=== PATIENT | female | born 1945 | race Caucasian/White ===

== ENCOUNTER 2019-03-15 10:06 | Outpatient (RCR) | payer MEDICARE, OTHER, SELFPAY | END 2019-04-10 00:01 | LOC: ONCMED 10:06 | PROVIDERS: Family Provider Nurse Practitioner Family; Visit Provider Internal Medicine Medical Oncology | DX: Z51.12 Encounter for antineoplastic immunotherapy (principal); C43.62 Malignant melanoma of left upper limb, including shoulder; C77.8 Secondary and unspecified malignant neoplasm of lymph nodes of multiple regions; M16.12 Unilateral primary osteoarthritis, left hip; I10 Essential (primary) hypertension; E03.9 Hypothyroidism, unspecified; E66.9 Obesity, unspecified; K21.9 Gastro-esophageal reflux disease without esophagitis; G47.33 Obstructive sleep apnea (adult) (pediatric); F41.8 Other specified anxiety disorders; D50.9 Iron deficiency anemia, unspecified; Z90.49 Acquired absence of other specified parts of digestive tract; Z87.01 Personal history of pneumonia (recurrent); Z85.038 Personal history of other malignant neoplasm of large intestine; Z87.442 Personal history of urinary calculi | CPT/HCPCS: 36415; 80053; 82274; 84439; 84443; 85025; 96413; 99214; J7050; J9299 ×2 ==

== ENCOUNTER 2019-04-16 07:20 | Outpatient (RCR) | payer MEDICARE, OTHER, SELFPAY ==
[2019-04-16 17:34] LABS: Basophils % 0.6 %; Eosinophils # 0.1 10^3/uL (0.0-0.8); Eosinophils % 2.3 %; Hemoglobin 10.2 g/dL (11.5-15.3); Lymphocytes # 1.6 10^3/uL (0.8-4.8); Lymphocytes % 34.9 %; Mean Corpuscular HGB Conc 29.1 g/dL (30.0-36.0); Mean Corpuscular Hemoglobin 29.1 pg (28.0-34.0); Mean Corpuscular Volume 99.7 fL (81-99); Mean Platelet Volume 9.9 fL (7.4-10.4); Monocytes # 0.5 10^3/uL (0.2-0.9); Monocytes % 10.4 %; Neutrophils # 2.4 10^3/uL (1.8-7.7); Neutrophils % 51.6 %; Nucleated Red Blood Cells % 0 %; Platelet Count 189 10^3/cmm (130-400); Red Blood Count 3.51 10^6/uL (4.1-5.3); White Blood Count 4.7 10^3/uL (4.0-10.0)
[2019-04-16 23:26] LABS: Alanine Aminotransferase 15 U/L (0-33); Albumin Level 4.3 g/dL (3.5-5.2); Alkaline Phosphatase 137 IU/L (35-105); Anion Gap 16.1 (5-19); Aspartate Amino Transferase 30 U/L (0-32); Blood Urea Nitrogen 12 mg/dL (8-23); Calcium 9.9 mg/Dl (8.8-10.2); Carbon Dioxide 29 mmol/L (22-29); Chloride 101 mmol/L (98-107); Globulin 3.3 g/dL (1.3-4.6); Glucose 154 mg/dL (74-106); Lactate Dehydrogenase 246 U/L (135-214); Potassium 4.1 mmol/L (3.5-5.1); Sodium 142 mmol/L (136-145); Thyroid Stimulating Hormone 4.37 uIU/mL (0.27-4.20); Total Bilirubin 0.7 mg/dL (0.15-1.2); Total Protein 7.6 g/dL (6.6-8.7)
== END 2019-04-16 23:59 | disposition home or self-care (01) ==
LOC: ONCMED 07:20
PROVIDERS: Family Provider Nurse Practitioner Family; Visit Provider Internal Medicine Medical Oncology
DX: C43.62 Malignant melanoma of left upper limb, including shoulder (principal); E03.9 Hypothyroidism, unspecified; Z79.899 Other long term (current) drug therapy
CPT/HCPCS: 80053; 83615; 84443; 85025

== ENCOUNTER 2019-05-10 13:50 | Outpatient (RCR) | payer MEDICARE, OTHER, SELFPAY ==
[2019-04-17] MEDS: sodium chloride 0.9% 250 ML 50 ML IV (13:57)
[2019-04-19] MEDS: sodium chloride 0.9% 250 ML 50 ML IV (15:00)
[2019-05-01] MEDS: sodium chloride 0.9% 250 ML 50 ML IV (13:45)
--- NOTE | 2019-05-10 13:58 | CT_ITS ---
WS: [id number] CT CHEST TECHNIQUE: Contrast enhanced CT of the chest with coronal and sagittal reformatted images. CLINICAL INFORMATION: RESTAGING METASTATIC MELANOMA COMPARISON: CTA chest 8 19,019 DLP: 993.[address] scans at [facility] use at least one of these dose optimization techniques: automat ed exposure control; mA and/or kV adjustment per patient size (includes targeted exams where dose is matched to clinical indication); or iterative reconstruction. FINDINGS:Prominent left axillary lymphadenopathy with large axillary mass/lymph node. This is increas ed in size since the prior examination today measuring 5.5 x 2.9 x 4.4 CM. Additional smaller enlarge d axillary lymph nodes the largest measuring 13 mm. Prominent left supraclavicular lymph node. Mild chronic emphysematous changes. No acute pulmonary infiltrates. No focal consolidation or pleural fluid. Bibasilar atelectasis. A few calcified granulomas. Calcified right hilar and subcarinal lymph nodes. Stable 4 mm noncalcified pulmonary nodule in the right upper lobe. Proximal main pulmonary arteries are normal. Normal caliber thoracic aorta. Adrenal glands are normal . Fatty atrophy of the pancreas. Low-attenuation lesion in the dome of the liver likely small hepatic cyst or hemangioma is unchanged measuring 12 mm. Normal caliber upper abdominal aorta. CT/CT chest w con* [id number] IMPRESSION: 1. Interval increase in size of the left axillary mass/lymph node today measur ing 5.5 x 2.9 x 4.4 cm suspicious for disease progression. Additional surroundi ng enlarged left axillary lymph nodes are similar in appearance. Additional pro minent left supraclavicular lymph node is stable. 2. No right axillary lymphadenopathy. 3. Stable 4 mm noncalcified nodule in the right upper lobe. 4. Chronic emphysematous changes with a few calcified granulomas. Calcified hi lar and subcarinal lymph nodes. 5. No mediastinal or hilar lymphadenopathy.
[2019-05-10] MEDS: iohexol 300 mg/mL 100 mL Btl 95 ML IV (15:06)
== END 2019-05-11 23:59 | disposition home or self-care (01) ==
LOC: RAD 13:50
PROVIDERS: Family Provider Nurse Practitioner Family; Visit Provider Nurse Practitioner
DX: Z51.12 Encounter for antineoplastic immunotherapy (principal); C43.62 Malignant melanoma of left upper limb, including shoulder; C77.8 Secondary and unspecified malignant neoplasm of lymph nodes of multiple regions; D50.9 Iron deficiency anemia, unspecified; Z90.49 Acquired absence of other specified parts of digestive tract; M16.12 Unilateral primary osteoarthritis, left hip; I10 Essential (primary) hypertension; E03.9 Hypothyroidism, unspecified; E66.9 Obesity, unspecified; G47.33 Obstructive sleep apnea (adult) (pediatric); K21.9 Gastro-esophageal reflux disease without esophagitis; F41.8 Other specified anxiety disorders; R60.0 Localized edema; Z79.891 Long term (current) use of opiate analgesic; Z85.038 Personal history of other malignant neoplasm of large intestine; Z87.01 Personal history of pneumonia (recurrent); Z87.442 Personal history of urinary calculi; Z87.891 Personal history of nicotine dependence; Z92.21 Personal history of antineoplastic chemotherapy
CPT/HCPCS: 71260; 96365; 96367; 96413; 99214; A4222; J1439; J7050; J9299

== ENCOUNTER 2019-06-01 05:41 | Outpatient (RCR) | payer MEDICARE, OTHER, SELFPAY ==
[2019-05-14 14:54] LABS: Basophils % 0.3 %; Eosinophils # 0.1 10^3/uL (0.0-0.8); Eosinophils % 2.6 %; Lymphocytes # 1.1 10^3/uL (0.8-4.8); Lymphocytes % 30.7 %; Mean Corpuscular HGB Conc 30.6 g/dL (30.0-36.0); Mean Corpuscular Hemoglobin 29.6 pg (28.0-34.0); Mean Platelet Volume 9.5 fL (7.4-10.4); Monocytes # 0.3 10^3/uL (0.2-0.9); Monocytes % 8.7 %; Neutrophils % 57.4 %; Nucleated Red Blood Cells % 0 %; Platelet Count 147 10^3/cmm (130-400); Red Blood Count 3.71 10^6/uL (4.1-5.3); Red Cell Distribution Width 16.8 % (12.1-15.1); White Blood Count 3.5 10^3/uL (4.0-10.0)
[2019-05-14 15:25] LABS: Alanine Aminotransferase 23 U/L (0-33); Albumin Level 3.6 g/dL (3.5-5.2); Alkaline Phosphatase 131 IU/L (35-105); Anion Gap 14.8 (5-19); Aspartate Amino Transferase 39 U/L (0-32); Blood Urea Nitrogen 10 mg/dL (8-23); Calcium 9.6 mg/dL (8.5-10.5); Carbon Dioxide 26 mmol/L (22-29); Chloride 103 mmol/L (98-107); Globulin 3.9 g/dL (1.3-4.6); Glucose 148 mg/dL (74-106); Potassium 3.8 mmol/L (3.5-5.1); Sodium 140 mmol/L (136-145); Thyroid Stimulating Hormone 1.07 uIU/mL (0.27-4.20); Total Bilirubin 1.1 mg/dL (0.15-1.2); Total Protein 7.5 g/dL (6.6-8.7)
[2019-05-24 21:19] LABS: Glucose Urine UA Norm (Normal); Ketones Urine Negative (Negative); Protein Urine Neg (Negative); Urine Appearance Cloudy (CLEAR); Urine Color Dark Yellow (Yellow); pH Urine 6 (5-7)
[2019-05-24 21:20] LABS: Add Urine Microscopic? YES; Bilirubin Urine Neg (NEGATIVE); Blood Urine 3+ (Negative); Leukocyte Esterase Urine Negative (Negative); Nitrate Urine Negative (Negative); Urobilinogen Urine 1 mg/dL (Negative)
[2019-05-24 21:22] LABS: RBC Urine 40-50 /hpf (0-2); WBC Urine 0-4 /hpf (0-5)
[2019-05-24 21:23] LABS: Add Urine Culture? No; Bacteria Urine TRACE; Calcium Oxalate Crystals Urine 40-55 /hpf; Squamous Epithelial Cell Urine 25-40 (0-5); Transitional Epi Cells Urine 0-4 /hpf
[2019-05-31 10:25] LABS: Basophils % 0.8 %; Eosinophils # 0.1 10^3/uL (0.0-0.8); Eosinophils % 3.5 %; Hematocrit 36.3 % (37.0-47.0); Hemoglobin 11.5 g/dL (11.5-15.3); Lymphocytes # 1.2 10^3/uL (0.8-4.8); Lymphocytes % 32.1 %; Mean Corpuscular HGB Conc 31.7 g/dL (30.0-36.0); Mean Corpuscular Hemoglobin 31.5 pg (28.0-34.0); Mean Corpuscular Volume 99.5 fL (81-99); Mean Platelet Volume 9.3 fL (7.4-10.4); Monocytes # 0.4 10^3/uL (0.2-0.9); Monocytes % 9.8 %; Neutrophils % 53.5 %; Nucleated Red Blood Cells % 0 %; Platelet Count 154 10^3/cmm (130-400); Red Blood Count 3.65 10^6/uL (4.1-5.3); Red Cell Distribution Width 15.9 % (12.1-15.1); White Blood Count 3.7 10^3/uL (4.0-10.0)
[2019-05-31 10:52] LABS: Alanine Aminotransferase 23 U/L (0-33); Albumin Level 3.5 g/dL (3.5-5.2); Alkaline Phosphatase 131 IU/L (35-105); Anion Gap 12.3 (5-19); Aspartate Amino Transferase 41 U/L (0-32); Blood Urea Nitrogen 8 mg/dL (8-23); Calcium 9.7 mg/dL (8.5-10.5); Carbon Dioxide 29 mmol/L (22-29); Chloride 102 mmol/L (98-107); Globulin 3.8 g/dL (1.3-4.6); Glucose 101 mg/dL (65-115); Potassium 4.3 mmol/L (3.5-5.1); Sodium 139 mmol/L (136-145); Thyroid Stimulating Hormone 3.66 uIU/mL (0.27-4.20); Total Bilirubin 0.9 mg/dL (0.15-1.2); Total Protein 7.3 g/dL (6.6-8.7)
--- NOTE | 2019-06-03 10:02 | ONC FU_ITS ---
Dr. Kyle Patient Follow-Up Note Patient: Laurence Malave Unit #: [id number]: 1945 Dicatated By: Benjamín Kyle M.D.Date of Visit:Jun 01, 2019 Onc Med Follow-up/Prog Note Chief Complaint: Melanoma. History of Present Illness: This is a 73 year-old woman with malignant melanoma involving the left upper back/left shoulder. By clinical evaluation her disease appeared to be stage IV (pT4b, cN3, cM1a) at initial diagnosis in June 2018. She has a prior history of stage III colon cancer, having undergone right hemicolectomy and adjuvant chemotherapy approximately 1994. There has been no evidence of recurrence. She had been seen by Dr. Rubi in June for a skin lesion in the left upper back/left shoulder area. It had been enlarging over a period of about a year. Exam at that time noted a pedunculated, flesh-colored, lobulated lesion with some necrosis measuring 6 to 7 cm in greatest diameter. She underwent excisional biopsy on 06/15/2018. Pathology showed infiltrating malignant melanoma measuring 6.5 x 6.0 x 4.0 cm. Tumor was noted to penetrate the dermal connective tissue into underlying subcutaneous adipose tissue. The Breslow depth was greater than 4.00 mm. The tumor was noted to have surface ulceration. An incidental subcutaneous lymph node in the specimen was free of metastatic tumor. Grossly the tumor appeared to be completely excised with the distance from the tumor to lateral and deep margins noted to be greater than 1 cm. I had seen her on 07/26/2018 regard to further management of the melanoma. At that time she was noted on exam to have a palpable left supraclavicular lymph node. Her staging PET/CT on 07/29/2018 showed an FDG positive left supraclavicular lymph node measuring 2.0 cm, SUV 14.5. Also noted was an FDG avid left axillary lymph node measuring 5.5 x 3.6 cm, SUV 26.6. Other scattered axillary lymph nodes measuring up to 1.6 cm were mildly FDG positive. There were additional suspicious mediastinal lymph nodes in the AP window and prevascular regions. There were no other areas of metastatic involvement noted. In the meantime, her tumor was sent for BRAF mutation analysis, and a BRAF 600 mutation was not detected. I had conferred with one of the melanoma specialists at [facility], and she was given the option to be seen there for second opinion evaluation. As an alternative, it was recommended that she proceed with a trial of immunotherapy as opposed to attempting further surgical resection with axillary/supraclavicular lymph node dissections. She opted to proceed with medical therapy, and arrangements were made with Dr. Rubi for placement of Port-A-Cath venous access device. In the meantime, on 08/07/2018 she was admitted to the hospital with strep pneumoniae sepsis and pneumonia. She had an uneventful recovery with antibiotic therapy. Her medical history is otherwise significant for severe degenerative arthritis of the left hip, which severely restricts her activity. Her other medical illnesses include hypertension, hypothyroidism, obesity, obstructive sleep apnea, and GERD. She has a history of nephrolithiasis, and she has anxiety/depression. She has a history of smoking for 30 years, up to 1 pack of cigarettes daily. She quit smoking in 2018. INTERIM HISTORY: On 09/12/2018 she began treatment with nivolumab 240 mg by IV infusion every 2 weeks. She tolerated the initial infusion well, and she was unable to continue treatment at 2-week intervals. During that time she remained mildly anemic with hemoglobin in the range of 10 g. Her serum studies and November showed low transferrin saturation at 10.4% with ferritin low at 15.0 ng/mL, consistent with iron deficiency. She began oral iron supplementation. As of March 2019 her hemoglobin had decreased to 8.1 g. She began oral iron supplementation and she began on treatment with Protonix. Her stool FIT was positive. As of 04/17/2019 she completed cycle 15 of nivolumab. At that point her hemoglobin was still low at 10.2 g. She was not tolerating the oral iron. As such, she was given parenteral iron replacement with 2 infusions of Injectafer. She continued with cycle 16 of nivolumab on 05/01/2019. A restaging chest CT on 05/10/2019 showed interval increase in the size of a left axillary mass, measuring 5.5 x 2.9 x 4.4 cm, suspicious for disease progression. There were additional smaller axillary lymph nodes measuring up to 13 mm and there is a prominent left supraclavicular lymph node. Calcified right hilar and subcarinal lymph nodes appeared stable and a 4 mm noncalcified pulmonary nodule in the right upper lobe appeared stable. There was no change in a 12 mm low-attenuation lesion in the dome of the liver, felt to be most likely a small hepatic cyst or hemangioma. Her further treatment was put on hold, initially because of hematuria and subsequently because of a viral gastroenteritis syndrome. She is seen now for a follow-up visit. She continues have very limited activity, mainly due to her left hip pain. She does not get up and around very much. Her ECOG score is 3. She has good appetite. She has no fever or night sweats. She has been having hematuria intermittently for several months, and she is now on empiric antibiotic therapy. She had recently had vomiting and diarrhea, presumably due to viral gastroenteritis, and those symptoms have completely resolved. She has shortness of breath quite a bit, and she sometimes wakes up at night short of breath. She says she had a pretty bad coughing spell yesterday. She has not been having chest pain. She has no other joint or bone pain. She has numbness/tingling in her hands and feet. Medications: amLODIPine Besylate 1 Tablet (of 5 mg) Oral daily, Bactrim DS 1 Tablet (of 800-160 mg) Oral b.i.d., Cholestyramine Light Pack Oral daily PRN, Furosemide 1 - 2 Tablet (of 20 mg) Oral daily PRN, HYDROcodone-Acetaminophen 1 - 2 Tablet (of 5-325 mg) Oral q 4 hours PRN, Levothyroxine Sodium 1 Tablet (of 125 mcg) Oral daily, Losartan Potassium 1 Tablet (of 50 mg) Oral daily, Metoprolol Tartrate 1 Tablet (of 50 mg) Oral b.i.d., Potassium Chloride ER 2 Tablet (of 20 meq) Tablet, controlled release Oral daily PRN, traMADol HCl 1 - 2 Tablet (of 50 mg) Oral four times a day PRN Allergies: No Known Allergies. Review of Systems: Constitutional - Her energy is fair. She is not able to get up and around much at home. Her appetite is good and her weight is stable. No fever, chills, hot flashes, or night sweats. ECOG score is 3, ENMT - She has sinus congestion/drainage. No mouth sores. No sore throat or difficulty swallowing, Hematologic/Lymphatic - No abnormal bruising or bleeding, Respiratory - She has shortness of breath. She is supposed to wear oxygen at night, but she sometimes forgets. She has occasional coughing spells. No pleuritic pain or hemoptysis, Cardiovascular - No angina pain. No palpitations, Gastrointestinal - No nausea or vomiting. No heartburn or acid reflux. She had diarrhea with a stomach bug a few weeks ago. Her bowels are better now. No blood in the stool or black stools, Genitourinary (F) - No dysuria. She has had blood in her urine for the last few months. No urinary frequency. No urgency or incontinence, Musculoskeletal - She has pain in her hips, Integumentary - No skin complications, Neurologic - No headache. She has occasional dizzy spells. She has numbness and tingling in her fingers, Psychiatric - She has anxiety and depression. No insomnia. Vital Signs: Performed on Jun 01, 2019 09:33 Height - 64.00 in Weight - lbs Temperature - 98.6 F Pulse - 55 /min (LOW) Respiration - 24 /min BP - 136/63 mm(hg) O2 Sat - 96 % Pain - 8 Physical Examination: Constitutional - She appears somewhat weak generally. Her mobility is very limited, Eyes - Sclerae nonicteric. Conjunctivae clear, ENMT - No lesions noted in the oral cavity, Hematologic/Lymphatic - There is no cervical, clavicular, or axillary lymphadenopathy noted, Respiratory - Lungs sound clear with diminished air movement bilaterally, Cardiovascular - Heart rhythm is regular with bradycardia. There is a II/ systolic murmur. There is no gallop or rub noted, Abdomen - Distended but soft. Liver and spleen are not enlarged. There is no abdominal mass or ascites noted and there is no inguinal adenopathy, Extremities - Mild lower extremity edema with induration, Integumentary - Her skin is generally dry and flaky. There is an area of skin irriatation on the posterior right calf. There is no open ulceration, Neurologic - She has a mild tremor. There are no focal neurologic deficits noted. Lab/Imaging: Her CBC shows hemoglobin 11.5 g, white blood cell count 3700, and platelet count 154,000. Her comprehensive metabolic profile is unremarkable except for slightly elevated alkaline phosphatase of 131/105 IU/L. TSH is normal at 3.66 ???IU/mL. Impression: 1. Patient with malignant melanoma involving the left upper back/posterior left shoulder. By clinical evaluation her disease appears to be at least stage III (pT4b, N1, M0) with a palpable left supraclavicular lymph node. 2. She underwent excisional biopsy on 06/15/2018 with lateral and deep surgical margins reported at greater than 1 cm. 3. She has limited mobility due to severe degenerative arthritis of the left hip. Her other medical illnesses include: 4. Hypertension. 5. Hypothyroidism. 6. Obesity. 7. GERD. 8. Obstructive sleep apnea. 9. Nephrolithiasis. 10. She underwent right hemicolectomy and adjuvant chemotherapy for colon cancer in 1994. 11. Anxiety/depression. On 09/12/2018 she began treatment with nivolumab 240 mg by IV infusion every 2 weeks. She tolerated the initial infusion well, and she then continued treatment at 2-week intervals. As of March 2019 she had become more significantly anemic. Her serum iron studies and ferritin were consistent with iron deficiency, and she began on oral iron supplementation. She also started treatment with Protonix empirically. Her stool FIT was positive. As of 04/17/2019 she continued with cycle 15 of nivolumab. At that point she was still mildly anemic. As she was not tolerating the oral iron, she was given parenteral iron replacement with Injectafer. She had continued with cycle 16 of nivolumab on 05/01/2019. Her further treatment has been on hold due to hematuria and to a viral gastroenteritis syndrome. In the meantime, her restaging chest CT on 05/10/2019 showed apparent increased left axillary lymphadenopathy, consistent with disease progression. There was apparent residual left supraclavicular adenopathy. There was no other evidence of disease progression. Plan: As she has not had other areas of disease progression, she will continue with cycle 17 of nivolumab. She will complete her antibiotic therapy, and she will have repeat urinalysis and culture when she returns in 2 weeks. In the meantime, I will talk to Dr. Rubi about the possibility of going ahead with left axillary and supraclavicular lymph node dissection. Signed By: Benjamín Kyle M.D. <<Signature on File>>
== END 2019-06-09 23:59 | disposition home or self-care (01) ==
LOC: ONCMED 05:41
PROVIDERS: Nurse Practitioner; Family Provider Nurse Practitioner Family; Visit Provider Internal Medicine Medical Oncology
DX: Z51.12 Encounter for antineoplastic immunotherapy (principal); C43.62 Malignant melanoma of left upper limb, including shoulder; C77.8 Secondary and unspecified malignant neoplasm of lymph nodes of multiple regions; R31.9 Hematuria, unspecified; M16.12 Unilateral primary osteoarthritis, left hip; I10 Essential (primary) hypertension; E03.9 Hypothyroidism, unspecified; E66.9 Obesity, unspecified; G47.33 Obstructive sleep apnea (adult) (pediatric); K21.9 Gastro-esophageal reflux disease without esophagitis; F41.8 Other specified anxiety disorders; Z79.891 Long term (current) use of opiate analgesic; Z87.442 Personal history of urinary calculi; Z85.038 Personal history of other malignant neoplasm of large intestine; Z90.49 Acquired absence of other specified parts of digestive tract; Z87.891 Personal history of nicotine dependence
CPT/HCPCS: 80053; 81001; 84443; 85025; 96413; 99214; J7050; J9299

== ENCOUNTER 2019-07-10 06:43 | Outpatient (RCR) | payer MEDICARE, OTHER, SELFPAY ==
[2019-06-13 14:48] LABS: Basophils % 0.7 %; Eosinophils # 0.1 10^3/uL (0.0-0.8); Eosinophils % 2.3 %; Hematocrit 36.9 % (37.0-47.0); Hemoglobin 11.6 g/dL (11.5-15.3); Lymphocytes # 1.3 10^3/uL (0.8-4.8); Mean Corpuscular HGB Conc 31.4 g/dL (30.0-36.0); Mean Corpuscular Hemoglobin 31.4 pg (28.0-34.0); Mean Platelet Volume 9.4 fL (7.4-10.4); Monocytes # 0.4 10^3/uL (0.2-0.9); Monocytes % 8.8 %; Neutrophils # 2.6 10^3/uL (1.8-7.7); Nucleated Red Blood Cells % 0 %; Platelet Count 165 10^3/cmm (130-400); Red Blood Count 3.69 10^6/uL (4.1-5.3); Red Cell Distribution Width 14.2 % (12.1-15.1); White Blood Count 4.4 10^3/uL (4.0-10.0)
[2019-06-13 15:03] LABS: Alanine Aminotransferase 17 U/L (0-33); Albumin Level 3.9 g/dL (3.5-5.2); Alkaline Phosphatase 146 IU/L (35-105); Anion Gap 13.8 (5-19); Aspartate Amino Transferase 26 U/L (0-32); Blood Urea Nitrogen 8 mg/dL (8-23); Calcium 9.6 mg/dL (8.5-10.5); Carbon Dioxide 27 mmol/L (22-29); Chloride 105 mmol/L (98-107); Globulin 3.8 g/dL (1.3-4.6); Glucose 260 mg/dL (65-115); Potassium 3.8 mmol/L (3.5-5.1); Sodium 142 mmol/L (136-145); Total Bilirubin 1.1 mg/dL (0.15-1.2); Total Protein 7.7 g/dL (6.6-8.7)
[2019-06-13 15:26] LABS: Glucose Urine UA 4+ (Normal); Protein Urine Trace (Negative); Specific Gravity, Urine 1.025 (1.005-1.030); Urine Appearance Cloudy (CLEAR); Urine Color Brown (Yellow); pH Urine 5 (5-7)
[2019-06-13 15:27] LABS: Add Urine Microscopic? YES; Bilirubin Urine 1+ (NEGATIVE); Blood Urine 3+ (Negative); Ketones Urine Negative (Negative); Leukocyte Esterase Urine Negative (Negative); Nitrate Urine Negative (Negative); Urobilinogen Urine Norm (Negative)
[2019-06-13 15:28] LABS: Add Urine Culture? Yes; Bacteria Urine 2+; Mucus Urine 1+; RBC Urine TOO NUMEROUS TO CNT /hpf (0-2); Squamous Epithelial Cell Urine 0-4 (0-5)
--- NOTE | 2019-06-18 18:49 | ONC FU_ITS ---
[facility] Patient Note Patient: Laurence Malave Unit #: [id number]: 1945 Dictated By: Martha AraujoDate of Visit: Jun 14, 2019 Onc MED Follow-Up/Prog Note Chief Complaint: Melanoma. History of Present Illness: Ms Malave is a 73 year-old woman with malignant melanoma involving the left upper back/left shoulder. By clinical evaluation her disease appeared to be stage IV (pT4b, cN3, cM1a) at initial diagnosis in June 2018. She has a prior history of stage III colon cancer, having undergone right hemicolectomy and adjuvant chemotherapy approximately 1994. There has been no evidence of recurrence. She had been seen by Dr. Rubi in June for a skin lesion in the left upper back/left shoulder area. It had been enlarging over a period of about a year. Exam at that time noted a pedunculated, flesh-colored, lobulated lesion with some necrosis measuring 6 to 7 cm in greatest diameter. She underwent excisional biopsy on 06/15/2018. Pathology showed infiltrating malignant melanoma measuring 6.5 x 6.0 x 4.0 cm. Tumor was noted to penetrate the dermal connective tissue into underlying subcutaneous adipose tissue. The Breslow depth was greater than 4.00 mm. The tumor was noted to have surface ulceration. An incidental subcutaneous lymph node in the specimen was free of metastatic tumor. Grossly the tumor appeared to be completely excised with the distance from the tumor to lateral and deep margins noted to be greater than [address] Kyle had seen her on 07/26/2018 regard to further management of the melanoma. At that time she was noted on exam to have a palpable left supraclavicular lymph node. Her staging PET/CT on 07/29/2018 showed an FDG positive left supraclavicular lymph node measuring 2.0 cm, SUV 14.5. Also noted was an FDG avid left axillary lymph node measuring 5.5 x 3.6 cm, SUV 26.6. Other scattered axillary lymph nodes measuring up to 1.6 cm were mildly FDG positive. There were additional suspicious mediastinal lymph nodes in the AP window and prevascular regions. There were no other areas of metastatic involvement noted. In the meantime, her tumor was sent for BRAF mutation analysis, and a BRAF [address] Kyle had conferred with one of the melanoma specialists at [facility], and she was given the option to be seen there for second opinion evaluation. As an alternative, it was recommended that she proceed with a trial of immunotherapy as opposed to attempting further surgical resection with axillary/supraclavicular lymph node dissections. She opted to proceed with medical therapy, and arrangements were made with Dr. Rubi for placement of Port-A-Cath venous access device. In the meantime, on 08/07/2018 she was admitted to the hospital with strep pneumoniae sepsis and pneumonia. She had an uneventful recovery with antibiotic therapy. Her medical history is otherwise significant for severe degenerative arthritis of the left hip, which severely restricts her activity. Her other medical illnesses include hypertension, hypothyroidism, obesity, obstructive sleep apnea, and GERD. She has a history of nephrolithiasis, and she has anxiety/depression. She has a history of smoking for 30 years, up to 1 pack of cigarettes daily. She quit smoking in 2018. INTERIM HISTORY: On 09/12/2018 she began treatment with nivolumab 240 mg by IV infusion every 2 weeks. She tolerated the initial infusion well, and she was unable to continue treatment at 2-week intervals. During that time she remained mildly anemic with hemoglobin in the range of 10 g. Her serum studies and November showed low transferrin saturation at 10.4% with ferritin low at 15.0 ng/mL, consistent with iron deficiency. She began oral iron supplementation. As of March 2019 her hemoglobin had decreased to 8.1 g. She began oral iron supplementation and she began on treatment with Protonix. Her stool FIT was positive. As of 04/17/2019 she completed cycle 15 of nivolumab. At that point her hemoglobin was still low at 10.2 g. She was not tolerating the oral iron. As such, she was given parenteral iron replacement with 2 infusions of Injectafer. She continued with cycle 16 of nivolumab on 05/01/2019. A restaging chest CT on 05/10/2019 showed interval increase in the size of a left axillary mass, measuring 5.5 x 2.9 x 4.4 cm, suspicious for disease progression. There were additional smaller axillary lymph nodes measuring up to 13 mm and there is a prominent left supraclavicular lymph node. Calcified right hilar and subcarinal lymph nodes appeared stable and a 4 mm noncalcified pulmonary nodule in the right upper lobe appeared stable. There was no change in a 12 mm low-attenuation lesion in the dome of the liver, felt to be most likely a small hepatic cyst or hemangioma. Her further treatment was put on hold, initially because of hematuria and subsequently because of a viral gastroenteritis syndrome. Ms. Malave is here today for follow-up. She had a 2-week delay in her nivolumab treatment from May 01 to June 01. She had had upper respiratory and bladder infections. She did resume her nivolumab on June 01, 2019. She is here today for her 2-week treatment and follow-up. She states overall she is feeling better as far as the bronchitis/upper respiratory symptoms are concerned. She states that she is still having some bladder irritation frequency and burning. She did have an UA obtained yesterday which did show 2+ bacteria. She denies any pain. She continues to have the hip pain. She continues to be limited in mobility to her chair or bed. She denies any new shortness of breath or orthopnea, but continues to have her ususal shortness of breath/orthopnea. She denies any chest pain or palpitations. She has continued lower extremity edema. This does seem to be improved with help from elevating her legs and intermittent use of diuretics. The elevation does help some but she cannot elevate them very well she does not have the proper equipment at home. She denies any diarrhea or constipation, nausea, or vomiting. Her appetite is normal for her. Her ECOG is 3 due to the degenerative arthritis in her hips. Ms Malave could certainly benefit from a semi-electrical hospital bed. Mrs. Uriarte has severe degenerative arthritis of the left hip which severely restricts her activity. She also has obesity and obstructive sleep apnea and GERD. She also has a history of nephrolithiasis. She does require frequent position changes and has displayed symptoms of congestive heart failure and that she has had increased shortness of breath and orthopnea and lower extremity edema. She needs a hospital bed and that she requires positioning of the body that cannot be achieved in a normal bed. She requires elevation of the feet to a least a 30 to 45 degree angle and head of the bed at 45 to 90 degree angle at times. She also needs to have a semi-electric because she will not be able to manually manipulate height, head and foot of bed changes. The repositioning cannot be obtained and a normal bed and as she requires for alleviation of her pain. She requires traction equipment as she does have the need for frequent position changes and she would need to set up relatively fast due to her shortness of breath and pain. She does appear that she could manipulate a trapeze bar. Her family is not always available with her when she needs repositioning or to set up. I feel that she could utilize a trapeze successfully. Past Medical History: Anxiety Degenerative arthritis Depression Gastroesophageal reflux disease Heart disease History of colon cancer History of pancreatitis Hypothyroidism Nephrolithiasis Obesity Obstructive sleep apnea Psoriasis Past Surgical History: Anal fissure repair Portacath placement and removal Tonsillectomy Flu vaccine in 2019 Colonoscopy in 2012 Right hemicolectomy and appendectomy in 1994 Allergies: No Known Allergies. Medications: amLODIPine Besylate 1 Tablet (of 5 mg) Oral daily Cholestyramine Light Pack Oral daily PRN Furosemide 1 - 2 Tablet (of 20 mg) Oral daily PRN HYDROcodone-Acetaminophen 1 - 2 Tablet (of 5-325 mg) Oral q 4 hours PRN Levothyroxine Sodium 1 Tablet (of 125 mcg) Oral daily Losartan Potassium 1 Tablet (of 50 mg) Oral daily Metoprolol Tartrate 1 Tablet (of 50 mg) Oral b.i.d. Potassium Chloride ER 2 Tablet (of 20 meq) Tablet, controlled release Oral daily PRN traMADol HCl 1 - 2 Tablet (of 50 mg) Oral four times a day PRN Family History: Ms. Malave's mother is : renal cancer. Father apparently is still living, but she has no knowledge about his health. Mother with renal cancer at age 84. One brother has been treated for Hodgkin's lymphoma and another brother has been treated for prostate cancer. Social History: Ms. Malave is and she is retired. She quit smoking 1 year ago but had smoked 0.5 packs/day for 30 years. She has no history of drinking. Ms. Malave reports the following support systems: lives alone. Her diet consists of regular meals. She indicates her activity level as: sedentary and daily activities. She has a history of smoking for 30 years, up to 1 pack of cigarettes daily. She quit smoking about a month ago. She had some alcohol use when she was young, but none since then. Review Of Symptoms: Constitutional Denies fevers, chills, night sweats, excessive fatigue or weight loss. Limited activity at home but moreso due to hip pain than anything else. Allergic/Immunologic No reactions. Eyes Denies significant visual changes. No diplopia. No amaurosis. ENMT Denies changes in hearing, sore throat, mouth sores, difficulty or changes in swallowing ability, and/or sinus drainage. Has had some minor taste changes. Endocrine Denies hot flashes or night sweats. Hematologic/Lymphatic Denies easy bruising or bleeding. Left cervical lymph node is smaller. Breasts Respiratory Denies dyspnea on exertion, chest pain, cough or hemoptysis. Denies orthopnea. Breathing is a little more short off and on but has been fine for the most part . Denies pneumonitis symptoms. Cardiovascular Denies anginal chest pain, palpitations or orthopnea. Gastrointestinal Denies nausea, vomiting, diarrhea, GI bleeding, or constipation. Denies change in bowel habits and/or stool color, no heartburn or early satiety. Chronic intermittent diarrhea but no change in her normal patterns. Genitourinary (F) No hematuria, hesitancy, incontinence, vaginal bleeding, discharge or other problems with urination. Musculoskeletal Denies joint pain, swelling or redness. No decreased range of motion. Chronic left hip pain and limited mobility. Integumentary Denies chronic rashes, inflammation, ulcerations or skin changes. Neurologic Denies headache, blurred vision, and no areas of focal weakness or numbness. She utilizes a wheelchair for mobility. Psychiatric Denies insomnia, depression, victorina or mood swings. Has trouble sleeping all night because I doze off through the day alot . Vital Signs: Performed on Jun 14, 2019 12:40 Height - 64.00 in Weight - lbs Temperature - 98.6 F Pulse - 63 /min Respiration - 16 /min BP - 122/63 mm(hg) O2 Sat - 96 % Pain - 0 Fatigue - 3,3 - Capable of only limited self-care, confined to bed or chair more than 50% of waking hours. (ECOG) Physical Examination: Constitutional Alert, oriented, no acute distress. Skin pink, warm and dry. Head Normocephalic; atraumatic. Eyes Conjunctivae and sclerae are clear and without icterus. Pupils are reactive and equal. Neck Supple without masses or thyromegaly. No jugular venous distension. Hematologic/Lymphatic No petechiae or purpura. No tender or palpable lymph nodes in the right cervical or supraclavicular areas. Respiratory Lungs are clear to auscultation without rhonchi or wheezing. Cardiovascular Regular rate and rhythm of heart without murmurs,clicks, gallops or rubs. Abdomen Non-tender, non-distended, no masses, ascites. Back/Spine Non-tender to palpation. Extremities No visible deformities, no cyanosis, clubbing. +2 bilateral lower extremity edema. Musculoskeletal No tenderness or swelling. Presents in a wheelchair today. Integumentary No rashes or lesions. Neurologic No sensory or motor deficits, normal cerebellar function. Gait not assessed-patient in wheelchair. Psychiatric Alert and oriented times three. Coherent speech. Verbalizes understanding of our discussions today. Laboratory:Test performed on Jun 13, 2019 13:00 Sodium 142 mmol/L Potassium 3.8 mmol/L Chloride 105 mmol/L CO2 27 mmol/L Anion Gap 13.8 BUN 8 mg/dL Creatinine 0.5 mg/dL Cr Clearance (Est) 203.9200 mL/min Glucose 260 mg/dL Calcium 9.6 mg/dL Protein, Total 7.7 g/dL Albumin 3.9 g/dL Globulin 3.8 g/dL Bilirubin, Total 1.1 mg/dL ALT (SGPT) 17 U/L AST (SGOT) 26 U/L Alkaline Phosphatase 146 IU/L WBC 4.4 10 3/uL RBC 3.69 10 6/uL HGB 11.6 g/dL HCT 36.9 % MCV 100.0 fL MCH 31.4 pg MCHC 31.4 g/dL RDW 14.2 % Platelet Count 165 10 3/cmm MPV 9.4 fL Neutrophils 2.6 10 3/uL Lymphocytes 1.3 10 3/uL Monocytes 0.4 10 3/uL Eosinophils 0.1 10 3/uL Basophils 0.0 10 3/uL Neutrophil % 59.0 % Lymphocyte % 29.0 % Monocyte % 8.8 % Eosinophil % 2.3 % Basophils % 0.7 % Ua Micro: WBC 5-10 /hpf Ua Micro: RBC TOO NUMEROUS TO CNT /hpf Ua Micro: Squam Epith Cells 0-4 Ua Micro: Bacteria 2+ Ua Micro: Mucous 1+ Impression: 1. Patient with malignant melanoma involving the left upper back/posterior left shoulder. By clinical evaluation her disease appears to be at least stage III (pT4b, N1, M0) with a palpable left supraclavicular lymph node. 2. She underwent excisional biopsy on 06/15/2018 with lateral and deep surgical margins reported at greater than 1 cm. 3. She has limited mobility due to severe degenerative arthritis of the left hip. Her other medical illnesses include: 4. Hypertension. 5. Hypothyroidism. 6. Obesity. 7. GERD. 8. Obstructive sleep apnea. 9. Nephrolithiasis. 10. She underwent right hemicolectomy and adjuvant chemotherapy for colon cancer in 1994. 11. Anxiety/depression. On 09/12/2018 she began treatment with nivolumab 240 mg by IV infusion every 2 weeks. She tolerated the initial infusion well, and she then continued treatment at 2-week intervals. She has now completed 14 cycles of treatmenbut it has now been 4 weeks between treatments. At her followup in March 2019, she was having more joint and muscle pain, and she also had been getting more fatigued. She had become significantly anemic and was found to be iron deficient. She did start Geritol and her HGB is improved at 10.2 from 04/16/2019-it was 8.1 on 03/12/2019. Unfortunately the Geritol caused GI distress. She was given IV iron replacement with Injectafer on 04/19/2019 &05/01/2019. Her Hemoglobin is slowly improving. She did have restaging CT of the chest on May 10, 2019 which showed apparent increased left axillary node consistent with disease progression. There is apparent residual left supraclavicular adenopathy but there was no evidence of other disease progression. She continues with immunotherapy. Her case has been discussed with Dr. Rubi to see if it is possible to proceed with left axillary and supraclavicular node dissection. Plan: 1. Proceed with cycle 18 nivolumab 240 mg every two weeks by IV infusion. 2. will treat abnormal UA with Bactrim DS twice daily x 10 days. 3. Labs from 06/13/2019 were reviewed in detail and discussed with Ms. Malave and her son. A copy of the labs was given to them. WBC 4.4, hemoglobin 11.6, platelets 165,000 ANC is 2600. Potassium 3.8 creatinine 0.5, Random glucose 260 (she states she has ate [employer] within an hour or so of her blood draw). LFTs are normal and TSH from 05/31/2019 wa 3.66. She was instructed to continue her current thyroid dose. 4. I have requested a [facility] bed-see above. 5. We will plan to see Ms. Malave back in 2 weeks with UA, CBC CMP, iron studies and TSH. 6. She instructed to call us in interim with questions or problems arise. Signed By: Martha Araujo-, AOCNP Benjamín Kyle MD <<Signature on File>>
== END 2019-07-10 23:59 | disposition home or self-care (01) ==
LOC: ONCMED 06:43
PROVIDERS: Internal Medicine Medical Oncology; Family Provider Nurse Practitioner Family; Visit Provider Nurse Practitioner
DX: Z51.12 Encounter for antineoplastic immunotherapy (principal); C43.62 Malignant melanoma of left upper limb, including shoulder; C77.8 Secondary and unspecified malignant neoplasm of lymph nodes of multiple regions; R53.83 Other fatigue; R31.9 Hematuria, unspecified; N39.0 Urinary tract infection, site not specified; I11.0 Hypertensive heart disease with heart failure; I50.9 Heart failure, unspecified; M16.12 Unilateral primary osteoarthritis, left hip; E03.9 Hypothyroidism, unspecified; E66.9 Obesity, unspecified; G47.33 Obstructive sleep apnea (adult) (pediatric); K21.9 Gastro-esophageal reflux disease without esophagitis; F41.8 Other specified anxiety disorders; Z79.899 Other long term (current) drug therapy; Z90.49 Acquired absence of other specified parts of digestive tract; Z85.038 Personal history of other malignant neoplasm of large intestine; Z87.891 Personal history of nicotine dependence
CPT/HCPCS: 80053; 81001; 85025; 87086; 96413; 99214; J7050; J9299

== ENCOUNTER 2019-08-07 06:46 | Outpatient (RCR) | payer MEDICARE, OTHER, SELFPAY ==
[2019-07-23 17:08] LABS: Basophils % 0.8 %; Eosinophils # 0.2 10^3/uL (0.0-0.8); Eosinophils % 3.1 %; Hematocrit 38.8 % (37.0-47.0); Lymphocytes # 1.8 10^3/uL (0.8-4.8); Lymphocytes % 35.1 %; Mean Corpuscular HGB Conc 30.9 g/dL (30.0-36.0); Mean Corpuscular Hemoglobin 32.1 pg (28.0-34.0); Mean Corpuscular Volume 103.7 fL (81-99); Mean Platelet Volume 9.6 fL (7.4-10.4); Monocytes # 0.4 10^3/uL (0.2-0.9); Monocytes % 8.1 %; Neutrophils # 2.7 10^3/uL (1.8-7.7); Neutrophils % 52.7 %; Nucleated Red Blood Cells % 0 %; Platelet Count 177 10^3/cmm (130-400); Red Blood Count 3.74 10^6/uL (4.1-5.3); Red Cell Distribution Width 12.5 % (12.1-15.1); White Blood Count 5.2 10^3/uL (4.0-10.0)
[2019-07-23 17:45] LABS: Alanine Aminotransferase 23 U/L (0-33); Alkaline Phosphatase 148 IU/L (35-105); Anion Gap 16.7 (5-19); Aspartate Amino Transferase 37 U/L (0-32); Blood Urea Nitrogen 12 mg/dL (8-23); Carbon Dioxide 27 mmol/L (22-29); Chloride 102 mmol/L (98-107); Ferritin 136 ng/mL (15-150); Globulin 3.7 g/dL (1.3-4.6); Glucose 238 mg/dL (65-115); Iron 117 ug/dL (37-145); Osmolality Calculated 298 mOsm/kg (285-295); Percent Saturation 35.4 % (20-50); Potassium 3.7 mmol/L (3.5-5.1); Sodium 142 mmol/L (136-145); Thyroid Stimulating Hormone 1.17 uIU/mL (0.27-4.20); Total Bilirubin 0.8 mg/dL (0.15-1.2); Total Iron Binding Capacity 330 mcg/dl; Total Protein 7.7 g/dL (6.6-8.7); Unsaturated Iron Binding 213 ug/dL (112-347)
[2019-07-24 15:29] LABS: Blood Urine 3+ (Negative); Glucose Urine UA Norm (Normal); Ketones Urine Negative (Negative); Protein Urine Trace (Negative); Urine Appearance Hazy (CLEAR); Urine Color Yellow (Yellow); pH Urine 5 (5-7)
[2019-07-24 15:30] LABS: Add Urine Microscopic? YES; Bilirubin Urine Neg (NEGATIVE); Leukocyte Esterase Urine Trace (Negative); Nitrate Urine Negative (Negative); Urobilinogen Urine Norm (Negative)
[2019-07-24 15:33] LABS: Add Urine Culture? No; Bacteria Urine 2+; RBC Urine 40-50 /hpf (0-2); WBC Urine 25-40 /hpf (0-5)
[2019-07-24 15:55] LABS: Lactate Dehydrogenase 280 U/L (135-214)
--- NOTE | 2019-07-25 12:36 | ONC FU_ITS ---
Dr. Kyle Patient Follow-Up Note Patient: Laurence Malave Unit #: [id number]: 1945 Dicatated By: Benjamín Kyle M.D.Date of Visit:Jul 24, 2019 Onc Med Follow-up/Prog Note Chief Complaint: Melanoma. History of Present Illness: This is a 73 year-old woman with malignant melanoma involving the left upper back/left shoulder. By clinical evaluation her disease appeared to be stage IV (pT4b, cN3, cM1a) at initial diagnosis in June 2018. She has a prior history of stage III colon cancer, having undergone right hemicolectomy and adjuvant chemotherapy approximately 1994. There has been no evidence of recurrence. She had been seen by Dr. Rubi in June for a skin lesion in the left upper back/left shoulder area. It had been enlarging over a period of about a year. Exam at that time noted a pedunculated, flesh-colored, lobulated lesion with some necrosis measuring 6 to 7 cm in greatest diameter. She underwent excisional biopsy on 06/15/2018. Pathology showed infiltrating malignant melanoma measuring 6.5 x 6.0 x 4.0 cm. Tumor was noted to penetrate the dermal connective tissue into underlying subcutaneous adipose tissue. The Breslow depth was greater than 4.00 mm. The tumor was noted to have surface ulceration. An incidental subcutaneous lymph node in the specimen was free of metastatic tumor. Grossly the tumor appeared to be completely excised with the distance from the tumor to lateral and deep margins noted to be greater than 1 cm. I had seen her on 07/26/2018 regard to further management of the melanoma. At that time she was noted on exam to have a palpable left supraclavicular lymph node. Her staging PET/CT on 07/29/2018 showed an FDG positive left supraclavicular lymph node measuring 2.0 cm, SUV 14.5. Also noted was an FDG avid left axillary lymph node measuring 5.5 x 3.6 cm, SUV 26.6. Other scattered axillary lymph nodes measuring up to 1.6 cm were mildly FDG positive. There were additional suspicious mediastinal lymph nodes in the AP window and prevascular regions. There were no other areas of metastatic involvement noted. In the meantime, her tumor was sent for BRAF mutation analysis, and a BRAF 600 mutation was not detected. I had conferred with one of the melanoma specialists at [facility], and she was given the option to be seen there for second opinion evaluation. As an alternative, it was recommended that she proceed with a trial of immunotherapy as opposed to attempting further surgical resection with axillary/supraclavicular lymph node dissections. She opted to proceed with medical therapy, and arrangements were made with Dr. Rubi for placement of Port-A-Cath venous access device. In the meantime, on 08/07/2018 she was admitted to the hospital with strep pneumoniae sepsis and pneumonia. She had an uneventful recovery with antibiotic therapy. Her medical history is otherwise significant for severe degenerative arthritis of the left hip, which severely restricts her activity. Her other medical illnesses include hypertension, hypothyroidism, obesity, obstructive sleep apnea, and GERD. She has a history of nephrolithiasis, and she has anxiety/depression. She has a history of smoking for 30 years, up to 1 pack of cigarettes daily. She quit smoking in 2018. INTERIM HISTORY: On 09/12/2018 she began treatment with nivolumab 240 mg by IV infusion every 2 weeks. She tolerated the initial infusion well, and she was unable to continue treatment at 2-week intervals. During that time she remained mildly anemic with hemoglobin in the range of 10 g. Her serum studies and November showed low transferrin saturation at 10.4% with ferritin low at 15.0 ng/mL, consistent with iron deficiency. She began oral iron supplementation. As of March 2019 her hemoglobin had decreased to 8.1 g. She began oral iron supplementation and she began on treatment with Protonix. Her stool FIT was positive. As of 04/17/2019 she completed cycle 15 of nivolumab. At that point her hemoglobin was still low at 10.2 g. She was not tolerating the oral iron. As such, she was given parenteral iron replacement with 2 infusions of Injectafer. She continued with cycle 16 of nivolumab on 05/01/2019. A restaging chest CT on 05/10/2019 showed interval increase in the size of a left axillary mass, measuring 5.5 x 2.9 x 4.4 cm, suspicious for disease progression. There were additional smaller axillary lymph nodes measuring up to 13 mm and there is a prominent left supraclavicular lymph node. Calcified right hilar and subcarinal lymph nodes appeared stable and a 4 mm noncalcified pulmonary nodule in the right upper lobe appeared stable. There was no change in a 12 mm low-attenuation lesion in the dome of the liver, felt to be most likely a small hepatic cyst or hemangioma. Her further treatment was put on hold, initially because of hematuria and subsequently because of a viral gastroenteritis syndrome. She was then able to restart treatment with cycle 17 of nivolumab on 06/01/2019. She tolerated it well and she continue with cycle 18 on 06/14/2019 and with cycle 19 on 07/10/2019. She is seen for a scheduled visit. She has been feeling okay. She says her energy is pretty good. She has difficulty getting around due to her hip pain. She is able to walk to the bathroom, but not much more than that. Her ECOG score is 3. She has good appetite. She has no fever or night sweats. She says her breathing is okay. She is on oxygen at night. She has cough just once in a while. She does not complain of chest pain. She has occasional heartburn. She has occasional episodes of diarrhea, which she says is normal for her. She currently has no complaints. She also reports having pain in her knees. She has numbness/tingling in her fingertips. Medications: amLODIPine Besylate 1 Tablet (of 5 mg) Oral daily, Cholestyramine Light Pack Oral daily PRN, Furosemide 1 - 2 Tablet (of 20 mg) Oral daily PRN, HYDROcodone-Acetaminophen 1 - 2 Tablet (of 5-325 mg) Oral q 4 hours PRN, Levothyroxine Sodium 1 Tablet (of 125 mcg) Oral daily, Losartan Potassium 1 Tablet (of 50 mg) Oral daily, Metoprolol Tartrate 1 Tablet (of 50 mg) Oral b.i.d., Potassium Chloride ER 2 Tablet (of 20 meq) Tablet, controlled release Oral daily PRN, traMADol HCl 1 - 2 Tablet (of 50 mg) Oral four times a day PRN Allergies: No Known Allergies. Review of Systems: Constitutional - Her energy level is pretty good, but she has very limited activity and she is mainly sedentary. She is able to walk to the bathroom. Her appetite is good and weight is stable. No fever, chills, hot flashes, or night sweats. ECOG score is 3, ENMT - No sinus congestion/drainage. No mouth sores. No sore throat or difficulty swallowing, Hematologic/Lymphatic - No abnormal bruising or bleeding, Respiratory - She has shortness of breath with exertion. No cough. No pleuritic pain or hemoptysis. She wears oxygen at night, Cardiovascular - No angina pain. No palpitations, Gastrointestinal - No nausea or vomiting. She has occasional heartburn depending on what she eats. No diarrhea or constipation. No blood in the stool or black stools, Genitourinary (F) - No dysuria or hematuria. No urinary frequency. No urgency or incontinence, Musculoskeletal - She has pain in her left hip and in her knees, Integumentary - No skin complications, Neurologic - No headache or dizziness. She has some numbness and tingling in her fingertips, Psychiatric - No anxiety or depression. No insomnia. Vital Signs: Performed on Jul 24, 2019 14:04 Height - 64.00 in Weight - 292.4 lbs (HIGH) BSA - 2.30 sq.m BMI - 50.19 (HIGH) Temperature - 98.8 F Pulse - 58 /min (LOW) Respiration - 26 /min BP - 134/58 mm(hg) O2 Sat - 94 % (LOW) Pain - 10 Physical Examination: Constitutional - She does not appear acutely ill. She has limited mobility, Eyes - Sclerae nonicteric. Conjunctivae clear, ENMT - No lesions noted in the oral cavity, Hematologic/Lymphatic - There is no cervical or clavicular lymphadenopathy noted. She does appear to have a palpable node in the left axilla measuring 1 to 2 cm, Respiratory - Lungs sound clear with diminished air movement bilaterally, Cardiovascular - Heart rhythm is regular. There is a II/ systolic murmur. There is no gallop or rub noted, Abdomen - Distended but soft. Liver and spleen are not enlarged. There is no abdominal mass or ascites noted and there is no inguinal adenopathy, Extremities - Mild lower extremity edema, which appears chronic, Neurologic - There are no focal neurologic deficits noted. Lab/Imaging: CBC shows hemoglobin 12.0 g, white blood cell count 5200, and platelet count 177,000. Comprehensive metabolic profile is unremarkable. LDH is mildly elevated at 280/214 U/L. Impression: 1. Patient with malignant melanoma involving the left upper back/posterior left shoulder. By clinical evaluation her disease appears to be at least stage III (pT4b, N1, M0) with a palpable left supraclavicular lymph node. 2. She underwent excisional biopsy on 06/15/2018 with lateral and deep surgical margins reported at greater than 1 cm. 3. She has limited mobility due to severe degenerative arthritis of the left hip. Her other medical illnesses include: 4. Hypertension. 5. Hypothyroidism. 6. Obesity. 7. GERD. 8. Obstructive sleep apnea. 9. Nephrolithiasis. 10. She underwent right hemicolectomy and adjuvant chemotherapy for colon cancer in 1994. 11. Anxiety/depression. On 09/12/2018 she began treatment with nivolumab 240 mg by IV infusion every 2 weeks. She tolerated the initial infusion well, and she then continued treatment at 2-week intervals. As of March 2019 she had become more significantly anemic. Her serum iron studies and ferritin were consistent with iron deficiency, and she began on oral iron supplementation. She also started treatment with Protonix empirically. Her stool FIT was positive. As of 04/17/2019 she continued with cycle 15 of nivolumab. At that point she was still mildly anemic. As she was not tolerating the oral iron, she was given parenteral iron replacement with Injectafer. She had continued with cycle 16 of nivolumab on 05/01/2019. Her further treatment has been on hold due to hematuria and to a viral gastroenteritis syndrome. In the meantime, her restaging chest CT on 05/10/2019 showed apparent increased left axillary lymphadenopathy, consistent with disease progression. There was apparent residual left supraclavicular adenopathy. There was no other evidence of disease progression. She restarted treatment with cycle 17 of nivolumab on 06/01/2019. She correlated it well and continued treatment at 2-week intervals. She received cycle 19 on 07/10/2019. Her overall clinical status appears stable. Plan: She will proceed with cycle 20 of nivolumab at 240 mg by IV infusion. She will be scheduled for restaging PET/CT prior to her next visit. Signed By: Benjamín Kyle M.D. <<Signature on File>>
== END 2019-08-09 23:59 | disposition home or self-care (01) ==
LOC: ONCMED 06:46
PROVIDERS: Nurse Practitioner; Family Provider Nurse Practitioner Family; Visit Provider Internal Medicine Medical Oncology
DX: Z51.12 Encounter for antineoplastic immunotherapy (principal); C43.62 Malignant melanoma of left upper limb, including shoulder; C77.8 Secondary and unspecified malignant neoplasm of lymph nodes of multiple regions; N39.0 Urinary tract infection, site not specified; R31.9 Hematuria, unspecified; M16.12 Unilateral primary osteoarthritis, left hip; I10 Essential (primary) hypertension; E03.9 Hypothyroidism, unspecified; E66.9 Obesity, unspecified; Z68.43 Body mass index [BMI] 50.0-59.9, adult; K21.9 Gastro-esophageal reflux disease without esophagitis; G47.33 Obstructive sleep apnea (adult) (pediatric); N20.0 Calculus of kidney; F41.8 Other specified anxiety disorders; Z85.038 Personal history of other malignant neoplasm of large intestine; Z90.49 Acquired absence of other specified parts of digestive tract; Z92.21 Personal history of antineoplastic chemotherapy; Z79.899 Other long term (current) drug therapy
CPT/HCPCS: 36415; 80053; 81001; 82728; 83540; 83550; 83615; 84443; 85025; 87086; 96413; 99214; J7050; J9299

== ENCOUNTER 2019-09-04 06:50 | Outpatient (RCR) | payer MEDICARE, OTHER, SELFPAY ==
[2019-08-20 16:22] LABS: Basophils % 0.8 %; Eosinophils # 0.1 10^3/uL (0.0-0.8); Eosinophils % 2.5 %; Lymphocytes # 1.4 10^3/uL (0.8-4.8); Lymphocytes % 28.2 %; Mean Corpuscular HGB Conc 31.6 g/dL (30.0-36.0); Mean Corpuscular Hemoglobin 33.4 pg (28.0-34.0); Mean Corpuscular Volume 105.8 fL (81-99); Mean Platelet Volume 9.5 fL (7.4-10.4); Monocytes # 0.4 10^3/uL (0.2-0.9); Monocytes % 7.7 %; Neutrophils # 2.9 10^3/uL (1.8-7.7); Neutrophils % 60.2 %; Nucleated Red Blood Cells % 0 %; Platelet Count 156 10^3/cmm (130-400); Red Blood Count 3.59 10^6/uL (4.1-5.3); Red Cell Distribution Width 12.2 % (12.1-15.1); White Blood Count 4.8 10^3/uL (4.0-10.0)
[2019-08-21 01:53] LABS: Alanine Aminotransferase 21 U/L (0-33); Alkaline Phosphatase 116 IU/L (35-105); Anion Gap 17.8 (5-19); Aspartate Amino Transferase 33 U/L (0-32); Blood Urea Nitrogen 16 mg/dL (8-23); Calcium 9.5 mg/dL (8.5-10.5); Carbon Dioxide 27 mmol/L (22-29); Chloride 102 mmol/L (98-107); Glucose 186 mg/dL (65-115); Lactate Dehydrogenase 310 U/L (135-214); Osmolality Calculated 297 mOsm/kg (285-295); Potassium 3.8 mmol/L (3.5-5.1); Sodium 143 mmol/L (136-145); Total Bilirubin 0.7 mg/dL (0.15-1.2)
--- NOTE | 2019-08-24 10:54 | ONC FU_ITS ---
Dr. Kyle Patient Follow-Up Note Patient: Laurence Maalve Unit #: [id number]: 1945 Dicatated By: Benjamín Kyle M.D.Date of Visit:August 21, 2019 Onc Med Follow-up/Prog Note Chief Complaint: Melanoma. History of Present Illness: This is a 73 year-old woman with malignant melanoma involving the left upper back/left shoulder. By clinical evaluation her disease appeared to be stage IV (pT4b, cN3, cM1a) at initial diagnosis in June 2018. She has a prior history of stage III colon cancer, having undergone right hemicolectomy and adjuvant chemotherapy approximately 1994. There has been no evidence of recurrence. She had been seen by Dr. Rubi in June for a skin lesion in the left upper back/left shoulder area. It had been enlarging over a period of about a year. Exam at that time noted a pedunculated, flesh-colored, lobulated lesion with some necrosis measuring 6 to 7 cm in greatest diameter. She underwent excisional biopsy on 06/15/2018. Pathology showed infiltrating malignant melanoma measuring 6.5 x 6.0 x 4.0 cm. Tumor was noted to penetrate the dermal connective tissue into underlying subcutaneous adipose tissue. The Breslow depth was greater than 4.00 mm. The tumor was noted to have surface ulceration. An incidental subcutaneous lymph node in the specimen was free of metastatic tumor. Grossly the tumor appeared to be completely excised with the distance from the tumor to lateral and deep margins noted to be greater than 1 cm. I had seen her on 07/26/2018 regard to further management of the melanoma. At that time she was noted on exam to have a palpable left supraclavicular lymph node. Her staging PET/CT on 07/29/2018 showed an FDG positive left supraclavicular lymph node measuring 2.0 cm, SUV 14.5. Also noted was an FDG avid left axillary lymph node measuring 5.5 x 3.6 cm, SUV 26.6. Other scattered axillary lymph nodes measuring up to 1.6 cm were mildly FDG positive. There were additional suspicious mediastinal lymph nodes in the AP window and prevascular regions. There were no other areas of metastatic involvement noted. In the meantime, her tumor was sent for BRAF mutation analysis, and a BRAF 600 mutation was not detected. I had conferred with one of the melanoma specialists at [facility], and she was given the option to be seen there for second opinion evaluation. As an alternative, it was recommended that she proceed with a trial of immunotherapy as opposed to attempting further surgical resection with axillary/supraclavicular lymph node dissections. She opted to proceed with medical therapy, and arrangements were made with Dr. Rubi for placement of Port-A-Cath venous access device. In the meantime, on 08/07/2018 she was admitted to the hospital with strep pneumoniae sepsis and pneumonia. She had an uneventful recovery with antibiotic therapy. Her medical history is otherwise significant for severe degenerative arthritis of the left hip, which severely restricts her activity. Her other medical illnesses include hypertension, hypothyroidism, obesity, obstructive sleep apnea, and GERD. She has a history of nephrolithiasis, and she has anxiety/depression. She has a history of smoking for 30 years, up to 1 pack of cigarettes daily. She quit smoking in 2018. INTERIM HISTORY: On 09/12/2018 she began treatment with nivolumab 240 mg by IV infusion every 2 weeks. She tolerated the initial infusion well, and she was unable to continue treatment at 2-week intervals. During that time she remained mildly anemic with hemoglobin in the range of 10 g. Her serum studies and November showed low transferrin saturation at 10.4% with ferritin low at 15.0 ng/mL, consistent with iron deficiency. She began oral iron supplementation. As of March 2019 her hemoglobin had decreased to 8.1 g. She began oral iron supplementation and she began on treatment with Protonix. Her stool FIT was positive. As of 04/17/2019 she completed cycle 15 of nivolumab. At that point her hemoglobin was still low at 10.2 g. She was not tolerating the oral iron. As such, she was given parenteral iron replacement with 2 infusions of Injectafer. She continued with cycle 16 of nivolumab on 05/01/2019. A restaging chest CT on 05/10/2019 showed interval increase in the size of a left axillary mass, measuring 5.5 x 2.9 x 4.4 cm, suspicious for disease progression. There were additional smaller axillary lymph nodes measuring up to 13 mm and there is a prominent left supraclavicular lymph node. Calcified right hilar and subcarinal lymph nodes appeared stable and a 4 mm noncalcified pulmonary nodule in the right upper lobe appeared stable. There was no change in a 12 mm low-attenuation lesion in the dome of the liver, felt to be most likely a small hepatic cyst or hemangioma. Her further treatment was put on hold, initially because of hematuria and subsequently because of a viral gastroenteritis syndrome. She was then able to restart treatment with cycle 17 of nivolumab on 06/01/2019. She tolerated it well and she then continued treatment at 2-week intervals. She is seen for a scheduled visit. She has been feeling pretty good generally. Her energy has been okay. She continues to have very limited activity due to her hip pain. Her ECOG score is 3. She has good appetite. She has no fever or night sweats. She does not complain of shortness of breath. She says she has had a bit of a cough this past week. It is nonproductive. She does not complain of chest pain. She currently has no GI or complaints. She has pain in her left hip and in both knees. She does not complain of headache or dizziness. She has some numbness/tingling in her hands. Medications: amLODIPine Besylate 1 Tablet (of 5 mg) Oral daily, Cholestyramine Light Pack Oral daily PRN, Furosemide 1 - 2 Tablet (of 20 mg) Oral daily PRN, HYDROcodone-Acetaminophen 1 - 2 Tablet (of 5-325 mg) Oral q 4 hours PRN, Levothyroxine Sodium 1 Tablet (of 125 mcg) Oral daily, Losartan Potassium 1 Tablet (of 50 mg) Oral daily, Metoprolol Tartrate 1 Tablet (of 50 mg) Oral b.i.d., Potassium Chloride ER 2 Tablet (of 20 meq) Tablet, controlled release Oral daily PRN, traMADol HCl 1 - 2 Tablet (of 50 mg) Oral four times a day PRN Allergies: No Known Allergies. Review of Systems: Constitutional - Her energy level is OK, but she has very limited activity due to her hip pain, and she is mainly sedentary. Her appetite is good and weight is stable. No fever, chills, hot flashes, or night sweats. ECOG score is 3, ENMT - No sinus congestion/drainage. No mouth sores. No sore throat or difficulty swallowing, Hematologic/Lymphatic - No abnormal bruising or bleeding, Respiratory - She does not complain of shortness of breath. She has had a bit of a cough this past week. It is nonproductive. No pleuritic pain or hemoptysis. She wears oxygen at night, Cardiovascular - No angina pain. No palpitations, Gastrointestinal - No nausea or vomiting. No heartburn or acid reflux. No diarrhea or constipation. No blood in the stool or black stools, Genitourinary (F) - No dysuria or hematuria. No urinary frequency. No urgency or incontinence, Musculoskeletal - She has pain in her left hip and in her knees, Integumentary - No skin complications, Neurologic - No headache or dizziness. She has some numbness and tingling in her hands, Psychiatric - No anxiety or depression. No insomnia. Vital Signs: Performed on August 21, 2019 13:11 Height - 64.00 in Weight - lbs Temperature - 97.7 F (LOW) Pulse - 55 /min (LOW) Respiration - 24 /min BP - 136/57 mm(hg) O2 Sat - 96 % Pain - 10 Physical Examination: Constitutional - She looks pretty good generally, but she has limited mobility, Eyes - Sclerae nonicteric. Conjunctivae clear, ENMT - No lesions noted in the oral cavity, Hematologic/Lymphatic - There is no cervical or clavicular lymphadenopathy noted. She does appear to have a palpable node in the left axilla. Exam is difficult, though, due to her body habitus, Respiratory - Lungs sound clear, Cardiovascular - Heart rhythm is regular. There is a II/ systolic murmur. There is no gallop or rub noted, Abdomen - Distended but soft. Liver and spleen are not enlarged. There is no abdominal mass or ascites noted and there is no inguinal adenopathy, Extremities - Mild lower extremity edema, Neurologic - There are no focal neurologic deficits noted. Lab/Imaging: Test performed on August 20, 2019 11:25 LDH (Total) 310 U/L Sodium 143 mmol/L Potassium 3.8 mmol/L Chloride 102 mmol/L CO2 27 mmol/L Anion Gap 17.8 BUN 16 mg/dL Creatinine 0.6 mg/dL Cr Clearance (Est) 177.4600 mL/min Glucose 186 mg/dL Calcium 9.5 mg/dL Protein, Total 7.0 g/dL Albumin 4.0 g/dL Globulin 3.0 g/dL Bilirubin, Total 0.7 mg/dL ALT (SGPT) 21 U/L AST (SGOT) 33 U/L Alkaline Phosphatase 116 IU/L WBC 4.8 10 3/uL RBC 3.59 10 6/uL HGB 12.0 g/dL HCT 38.0 % MCV 105.8 fL MCH 33.4 pg MCHC 31.6 g/dL RDW 12.2 % Platelet Count 156 10 3/cmm MPV 9.5 fL Neutrophils 2.9 10 3/uL Lymphocytes 1.4 10 3/uL Monocytes 0.4 10 3/uL Eosinophils 0.1 10 3/uL Basophils 0.0 10 3/uL Neutrophil % 60.2 % Lymphocyte % 28.2 % Monocyte % 7.7 % Eosinophil % 2.5 % Basophils % 0.8 % Impression: 1. Patient with malignant melanoma involving the left upper back/posterior left shoulder. By clinical evaluation her disease appears to be at least stage III (pT4b, N1, M0) with a palpable left supraclavicular lymph node. 2. She underwent excisional biopsy on 06/15/2018 with lateral and deep surgical margins reported at greater than 1 cm. 3. She has limited mobility due to severe degenerative arthritis of the left hip. Her other medical illnesses include: 4. Hypertension. 5. Hypothyroidism. 6. Obesity. 7. GERD. 8. Obstructive sleep apnea. 9. Nephrolithiasis. 10. She underwent right hemicolectomy and adjuvant chemotherapy for colon cancer in 1994. 11. Anxiety/depression. On 09/12/2018 she began treatment with nivolumab 240 mg by IV infusion every 2 weeks. She tolerated the initial infusion well, and she then continued treatment at 2-week intervals. As of March 2019 she had become more significantly anemic. Her serum iron studies and ferritin were consistent with iron deficiency, and she began on oral iron supplementation. She also started treatment with Protonix empirically. Her stool FIT was positive. As of 04/17/2019 she continued with cycle 15 of nivolumab. At that point she was still mildly anemic. As she was not tolerating the oral iron, she was given parenteral iron replacement with Injectafer. She had continued with cycle 16 of nivolumab on 05/01/2019. Her further treatment has been on hold due to hematuria and to a viral gastroenteritis syndrome. In the meantime, her restaging chest CT on 05/10/2019 showed apparent increased left axillary lymphadenopathy, consistent with disease progression. There was apparent residual left supraclavicular adenopathy. There was no other evidence of disease progression. She restarted treatment with cycle 17 of nivolumab on 06/01/2019. She tolerated it well and she then continued treatment at 2-week intervals. During this time her clinical status has remained stable. Plan: She will proceed with cycle 22 of nivolumab at 240 mg by IV infusion. She returns for treatment in 2 weeks and for a follow-up visit in 4 weeks. She will be scheduled for restaging PET/CT prior to that visit. Signed By: Benjamín Kyle M.D. <<Signature on File>>
== END 2019-09-09 23:59 | disposition home or self-care (01) ==
LOC: ONCMED 06:50
PROVIDERS: PCP Nurse Practitioner Family; Visit Provider Internal Medicine Medical Oncology
DX: Z51.12 Encounter for antineoplastic immunotherapy (principal); C43.62 Malignant melanoma of left upper limb, including shoulder; C77.8 Secondary and unspecified malignant neoplasm of lymph nodes of multiple regions; D50.9 Iron deficiency anemia, unspecified; F41.9 Anxiety disorder, unspecified; M19.90 Unspecified osteoarthritis, unspecified site; F32.9 Major depressive disorder, single episode, unspecified; K21.9 Gastro-esophageal reflux disease without esophagitis; I50.9 Heart failure, unspecified; E03.9 Hypothyroidism, unspecified; E66.01 Morbid (severe) obesity due to excess calories; G47.33 Obstructive sleep apnea (adult) (pediatric); Z79.899 Other long term (current) drug therapy
CPT/HCPCS: 80053; 83615; 85025; 96413; 99214; J7050; J9299

== ENCOUNTER 2019-09-19 06:49 | Outpatient (RCR) | payer MEDICARE, OTHER, SELFPAY ==
[2019-09-18 14:01] LABS: Basophils % 0.6 %; Eosinophils # 0.2 10^3/uL (0.0-0.8); Lymphocytes # 1.2 10^3/uL (0.8-4.8); Lymphocytes % 18.5 %; Mean Corpuscular HGB Conc 31.6 g/dL (30.0-36.0); Mean Corpuscular Hemoglobin 32.3 pg (28.0-34.0); Mean Corpuscular Volume 102.2 fL (81-99); Mean Platelet Volume 9.4 fL (7.4-10.4); Monocytes # 0.5 10^3/uL (0.2-0.9); Monocytes % 7.9 %; Neutrophils # 4.6 10^3/uL (1.8-7.7); Neutrophils % 69.5 %; Nucleated Red Blood Cells % 0 %; Platelet Count 150 10^3/cmm (130-400); Red Blood Count 3.72 10^6/uL (4.1-5.3); White Blood Count 6.6 10^3/uL (4.0-10.0)
[2019-09-18 14:49] LABS: Alanine Aminotransferase 16 U/L (0-33); Albumin Level 3.9 g/dL (3.5-5.2); Alkaline Phosphatase 116 IU/L (35-105); Anion Gap 12.7 (5-19); Aspartate Amino Transferase 28 U/L (0-32); Blood Urea Nitrogen 11 mg/dL (8-23); Calcium 9.1 mg/dL (8.5-10.5); Carbon Dioxide 28 mmol/L (22-29); Chloride 106 mmol/L (98-107); Globulin 2.9 g/dL (1.3-4.6); Glucose 192 mg/dL (65-115); Lactate Dehydrogenase 279 U/L (135-214); Osmolality Calculated 297 mOsm/kg (285-295); Potassium 3.7 mmol/L (3.5-5.1); Sodium 143 mmol/L (136-145); Thyroid Stimulating Hormone 0.75 uIU/mL (0.27-4.20); Total Bilirubin 1.2 mg/dL (0.15-1.2); Total Protein 6.8 g/dL (6.6-8.7)
== END 2019-10-09 23:59 | disposition home or self-care (01) ==
LOC: ONCMED 06:49
PROVIDERS: PCP Nurse Practitioner Family; Visit Provider Internal Medicine Medical Oncology
DX: C43.62 Malignant melanoma of left upper limb, including shoulder (principal); C77.8 Secondary and unspecified malignant neoplasm of lymph nodes of multiple regions; D50.9 Iron deficiency anemia, unspecified; E03.9 Hypothyroidism, unspecified
CPT/HCPCS: 80053; 83615; 84443; 85025

== ENCOUNTER 2019-09-19 14:13 | Emergency (ER) | payer MEDICARE, OTHER, SELFPAY ==
[2019-09-19 14:24] VITALS: BP 156/76; PULSE 67; RESP 20; TEMP 36.5; O2SAT 89; BMI 49.8
--- NOTE | 2019-09-19 16:00 | XR_ITS ---
WS: [id number] Portable AP upright chest, 09/19/2019 Clinical Data: SOB Comparison: AP and lateral chest, 10/24/2018. Findings: No nodules, masses or effusions are seen. The heart is slightly enlarged. The pulmonary vas cularity is not increased. No pneumonia or pneumothorax is seen. The aortic arch and descending aorta are tortuous. The left Port-A-Cath remains in good position. XR/XR chest 1V portable [id number] Impression: Atherosclerosis
--- NOTE | 2019-09-19 16:43 | PC.NURSE ---
COVID swab sent over at this time.
[2019-09-19 17:04] LABS: Basophils % 0.3 %; Eosinophils % 0.5 %; Hematocrit 38.5 % (37.0-47.0); Hemoglobin 12.3 g/dL (11.5-15.3); Lymphocytes # 1.2 10^3/uL (0.8-4.8); Lymphocytes % 17.8 %; Mean Corpuscular HGB Conc 31.9 g/dL (30.0-36.0); Mean Corpuscular Hemoglobin 32.2 pg (28.0-34.0); Mean Corpuscular Volume 100.8 fL (81-99); Mean Platelet Volume 9.2 fL (7.4-10.4); Monocytes # 0.5 10^3/uL (0.2-0.9); Monocytes % 7.7 %; Neutrophils # 4.7 10^3/uL (1.8-7.7); Neutrophils % 72.8 %; Nucleated Red Blood Cells % 0 %; Platelet Count 167 10^3/cmm (130-400); Red Blood Count 3.82 10^6/uL (4.1-5.3); Red Cell Distribution Width 11.9 % (12.1-15.1); White Blood Count 6.5 10^3/uL (4.0-10.0)
[2019-09-19] MEDS: albuterol 8 gm MDI 2 PUFF INHALATION (17:07)
[2019-09-19 17:15] VITALS: PULSE 68; RESP 18; O2SAT 91
[2019-09-19 17:19] LABS: Troponin(5th) Baseline 8 ng/L (0-10)
[2019-09-19 17:26] LABS: Influenza A by IFA Negative (Negative); Influenza B by IFA Negative (Negative)
[2019-09-19 17:28] LABS: Alanine Aminotransferase 17 U/L (0-33); Alkaline Phosphatase 117 IU/L (35-105); Anion Gap 14.1 (5-19); Aspartate Amino Transferase 28 U/L (0-32); Blood Urea Nitrogen 8 mg/dL (8-23); Calcium 9.8 mg/dL (8.5-10.5); Carbon Dioxide 28 mmol/L (22-29); Chloride 102 mmol/L (98-107); Globulin 3.7 g/dL (1.3-4.6); Glucose 129 mg/dL (65-115); NT Pro B Type Natriuretic Pept 278 pg/mL (0-125); Osmolality Calculated 288 mOsm/kg (285-295); Potassium 4.1 mmol/L (3.5-5.1); Sodium 140 mmol/L (136-145); Total Bilirubin 1.2 mg/dL (0.15-1.2); Total Protein 7.7 g/dL (6.6-8.7)
--- NOTE | 2019-09-19 17:45 | ED_ITS ---
HPI - SOB/Dyspnea General: Chief Complaint: Shortness of Breath/Dyspnea Stated Complaint: possible covid Time Seen by Provider: 09/19/19 15:35 History of Present Illness: HPI Narrative: 73-year-old female patient with a past medical history of congestive heart failure, hypertension presents to the emergency department with concerns of a COVID-19 infection. She states that her symptoms started about 2 days ago with cough, shortness of breath and a low-grade temperature of about 99 ?F. She has also been wheezing. Does not have a history of COPD. She wears home oxygen only as needed, but is needing it constantly now. Her granddaughter was recently tested for COVID-19 yesterday. MD elicited complaint: shortness of breath and cough Pertinent past history: congestive heart failure Onset (ago): day(s) (2) Timing: constant and progressively worsening Severity: moderate Exacerbating factors: nothing Relieving factors: nothing Associated symptoms: Reports cough; Deny chest pain, dizziness, fever(s), lightheadedness, nausea, polydipsia or polyuria Review of Systems General: Reports: 10 or more systems reviewed and unremarkable except in HPI and below Const: Denies: fever(s) Eyes: Denies: change in vision or blurry vision ENMT: Denies: throat pain, enlarged tonsils, odynophagia, hoarseness, mouth pain or swelling of lips/tongue Card: Denies: chest pain or lightheadedness Resp: Denies: dyspnea, productive cough or non-productive cough GI: Denies: nausea : Denies: flank pain, difficulty voiding, dysuria, urinary frequency, urinary urgency or urinary hesitancy Musc: Denies: neck pain, back pain or extremity swelling Skin/Breast: Denies: rash, pruritus or erythema Neuro: Denies: dizziness Endo: Denies: polyuria, polydipsia or tired all the time PFSH ED PFSH: Social History Smoking and tobacco status: former smoker Physical Exam Const: COMMON NORMALS: no acute distress, average body habitus, patient oriented x3, no limitations, healthy appearing, alert and well nourished HENMT: COMMON NORMALS: normocephalic, atraumatic and moist oral mucous membranes HEAD & SCALP: normocephalic and atraumatic Eye: COMMON NORMALS: Equal, round and reactive pupils present, EOMs intact bilaterally, conjunctivae normal and no scleral icterus CONJUNCTIVA: Yes conjunctivae normal PUPIL: Yes Equal, round and reactive pupils present Neck/C-Spine: COMMON NORMALS: full ROM, supple, no meningeal signs, no JVD and No carotid bruits Chest: COMMONS NORMALS: normal inspection of the chest and normal palpation of entire chest wall Resp: COMMON NORMALS: normal respiratory effort, No retractions, No use of accessory muscles and percussion normal AUSCULTATION: wheezes throughout PERCUSSION: percussion normal Cardio: COMMON NORMALS: no JVD, regular rate, regular rhythm, S1 normal heart sound present, S2 normal heart sound present, No gallops present (Cardio), No clicks present (Cardio), No murmurs present (Cardio), No rub (Cardio) and Perip heral pulses 2+ throughout RATE: regular rate RHYTHM: regular rhythm HEART SOUNDS: S1 normal heart sound present and S2 normal heart sound present PERIPHERAL PULSES: Peripheral pulses 2+ throughout GI: COMMON NORMALS: Normal to inspection, nondistended, normoactive bowel sounds present, Soft to palpation, non-tender, No hepatosplenomegaly present, no masses and no bruits PALPATION: Yes Soft to palpation and Yes No hepatosplenomegaly present : COMMON NORMALS: Yes no CVA tenderness BLADDER/KIDNEY EXAM: Yes no CVA tenderness Back/Pelvis: COMMON NORMALS: no CVA tenderness Extremity: COMMON NORMALS: normal to inspection, full ROM, capillary refill normal, no calf tenderness and no pedal edema Neuro: COMMON NORMALS: patient oriented x3 SENSORIUM/ORIENTATION: Yes alert MENINGEAL SIGNS: Yes no meningeal signs Skin: COMMON NORMALS: no rashes or lesions noted, no wounds, turgor normal, no jaundice, no petechiae and no mottling GENERAL SKIN EXAM: no rashes or lesions noted and turgor normal Course Reevaluation(s): Reevaluation #1: Discussed her lab and imaging findings with her. Negative for acute findings. She will be discharged home and be managed as a case of acute bronchitis. She is to use the albuterol inhaler every 4 hours for the next 2 days then as needed thereafter. She will be contacted with the results of her COVID-19 test when we get it Time: 17:45 Vital Signs: Vital signs: Vital Signs Temperature 97.7 F 09/19/19 14:24 Pulse Rate 68 09/19/19 18:04 Respiratory Rate 20 H 09/19/19 18:04 Blood Pressure 133/70 09/19/19 18:04 Pulse Oximetry 92 09/19/19 18:04 MDM - SOB/Dyspnea MDM Narrative: Medical decision making narrative: 73-year-old female patient who presents to the emergency department with symptoms of acute bronchitis. Since her granddaughter was tested for COVID-19 the patient was tested for COVID-19. She will be contacted with the results of her test. She is advised to self quarantine at home until her test results are available. Differential Diagnosis: Shortness of Breath Differential Diagnosis: Likely acute exacerbation of chronic obstructive airways disease, congestive heart failure, community acquired pneumonia and pulmonary embolism (Well's score 1) Medical Records: Attestation: I reviewed the patient's medical records. Lab Data: Attestation: I reviewed the patient's lab results. Labs: Lab Results 09/19/19 09/19/19 09/19/19 Range/Units 16:43 16:43 16:43 WBC 6.5 (4.0-10.0) 10^3/ uL RBC 3.82 L (4.1-5.3) 10^6/u L Hgb 12.3 (11.5-15.3) g/dL Hct 38.5 (37.0-47.0) % MCV 100.8 H (81-99) fL MCH 32.2 (28.0-34.0) pg MCHC 31.9 (30.0-36.0) g/dL RDW 11.9 L (12.1-15.1) % Plt Count 167 (130-400) 10^3/c mm MPV 9.2 (7.4-10.4) fL Neut % (Auto) 72.8 % Lymph % (Auto) 17.8 % [place] % (Auto) 7.7 % Eos % (Auto) 0.5 % Baso % (Auto) 0.3 % Neut # (Auto) 4.7 (1.8-7.7) 10^3/u L Lymph # (Auto) 1.2 (0.8-4.8) 10^3/u L [place] # (Auto) 0.5 (0.2-0.9) 10^3/u L Eos # (Auto) 0.0 (0.0-0.8) 10^3/u L Baso # (Auto) 0.0 (0.0-0.1) 10^3/u L Nucleated RBC % (a uto) 0 % Nucleated RBCs # 0.0 /100WBC Sodium 140 (136-145) mmol/L Potassium 4.1 (3.5-5.1) mmol/L Chloride 102 (98-107) mmol/L Carbon Dioxide 28 (22-29) mmol/L Anion Gap 14.1 (5-19) BUN 8 (8-23) mg/dL Creatinine 0.5 (0.5-0.9) mg/dL Glucose 129 H (65-115) mg/dL Calculated Osmolal ity 288 (285-295) mOsm/k g Calcium 9.8 (8.5-10.5) mg/dL Total Bilirubin 1.2 (0.15-1.2) mg/dL AST 28 (0-32) U/L ALT 17 (0-33) U/L Alkaline Phosphata se 117 H (35-105) IU/L Troponin T Baselin e 8 (0-10) ng/L NT-Pro-B Natriuret Pep 278 H (0-125) pg/mL Total Protein 7.7 (6.6-8.7) g/dL Albumin 4.0 (3.5-5.2) g/dL Globulin 3.7 (1.3-4.6) g/dL Influenza Type A A g (Negative) Influenza Type B A g (Negative) 09/19/19 Range/Units 16:43 WBC (4.0-10.0) 10^3/ uL RBC (4.1-5.3) 10^6/u L Hgb (11.5-15.3) g/dL Hct (37.0-47.0) % MCV (81-99) fL MCH (28.0-34.0) pg MCHC (30.0-36.0) g/dL RDW (12.1-15.1) % Plt Count (130-400) 10^3/c mm MPV (7.4-10.4) fL Neut % (Auto) % Lymph % (Auto) % [place] % (Auto) % Eos % (Auto) % Baso % (Auto) % Neut # (Auto) (1.8-7.7) 10^3/u L Lymph # (Auto) (0.8-4.8) 10^3/u L [place] # (Auto) (0.2-0.9) 10^3/u L Eos # (Auto) (0.0-0.8) 10^3/u L Baso # (Auto) (0.0-0.1) 10^3/u L Nucleated RBC % (a uto) % Nucleated RBCs # /100WBC Sodium (136-145) mmol/L Potassium (3.5-5.1) mmol/L Chloride (98-107) mmol/L Carbon Dioxide (22-29) mmol/L Anion Gap (5-19) BUN (8-23) mg/dL Creatinine (0.5-0.9) mg/dL Glucose (65-115) mg/dL Calculated Osmolal ity (285-295) mOsm/k g Calcium (8.5-10.5) mg/dL Total Bilirubin (0.15-1.2) mg/dL AST (0-32) U/L ALT (0-33) U/L Alkaline Phosphata se (35-105) IU/L Troponin T Baselin e (0-10) ng/L NT-Pro-B Natriuret Pep (0-125) pg/mL Total Protein (6.6-8.7) g/dL Albumin (3.5-5.2) g/dL Globulin (1.3-4.6) g/dL Influenza Type A A g Negative (Negative) Influenza Type B A g Negative (Negative) Imaging Data^: CXR: Radiologist's impression: [address] [address] XRay Report Signed Patient: Laurence Malave #: [id number] : 7Acct#:[id number] Age/Sex: 73 / FADM Date: 09/19/19 Loc: ERRoom/Bed: Attending Dr: Ordering Provider/Ordering MD: Ruperto Trejo [place] [facility] [place] of Service: 09/19/19 Procedure(s): XR chest 1V portable [id number] Accession Number(s): [id number] Report Number: [id number] WS: [id number] Portable AP upright chest, 09/19/2019 Clinical Data: SOB Comparison: AP and lateral chest, 10/24/2018. Findings: No nodules, masses or effusions are seen. The heart is slightly enlarged. The pulmonary vascularity is not increased. No pneumonia or pneumothorax is seen. The aortic arch and descending aorta are tortuous. The left Port-A-Cath remains in good position. XR/XR chest 1V portable [id number] Impression: Atherosclerosis Dictated By:Suzy Trujillo MD Signed By:Suzy Trujillo MDSigned Date/Time:09/19/191614 DD/ 13 Discharge Plan Discharge Patient Disposition: Home, Self-Care Clinical Impression: Acute bronchitis Qualifiers: Bronchitis organism: unspecified organism Qualified Code(s): J20.9 - Acute bronchitis, unspecified Condition: Stable Discharge Orders: Discharge Order (Routine); Ordered 09/19/19 Ordered By: Ruperto Trejo Referrals: Ambrose Gerardo, [facility] [Primary Care Provider] - 4-7 days Patient Instructions: Acute Bronchitis (ED) Activity Restrictions/Additional Instructions: Return for any new or worsening symptoms. Use the albuterol inhaler every 4 hours while awake for the next 2 days, then thereafter use it as needed. Continue your prednisone and levofloxacin as prescribed by Dr. Kyle. Discharge Date/Time: 09/19/19 18:04 Coding Level of Care Code ED Medical Sales for Janusz Rodriguez
--- NOTE | 2019-09-19 18:03 | ECG_ITS ---
Measurements Intervals [place] Rate: 66 P: -11 TX: 147 QRS: -11 QRSD: 89 T: 31 QT: 395 QTc: 414 SINUS RHYTHM LOW QRS VOLTAGE IN PRECORDIAL LEADS [QRS DEFLECTION < 1.0 mV IN CHEST LEADS] PATTERN CONSISTENT WITH PULMONARY DISEASE Compared to ECG 05/26/2017 23:02:54 Low QRS voltage now present Ventricular premature complex(es) no longer present Electronically Signed On 09-20-2019 20:58:39 CDT by Joanne Polk M.D. [id number]
[2019-09-19 18:04] VITALS: BP 133/70; PULSE 68; RESP 20; O2SAT 92
[2019-09-20 14:01] LABS: Quest SARS-CoV-2 RNA NOT DETECTED (NOT DETECTED)
--- NOTE | 2019-09-20 15:43 | PC.NURSE ---
Pt called and notified of negative COVID-19 results
== END 2019-09-19 18:04 | disposition home or self-care (01) ==
PROVIDERS: Emergency Provider Family Medicine; PCP Nurse Practitioner Family
DX: J20.9 Acute bronchitis, unspecified (principal); Z87.891 Personal history of nicotine dependence; I70.90 Unspecified atherosclerosis
CPT/HCPCS: 12345; 36415; 71045; 80053; 83880; 84484; 85025; 87635; 87804; 93005; 94640; 99283; 99284; J3535

== ENCOUNTER 2019-10-24 06:45 | Outpatient (RCR) | payer MEDICARE, OTHER, SELFPAY ==
[2019-10-23 14:32] LABS: Basophils % 0.5 %; Eosinophils # 0.1 10^3/uL (0.0-0.8); Eosinophils % 2.4 %; Hematocrit 39.1 % (37.0-47.0); Hemoglobin 12.5 g/dL (11.5-15.3); Lymphocytes # 1.6 10^3/uL (0.8-4.8); Lymphocytes % 37.3 %; Mean Corpuscular Hemoglobin 32.1 pg (28.0-34.0); Mean Corpuscular Volume 100.3 fL (81-99); Mean Platelet Volume 9.6 fL (7.4-10.4); Monocytes # 0.4 10^3/uL (0.2-0.9); Monocytes % 8.6 %; Neutrophils # 2.14 10^3/uL (1.8-7.7); Neutrophils % 50.7 %; Nucleated Red Blood Cells % 0 %; Platelet Count 194 10^3/cmm (130-400); Red Cell Distribution Width 12.2 % (12.1-15.1); White Blood Count 4.2 10^3/uL (4.0-10.0)
[2019-10-23 15:04] LABS: Alanine Aminotransferase 23 U/L (0-33); Albumin Level 3.6 g/dL (3.5-5.2); Alkaline Phosphatase 104 IU/L (35-105); Anion Gap 13.4 (5-19); Aspartate Amino Transferase 37 U/L (0-32); Blood Urea Nitrogen 8 mg/dL (8-23); Calcium 9.5 mg/dL (8.5-10.5); Carbon Dioxide 29 mmol/L (22-29); Chloride 100 mmol/L (98-107); Globulin 2.7 g/dL (1.3-4.6); Glucose 223 mg/dL (65-115); Lactate Dehydrogenase 261 U/L (135-214); Osmolality Calculated 291 mOsm/kg (285-295); Potassium 3.4 mmol/L (3.5-5.1); Sodium 139 mmol/L (136-145); Thyroid Stimulating Hormone 1.58 uIU/mL (0.27-4.20); Total Protein 6.3 g/dL (6.6-8.7)
--- NOTE | 2019-10-28 13:51 | ONC FU_ITS ---
Dr. Kyle Patient Follow-Up Note Patient: Laurence Malave Unit #: [id number]: 1945 Dicatated By: Benjamín Kyle M.D.Date of Visit:Oct 24, 2019 Onc Med Follow-up/Prog Note Chief Complaint: Melanoma. History of Present Illness: This is a 73 year-old woman with malignant melanoma involving the left upper back/left shoulder. By clinical evaluation her disease appeared to be stage IV (pT4b, cN3, cM1a) at initial diagnosis in June 2018. She has a prior history of stage III colon cancer, having undergone right hemicolectomy and adjuvant chemotherapy approximately 1994. There has been no evidence of recurrence. She had been seen by Dr. Rubi in June for a skin lesion in the left upper back/left shoulder area. It had been enlarging over a period of about a year. Exam at that time noted a pedunculated, flesh-colored, lobulated lesion with some necrosis measuring 6 to 7 cm in greatest diameter. She underwent excisional biopsy on 06/15/2018. Pathology showed infiltrating malignant melanoma measuring 6.5 x 6.0 x 4.0 cm. Tumor was noted to penetrate the dermal connective tissue into underlying subcutaneous adipose tissue. The Breslow depth was greater than 4.00 mm. The tumor was noted to have surface ulceration. An incidental subcutaneous lymph node in the specimen was free of metastatic tumor. Grossly the tumor appeared to be completely excised with the distance from the tumor to lateral and deep margins noted to be greater than 1 cm. I had seen her on 07/26/2018 regard to further management of the melanoma. At that time she was noted on exam to have a palpable left supraclavicular lymph node. Her staging PET/CT on 07/29/2018 showed an FDG positive left supraclavicular lymph node measuring 2.0 cm, SUV 14.5. Also noted was an FDG avid left axillary lymph node measuring 5.5 x 3.6 cm, SUV 26.6. Other scattered axillary lymph nodes measuring up to 1.6 cm were mildly FDG positive. There were additional suspicious mediastinal lymph nodes in the AP window and prevascular regions. There were no other areas of metastatic involvement noted. In the meantime, her tumor was sent for BRAF mutation analysis, and a BRAF 600 mutation was not detected. I had conferred with one of the melanoma specialists at [facility], and she was given the option to be seen there for second opinion evaluation. As an alternative, it was recommended that she proceed with a trial of immunotherapy as opposed to attempting further surgical resection with axillary/supraclavicular lymph node dissections. She opted to proceed with medical therapy, and arrangements were made with Dr. Rubi for placement of Port-A-Cath venous access device. In the meantime, on 08/07/2018 she was admitted to the hospital with strep pneumoniae sepsis and pneumonia. She had an uneventful recovery with antibiotic therapy. Her medical history is otherwise significant for severe degenerative arthritis of the left hip, which severely restricts her activity. Her other medical illnesses include hypertension, hypothyroidism, obesity, obstructive sleep apnea, and GERD. She has a history of nephrolithiasis, and she has anxiety/depression. She has a history of smoking for 30 years, up to 1 pack of cigarettes daily. She quit smoking in 2018. INTERIM HISTORY: On 09/12/2018 she began treatment with nivolumab 240 mg by IV infusion every 2 weeks. She tolerated the initial infusion well, and she was unable to continue treatment at 2-week intervals. During that time she remained mildly anemic with hemoglobin in the range of 10 g. Her serum studies and November showed low transferrin saturation at 10.4% with ferritin low at 15.0 ng/mL, consistent with iron deficiency. She began oral iron supplementation. As of March 2019 her hemoglobin had decreased to 8.1 g. She began oral iron supplementation and she began on treatment with Protonix. Her stool FIT was positive. As of 04/17/2019 she completed cycle 15 of nivolumab. At that point her hemoglobin was still low at 10.2 g. She was not tolerating the oral iron. As such, she was given parenteral iron replacement with 2 infusions of Injectafer. She continued with cycle 16 of nivolumab on 05/01/2019. A restaging chest CT on 05/10/2019 showed interval increase in the size of a left axillary mass, measuring 5.5 x 2.9 x 4.4 cm, suspicious for disease progression. There were additional smaller axillary lymph nodes measuring up to 13 mm and there is a prominent left supraclavicular lymph node. Calcified right hilar and subcarinal lymph nodes appeared stable and a 4 mm noncalcified pulmonary nodule in the right upper lobe appeared stable. There was no change in a 12 mm low-attenuation lesion in the dome of the liver, felt to be most likely a small hepatic cyst or hemangioma. Her further treatment was put on hold, initially because of hematuria and subsequently because of a viral gastroenteritis syndrome. She was then able to restart treatment with cycle 17 of nivolumab on 06/01/2019. She tolerated it well and she then continued treatment at 2-week intervals. As of 09/04/2019 she had completed cycle 23 of nivolumab. Her further treatment was put on hold following an ER visit on 09/19/2019. She was treated for acute bronchitis. She is seen for a followup visit. She has been feeling better following her illness last month. She continues, though, to have very little activity. ECOG score is 3. She says her appetite is back to normal. She does not have fever or night sweats. She was having a terrible cough, but that is better now. She does not complain of shortness of breath or chest pain. Some days she still has nausea. She also continues to have pain intermittently in her left lower quadrant area. Bowel and bladder function have been okay. She has ongoing problems with pain in her left hip. She also complains that her knees were hurting. She does not complain of headache or dizziness. She has some numbness/tingling in her hands. Medications: amLODIPine Besylate 1 Tablet (of 5 mg) Oral daily, Cholestyramine Light Pack Oral daily PRN, Furosemide 1 - 2 Tablet (of 20 mg) Oral daily PRN, HYDROcodone-Acetaminophen 1 - 2 Tablet (of 5-325 mg) Oral q 4 hours PRN, Levothyroxine Sodium 1 Tablet (of 125 mcg) Oral daily, Losartan Potassium 1 Tablet (of 50 mg) Oral daily, Metoprolol Tartrate 1 Tablet (of 50 mg) Oral b.i.d., Potassium Chloride ER 2 Tablet (of 20 meq) Tablet, controlled release Oral daily PRN, traMADol HCl 1 - 2 Tablet (of 50 mg) Oral four times a day PRN Allergies: No Known Allergies. Review of Systems: Constitutional - She was recently sick and treated for a bronchial infection. She is feeling better now. Her energy is low. She has lmited activity and she is mainly sedentary. Her appetite is good and weight is stable. No fever, night sweats, or hot flashes. ECOG score is 3, ENMT - No sinus congestion/drainage. No mouth sores. No sore throat or difficulty swallowing, Hematologic/Lymphatic - She bruises easily, Respiratory - No shortness of breath. She had a cough, but it has improved. No pleuritic pain or hemoptysis, Cardiovascular - No angina pain. No palpitations, Gastrointestinal - No nausea or vomiting. No heartburn or acid reflux. No diarrhea or constipation. No blood in the stool or black stools, Genitourinary (F) - No dysuria or hematuria. No urinary frequency. No urgency or incontinence, Musculoskeletal - She has pain in her left hip, Integumentary - No skin complications, Neurologic - No headache or dizziness. No numbness or tingling. No other focal neurologic symptoms, Psychiatric - She has some anxiety. No depression. No insomnia. Vital Signs: Performed on Oct 24, 2019 11:54 Height - 64.00 in Weight - 290.0 lbs (HIGH) BSA - 2.29 sq.m BMI - 49.78 (HIGH) Temperature - 98.0 F (LOW) Pulse - 85 /min Respiration - 24 /min BP - 120/62 mm(hg) O2 Sat - 92 % (LOW) Pain - 0 Physical Examination: Constitutional - She looks pretty good generally. She has limited mobility, Eyes - Sclerae nonicteric. Conjunctivae clear, ENMT - No lesions noted in the oral cavity, Hematologic/Lymphatic - I did not feel any cervical or clavicular adenopathy. There is a palpable nodule in the lower aspect of the left axilla measuring 3 to 4 cm. There is no adenopathy noted in the right axilla, Respiratory - Lungs show slightly coarse breath sounds bilaterally, Cardiovascular - Heart rhythm is regular. There is a II/ systolic murmur. There is no gallop or rub noted, Abdomen - Distended but soft. Liver and spleen are not enlarged. There is no abdominal mass or ascites noted and there is no inguinal adenopathy, Extremities - There is 2+ lower extremity edema, Neurologic - There are no focal neurologic deficits noted. Lab/Imaging: CBC shows hemoglobin 12.5 g, white blood cell count 4200, and platelet count 194,000. Comprehensive metabolic profile is unremarkable except for slightly low potassium at 3.4 mmol/L. LDH remains mildly elevated at 261/214 U/L. Impression: 1. Patient with malignant melanoma involving the left upper back/posterior left shoulder. By clinical evaluation her disease appears to be at least stage III (pT4b, N1, M0) with a palpable left supraclavicular lymph node. 2. She underwent excisional biopsy on 06/15/2018 with lateral and deep surgical margins reported at greater than 1 cm. 3. She has limited mobility due to severe degenerative arthritis of the left hip. Her other medical illnesses include: 4. Hypertension. 5. Hypothyroidism. 6. Obesity. 7. GERD. 8. Obstructive sleep apnea. 9. Nephrolithiasis. 10. She underwent right hemicolectomy and adjuvant chemotherapy for colon cancer in 1994. 11. Anxiety/depression. On 09/12/2018 she began treatment with nivolumab 240 mg by IV infusion every 2 weeks. She tolerated the initial infusion well, and she then continued treatment at 2-week intervals. As of March 2019 she had become more significantly anemic. Her serum iron studies and ferritin were consistent with iron deficiency, and she began on oral iron supplementation. She also started treatment with Protonix empirically. Her stool FIT was positive. As of 04/17/2019 she continued with cycle 15 of nivolumab. At that point she was still mildly anemic. As she was not tolerating the oral iron, she was given parenteral iron replacement with Injectafer. She had continued with cycle 16 of nivolumab on 05/01/2019. Her further treatment has been on hold due to hematuria and to a viral gastroenteritis syndrome. In the meantime, her restaging chest CT on 05/10/2019 showed apparent increased left axillary lymphadenopathy, consistent with disease progression. There was apparent residual left supraclavicular adenopathy. There was no other evidence of disease progression. She restarted treatment with cycle 17 of nivolumab on 06/01/2019. She tolerated it well and she then continued treatment at 2-week intervals. As of 09/04/2019 she had received her 23rd cycle of nivolumab. Her clinical status at that point appeared stable. Her further treatment was delayed due to an episode of acute bronchitis in September. As yet, she has not completed her restaging PET/CT. Plan: I will reschedule the staging PET/CT, and her treatment will remain on hold pending outcome of that study. Signed By: Benjamín Kyle M.D. <<Signature on File>>
== END 2019-11-09 23:59 | disposition home or self-care (01) ==
LOC: ONCMED 06:45
PROVIDERS: PCP Nurse Practitioner Family; Visit Provider Internal Medicine Medical Oncology
DX: C43.62 Malignant melanoma of left upper limb, including shoulder (principal); C77.8 Secondary and unspecified malignant neoplasm of lymph nodes of multiple regions; M16.12 Unilateral primary osteoarthritis, left hip; I10 Essential (primary) hypertension; E03.9 Hypothyroidism, unspecified; E66.9 Obesity, unspecified; G47.33 Obstructive sleep apnea (adult) (pediatric); K21.9 Gastro-esophageal reflux disease without esophagitis; F41.8 Other specified anxiety disorders; Z79.899 Other long term (current) drug therapy; Z79.891 Long term (current) use of opiate analgesic; Z87.891 Personal history of nicotine dependence; Z85.038 Personal history of other malignant neoplasm of large intestine; Z92.21 Personal history of antineoplastic chemotherapy; Z90.49 Acquired absence of other specified parts of digestive tract
CPT/HCPCS: 80053; 83615; 84443; 85025; 99214

== ENCOUNTER 2019-11-19 06:07 | Outpatient (RCR) | payer MEDICARE, OTHER, SELFPAY | END 2019-12-10 23:59 | disposition home or self-care (01) | LOC: ONCMED 06:07 | PROVIDERS: PCP Nurse Practitioner Family; Visit Provider Internal Medicine Medical Oncology | DX: Z45.2 Encounter for adjustment and management of vascular access device (principal) | CPT/HCPCS: 96523 ==

== ENCOUNTER 2019-12-31 05:23 | Observation (INO) | payer MEDICARE, OTHER, SELFPAY ==
[2019-12-31] VITALS (13 sets, daily range): BP systolic 126–150; BP diastolic 58–88; PULSE 53–74; RESP 13–24; TEMP 36.6–36.9; O2SAT 89–97; BMI 51.0
--- NOTE | 2019-12-31 05:24 | ECG_ITS ---
[facility] Test Date: 2019-12-31 Pat Name: Laurence Malave Department: Room: 254 Gender: Female Statistical Assistant: : 1945 Requested By: Arabella Ochoa Order Number: [id number] Reading MD: Kei Miranda M.D. Measurements Intervals [place] Rate: 62 P: -30 MS: 138 QRS: -21 QRSD: 86 T: 17 QT: 413 QTc: 419 Interpretive Statements SINUS RHYTHM BORDERLINE LEFT AXIS DEVIATION [QRS AXIS < -20] LOW QRS VOLTAGE IN PRECORDIAL LEADS [QRS DEFLECTION < 1.0 mV IN CHEST LEADS] Compared to ECG 09/19/2019 16:29:31 No significant changes Electronically Signed On 12-31-2019 19:08:04 CDT by Kei Miranda M.D. [id number]
--- NOTE | 2019-12-31 05:24 | XRR_ITS ---
PROCEDURE INFORMATION: Exam: XR Chest, 1 View Exam date and time: 12/31/2019 6:12 AM Age: 74 years old Clinical indication: Prior surgery; Surgery date: 6+ months; Surgery type: Port; Patient HX: C/O L arm weakness. Poss CVA. HX of melanoma; Colon CA TECHNIQUE: Imaging protocol: XR of the chest Views: 1 view. COMPARISON: CR XR chest 1V portable [id number] 09/19/2019 4:07 PM FINDINGS: Tubes, catheters and devices: There is a left subclavian port with the catheter tip in the superior vena cava. Lungs: No pneumonia or pulmonary edema. Pleural space: No pleural effusion or pneumothorax. Heart/Mediastinum: The cardiac silhouette is not enlarged when allowing for a portable exam and the presence of a left epicardial fat pad. The mediastinal contours are normal. Calcified right hilar and mediastinal lymph nodes from prior granulomatous disease. Bones/joints: There are multilevel bridging osteophytes in the spine. XR/XR chest 1V portable [id number] IMPRESSION: No acute abnormality.
--- NOTE | 2019-12-31 05:24 | CTR_ITS ---
PROCEDURE INFORMATION: Exam: CT Head Without Contrast Exam date and time: 12/31/2019 5:25 AM Age: 74 years old Clinical indication: Weakness, extremity; Left; Additional info: CVA TECHNIQUE: Imaging protocol: Computed tomography of the head without contrast. Radiation optimization: All CT scans at this facility use at least one of these dose optimization techniques: automated exposure control; mA and/or kV adjustment per patient size (includes targeted exams where dose is matched to clinical indication); or iterative reconstruction. Other technique: STROKE PROTOCOL was implemented. COMPARISON: No relevant prior studies available. RADIATION DOSE METRICS: Total DLP (mGy-cm): 914.02 FINDINGS: Brain: There is mild diffuse cerebral atrophy. Patchy areas of hypoattenuation are seen in the deep white matter of the cerebral hemispheres bilaterally compatible with deep white matter microvascular disease. There is hypoattenuation and encephalomalacia is seen within the right posterior parietal lobe medially compatible with a chronic infarction. Ventricles: No ventriculomegaly. Bones/joints: Unremarkable. No acute fracture. Paranasal sinuses: There is mild mucosal thickening seen within the ethmoidal sinuses. Mastoid air cells: Visualized mastoid air cells are well aerated. Soft tissues: Unremarkable. CT/CT head wo con* [id number] IMPRESSION: 1. There are no acute intracranial findings. 2. Focal area of the hypoattenuation and encephalomalacia within the right posteromedial parietal lobe compatible with a chronic infarction. ASSESSMENT: ASPECTS ([place] Stroke Program Early CT Score) is 10. Radiation Dose CTDIVOL = (mGy): DLP = 914.02 (mGy-cm)
--- NOTE | 2019-12-31 05:32 | ED_ITS ---
Documented by User: Arabella Ochoa MD 12/31/19 05:38 HPI - Neuro Symptoms/Deficit General: Chief Complaint: Neuro Symptoms/Deficit Stated Complaint: POSSIBLE CVA Time Seen by Provider: 12/31/19 05:23 Source: patient and EMS Mode of arrival: EMS Limitations: no limitations History of Present Illness: HPI Narrative: 74-year-old female states she woke up this morning at 430. She states she had a headache and went to the bathroom. States when going the bathroom she started having left arm numbness and weakness. She states this lasted for roughly 10 minutes and then resolved. EMS states she has had no weakness in route. Patient states she still is a mild headache she rates a 2 out of 10. She denies any fever or neck pain. She denies any extremity weakness but still states she has some slight numbness in her hand. Associated symptoms: Reports headache(s); Deny chest pain, nausea or vomiting Review of Systems Const: Denies: fever(s), chills, body aches or change in appetite Eyes: Denies: blurry vision or eye discomfort ENMT: Denies: throat pain or dental pain Card: Denies: chest pain Resp: Denies: dyspnea GI: Denies: abdominal pain, nausea, vomiting or diarrhea : Denies: dysuria Musc: Denies: neck pain or back pain Skin/Breast: Denies: rash Neuro: Reports: headache(s) and weakness in extremities Psych: Denies: depression Mack/Lymph: Denies: easy bruising All/Imm: Denies: urticaria PFSH ED PFSH: Medical History Anxiety and depression GERD (gastroesophageal reflux disease) History of colon cancer Hypertension Hypothyroidism Malignant melanoma Involving the left upper back/left shoulder, stage IV (pT4b, cN3, cM1a) at initial diagnosis in June 2018. Morbid obesity Obstructive sleep apnea On 2 L of oxygen by nasal cannula at night Surgical History History of appendectomy History of hemicolectomy 1994, colon cancer History of surgical removal of skin lesion History of tonsillectomy Family History (Updated 12/31/19 @ 10:56 by Lourdes Gongora DO) Mother Cancer Renal cancer, at the age of 84 Father No problems noted. Brother Cancer Brother with prostate cancer Hodgkins lymphoma Social History (Updated 12/31/19 @ 10:56 by Lourdes Gongora DO) Smoking and tobacco status: former smoker Alcohol intake: never Substance/Drug Use: never Household members: children NIH stroke score NIHSS: Level Of Consciousness - 1a: 0 Level Of Consciousness Questions - 1b: Both Correct Level Of Consciousness Commands - 1c: Both Correct Best Gaze - 2: Normal Visual [place] - 3: No Visual Loss Facial Palsy - 4: Normal Motor Arm Right - 5: No Drift Motor Arm Left - 5: No Drift Motor Leg Right - 6: No Drift Motor Leg Left - 6: No Drift Limb Ataxia - 7: Absent Sensory - 8: Normal Best Language - 9: No Aphasia Dysarthia - 10: Normal Extinction And Inattention - 11: 0 Score: Total Score: 0 Physical Exam Const: COMMON NORMALS: no acute distress, patient oriented x3 and healthy marv earing HENMT: COMMON NORMALS: normocephalic and atraumatic HEAD & SCALP: normocephalic and atraumatic Eye: COMMON NORMALS: Equal, round and reactive pupils present and EOMs intact bilaterally PUPIL: Yes Equal, round and reactive pupils present Neck/C-Spine: COMMON NORMALS: full ROM and supple Chest: COMMONS NORMALS: normal inspection of the chest and normal palpation of entire chest wall Resp: COMMON NORMALS: normal respiratory effort, No retractions, No use of accessory muscles and clear to auscultation bilaterally AUSCULTATION: clear to auscultation bilaterally Cardio: COMMON NORMALS: regular rate, regular rhythm and No murmurs present (Cardio) RATE: regular rate RHYTHM: regular rhythm GI: COMMON NORMALS: Normal to inspection, nondistended, normoactive bowel sounds present, Soft to palpation, non-tender and no masses PALPATION: Yes Soft to palpation Extremity: COMMON NORMALS: normal to inspection and full ROM Neuro: COMMON NORMALS: patient oriented x3, moves all extremities and no focal motor deficits Psych: COMMON NORMALS: mental status grossly normal, Normal thought process present and cooperative THOUGHT PROCESS: Normal thought process present Skin: COMMON NORMALS: no rashes or lesions noted and no wounds GENERAL SKIN EXAM: no rashes or lesions noted Course Vital Signs: Vital signs: Vital Signs Temperature 97.9 F 01/01/20 05:00 Pulse Rate 73 09/22/20 05:00 Respiratory Rate 18 01/01/20 05:00 Blood Pressure 150/79 01/01/20 05:00 Pulse Oximetry 91 01/01/20 04:00 MDM - Neuro Symptoms/Deficit Lab Data: Labs: Lab Results 12/31/19 12/31/19 12/31/19 Range/Units 05:38 05:38 05:38 WBC 5.4 (4.0-10.0) 10^3/ uL RBC 3.78 L (4.1-5.3) 10^6/u L Hgb 12.3 (11.5-15.3) g/dL Hct 38.6 (37.0-47.0) % MCV 102.1 H (81-99) fL MCH 32.5 (28.0-34.0) pg MCHC 31.9 (30.0-36.0) g/dL RDW 12.5 (12.1-15.1) % Plt Count 178 (130-400) 10^3/c mm MPV 9.3 (7.4-10.4) fL Neut % (Auto) 55.2 % Lymph % (Auto) 30.3 % [place] % (Auto) 9.7 % Eos % (Auto) 3.7 % Baso % (Auto) 0.7 % Neut # (Auto) 2.95 (1.8-7.7) 10^3/u L Lymph # (Auto) 1.6 (0.8-4.8) 10^3/u L [place] # (Auto) 0.5 (0.2-0.9) 10^3/u L Eos # (Auto) 0.2 (0.0-0.8) 10^3/u L Baso # (Auto) 0.0 (0.0-0.1) 10^3/u L Nucleated RBC % (a uto) 0 % Nucleated RBCs # 0.0 /100WBC PT 12.10 (12.1-14.9) SECO NDS INR 0.87 (0.8-1.2) Sodium 140 (136-145) mmol/L Potassium 4.1 (3.5-5.1) mmol/L Chloride 105 (98-107) mmol/L Carbon Dioxide 26 (22-29) mmol/L Anion Gap 13.1 (5-19) BUN 10 (8-23) mg/dL Creatinine 0.6 (0.5-0.9) mg/dL GFR Calculation Not Reportable Glucose 184 H (65-115) mg/dL Calculated Osmolal ity 294 (285-295) mOsm/k g Calcium 9.6 (8.5-10.5) mg/dL Total Bilirubin 0.7 (0.15-1.2) mg/dL AST 29 (0-32) U/L ALT 16 (0-33) U/L Alkaline Phosphata se 103 (35-105) IU/L Total Protein 7.0 (6.6-8.7) g/dL Albumin 3.8 (3.5-5.2) g/dL Globulin 3.2 (1.3-4.6) g/dL TSH (0.27-4.20) uIU/ mL 12/31/19 Range/Units 05:38 WBC (4.0-10.0) 10^3/ uL RBC (4.1-5.3) 10^6/u L Hgb (11.5-15.3) g/dL Hct (37.0-47.0) % MCV (81-99) fL MCH (28.0-34.0) pg MCHC (30.0-36.0) g/dL RDW (12.1-15.1) % Plt Count (130-400) 10^3/c mm MPV (7.4-10.4) fL Neut % (Auto) % Lymph % (Auto) % [place] % (Auto) % Eos % (Auto) % Baso % (Auto) % Neut # (Auto) (1.8-7.7) 10^3/u L Lymph # (Auto) (0.8-4.8) 10^3/u L [place] # (Auto) (0.2-0.9) 10^3/u L Eos # (Auto) (0.0-0.8) 10^3/u L Baso # (Auto) (0.0-0.1) 10^3/u L Nucleated RBC % (a uto) % Nucleated RBCs # /100WBC PT (12.1-14.9) SECO NDS INR (0.8-1.2) Sodium (136-145) mmol/L Potassium (3.5-5.1) mmol/L Chloride (98-107) mmol/L Carbon Dioxide (22-29) mmol/L Anion Gap (5-19) BUN (8-23) mg/dL Creatinine (0.5-0.9) mg/dL GFR Calculation Glucose (65-115) mg/dL Calculated Osmolal ity (285-295) mOsm/k g Calcium (8.5-10.5) mg/dL Total Bilirubin (0.15-1.2) mg/dL AST (0-32) U/L ALT (0-33) U/L Alkaline Phosphata se (35-105) IU/L Total Protein (6.6-8.7) g/dL Albumin (3.5-5.2) g/dL Globulin (1.3-4.6) g/dL TSH 1.19 (0.27-4.20) uIU/ mL Discharge Plan Discharge Patient Disposition: Admitted As Inpatient Admit Provider: Lourdes Gongora Patient Instructions: Self Care Measures After a Stroke (DC) Discharge Date/Time: 12/31/19 08:40 Sign Out Sign Out Data: Patient Sign Out occurred on 12/31/19 at 06:00. Patient's care was discussed, and care was transferred from to Torin Mchugh DO. Coding Level of Care Code ED Placement Interviewer for Chg Fwd Exam Comprehensive Documented by User: Torin Mchugh DO 01/01/20 06:17 HPI - Neuro Symptoms/Deficit General: Chief Complaint: Neuro Symptoms/Deficit Stated Complaint: POSSIBLE CVA Time Seen by Provider: 12/31/19 05:23 PFS ED PFSH: Medical History Anxiety and depression GERD (gastroesophageal reflux disease) History of colon cancer Hypertension Hypothyroidism Malignant melanoma Involving the left upper back/left shoulder, stage IV (pT4b, cN3, cM1a) at initial diagnosis in June 2018. Morbid obesity Obstructive sleep apnea On 2 L of oxygen by nasal cannula at night Surgical History History of appendectomy History of hemicolectomy 1994, colon cancer History of surgical removal of skin lesion History of tonsillectomy Family History (Updated 12/31/19 @ 10:56 by Lourdes Gongora DO) Mother Cancer Renal cancer, at the age of 84 Father No problems noted. Brother Cancer Brother with prostate cancer Hodgkins lymphoma Social History (Updated 12/31/19 @ 10:56 by Lourdes Gongora DO) Smoking and tobacco status: former smoker Alcohol intake: never Substance/Drug Use: never Household members: children Course Vital Signs: Vital signs: Vital Signs Temperature 97.9 F 01/01/20 05:00 Pulse Rate 73 01/01/20 05:00 Respiratory Rate 18 01/01/20 05:00 Blood Pressure 150/79 01/01/20 05:00 Pulse Oximetry 91 01/01/20 04:00 MDM - Neuro Symptoms/Deficit MDM Narrative: Medical decision making narrative: Care assumed a change of shift. Patient has a persistent ataxia of the left arm. This developed while asleep and is persisting. Dr. Ochoa describes in his note that when I picked up the patient's care at change of shift reexamined her she still has a persistent ataxia. Given his deficit we will go ahead and admit with Dr. Gongora discussed and orders have been written. Lab Data: Labs: Lab Results 12/31/19 12/31/19 12/31/19 Range/Units 05:38 05:38 05:38 WBC 5.4 (4.0-10.0) 10^3/ uL RBC 3.78 L (4.1-5.3) 10^6/u L Hgb 12.3 (11.5-15.3) g/dL Hct 38.6 (37.0-47.0) % MCV 102.1 H (81-99) fL MCH 32.5 (28.0-34.0) pg MCHC 31.9 (30.0-36.0) g/dL RDW 12.5 (12.1-15.1) % Plt Count 178 (130-400) 10^3/c mm MPV 9.3 (7.4-10.4) fL Neut % (Auto) 55.2 % Lymph % (Auto) 30.3 % [place] % (Auto) 9.7 % Eos % (Auto) 3.7 % Baso % (Auto) 0.7 % Neut # (Auto) 2.95 (1.8-7.7) 10^3/u L Lymph # (Auto) 1.6 (0.8-4.8) 10^3/u L [place] # (Auto) 0.5 (0.2-0.9) 10^3/u L Eos # (Auto) 0.2 (0.0-0.8) 10^3/u L Baso # (Auto) 0.0 (0.0-0.1) 10^3/u L Nucleated RBC % (a uto) 0 % Nucleated RBCs # 0.0 /100WBC PT 12.10 (12.1-14.9) SECO NDS INR 0.87 (0.8-1.2) Sodium 140 (136-145) mmol/L Potassium 4.1 (3.5-5.1) mmol/L Chloride 105 (98-107) mmol/L Carbon Dioxide 26 (22-29) mmol/L Anion Gap 13.1 (5-19) BUN 10 (8-23) mg/dL Creatinine 0.6 (0.5-0.9) mg/dL GFR Calculation Not Reportable Glucose 184 H (65-115) mg/dL Calculated Osmolal ity 294 (285-295) mOsm/k g Calcium 9.6 (8.5-10.5) mg/dL Total Bilirubin 0.7 (0.15-1.2) mg/dL AST 29 (0-32) U/L ALT 16 (0-33) U/L Alkaline Phosphata se 103 (35-105) IU/L Total Protein 7.0 (6.6-8.7) g/dL Albumin 3.8 (3.5-5.2) g/dL Globulin 3.2 (1.3-4.6) g/dL TSH (0.27-4.20) uIU/ mL 12/31/19 Range/Units 05:38 WBC (4.0-10.0) 10^3/ uL RBC (4.1-5.3) 10^6/u L Hgb (11.5-15.3) g/dL Hct (37.0-47.0) % MCV (81-99) fL MCH (28.0-34.0) pg MCHC (30.0-36.0) g/dL RDW (12.1-15.1) % Plt Count (130-400) 10^3/c mm MPV (7.4-10.4) fL Neut % (Auto) % Lymph % (Auto) % [place] % (Auto) % Eos % (Auto) % Baso % (Auto) % Neut # (Auto) (1.8-7.7) 10^3/u L Lymph # (Auto) (0.8-4.8) 10^3/u L [place] # (Auto) (0.2-0.9) 10^3/u L Eos # (Auto) (0.0-0.8) 10^3/u L Baso # (Auto) (0.0-0.1) 10^3/u L Nucleated RBC % (a uto) % Nucleated RBCs # /100WBC PT (12.1-14.9) SECO NDS INR (0.8-1.2) Sodium (136-145) mmol/L Potassium (3.5-5.1) mmol/L Chloride (98-107) mmol/L Carbon Dioxide (22-29) mmol/L Anion Gap (5-19) BUN (8-23) mg/dL Creatinine (0.5-0.9) mg/dL GFR Calculation Glucose (65-115) mg/dL Calculated Osmolal ity (285-295) mOsm/k g Calcium (8.5-10.5) mg/dL Total Bilirubin (0.15-1.2) mg/dL AST (0-32) U/L ALT (0-33) U/L Alkaline Phosphata se (35-105) IU/L Total Protein (6.6-8.7) g/dL Albumin (3.5-5.2) g/dL Globulin (1.3-4.6) g/dL TSH 1.19 (0.27-4.20) uIU/ mL Discharge Plan Discharge Patient Disposition: Admitted As Inpatient Admit Provider: Lourdes Gongora Patient Instructions: Self Care Measures After a Stroke (DC) Discharge Date/Time: 12/31/19 08:40 Sign Out Sign Out Data: Patient Sign Out occurred on 12/31/19 at 06:00. Patient's care was discussed, and care was transferred from to Torin Mchugh DO. Coding Level of Care Code ED Placement Interviewer for [place] Fwd Exam Comprehensive
[2019-12-31 06:06] LABS: Basophils % 0.7 %; Eosinophils # 0.2 10^3/uL (0.0-0.8); Eosinophils % 3.7 %; Hematocrit 38.6 % (37.0-47.0); Hemoglobin 12.3 g/dL (11.5-15.3); Lymphocytes # 1.6 10^3/uL (0.8-4.8); Lymphocytes % 30.3 %; Mean Corpuscular HGB Conc 31.9 g/dL (30.0-36.0); Mean Corpuscular Hemoglobin 32.5 pg (28.0-34.0); Mean Corpuscular Volume 102.1 fL (81-99); Mean Platelet Volume 9.3 fL (7.4-10.4); Monocytes # 0.5 10^3/uL (0.2-0.9); Monocytes % 9.7 %; Neutrophils # 2.95 10^3/uL (1.8-7.7); Neutrophils % 55.2 %; Nucleated Red Blood Cells % 0 %; Platelet Count 178 10^3/cmm (130-400); Red Blood Count 3.78 10^6/uL (4.1-5.3); Red Cell Distribution Width 12.5 % (12.1-15.1); White Blood Count 5.4 10^3/uL (4.0-10.0)
[2019-12-31 06:13] LABS: INR 0.87 (0.8-1.2)
[2019-12-31 06:24] LABS: Alanine Aminotransferase 16 U/L (0-33); Albumin Level 3.8 g/dL (3.5-5.2); Alkaline Phosphatase 103 IU/L (35-105); Anion Gap 13.1 (5-19); Aspartate Amino Transferase 29 U/L (0-32); Blood Urea Nitrogen 10 mg/dL (8-23); Calcium 9.6 mg/dL (8.5-10.5); Carbon Dioxide 26 mmol/L (22-29); Chloride 105 mmol/L (98-107); Globulin 3.2 g/dL (1.3-4.6); Glucose 184 mg/dL (65-115); Osmolality Calculated 294 mOsm/kg (285-295); Potassium 4.1 mmol/L (3.5-5.1); Sodium 140 mmol/L (136-145); Total Bilirubin 0.7 mg/dL (0.15-1.2)
[2019-12-31] MEDS: ibuprofen 600 mg Tablet PO (08:28)
--- NOTE | 2019-12-31 09:15 | ECG_ITS ---
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 Measurements Intervals [place] Rate: 64 P: 205 MI: 101 QRS: -17 QRSD: 87 T: 8 QT: 410 QTc: 425 Interpretive Statements SINUS RHYTHM LOW QRS VOLTAGE IN PRECORDIAL LEADS [QRS DEFLECTION < 1.0 mV IN CHEST LEADS] Compared to ECG 12/31/2019 05:58:03 NO SIGNIFICANT CHANGES Electronically Signed On 12-31-2019 19:07:00 CDT by Kei Miranda M.D. [email or web address]
[2019-12-31 09:46] LABS: Partial Thromboplastin Time 30.3 SECONDS (23.9-36.7)
[2019-12-31 10:04] LABS: Glucose Point of Care 133 mg/dL (70-110)
--- NOTE | 2019-12-31 10:45 | P.HP_ITS ---
Providers/Chief Complaint Admitting Physician: Lourdes Gongora DO Primary Care Provider: Humaira Boggs APN Chief Complaint: POSSIBLE CVA History of Present Illness Laurence Malave is a 74 year old female with a past medical history of malignant melanoma, hypertension, hypothyroidism and obstructive sleep apnea that presented to the emergency department today for left-sided weakness. She stated that she woke up this morning at 430 and had left-sided numbness and weakness in her upper extremity. She reported that she did not have any deficits last night when she went to bed but did have a slight headache. She denies any trouble with speech, denies any current headache or vision changes. Stated that she has not had any recent change in medications, no other concerns. Reported that she chronically has issues with her gait and gait instability and uses a walker, no acute changes with this. She stated that when she woke up this morning and had symptoms she woke up her daughter and came into the ER. She denies any recent illness, no fevers or chills, no exposure to anyone under investigation are positive for COVID-19. Patient was seen and evaluated in the emergency department noted to have some slight ataxia in the left upper extremity but her symptoms began to resolve, NIH stroke scale of 0 from ER physician. Review of Systems Const: Denies: fever(s) or chills Eyes: Denies: change in vision ENMT: Denies: nasal congestion Card: Denies: chest pain, palpitations or edema Resp: Denies: dyspnea, productive cough or hemoptysis GI: Denies: abdominal pain, nausea, vomiting, diarrhea, constipation, hematochezia or melena : Denies: dysuria or hematuria Musc: Denies: extremity pain or muscle cramps Skin/Breast: Denies: rash or new lesions Neuro: Reports: numbness in extremities (Now improved), weakness in extremities (Now improved) and lack of coordination (Now resolved); Denies: headache(s) or dizziness Psych: Denies: anxiety or depression Endo: Denies: polyuria or hot flashes Mack/Lymph: Denies: easy bruising or easy bleeding Medications/Allergies Home Medications Medication Instructions Recorded Confirmed Last Taken Type amlodipine 5 mg PO DAILY 12/31/19 12/31/19 12/30/19 History cholestyramine (with sugar) 4 g PO EVERY OTHER DAY 12/31/19 12/31/19 12/30/19 History furosemide 20 - 40 mg PO DAILY PRN 12/31/19 12/31/19 12/29/19 History 40 mg hydrocodone-acetaminophen 1 tab PO Q4H PRN 12/31/19 12/31/19 Unknown History ibuprofen 800 mg PO BID PRN 12/31/19 12/31/19 Unknown History levothyroxine [Euthyrox] 125 mcg PO DAILY 12/31/19 12/31/19 12/30/19 History losartan 50 mg PO DAILY 12/31/19 12/31/19 12/30/19 History metoprolol tartrate 50 mg PO BID 12/31/19 12/31/19 12/30/19 History pantoprazole 40 mg PO DAILY 12/31/19 12/31/19 12/30/19 History potassium chloride 10 - 20 meq PO DAILY PRN 12/31/19 12/31/19 12/29/19 History 20 meq tramadol 50 mg PO TID PRN 12/31/19 12/31/19 Unknown History Allergies Allergy/AdvReac Type Severity Reaction Status Date / Time No Known Allergies Allergy Verified 09/19/19 14:29 PFSH Acute PFSH: Medical History Anxiety and depression GERD (gastroesophageal reflux disease) History of colon cancer Hypertension Hypothyroidism Malignant melanoma Involving the left upper back/left shoulder, stage IV (pT4b, cN3, cM1a) at i nitial diagnosis in June 2018. Morbid obesity Obstructive sleep apnea On 2 L of oxygen by nasal cannula at night Surgical History History of appendectomy History of hemicolectomy 1994, colon cancer History of surgical removal of skin lesion History of tonsillectomy Family History (Updated 12/31/19 @ 10:56 by Lourdes Gongora DO) Mother Cancer Renal cancer, at the age of 84 Father No problems noted. Brother Cancer Brother with prostate cancer Hodgkins lymphoma Social History (Updated 12/31/19 @ 10:56 by Lourdes Gongora DO) Smoking and tobacco status: former smoker Alcohol intake: never Substance/Drug Use: never Household members: children Supplemental PFSH Information: Patient lives at home with her daughter, Aarti. She has a walker that she uses for gait stability Vitals/I&O/Wt Last Vital Signs Temp 98.3 F 12/31/19 09:22 Pulse 63 12/31/19 09:22 Resp 15 12/31/19 09:22 BP 131/71 12/31/19 09:22 Pulse Ox 91 12/31/19 09:22 Weight last 48 hrs Weight 134.717 kg Physical Exam Const: COMMON NORMALS: patient oriented x3 and alert GENERAL APPEARANCE: cooperative ORIENTATION/CONSCIOUSNESS: Yes awake, Yes oriented to person, Yes oriented to place and Yes oriented to time HENMT: COMMON NORMALS: normocephalic and atraumatic HEAD & SCALP: normocephalic and atraumatic Eye: COMMON NORMALS: Equal, round and reactive pupils present PUPIL: Yes Equal, round and reactive pupils present Neck/C-Spine: COMMON NORMALS: supple GENERAL: Yes normal visual inspection Resp: COMMON NORMALS: normal respiratory effort and clear to auscultation bilaterally EFFORT & INSPECTION: Yes able to speak in complete sentences AUSCULTATION: clear to auscultation bilaterally, no rhonchi and no wheezes Cardio: COMMON NORMALS: regular rate, regular rhythm and No murmurs present (Cardio) RATE: regular rate RHYTHM: regular rhythm GI: COMMON NORMALS: Soft to palpation and non-tender INSPECTION: No abdominal distension AUSCULTATION: Yes normoactive bowel sounds PALPATION: Yes Soft to palpation : COMMON NORMALS: Yes no CVA tenderness BLADDER/KIDNEY EXAM: Yes no CVA tenderness Back/Pelvis: COMMON NORMALS: no CVA tenderness Extremity: COMMON NORMALS: no calf tenderness NARRATIVE EXTREMITY EXAM: Nonpitting edema in the lower extremities bilaterally, dry skin over the lower extremities bilaterally Neuro: COMMON NORMALS: patient oriented x3, CN's II-XII intact bilaterally, moves all extremities, no focal motor deficits and no sensory deficits noted SENSORIUM/ORIENTATION: Yes alert, Yes oriented to person, Yes oriented to place and Yes oriented to time COORDINATION/BALANCE: [id number] test normal SPEECH: speech normal MOTOR EXAM: 5/5 motor strength present throughout COORDINATION: [id number]-[id number] test normal Psych: COMMON NORMALS: mental status grossly normal and cooperative Skin: COMMON NORMALS: no rashes or lesions noted GENERAL SKIN EXAM: no rashes or lesions noted Data : 12/31/19 05:38 12/31/19 05:38 CT Head: I personally reviewed and interpreted this imaging study as follows: Radiologist's impression: [address] [address] [address] Scan Report Signed Patient: Laurence Malave #: [id number] : 7Acct#:[id number] Age/Sex: 74 / FADM Date: 12/31/19 Loc: ERRoom/Bed: Attending Dr: Ordering Provider/Ordering MD: Arabella Ochoa MD Date of Service: 12/31/19 Procedure(s): CT head wo con* [id number] Accession Number(s): [id number] Report Number: [id number] PROCEDURE INFORMATION: Exam: CT Head Without Contrast Exam date and time: 12/31/2019 5:25 AM Age: 74 years old Clinical indication: Weakness, extremity; Left; Additional info: CVA TECHNIQUE: Imaging protocol: Computed tomography of the head without contrast. Radiation optimization: All CT scans at this facility use at least one of these dose optimization techniques: automated exposure control; mA and/or kV adjustment per patient size (includes targeted exams where dose is matched to clinical indication); or iterative reconstruction. Other technique: STROKE PROTOCOL was implemented. COMPARISON: No relevant prior studies available. RADIATION DOSE METRICS: Total DLP (mGy-cm): 914.02 FINDINGS: Brain: There is mild diffuse cerebral atrophy. Patchy areas of hypoattenuation are seen in the deep white matter of the cerebral hemispheres bilaterally compatible with deep white matter microvascular disease. There is hypoattenuation and encephalomalacia is seen within the right posterior parietal lobe medially compatible with a chronic infarction. Ventricles: No ventriculomegaly. Bones/joints: Unremarkable. No acute fracture. Paranasal sinuses: There is mild mucosal thickening seen within the ethmoidal sinuses. Mastoid air cells: Visualized mastoid air cells are well aerated. Soft tissues: Unremarkable. CT/CT head wo con* [id number] IMPRESSION: 1. There are no acute intracranial findings. 2. Focal area of the hypoattenuation and encephalomalacia within the right posteromedial parietal lobe compatible with a chronic infarction. CXR: I personally reviewed and interpreted this imaging study as follows: Radiologist's impression: FINDINGS: Tubes, catheters and devices: There is a left subclavian port with the catheter tip in the superior vena cava. Lungs: No pneumonia or pulmonary edema. Pleural space: No pleural effusion or pneumothorax. Heart/Mediastinum: The cardiac silhouette is not enlarged when allowing for a portable exam and the presence of a left epicardial fat pad. The mediastinal contours are normal. Calcified right hilar and mediastinal lymph nodes from prior granulomatous disease. Bones/joints: There are multilevel bridging osteophytes in the spine. XR/XR chest 1V portable [id number] IMPRESSION: No acute abnormality. A&P Assessment and plan (1) TIA (transient ischemic attack): Patient with left-sided weakness and ataxia that is now resolved Physical therapy, occupational therapy and speech therapy ordered Monitor in telemetry We will start on aspirin and atorvastatin We will check hemoglobin A1c along with lipid panel We will check echocardiogram and carotid ultrasound Serial neurologic checks NIH of 0 on arrival to the ED As noted above patient does have chronic CT findings of chronic infarction, no acute intracranial abnormalities Status: Acute (2) Hypertension: Patient is on losartan, metoprolol and amlodipine, will restart these medications Status: Acute (3) Hypothyroidism: Check TSH and restart home levothyroxine 125 mcg daily Status: Acute (4) Morbid obesity: Status: Acute (5) Malignant melanoma: Followed by Dr. Kyle, oncology. Continue with close outpatient follow-up, has been off of chemotherapy for 6 weeks Status: Acute (6) Obstructive sleep apnea: Patient is not on home CPAP but does have 2 L of oxygen by nasal cannula that she wears at night, will continue at this time Status: Acute (7) GERD (gastroesophageal reflux disease): Continue PPI Status: Acute Additional A&P Information Left arm paresthesias: This is now improved but will check serial EKG and troponin to rule out any type of atypical cardiac presentation. Hyperglycemia without prior history of diabetes: We will check hemoglobin A1c DVT prophylaxis: SCDs Diet: Cardiac diet CODE STATUS: DNR/DNI, this was discussed with patient on admission, she verbalized that she has told all of her family in the past that she would not want resuscitation if something were to happen. Questions were answered. Attestations Medical Necessity Statement*: Patient placed on observation due to transient i schemic attack, expected stay less than 2 midnights Coding Level of Care Code Acute Oxygen Equipment Technician for Chg Fwd Diagnoses TIA (transient ischemic attack) G45.9 Hypertension I10 Hypothyroidism E03.9 Morbid obesity E66.01 Malignant melanoma C43.9 Obstructive sleep apnea G47.33 GERD (gastroesophageal reflux disease) K21.9
--- NOTE | 2019-12-31 10:58 | ECG_ITS ---
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 Measurements Intervals [place] Rate: 65 P: [place]: -1 QRS: -28 QRSD: 90 T: 0 QT: 410 QTc: 428 Interpretive Statements SINUS RHYTHM LOW QRS VOLTAGE IN PRECORDIAL LEADS [QRS DEFLECTION < 1.0 mV IN CHEST LEADS] INFERIOR MYOCARDIAL INFARCTION [40+ ms Q WAVE AND/OR ST/T ABNORMALITY IN II/aVF], PROBABLY OLD Compared to ECG 12/31/2019 09:49:28 NO SIGNIFICANT CHANGES Electronically Signed On 12-31-2019 19:05:14 CDT by Kei Miranda M.D. [id number]
[2019-12-31] MEDS: sodium chloride 0.9% 1,000 ML 100 ML IV ×2 (11:22→20:50)
[2019-12-31] MEDS: levothyroxine 125 mcg Tablet PO (11:22)
[2019-12-31] MEDS: aspirin 81 mg EC Tablet PO (11:22)
[2019-12-31 11:25] LABS: Thyroid Stimulating Hormone 1.19 uIU/mL (0.27-4.20)
[2019-12-31 11:41] LABS: Troponin(5th) Baseline 8 ng/L (0-10)
--- NOTE | 2019-12-31 12:58 | ECG_ITS ---
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 Measurements Intervals [place] Rate: 61 P: 81 MS: 212 QRS: -24 QRSD: 89 T: 52 QT: 425 QTc: 431 Interpretive Statements SINUS RHYTHM WITH FIRST DEGREE AV BLOCK BORDERLINE LEFT AXIS DEVIATION [QRS AXIS < -20] Compared to ECG 12/31/2019 11:32:35 First degree AV block now present Supraventricular rhythm no longer present Myocardial infarct finding no longer present Electronically Signed On 12-31-2019 19:35:33 CDT by Kei Miranda M.D. [id number]
[2019-12-31 13:59] LABS: Troponin 5 2HR 6.56 ng/L (0-10)
[2019-12-31 14:00] LABS: Troponin 5 2HR Delta -1.44 ABS# (0-10)
--- NOTE | 2019-12-31 14:15 | PC.OT ---
OT Note: pending COVID-19 test, OT will hold at this time.
--- NOTE | 2019-12-31 15:36 | PC.NURSE ---
Stroke Free book filled out and reviewed with patient at this time. Patient verbalized understanding.
--- NOTE | 2019-12-31 15:39 | PC.NURSE ---
Patient voided 250 mls while OT had her doing her bath. OT did not know urine was needed so they did not do a clean catch. Will still need a urine to send to lab.
--- NOTE | 2019-12-31 16:58 | ECG_ITS ---
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 Measurements Intervals [place] Rate: 70 P: 43 [place]: 202 QRS: -16 QRSD: 86 T: 23 QT: 406 QTc: 441 Interpretive Statements SINUS RHYTHM Compared to ECG 12/31/2019 14:16:10 First degree AV block no longer present Electronically Signed On 12-31-2019 19:31:44 CDT by Kei Miranda M.D. [id number]
[2019-12-31] MEDS: metoprolol tartrate 50 mg Tablet PO (17:46)
[2019-12-31 17:58] LABS: Troponin 5 6HR 7.26 ng/L (0-10)
[2019-12-31 18:00] LABS: Troponin 5 6HR Delta -0.74 ng/L (0-12)
--- NOTE | 2019-12-31 18:49 | PC.NURSE ---
Report to Piedad WORTHINGTON at this time.
[2019-12-31] MEDS: HYDROcodone-acetaminophen 5-325 mg Tablet 1 TAB PO (20:50)
[2019-12-31] MEDS: atorvastatin 40 mg Tablet PO (20:50)
[2019-12-31 21:03] LABS: Coronavirus Lab Test PTC Negative
[2020-01-01] VITALS (10 sets, daily range): BP systolic 136–150; BP diastolic 63–96; PULSE 60–73; RESP 18; TEMP 36.4–36.8; O2SAT 90–95
[2020-01-01 05:36] LABS: Basophils % 0.7 %; Eosinophils # 0.2 10^3/uL (0.0-0.8); Hematocrit 38.2 % (37.0-47.0); Lymphocytes # 1.8 10^3/uL (0.8-4.8); Lymphocytes % 31.6 %; Mean Corpuscular HGB Conc 31.4 g/dL (30.0-36.0); Mean Corpuscular Hemoglobin 32.3 pg (28.0-34.0); Mean Platelet Volume 9.4 fL (7.4-10.4); Monocytes # 0.5 10^3/uL (0.2-0.9); Monocytes % 8.9 %; Neutrophils # 3.15 10^3/uL (1.8-7.7); Neutrophils % 55.3 %; Nucleated Red Blood Cells % 0 %; Platelet Count 178 10^3/cmm (130-400); Red Blood Count 3.71 10^6/uL (4.1-5.3); Red Cell Distribution Width 12.5 % (12.1-15.1); White Blood Count 5.7 10^3/uL (4.0-10.0)
[2020-01-01 05:57] LABS: Chol HDL Ratio 2.88 mg/dL (0.0-4.40); Cholesterol 147 mg/dL (0-200); HDL Cholesterol 51 mg/dL (60-100); LDL Cholesterol Calculated 63 mg/dL (50-129); LDL HDL Ratio 1.24 RATIO (0.00-3.22); Triglycerides 163 mg/dL (0-150)
[2020-01-01 05:58] LABS: Alanine Aminotransferase 17 U/L (0-33); Albumin Level 3.7 g/dL (3.5-5.2); Alkaline Phosphatase 101 IU/L (35-105); Aspartate Amino Transferase 32 U/L (0-32); Blood Urea Nitrogen 9 mg/dL (8-23); Calcium 9.4 mg/dL (8.5-10.5); Carbon Dioxide 24 mmol/L (22-29); Chloride 107 mmol/L (98-107); Globulin 3.3 g/dL (1.3-4.6); Glucose 119 mg/dL (65-115); Osmolality Calculated 292 mOsm/kg (285-295); Sodium 141 mmol/L (136-145); Total Bilirubin 1.3 mg/dL (0.15-1.2)
--- NOTE | 2020-01-01 06:00 | USCV_ITS ---
Laurence Malave Age: 74 Gender: F : 1945 Exam Date: 01/01/2020 10:34 Ordering Phys: Lourdes Gongora DO Technologist: Argenis Doran Exam Location: [facility] [place] Indication: TIA Risk Factors: Previous Vascular Surgery: Right Brachial BP: / Left Brachial BP: / Right Left Velocity (cm/s) Spectral Plaque Velocity (cm/s) Spectral Plaque Syst/Diast Broadening Syst/Diast Broadening 60.30/ 15.90 Prox CCA 72.10 / 15.40 49.90/ 14.30 Mid CCA 55.80 / 17.20 46.00/ 7.90 Distal CCA 37.80 / 12.90 52.60/ 12.10 Prox ICA 47.20 / 14.60 44.50/ 20.20 Mid ICA 40.30 / 20.60 57.70/ 25.30 Distal ICA 32.60 / 16.30 90.10 ECA 64.40 1.16 ICA/CCA 0.85 Not Vertebral Not Visualized Visualized / cm/s / cm/s Tri Subclavian Tri 79.90 92.70 CONCLUSIONS Right ICA stenosis <50%. Left ICA stenosis <50%. Neither vertebral artery is visualized today Dave Weiss MD (Electronically Signed) Final Date: 01 January 2020 15:49 S
--- NOTE | 2020-01-01 06:00 | USCV_ITS ---
Laurence Malave Age: 74 Gender: F : 1945 Exam Date: 01/01/2020 10:21 Ordering Phys: Lourdes Gongora DO Technologist: Argenis Doran Exam Location: [facility] [place] Indication: TIA BP: 150 / 79 HR: 56 Rhythm: Sinus Technical Quality: Suboptimal MEASUREMENTS (Male / Female) Normal Values 2D ECHO LV Diastolic Diameter PLAX 4.0 cm 4.2 - 5.9 / 3.9 - 5.3 cm LV Systolic Diameter PLAX 2.7 cm LV Chamber Size 4.1 cm IVS Diastolic Thickness 1.8 cm 0.6 - 1.0 / 0.6 - 0.9 cm IVS Systolic Thickness 2.6 cm LVPW Diastolic Thickness 2.0 cm 0.6 - 1.0 / 0.6 - 0.9 cm LVPW Systolic Thickness 2.7 cm RV Chamber Size 2.5 cm LVOT Diameter 2.0 cm LV Ejection Fraction 2D Teich 60.0 % LV Ejection Fraction MOD 2C 45.1 % LV Ejection Fraction 2C AL 45.8 % LA Diameter 4.9 cm LA Width 3.2 cm LA Height 4.9 cm RA Width 3.2 cm RA Height 4.6 cm Aorta at Sinotubular Diameter 2.3 cm M-MODE LV Diastolic Diameter MM 5.9 cm 4.2 - 5.9 / 3.9 - 5.3 cm LV Systolic Diameter MM 4.7 cm LV Ejection Fraction MM Teich 41.2 % IVS Diastolic Thickness MM 1.3 cm 0.6 - 1.0 / 0.6 - 0.9 cm IVS Systolic Thickness MM 1.6 cm LVPW Diastolic Thickness MM 1.3 cm 0.6 - 1.0 / 0.6 - 0.9 cm LVPW Systolic Thickness MM 1.6 cm Aortic Annulus Diameter 3.8 cm LA Ao Ratio MM 1.3 MV E Point Septal Separation 0.8 cm DOPPLER AV Peak Velocity 167.0 cm/s LVOT Peak Velocity 141.0 cm/s AV Area Cont Eq vti 3.0 cm squared AV Area Cont Eq pk 2.7 cm squared MV Area PHT 3.0 cm squared Mitral E to A Ratio 1.2 MV E' Velocity 10.0 cm/s Mitral E to MV E' Ratio 9.4 Mitral E to LV E' Lateral Ratio 9.3 Mitral E to LV E' Septal Ratio 9.5 TR Peak Velocity 205.0 cm/s TR Peak Gradient 16.9 mmHg TV Peak E Velocity 36.0 cm/s Right Atrial Pressure 3.0 mmHg Pulmonary Artery Systolic Pressu 19.8 mmHg PV Peak Velocity 73.0 cm/s RV Acceleration Time 0.1 s RV Ejection Time 0.4 s RV AcT/ET 0.3 FINDINGS Left Ventricle Normal left ventricular cavity size. Probably normal left ventricular systolic function with left ventricular ejection fraction estimated at 55%. This study is inadequate for estimation of regional wall motion abnormality. Right Ventricle Right ventricle not well visualized. Right ventricular systolic pressure 19.8 mmHg. Right Atrium Right atrium not well visualized. Left Atrium Normal left atrial size. Mitral Valve Mitral valve not well visualized. No mitral valve stenosis. Trace mitral valve regurgitation. Aortic Valve Aortic valve not well visualized. Tricuspid Valve Tricuspid valve not well visualized. Pulmonic Valve Pulmonic valve not well visualized. No pulmonary valve stenosis. Pericardium No pericardial effusion. Aorta Aorta not well visualized. CONCLUSIONS 1. This is a technically very difficult study. 2. Normal left ventricular cavity size. Probably normal left ventricular systolic function with left ventricular ejection fraction estimated at 55%. This study is inadequate for estimation of regional wall motion abnormality. 3. Normal pulmonary artery pressure. 4. Repeat study with ultrasound enhancing agent is recommended. Cheryl Portillo MD (Electronically Signed) Final Date: 01 January 2020 16:54 S
[2020-01-01] MEDS: HYDROcodone-acetaminophen 5-325 mg Tablet 1 TAB PO (06:20)
[2020-01-01] MEDS: acetaminophen 500 mg Tablet 650 MG PO (06:20)
[2020-01-01 06:46] LABS: Estmated Average Glucose 137; Hemoglobin A1C 6.4 % (4.0-6.0)
--- NOTE | 2020-01-01 08:02 | PM.DCS ---
Discharge Providers Date of Admission: 12/31/19 07:26 Date of Discharge: January 01, 2020 Attending Provider at Admission: Lourdes Gongora DO Attending Provider at Discharge: Lourdes Gongora DO Primary Care Provider: Humaira Boggs APN Diagnoses at Discharge Discharge Diagnosis (1) TIA (transient ischemic attack): Status: Acute (2) Hypertension: Status: Acute (3) Hypothyroidism: Status: Acute (4) Morbid obesity: Status: Acute (5) Malignant melanoma: Status: Acute Problem details: Involving the left upper back/left shoulder, stage IV (pT4b, cN3, cM1a) at initial diagnosis in June 2018. (6) Obstructive sleep apnea: Status: Acute Problem details: On 2 L of oxygen by nasal cannula at night (7) GERD (gastroesophageal reflux disease): Status: Acute Reason for Visit Reason for Visit: POSSIBLE CVA Hospital Course Hospital Course: Patient was seen and evaluated in the emergency department noted to have woken up with symptoms of left upper extremity weakness and ataxia. Patient reported that she woke up her daughter and due to concern for stroke she brought her into the ER for further evaluation and treatment. Upon arrival patient had NIH stroke scale of 0. She reported that her symptoms had gradually resolved. Patient's symptoms were present upon awaking from sleep, last known well was the night before, but she even reported a headache at that time. Patient was placed on observation and monitored on telemetry. She continued to have resolution of her left-sided symptoms, normal strength in the upper extremities bilaterally, no evidence of any upper extremity ataxia. Patient had a CT scan of her head performed while in the ED which showed no acute intracranial abnormalities. She was started on aspirin 81 mg daily and statin, atorvastatin 40 mg at bedtime. Physical therapy, occupational therapy and speech therapy were consulted and patient continued to do well. On date of discharge she denied any chest pain, no shortness of breath, reported that her symptoms had resolved she was no longer having any concerns for left upper extremity weakness, no ataxia, patient's thought process and speech was normal, no headache or vision changes reported. Discussed with patient plan for discharge to home, discussed with her starting aspirin 81 mg daily and also starting atorvastatin 40 mg at bedtime, she verbalized understanding and agreed with plan. Of note patient has a lymph node resection scheduled for with Dr. Rubi, currently under treatment for malignant melanoma by Dr. Kyle. Patient did have PCR COVID screening performed which was negative. Physical Exam Const: COMMON NORMALS: patient oriented x3 and alert GENERAL APPEARANCE: cooperative ORIENTATION/CONSCIOUSNESS: Yes awake, Yes oriented to person, Yes oriented to place and Yes oriented to time HENMT: COMMON NORMALS: normocephalic and atraumatic HEAD & SCALP: normocephalic and atraumatic Eye: COMMON NORMALS: Equal, round and reactive pupils present PUPIL: Yes Equal, round and reactive pupils present Neck/C-Spine: COMMON NORMALS: supple GENERAL: Yes normal visual inspection Resp: COMMON NORMALS: normal respiratory effort and clear to auscultation bilaterally EFFORT & INSPECTION: Yes able to speak in complete sentences AUSCULTATION: clear to auscultation bilaterally, no rhonchi and no wheezes Cardio: COMMON NORMALS: regular rate, regular rhythm and No murmurs present (Cardio) RATE: regular rate RHYTHM: regular rhythm GI: COMMON NORMALS: Soft to palpation and non-tender INSPECTION: No abdominal distension AUSCULTATION: Yes normoactive bowel sounds PALPATION: Yes Soft to palpation : COMMON NORMALS: Yes no CVA tenderness BLADDER/KIDNEY EXAM: Yes no CVA tenderness Back/Pelvis: COMMON NORMALS: no CVA tenderness Extremity: COMMON NORMALS: no calf tenderness NARRATIVE EXTREMITY EXAM: Nonpitting edema in the lower extremities bilaterally, dry skin over the lower extremities bilaterally Neuro: COMMON NORMALS: patient oriented x3, CN's II-XII intact bilaterally, moves all extremities, no focal motor deficits and no sensory deficits noted SENSORIUM/ORIENTATION: Yes alert, Yes oriented to person, Yes oriented to place and Yes oriented to time COORDINATION/BALANCE: [id number] test normal SPEECH: speech normal MOTOR EXAM: 5/5 motor strength present throughout COORDINATION: [id number] test normal Psych: COMMON NORMALS: mental status grossly normal and cooperative Skin: COMMON NORMALS: no rashes or lesions noted GENERAL SKIN EXAM: no rashes or lesions noted Discharge Data Data Completed and Pending: Completed Studies During Hospitalization Category Date Time Status CT head wo con* [id number] Urgent Cat Scan 12/31/19 05:24 Completed XR chest 1V melany ble [id number] Urgent Exams 12/31/19 05:24 Completed Pending at discharge Category Date Time Status Urinalysis Stat Lab 12/31/19 09:15 Uncollected CV carotid duplex BI* [id number] Routine Ultrasound 01/01/20 06:00 Ordered CV echo complete* [id number] Routine Ultrasound 01/01/20 06:00 Ordered Labs from last 24 hours 01/01/20 01/01/20 01/01/20 04:35 04:35 04:35 WBC RBC Hgb Hct MCV MCH MCHC RDW Plt Count MPV Neut % (Auto) Lymph % (Auto) [place] % (Auto) Eos % (Auto) Baso % (Auto) Neut # (Auto) Lymph # (Auto) [place] # (Auto) Eos # (Auto) Baso # (Auto) Nucleated RBC % (a uto) Nucleated RBCs # APTT Sodium 141 Potassium 4.0 Chloride 107 Carbon Dioxide 24 Anion Gap 14.0 BUN 9 Creatinine 0.5 GFR Calculation Not Reportable Glucose 119 H POC Glucose Estimat Average Gl ucose 137 Hemoglobin A1c 6.4 H Calculated Osmolal ity 292 Calcium 9.4 Total Bilirubin 1.3 H AST 32 ALT 17 Alkaline Phosphata se 101 Troponin T Baselin e Troponin T 120 Min [place] Delta Troponin T Troponin T Hi Sens 6Hr Troponin T Hi Sens 6Hr Delta Total Protein 7.0 Albumin 3.7 Globulin 3.3 Triglycerides 163 H Cholesterol 147 LDL Cholesterol, C alc 63 HDL Cholesterol 51 L LDL/HDL Ratio 1.24 Cholesterol/HDL Ra yonathan 2.88 TSH Nasal/Oral COVID-1 9 PCR 01/01/20 12/31/19 12/31/19 04:35 17:32 13:13 WBC 5.7 RBC 3.71 L Hgb 12.0 Hct 38.2 MCV 103.0 H MCH 32.3 MCHC 31.4 RDW 12.5 Plt Count 178 MPV 9.4 Neut % (Auto) 55.3 Lymph % (Auto) 31.6 [place] % (Auto) 8.9 Eos % (Auto) 3.0 Baso % (Auto) 0.7 Neut # (Auto) 3.15 Lymph # (Auto) 1.8 [place] # (Auto) 0.5 Eos # (Auto) 0.2 Baso # (Auto) 0.0 Nucleated RBC % (a uto) 0 Nucleated RBCs # 0.0 APTT Sodium Potassium Chloride Carbon Dioxide Anion Gap BUN Creatinine GFR Calculation Glucose POC Glucose Estimat Average Gl ucose Hemoglobin A1c Calculated Osmolal ity Calcium Total Bilirubin AST ALT Alkaline Phosphata se Troponin T Baselin e Troponin T 120 Min [place] 6.56 Delta Troponin T -1.44 L Troponin T Hi Sens 6Hr 7.26 Troponin T Hi Sens 6Hr Delta -0.74 L Total Protein Albumin Globulin Triglycerides Cholesterol LDL Cholesterol, C alc HDL Cholesterol LDL/HDL Ratio Cholesterol/HDL Ra yonathan TSH Nasal/Oral COVID-1 9 PCR 12/31/19 12/31/19 12/31/19 11:12 10:01 09:29 WBC RBC Hgb Hct MCV MCH MCHC RDW Plt Count MPV Neut % (Auto) Lymph % (Auto) [place] % (Auto) Eos % (Auto) Baso % (Auto) Neut # (Auto) Lymph # (Auto) [place] # (Auto) Eos # (Auto) Baso # (Auto) Nucleated RBC % (a uto) Nucleated RBCs # APTT Sodium Potassium Chloride Carbon Dioxide Anion Gap BUN Creatinine GFR Calculation Glucose POC Glucose 133 Estimat Average Gl ucose Hemoglobin A1c Calculated Osmolal ity Calcium Total Bilirubin AST ALT Alkaline Phosphata se Troponin T Baselin e 8 Troponin T 120 Min [place] Delta Troponin T Troponin T Hi Sens 6Hr Troponin T Hi Sens 6Hr Delta Total Protein Albumin Globulin Triglycerides Cholesterol LDL Cholesterol, C alc HDL Cholesterol LDL/HDL Ratio Cholesterol/HDL Ra yonathan TSH Nasal/Oral COVID-1 9 PCR Negative 12/31/19 12/31/19 09:27 05:38 WBC RBC Hgb Hct MCV MCH MCHC RDW Plt Count MPV Neut % (Auto) Lymph % (Auto) [place] % (Auto) Eos % (Auto) Baso % (Auto) Neut # (Auto) Lymph # (Auto) [place] # (Auto) Eos # (Auto) Baso # (Auto) Nucleated RBC % (a uto) Nucleated RBCs # APTT 30.3 Sodium Potassium Chloride Carbon Dioxide Anion Gap BUN Creatinine GFR Calculation Glucose POC Glucose Estimat Average Gl ucose Hemoglobin A1c Calculated Osmolal ity Calcium Total Bilirubin AST ALT Alkaline Phosphata se Troponin T Baselin e Troponin T 120 Min [place] Delta Troponin T Troponin T Hi Sens 6Hr Troponin T Hi Sens 6Hr Delta Total Protein Albumin Globulin Triglycerides Cholesterol LDL Cholesterol, C alc HDL Cholesterol LDL/HDL Ratio Cholesterol/HDL Ra yonathan TSH 1.19 Nasal/Oral COVID-1 9 PCR Vitals: Last Vital Signs Temp 97.7 F 01/01/20 07:51 Pulse 67 01/01/20 07:51 Resp 18 01/01/20 07:51 BP 149/63 01/01/20 07:51 Pulse Ox 90 01/01/20 07:51 Discharge Plan Discharge Patient Disposition: Home Condition: Stable Prescriptions: New atorvastatin 40 mg Tablet 40 mg PO BEDTIME 30 Days Qty: 30 RF: 0 aspirin 81 mg Tablet,Delayed Release (Dr/Ec) 81 mg PO DAILY 30 Days Qty: 30 RF: 0 Continued losartan 50 mg tablet 50 mg PO DAILY RF: 0 hydrocodone-acetaminophen 5-325 mg tablet 1 tab PO Q4H PRN (Reason: Pain) RF: 0 potassium chloride 10 mEq tablet extended release 10 - 20 meq PO DAILY PRN (Reason: w/lasix) RF: 0 amlodipine 5 mg tablet 5 mg PO DAILY RF: 0 tramadol 50 mg tablet 50 mg PO TID PRN (Reason: Pain) RF: 0 pantoprazole 40 mg tablet,delayed release (DR/EC) 40 mg PO DAILY RF: 0 Euthyrox 125 mcg tablet 125 mcg PO DAILY RF: 0 metoprolol tartrate 50 mg tablet 50 mg PO BID RF: 0 furosemide 20 mg tablet 20 - 40 mg PO DAILY PRN (Reason: Edema) RF: 0 cholestyramine (with sugar) 4 gram powder 4 g PO EVERY OTHER DAY RF: 0 Discontinued ibuprofen 800 mg tablet 800 mg PO BID PRN (Reason: Pain) RF: 0 Discharge Orders: Discharge Order (Routine); Ordered 01/01/20 Ordered By: Lourdes Gongora Referrals: Kwaku Rubi MD [Physician] - 1-3 days Benjamín Kyle MD [Hospitalist] - 1 month (Follow up with oncology team as previously scheduled) Humaira Boggs APN [Primary Care Provider] - 1-3 days Discharge Diet: Cardiac Discharge Activity: Increase activity as tolerated, Use walker/crutches as instructed and Oxygen as instructed Patient Instructions: Self Care Measures After a Stroke (DC) Activity Restrictions/Additional Instructions: Follow-up with your primary care provider in 3 to 4 days Follow-up with oncology team, Dr. Kyle as previously scheduled You are placed on observation to the hospital due to concern for TIA, mini stroke, with symptoms of left hand weakness and ataxia. Symptoms resolved during your time in the ED and hospital. You were started on new medications due to concern for mini stroke that include aspirin 81 mg daily and atorvastatin 40 mg at bedtime. Would recommend that these be lifelong medications unless determined and appropriate in the future by your primary care provider Continue with walker use at home, apple picker any rugs in the home to avoid any future falls Continue with oxygen 2 L by nasal cannula at night Recommend to hold off on ibuprofen usage at this time Continue with your appointment for lymph node resection on with Dr. Rubi. Your COVID screening was performed while in the hospital, COVID test returned negative on 12/31/19. Your blood sugar was elevated on admission to the hospital, therefore hemoglobin A1c was checked and at 6.4. Would recommend close follow-up with your primary care provider along with diet and exercise changes to prevent any further progression into diabetes mellitus type 2 Continue with other medications as previously prescribed Continue with a low-fat diet. Continue to increase activity as tolerated. Recommend outpatient orthopedic follow-up to discuss left hip pain. 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
[2020-01-01] MEDS: sodium chloride 0.9% 1,000 ML 100 ML IV (08:07)
[2020-01-01] MEDS: pantoprazole DR 40 mg Tablet PO (08:08)
[2020-01-01] MEDS: amlodipine 5 mg Tablet PO (08:08)
[2020-01-01] MEDS: levothyroxine 125 mcg Tablet PO (08:08)
[2020-01-01] MEDS: aspirin 81 mg EC Tablet PO (08:08)
[2020-01-01] MEDS: losartan 50 mg Tablet PO (08:08)
[2020-01-01] MEDS: metoprolol tartrate 50 mg Tablet PO (08:08)
--- NOTE | 2020-01-01 10:35 | PC.NURSE ---
US at bedside at this time.
--- NOTE | 2020-01-01 11:35 | PC.NURSE ---
Reviewed Stroke Free Booklet and along with discharge papers with patient at this time. Patient verbalized understanding of minimizing her risk of stroke.
--- NOTE | 2020-01-01 12:04 | PC.NURSE ---
Reviewed Stroke Free booklet with patient again at this time. Patient verbalized understanding. Patient is A&Ox3. Respirations even and non-labored on room air. Patient wheel chaired to private car at this time.
--- NOTE | 2020-01-03 08:19 | PC.NUTR ---
NUTR CONSULT: Consult received for heart healthy diet. Will cont to monitor progress and evaluate PO intake. Offer education when appropriate.
== END 2020-01-01 12:00 | disposition home or self-care (01) ==
LOC: ER 06:39 → MEDSURG 08:15
PROVIDERS: Emergency Medicine; Family Medicine; Admitting Provider Family Medicine; PCP Nurse Practitioner Family; Visit Provider Family Medicine
DX: G45.9 Transient cerebral ischemic attack, unspecified (principal); I10 Essential (primary) hypertension; E03.9 Hypothyroidism, unspecified; G47.33 Obstructive sleep apnea (adult) (pediatric); C43.59 Malignant melanoma of other part of trunk; C43.62 Malignant melanoma of left upper limb, including shoulder; K21.9 Gastro-esophageal reflux disease without esophagitis; R73.9 Hyperglycemia, unspecified; E66.01 Morbid (severe) obesity due to excess calories; Z68.43 Body mass index [BMI] 50.0-59.9, adult; Z87.891 Personal history of nicotine dependence; Z92.21 Personal history of antineoplastic chemotherapy; Z99.81 Dependence on supplemental oxygen
CPT/HCPCS: 12345; 36415; 36416; 70450; 71045; 80053; 80061; 82962; 83036; 84443; 84484; 85025; 85610; 85730; 87635; 92523; 92610; 93005; 93306; 93880; 96360; 96361; 97110; 97161; 97165; 97530; 99283; 99285; G0378; J7030

== ENCOUNTER 2020-01-03 10:40 | Day surgery (SDC) | payer MEDICARE, OTHER, SELFPAY ==
[2020-01-02 16:58] VITALS: BMI 51.1
[2020-01-03 11:08] VITALS: BP 101/70; PULSE 63; RESP 18; TEMP 37.1; O2SAT 92
[2020-01-03] MEDS: sodium chloride 0.9% 1,000 ML 30 ML IV (11:23)
--- NOTE | 2020-01-03 12:00 | P.ANESASSM_ITS ---
Pre-Anesthetic Assessment Pre-Anesthetic Assessment: Height/Weight: Height 1.63 m Weight 135.171 kg Temp Pulse Resp BP Pulse Ox 98.7 F 63 18 101/70 92 01/03/20 11:08 01/03/20 11:08 01/03/20 11:08 01/03/20 11:08 01/03/20 11:08 Preop Diagnosis: Malignant melanoma Proposed Procedure: Operation Date: 01/03/20 11:55 Proposed Procedures p Excision left axillary lymph node(Left) - Kwaku Rubi MD Familial anesthetic complications: NOne Was Beta Leona taken within 24 hours: Yes Last intake: Intake Last Liquid Date 01/02/20 Last Liquid Time 18:00 Last Solid Date 01/02/20 Last Solid Time 18:00 Social: Social History: No alcohol and No tobacco Comment: former smoker Exam: Pre-Anes Outpt Exam: alert, oriented x 3, clear to auscultation bilatera lly and regular rate & rhythm Airway: Cervical ROM: WNL MP: 2 Dentition: Other (2 remaining teeth) Pulmonary: Pulmonary: Sleep apnea Comments: hx bronchitis uses 2 L NC at night becaue she breaths shallow, does not use a cpap CV/HEM: CV/HEM: CHF and HTN Comments: on lasix Ef 555 on 01/01/20 GI: GI: GERD Metabolic: Metabolic: Morbid obesity (severe MO) and Thyroid Neuropsych: Neuropsych: None reported Anesthetic Plan: ASA status: 3 Anesthesia: MAC Risk of > 500 ml blood loss (7ml/kg in children): No Meds/Allergies Current Medications: Current Medications Generic Name Dose Route Start Last Admin Trade Name Freq PRN Reason Stop Dose Admin Sodium Chloride 1,000 mls @ 30 ml s/hr 01/03/20 11:00 01/03/20 11:23 Sodium Chloride 0.9% IV 01/04/20 10:59 30 mls/hr .Q24H YAMILETH Administration PFSH Anesthesia PFSH: Medical History (Updated 01/02/20 @ 00:00 by ) Anxiety and depression GERD (gastroesophageal reflux disease) History of colon cancer Hypertension Hypothyroidism Malignant melanoma Involving the left upper back/left shoulder, stage IV (pT4b, cN3, cM1a) at initial diagnosis in June 2018. Morbid obesity Obstructive sleep apnea On 2 L of oxygen by nasal cannula at night Surgical History History of appendectomy History of hemicolectomy 1994, colon cancer History of surgical removal of skin lesion History of tonsillectomy Family History (Updated 12/31/19 @ 10:56 by Lourdes Gongora DO) Mother Cancer Renal cancer, at the age of 84 Father No problems noted. Brother Cancer Brother with prostate cancer Hodgkins lymphoma Social History (Updated 12/31/19 @ 10:56 by Lourdes Gongora DO) Smoking and tobacco status: former smoker Alcohol intake: never Household members: children Data Anesthesia Cardiac Studies: No Data to Display
--- NOTE | 2020-01-03 12:32 | W.PM.OPSUD ---
Surgery/Procedure H&P Update DATE OF PROCEDURE: January 03, 2020 DATE H&P PERFORMED: 12/25/19 H&P UPDATE INFORMATION: No changes to prior documentation PREOP DIAGNOSIS: Malignant melanoma PLANNED PROCEDURE: Operation Date: 01/03/20 11:55 Proposed Procedures p Excision left axillary lymph node(Left) - Kwaku Rubi MD
--- NOTE | 2020-01-03 13:32 | PM.OP ---
Operative Report Date of procedure: January 03, 2020 Pre-op Diagnosis: Malignant melanoma with progressive left axillary lymphadenopathy. Post-op diagnosis: same Procedure Done: Left axillary lymph node(s) excision. Specimens removed/disposition: Left axillary lymph node(s). Surgeon: Kwaku Rubi Anesthesia: MAC Estimated blood loss (mL): 10 Complications: None. Condition: stable Disposition: same day Procedure: The patient was brought to the operating room and was placed on the operating room table with the left arm abducted from the body on an armboard. A monitored anesthetic was induced. The left axillary region was prepped and draped in a sterile fashion. A combination of 1% lidocaine with 1 to 100,000 parts epinephrine and 0.5% bupivacaine was used for local anesthesia throughout the procedure. A slightly curvilinear incision was carried out in the mid aspect of the axilla over the palpable mass. Cautery was used to divide the subcutaneous tissue and the axilla was entered. The lymph node could be palpated and the lymphatics and surrounding connective tissue were all loosened up bluntly. Vessels and lymphatic channels were either cauterized or tied all the way around the lymph node as it was removed. The node was very sizable and could have been billing customer service representative of more than one lymph node being matted together. The wound was irrigated with saline and no significant bleeding or other problems were noted. The deep connective tissue was brought together with some simple sutures of 2-0 Vicryl. The dermis was approximated using several interrupted inverted sutures of 3-0 Vicryl and the skin was finally approximated using a running subcuticular suture of 4-0 Vicryl. Benzoin and Steri-Strips were placed over the incision and a sterile fluff dressing was applied. The patient was taken to the outpatient recovery area in stable condition postoperatively.
[2020-01-03 13:39] VITALS: BP 136/68; PULSE 66; RESP 18; TEMP 36.2; O2SAT 92
[2020-01-03 14:01] VITALS: BP 138/76; PULSE 68; RESP 18; O2SAT 93
[2020-01-03] MEDS: HYDROcodone-acetaminophen 5-325 mg Tablet 1 TAB PO (14:02)
--- NOTE | 2020-01-03 14:30 | ANE.PACU2 ---
Inpatient post-anesthesia follow up: Airway intact: Yes Vital signs: Temperature 97.2 F Pulse Rate 68 Respiratory Rate 18 Blood Pressure 138/76 Pulse Oximetry 93 Oxygen Delivery Me thod Room Air Oxygen Flow Rate Fraction of Inspir ed Oxygen Hydration adequate: Yes Nausea and vomiting: No Pain level: 1 Mental status: Baseline
== END 2020-01-03 14:33 | disposition home or self-care (01) ==
PROVIDERS: PCP Nurse Practitioner Family; Visit Provider Surgery
PROC: (CPT 38525; principal; 2020-01-03 11:55)
DX: R59.1 Generalized enlarged lymph nodes (principal); M19.90 Unspecified osteoarthritis, unspecified site; I11.0 Hypertensive heart disease with heart failure; I50.9 Heart failure, unspecified; G47.30 Sleep apnea, unspecified; Z87.891 Personal history of nicotine dependence; C79.9 Secondary malignant neoplasm of unspecified site
CPT/HCPCS: 38525; 12345; 88305; 96365; J0690; J2704; J3010; J3490; J7030

== ENCOUNTER 2020-01-29 13:31 | Emergency (ER) | payer MEDICARE, OTHER, SELFPAY ==
[2020-01-29 13:47] VITALS: BP 123/76; PULSE 59; RESP 20; TEMP 36.7; O2SAT 88; BMI 51.5
--- NOTE | 2020-01-29 14:18 | ECG_ITS ---
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 Measurements Intervals [place] Rate: 54 P: -9 NV: 171 QRS: -12 QRSD: 96 T: 10 QT: 442 QTc: 422 Interpretive Statements SINUS BRADYCARDIA LOW QRS VOLTAGE IN PRECORDIAL LEADS [QRS DEFLECTION < 1.0 mV IN CHEST LEADS] POSSIBLE ANTERIOR MYOCARDIAL INFARCTION , PROBABLY OLD [30 ms Q WAVE IN V3/V4, OR R < 0.2 mV IN V4] Compared to ECG 12/31/2019 16:22:37 Low QRS voltage now present Myocardial infarct finding now present Sinus rhythm no longer present Electronically Signed On 01-29-2020 16:01:39 CDT by Cheryl Portillo M.D. [email or web address]
--- NOTE | 2020-01-29 14:18 | XRR_ITS ---
PROCEDURE INFORMATION: Exam: XR Chest, 1 View Exam date and time: 01/29/2020 2:26 PM Age: 74 years old Clinical indication: Shortness of breath; Additional info: Covid, hypoxia, SOB TECHNIQUE: Imaging protocol: XR of the chest Views: 1 view. COMPARISON: CR XR chest 1V portable [id number] 12/31/2019 6:03 AM FINDINGS: Tubes, catheters and devices: A central line is present on the left side extending into the proximal SVC. This line appears to have been retracted since prior examination Lungs: Unremarkable. No consolidation. Pleural space: Unremarkable. No pleural effusion. No pneumothorax. Heart/Mediastinum: Unremarkable. No cardiomegaly. Bones/joints: Unremarkable. XR/XR chest 1V portable [id number] IMPRESSION: 1. No acute findings. 2. Left central line extends to the SVC
[2020-01-29] MEDS: dexamethasone 4 mg/mL INJ 6 MG IVP (15:23)
[2020-01-29 15:30] LABS: Basophils % 0.4 %; Eosinophils # 0.1 10^3/uL (0.0-0.8); Eosinophils % 2.6 %; Hematocrit 36.8 % (37.0-47.0); Hemoglobin 11.7 g/dL (11.5-15.3); Lymphocytes # 0.9 10^3/uL (0.8-4.8); Lymphocytes % 32.7 %; Mean Corpuscular HGB Conc 31.8 g/dL (30.0-36.0); Mean Corpuscular Hemoglobin 32.1 pg (28.0-34.0); Mean Corpuscular Volume 101.1 fL (81-99); Mean Platelet Volume 8.8 fL (7.4-10.4); Monocytes # 0.4 10^3/uL (0.2-0.9); Monocytes % 13.5 %; Neutrophils # 1.34 10^3/uL (1.8-7.7); Neutrophils % 50.4 %; Nucleated Red Blood Cells % 0 %; Platelet Count 155 10^3/cmm (130-400); Red Blood Count 3.64 10^6/uL (4.1-5.3); White Blood Count 2.7 10^3/uL (4.0-10.0)
[2020-01-29 15:55] VITALS: RESP 20; O2SAT 95
[2020-01-29 15:55] LABS: Lactic Sepsis W/Reflex 0.8 mmol/L (0.5-2.2)
[2020-01-29 15:55] LABS: Influenza A by IFA Negative (Negative); Influenza B by IFA Negative (Negative); SARS Covid-2 Antigen Positive (Negative)
[2020-01-29] MEDS: morphine 4 mg/mL SDV 1 mL IVP (15:55)
[2020-01-29 15:58] LABS: Troponin(5th) Baseline 9 ng/L (0-10)
[2020-01-29 16:07] LABS: NT Pro B Type Natriuretic Pept 179 pg/mL (0-125); Procalcitonin 0.06 ng/mL (0-0.5)
[2020-01-29 16:09] LABS: INR 1.01 (0.8-1.2)
[2020-01-29 16:10] LABS: Fibrinogen 397 mg/dL (174-498)
[2020-01-29 16:12] LABS: D Dimer 0.96 ug/mIFEU (0-0.59)
[2020-01-29 16:18] LABS: Alanine Aminotransferase 16 U/L (0-33); Albumin Level 3.8 g/dL (3.5-5.2); Alkaline Phosphatase 104 IU/L (35-105); Anion Gap 16.1 (5-19); Aspartate Amino Transferase 32 U/L (0-32); Blood Urea Nitrogen 16 mg/dL (8-23); C Reactive Protein 5.1 mg/L (0.0-4.9); Calcium 9.3 mg/dL (8.5-10.5); Carbon Dioxide 27 mmol/L (22-29); Chloride 100 mmol/L (98-107); Ferritin 169 ng/mL (15-150); Globulin 3.2 g/dL (1.3-4.6); Glucose 104 mg/dL (65-115); Lactate Dehydrogenase 245 U/L (135-214); Osmolality Calculated 289 mOsm/kg (285-295); Potassium 4.1 mmol/L (3.5-5.1); Sodium 139 mmol/L (136-145)
[2020-01-29 16:56] VITALS: BP 123/68; PULSE 55; RESP 18; O2SAT 96
--- NOTE | 2020-01-29 17:19 | ED_ITS ---
HPI - General Adult General: Chief complaint: General Medical Stated complaint: covid symptoms/ low o2/arthritis pain Time Seen by Provider: 01/29/20 14:00 History of Present Illness: HPI narrative: This patient is a 74-year-old female who lives at home with her daughter. Her daughter is a school nurse and had been seeing kids at school with Covid. Her daughter became symptomatic on January 15 and had a positive Covid test on January 16. Ms. Malave had symptoms starting 7 days ago. She had been doing pretty well but her daughter acquired a pulse ox yesterday and discovered that her oxygen level was running in the 80s. Patient does use oxygen at night but normally has not had to use it during the day. She started using it when they noted her pulse ox was low. They can keep her sats in the low 90s with a couple liters of oxygen. Her main complaint now, having gotten over the fevers and body aches, is pain in her hips and knees. She has had somewhat chronically but it is much worse lately. Her daughter said she is also been a little bit confused which is definitely not like her. The patient does have a history of malignant melanoma. She sees Dr. Kyle for this. Its been several months since she had a treatment. She is scheduled to follow-up with him soon. Onset (ago): day(s) () Location: lower extremity (Pain in hips and knees) Severity: severe Relieving factors: medication (Hydrocodone. She was previously taking ibuprofen but it was stopped due to TIA a few months ago.) Associated symptoms: Reports dyspnea and malaise; Deny chest pain, headache(s), nausea, rash or vomiting Review of Systems General: Reports: 10 or more systems reviewed and unremarkable except in HPI and below Const: Reports: fever(s), chills, fatigue and malaise Eyes: Denies: change in vision ENMT: Denies: odynophagia Card: Reports: swelling of feet/ankles; Denies: chest pain Resp: Reports: dyspnea and non-productive cough (Very minimal cough); Denies: productive cough GI: Reports: other (Poor appetite); Denies: abdominal pain, nausea, vomiting or diarrhea : Denies: flank pain or difficulty voiding Musc: Reports: joint pain (Bilateral hips and knees); Denies: neck pain or back pain Skin/Breast: Denies: rash Neuro: Denies: headache(s), numbness in extremities or weakness in extremities Mack/Lymph: Denies: easy bruising or easy bleeding PFSH ED PFSH: Medical History Anxiety and depression GERD (gastroesophageal reflux disease) History of colon cancer Hypertension Hypothyroidism Malignant melanoma Involving the left upper back/left shoulder, stage IV (pT4b, cN3, cM1a) at initial diagnosis in June 2018. Morbid obesity Obstructive sleep apnea On 2 L of oxygen by nasal cannula at night Surgical History History of appendectomy History of hemicolectomy 1994, colon cancer History of surgical removal of skin lesion History of tonsillectomy Family History Mother Cancer Renal cancer, at the age of 84 Father No problems noted. Brother Cancer Brother with prostate cancer Hodgkins lymphoma Social History Smoking and tobacco status: former smoker Alcohol intake: never Household members: children Physical Exam Const: COMMON NORMALS: no acute distress, patient oriented x3, no limitations and alert GENERAL APPEARANCE: cooperative and comfortable NUTRITIONAL APPEARANCE: obese morbidly obese HENMT: HEAD & SCALP: normal to inspection FACE & SINUS: normal facial exam Eye: GENERAL EYE: appearance normal, both eyes and all related structures Neck/C-Spine: COMMON NORMALS: supple, no meningeal signs and no JVD Chest: COMMONS NORMALS: normal inspection of the chest Resp: COMMON NORMALS: normal respiratory effort, No use of accessory muscles and clear to auscultation bilaterally AUSCULTATION: clear to auscultation bilaterally Cardio: COMMON NORMALS: no JVD, regular rate, regular rhythm and No murmurs present (Cardio) RATE: regular rate RHYTHM: regular rhythm GI: COMMON NORMALS: Normal to inspection, nondistended, normoactive bowel sounds present, Soft to palpation and non-tender INSPECTION: Yes normal to inspection AUSCULTATION: Yes normoactive bowel sounds PALPATION: Yes Soft to palpation Back/Pelvis: COMMON NORMALS: thoracic and lumbar spine normal to inspection Extremity: COMMON NORMALS: normal to inspection NARRATIVE EXTREMITY EXAM: Obesity makes exam difficult however knees and hips are normal to general exam. There is no heat, swelling, tenderness. Neuro: COMMON NORMALS: patient oriented x3, moves all extremities, no focal motor deficits and no sensory deficits noted SENSORIUM/ORIENTATION: Yes alert MENINGEAL SIGNS: Yes no meningeal signs Psych: COMMON NORMALS: mental status grossly normal, cooperative and normal affect Skin: COMMON NORMALS: no rashes or lesions noted and turgor normal GENERAL SKIN EXAM: no rashes or lesions noted and turgor normal Course ED course: This patient is on day 7 of symptoms. She has a known Covid exposure and it was not surprising that her Covid test came back positive. Her chest x-ray looks really good. Her inflammatory markers are not very high. Her chemistry is good. Her sat when I first saw her on room air was 85%. On 2 L she is running about 95%. We discussed options for bringing her in starting treatment like remdesivir. She would like to go home and I think that is totally reasonable. We will send her home with instructions to use her oxygen 24 hours a day, monitor her pulse ox, take Pepcid [id number] and to take dexamethasone as prescribed. She is already taking zinc and vitamin D. Vital Signs: Vital signs: Vital Signs Temperature 98.1 F 01/29/20 13:47 Pulse Rate 55 L 01/29/20 16:56 Respiratory Rate 18 01/29/20 16:56 Blood Pressure 123/68 01/29/20 16:56 Pulse Oximetry 96 01/29/20 16:56 [facility] - General Adult Lab Data: Labs: Lab Results 01/29/20 01/29/20 01/29/20 Range/Units 15:00 15:00 15:00 WBC 2.7 L (4.0-10.0) 10^3/ uL RBC 3.64 L (4.1-5.3) 10^6/u L Hgb 11.7 (11.5-15.3) g/dL Hct 36.8 L (37.0-47.0) % MCV 101.1 H (81-99) fL MCH 32.1 (28.0-34.0) pg MCHC 31.8 (30.0-36.0) g/dL RDW 12.0 L (12.1-15.1) % Plt Count 155 (130-400) 10^3/c mm MPV 8.8 (7.4-10.4) fL Neut % (Auto) 50.4 % Lymph % (Auto) 32.7 % Barnwell % (Auto) 13.5 % Eos % (Auto) 2.6 % Baso % (Auto) 0.4 % Neut # (Auto) 1.34 L (1.8-7.7) 10^3/u L Lymph # (Auto) 0.9 (0.8-4.8) 10^3/u L Barnwell # (Auto) 0.4 (0.2-0.9) 10^3/u L Eos # (Auto) 0.1 (0.0-0.8) 10^3/u L Baso # (Auto) 0.0 (0.0-0.1) 10^3/u L Nucleated RBC % (a uto) 0 % Nucleated RBCs # 0.0 /100WBC PT 13.60 (12.1-14.9) SECO NDS INR 1.01 (0.8-1.2) Fibrinogen 397 (174-498) mg/dL D-Dimer 0.96 H (0-0.59) ug/mIFE U Sodium 139 (136-145) mmol/L Potassium 4.1 (3.5-5.1) mmol/L Chloride 100 (98-107) mmol/L Carbon Dioxide 27 (22-29) mmol/L Anion Gap 16.1 (5-19) BUN 16 (8-23) mg/dL Creatinine 0.6 (0.5-0.9) mg/dL GFR Calculation Not Reportable Glucose 104 (65-115) mg/dL Calculated Osmolal ity 289 (285-295) mOsm/k g Lactic Acid (0.5-2.2) mmol/L Calcium 9.3 (8.5-10.5) mg/dL Ferritin 169 H (15-150) ng/mL Total Bilirubin 1.0 (0.15-1.2) mg/dL AST 32 (0-32) U/L ALT 16 (0-33) U/L Alkaline Phosphata se 104 (35-105) IU/L Lactate Dehydrogen ase 245 H (135-214) U/L Troponin T Baselin e (0-10) ng/L Troponin T Hi Sens 6Hr Troponin T Hi Sens 6Hr Delta C-Reactive Protein 5.1 H (0.0-4.9) mg/L NT-Pro-B Natriuret Pep 179 H (0-125) pg/mL Total Protein 7.0 (6.6-8.7) g/dL Albumin 3.8 (3.5-5.2) g/dL Globulin 3.2 (1.3-4.6) g/dL Procalcitonin 0.06 (0-0.5) ng/mL Influenza Type A A g (Negative) Influenza Type B A g (Negative) SARS-CoV-2 Ag (Rap id) (Negative) 01/29/20 01/29/20 01/29/20 Range/Units 15:00 15:00 15:12 WBC (4.0-10.0) 10^3/ uL RBC (4.1-5.3) 10^6/u L Hgb (11.5-15.3) g/dL Hct (37.0-47.0) % MCV (81-99) fL MCH (28.0-34.0) pg MCHC (30.0-36.0) g/dL RDW (12.1-15.1) % Plt Count (130-400) 10^3/c mm MPV (7.4-10.4) fL Neut % (Auto) % Lymph % (Auto) % Barnwell % (Auto) % Eos % (Auto) % Baso % (Auto) % Neut # (Auto) (1.8-7.7) 10^3/u L Lymph # (Auto) (0.8-4.8) 10^3/u L Barnwell # (Auto) (0.2-0.9) 10^3/u L Eos # (Auto) (0.0-0.8) 10^3/u L Baso # (Auto) (0.0-0.1) 10^3/u L Nucleated RBC % (a uto) % Nucleated RBCs # /100WBC PT (12.1-14.9) SECO NDS INR (0.8-1.2) Fibrinogen (174-498) mg/dL D-Dimer (0-0.59) ug/mIFE U Sodium (136-145) mmol/L Potassium (3.5-5.1) mmol/L Chloride (98-107) mmol/L Carbon Dioxide (22-29) mmol/L Anion Gap (5-19) BUN (8-23) mg/dL Creatinine (0.5-0.9) mg/dL GFR Calculation Glucose (65-115) mg/dL Calculated Osmolal ity (285-295) mOsm/k g Lactic Acid 0.8 (0.5-2.2) mmol/L Calcium (8.5-10.5) mg/dL Ferritin (15-150) ng/mL Total Bilirubin (0.15-1.2) mg/dL AST (0-32) U/L ALT (0-33) U/L Alkaline Phosphata se (35-105) IU/L Lactate Dehydrogen ase (135-214) U/L Troponin T Baselin e 9 (0-10) ng/L Troponin T Hi Sens 6Hr Troponin T Hi Sens 6Hr Delta C-Reactive Protein (0.0-4.9) mg/L NT-Pro-B Natriuret Pep (0-125) pg/mL Total Protein (6.6-8.7) g/dL Albumin (3.5-5.2) g/dL Globulin (1.3-4.6) g/dL Procalcitonin (0-0.5) ng/mL Influenza Type A A g Negative (Negative) Influenza Type B A g Negative (Negative) SARS-CoV-2 Ag (Rap id) (Negative) 01/29/20 01/29/20 Range/Units 15:12 21:00 WBC (4.0-10.0) 10^3/ uL RBC (4.1-5.3) 10^6/u L Hgb (11.5-15.3) g/dL Hct (37.0-47.0) % MCV (81-99) fL MCH (28.0-34.0) pg MCHC (30.0-36.0) g/dL RDW (12.1-15.1) % Plt Count (130-400) 10^3/c mm MPV (7.4-10.4) fL Neut % (Auto) % Lymph % (Auto) % Barnwell % (Auto) % Eos % (Auto) % Baso % (Auto) % Neut # (Auto) (1.8-7.7) 10^3/u L Lymph # (Auto) (0.8-4.8) 10^3/u L Barnwell # (Auto) (0.2-0.9) 10^3/u L Eos # (Auto) (0.0-0.8) 10^3/u L Baso # (Auto) (0.0-0.1) 10^3/u L Nucleated RBC % (a uto) % Nucleated RBCs # /100WBC PT (12.1-14.9) SECO NDS INR (0.8-1.2) Fibrinogen (174-498) mg/dL D-Dimer (0-0.59) ug/mIFE U Sodium (136-145) mmol/L Potassium (3.5-5.1) mmol/L Chloride (98-107) mmol/L Carbon Dioxide (22-29) mmol/L Anion Gap (5-19) BUN (8-23) mg/dL Creatinine (0.5-0.9) mg/dL GFR Calculation Glucose (65-115) mg/dL Calculated Osmolal ity (285-295) mOsm/k g Lactic Acid (0.5-2.2) mmol/L Calcium (8.5-10.5) mg/dL Ferritin (15-150) ng/mL Total Bilirubin (0.15-1.2) mg/dL AST (0-32) U/L ALT (0-33) U/L Alkaline Phosphata se (35-105) IU/L Lactate Dehydrogen ase (135-214) U/L Troponin T Baselin e (0-10) ng/L Troponin T Hi Sens 6Hr Cancelled Troponin T Hi Sens 6Hr Delta Cancelled C-Reactive Protein (0.0-4.9) mg/L NT-Pro-B Natriuret Pep (0-125) pg/mL Total Protein (6.6-8.7) g/dL Albumin (3.5-5.2) g/dL Globulin (1.3-4.6) g/dL Procalcitonin (0-0.5) ng/mL Influenza Type A A g (Negative) Influenza Type B A g (Negative) SARS-CoV-2 Ag (Rap id) Positive H (Negative) Discharge Plan Discharge Patient Disposition: Home Clinical Impression: COVID-19 Condition: Stable Prescriptions: New dexamethasone 6 mg tablet 6 mg PO DAILY Qty: 7 RF: 0 No Action losartan 50 mg tablet 50 mg PO DAILY RF: 0 hydrocodone-acetaminophen 5-325 mg tablet 1 tab PO Q4H PRN (Reason: Pain) RF: 0 Hold Instructions: Resume on 01/08/20. May resume after pain medicine prescribed today is gone. potassium chloride 10 mEq tablet extended release 10 - 20 meq PO DAILY PRN (Reason: w/lasix) RF: 0 amlodipine 5 mg tablet 5 mg PO DAILY RF: 0 tramadol 50 mg tablet 50 mg PO TID PRN (Reason: Pain) RF: 0 pantoprazole 40 mg tablet,delayed release (DR/EC) 40 mg PO DAILY RF: 0 levothyroxine [Euthyrox] 125 mcg tablet 125 mcg PO DAILY RF: 0 metoprolol tartrate 50 mg tablet 50 mg PO BID RF: 0 furosemide 20 mg tablet 20 - 40 mg PO DAILY PRN (Reason: Edema) RF: 0 cholestyramine (with sugar) 4 gram powder 4 g PO EVERY OTHER DAY RF: 0 atorvastatin 40 mg Tablet 40 mg PO BEDTIME 30 Days Qty: 30 RF: 0 aspirin 81 mg Tablet,Delayed Release (Dr/Ec) 81 mg PO DAILY 30 Days Qty: 30 RF: 0 hydrocodone-acetaminophen 5-325 mg tablet 1 - 2 tab PO Q5H PRN (Reason: pain) Qty: 30 RF: 0 Discharge Orders: Discharge Order (Routine); Ordered 01/29/20 Ordered By: Franca Freedman Referrals: Humaira Boggs APN [Primary Care Provider] - Discharge Diet: Usual diet Discharge Activity: Limit activity as instructed Patient Instructions: Viral Syndrome (ED) Activity Restrictions/Additional Instructions: Use your home oxygen as needed. Aim to keep your oxygen saturations above 90. If you get up to 4 LPM and cannot keep the sat over 90 then you should return to the ER. Return as well if you are feeling poorly, not able to eat or drink or have any other concerns. Take Pepcid, 20 mg daily and the dexamethasone as prescribed. Coding Level of Care Code ED Logistics Associate for Januzs Rodriguez
[2020-01-29 17:30] VITALS: BP 119/59; PULSE 58; RESP 18; O2SAT 96
== END 2020-01-29 17:25 | disposition home or self-care (01) ==
PROVIDERS: Emergency Provider Emergency Medicine; PCP Nurse Practitioner Family
DX: U07.1 COVID-19 (principal); Z79.82 Long term (current) use of aspirin; Z85.038 Personal history of other malignant neoplasm of large intestine; I10 Essential (primary) hypertension; Z87.891 Personal history of nicotine dependence
CPT/HCPCS: 12345; 71045; 80053; 82728; 83605; 83615; 83880; 84145; 84484; 85025; 85378; 85384; 85610; 86140; 87426; 87804; 93005; 96374; 96375; 99283; 99284; J1100; J2270

== ENCOUNTER 2020-03-04 13:30 | Outpatient (CLI) | payer MEDICARE, OTHER, SELFPAY ==
--- NOTE | 2020-03-06 10:54 | ONC FU_ITS ---
Dr. Kyle Patient Follow-Up Note Patient: Laurence Malave Unit #: [id number]: 1945 Dicatated By: Benjamín Kyle M.D.Date of Visit:Mar 04, 2020 Onc Med Follow-up/Prog Note Chief Complaint: Melanoma. History of Present Illness: This is a 74 year-old woman with malignant melanoma involving the left upper back/left shoulder. By clinical evaluation her disease appeared to be stage IV (pT4b, cN3, cM1a) at initial diagnosis in June 2018. She has a prior history of stage III colon cancer, having undergone right hemicolectomy and adjuvant chemotherapy approximately 1994. There has been no evidence of recurrence. She had been seen by Dr. Rubi in June for a skin lesion in the left upper back/left shoulder area. It had been enlarging over a period of about a year. Exam at that time noted a pedunculated, flesh-colored, lobulated lesion with some necrosis measuring 6 to 7 cm in greatest diameter. She underwent excisional biopsy on 06/15/2018. Pathology showed infiltrating malignant melanoma measuring 6.5 x 6.0 x 4.0 cm. Tumor was noted to penetrate the dermal connective tissue into underlying subcutaneous adipose tissue. The Breslow depth was greater than 4.00 mm. The tumor was noted to have surface ulceration. An incidental subcutaneous lymph node in the specimen was free of metastatic tumor. Grossly the tumor appeared to be completely excised with the distance from the tumor to lateral and deep margins noted to be greater than 1 cm. I had seen her on 07/26/2018 regard to further management of the melanoma. At that time she was noted on exam to have a palpable left supraclavicular lymph node. Her staging PET/CT on 07/29/2018 showed an FDG positive left supraclavicular lymph node measuring 2.0 cm, SUV 14.5. Also noted was an FDG avid left axillary lymph node measuring 5.5 x 3.6 cm, SUV 26.6. Other scattered axillary lymph nodes measuring up to 1.6 cm were mildly FDG positive. There were additional suspicious mediastinal lymph nodes in the AP window and prevascular regions. There were no other areas of metastatic involvement noted. In the meantime, her tumor was sent for BRAF mutation analysis, and a BRAF 600 mutation was not detected. I had conferred with one of the melanoma specialists at [facility], and she was given the option to be seen there for second opinion evaluation. As an alternative, it was recommended that she proceed with a trial of immunotherapy as opposed to attempting further surgical resection with axillary/supraclavicular lymph node dissections. She opted to proceed with medical therapy, and arrangements were made with Dr. Rubi for placement of Port-A-Cath venous access device. In the meantime, on 08/07/2018 she was admitted to the hospital with strep pneumoniae sepsis and pneumonia. She had an uneventful recovery with antibiotic therapy. Her medical history is otherwise significant for severe degenerative arthritis of the left hip, which severely restricts her activity. Her other medical illnesses include hypertension, hypothyroidism, obesity, obstructive sleep apnea, and GERD. She has a history of nephrolithiasis, and she has anxiety/depression. She has a history of smoking for 30 years, up to 1 pack of cigarettes daily. She quit smoking in 2018. INTERIM HISTORY: On 09/12/2018 she began treatment with nivolumab 240 mg by IV infusion every 2 weeks. She tolerated the initial infusion well, and she was unable to continue treatment at 2-week intervals. During that time she remained mildly anemic with hemoglobin in the range of 10 g. Her serum studies and November showed low transferrin saturation at 10.4% with ferritin low at 15.0 ng/mL, consistent with iron deficiency. She began oral iron supplementation. As of March 2019 her hemoglobin had decreased to 8.1 g. She began oral iron supplementation and she began on treatment with Protonix. Her stool FIT was positive. As of 04/17/2019 she completed cycle 15 of nivolumab. At that point her hemoglobin was still low at 10.2 g. She was not tolerating the oral iron. As such, she was given parenteral iron replacement with 2 infusions of Injectafer. She continued with cycle 16 of nivolumab on 05/01/2019. A restaging chest CT on 05/10/2019 showed interval increase in the size of a left axillary mass, measuring 5.5 x 2.9 x 4.4 cm, suspicious for disease progression. There were additional smaller axillary lymph nodes measuring up to 13 mm and there is a prominent left supraclavicular lymph node. Calcified right hilar and subcarinal lymph nodes appeared stable and a 4 mm noncalcified pulmonary nodule in the right upper lobe appeared stable. There was no change in a 12 mm low-attenuation lesion in the dome of the liver, felt to be most likely a small hepatic cyst or hemangioma. Her further treatment was put on hold, initially because of hematuria and subsequently because of a viral gastroenteritis syndrome. She was then able to restart treatment with cycle 17 of nivolumab on 06/01/2019. She tolerated it well and she then continued treatment at 2-week intervals. As of 09/04/2019 she had completed cycle 23 of nivolumab. Her further treatment was put on hold following an ER visit on 09/19/2019. She was treated for acute bronchitis. At her follow-up visit on 10/24/2019 she was noted to have persistent left axillary adenopathy. Her restaging PET/CT on 10/27/2019 did show some improvement in the left axillary adenopathy, though with residual FDG avid mass measuring 3.7 x 3.2 cm, SUV 16.6. Other small left axillary lymph nodes were unchanged and were just mildly FDG positive. The previously noted left supraclavicular lymph node was no longer evident and the suspicious mediastinal nodes appeared radiographically benign and FDG negative. There was no evidence for any other metastatic disease. With her residual disease limited to the left axillary mass, she was referred to Dr. Rubi for surgical resection. On 01/03/2020 she underwent left axillary lymph node excision. Pathology was consistent with metastatic melanoma. She had no complications with the procedure. However, on 01/29/2020 she presented to the emergency room with suspected COVID-19 virus infection. She had complained of fever, headache, and generalized arthralgia, and she her oxygen saturation at home had dropped down into the low 80s. She was confirmed to be positive for SARS-CoV-2 Ag. She opted to return home, and she had gradual recovery. She is seen for a followup visit. She says she is feeling better now. Her activity remains very limited due to her hip issues. Her ECOG score is 3. Appetite is still not very good. She does not have fever or night sweating. She does not complain of shortness of breath, and she has not been having cough or chest pain. Her diarrhea has improved, and she is now taking the cholestyramine only about once every couple of weeks. Bladder function remains adequate with furosemide. She still has some generalized joint pain, though not as much. She says some days are worse than others. She has no longer having headache and she does not complain of dizziness. She has some numbness in the tips of her fingers. Medications: amLODIPine Besylate 1 Tablet (of 5 mg) Oral daily, Cholestyramine Light Pack Oral daily PRN, Furosemide 1 - 2 Tablet (of 20 mg) Oral daily PRN, HYDROcodone-Acetaminophen 1 - 2 Tablet (of 5-325 mg) Oral q 4 hours PRN, Levothyroxine Sodium 1 Tablet (of 125 mcg) Oral daily, Losartan Potassium 1 Tablet (of 50 mg) Oral daily, Metoprolol Tartrate 1 Tablet (of 50 mg) Oral b.i.d., Potassium Chloride ER 2 Tablet (of 20 meq) Tablet, controlled release Oral daily PRN, traMADol HCl 1 - 2 Tablet (of 50 mg) Oral four times a day PRN Allergies: No Known Allergies. Review of Systems: Constitutional - She says she is feeling better, but she still has very limited activity. Her appetite is not very good. She does not have fever or night sweats. ECOG score is 3, ENMT - No sinus congestion/drainage. No mouth sores. No sore throat or difficulty swallowing, Hematologic/Lymphatic - No abnormal bruising or bleeding, Respiratory - No shortness of breath. No cough. No pleuritic pain or hemoptysis, Cardiovascular - No angina pain. No palpitations, Gastrointestinal - No nausea or vomiting. Her acid reflux is adequately managed with medication. Her diarrhea has improved. She now takes the cholestyramine only about once every couple of weeks. No blood in the stool or black stools, Genitourinary (F) - No dysuria or hematuria. No urinary frequency. No urgency or incontinence, Musculoskeletal - She had pretty significant musculoskeletal pain with the COVID-19 infection, but that is getting better. Some days are worse than others, Integumentary - No skin rash, Neurologic - She had headache, but that is better now. No dizziness. She has some numbness in the tips of her fingers. No other focal neurologic symptoms, Psychiatric - She has anxiety/depression. No insomnia. Vital Signs: Performed on Mar 04, 2020 13:49 Height - 64.00 in Weight - lbs Temperature - 98.2 F (LOW) Pulse - 82 /min Respiration - 24 /min BP - 120/44 mm(hg) O2 Sat - 95 % (LOW) Pain - 0 Physical Examination: Constitutional - She has limited mobility. She does not appear acutely ill, Eyes - Sclerae nonicteric. Conjunctivae clear, ENMT - No lesions noted in the oral cavity, Hematologic/Lymphatic - I did not feel any cervical, clavicular, or axillary adenopathy, Respiratory - Lungs sound clear, Cardiovascular - Heart rhythm is regular. There is a II/ systolic murmur. There is no gallop or rub noted, Abdomen - Distended but soft. Liver and spleen are not enlarged. There is no abdominal mass or ascites noted and there is no inguinal adenopathy, Extremities - Mild edema, Neurologic - No focal neurologic deficits noted. Impression: 1. Patient with malignant melanoma involving the left upper back/posterior left shoulder. By clinical evaluation her disease appears to be at least stage III (pT4b, N1, M0) with a palpable left supraclavicular lymph node. 2. She underwent excisional biopsy on 06/15/2018 with lateral and deep surgical margins reported at greater than 1 cm. 3. She has limited mobility due to severe degenerative arthritis of the left hip. Her other medical illnesses include: 4. Hypertension. 5. Hypothyroidism. 6. Obesity. 7. GERD. 8. Obstructive sleep apnea. 9. Nephrolithiasis. 10. She underwent right hemicolectomy and adjuvant chemotherapy for colon cancer in 1994. 11. Anxiety/depression. On 09/12/2018 she began treatment with nivolumab 240 mg by IV infusion every 2 weeks. She tolerated the initial infusion well, and she then continued treatment at 2-week intervals. As of March 2019 she had become more significantly anemic. Her serum iron studies and ferritin were consistent with iron deficiency, and she began on oral iron supplementation. She also started treatment with Protonix empirically. Her stool FIT was positive. As of 04/17/2019 she continued with cycle 15 of nivolumab. At that point she was still mildly anemic. As she was not tolerating the oral iron, she was given parenteral iron replacement with Injectafer. She had continued with cycle 16 of nivolumab on 05/01/2019. Her treatment was then put on hold due to hematuria and to a viral gastroenteritis syndrome. In the meantime, her restaging chest CT on 05/10/2019 showed apparent increased left axillary lymphadenopathy, consistent with disease progression. There was apparent residual left supraclavicular adenopathy. There was no other evidence of disease progression. She restarted treatment with cycle 17 of nivolumab on 06/01/2019. She tolerated it well and she then continued treatment at 2-week intervals. As of 09/04/2019 she had received her 23rd cycle of nivolumab. Her clinical status at that point appeared stable. Her further treatment was delayed due to an episode of acute bronchitis in September. Her restaging PET/CT on 10/27/2019 showed residual FDG avid mass in the left axilla. There were no other obvious areas of involvement. With that finding, she was referred to Dr. Rubi for surgical resection, and she underwent left axillary lymph node excision on 01/03/2020. Pathology showed metastatic melanoma. Her further clinical course was then complicated by COVID-19 virus infection, documented on 01/29/2020. She was managed as an outpatient, and she has had gradual recovery. She has had no further treatment for the melanoma. Plan: As she has now been off treatment for 6 months and she has no other known sites of involvement, she will just continue on observation/expectant management. She will be scheduled for follow-up visit with surveillance CT scans in 1 month. Signed By: Benjamín Kyle M.D. <<Signature on File>>
== END 2020-03-04 13:31 | disposition home or self-care (01) ==
LOC: ONCMED 13:33
PROVIDERS: PCP Nurse Practitioner Family; Visit Provider Internal Medicine Medical Oncology
DX: C43.62 Malignant melanoma of left upper limb, including shoulder (principal); C77.3 Secondary and unspecified malignant neoplasm of axilla and upper limb lymph nodes; Z23 Encounter for immunization; I10 Essential (primary) hypertension; E03.9 Hypothyroidism, unspecified; E66.9 Obesity, unspecified; K21.9 Gastro-esophageal reflux disease without esophagitis; G47.33 Obstructive sleep apnea (adult) (pediatric); N20.0 Calculus of kidney; F41.8 Other specified anxiety disorders; Z90.49 Acquired absence of other specified parts of digestive tract; Z85.038 Personal history of other malignant neoplasm of large intestine; Z79.899 Other long term (current) drug therapy; Z86.19 Personal history of other infectious and parasitic diseases
CPT/HCPCS: 90471; 90686; 96523; 99214

== ENCOUNTER 2020-04-08 05:22 | Outpatient (RCR) | payer MEDICARE, OTHER, SELFPAY ==
--- NOTE | 2020-03-31 10:03 | CT_ITS ---
WS: [id number] CT CHEST, ABDOMEN, AND PELVIS TECHNIQUE: Contrast-enhanced CT of the chest, abdomen, and pelvis with coronal and sagittal reformatt ed images. CLINICAL INFORMATION: MALIGNANT NEOPLASM OF LYMPH NODES, MALIGNANT MELANOMA COMPARISON: Multiple prior CTs including May 10, 2019, 8 19,019, 5 16,018, 9 18,014, DLP: 2426.[address] scans at [facility] use at least one of these dose optimization techniques: automat ed exposure control; mA and/or kV adjustment per patient size (includes targeted exams where dose is matched to clinical indication); or iterative reconstruction. CT CHEST: Previously described left axillary lymphadenopathy with axillary mass measuring 5.5 x 2.9 x 4.4 cm has essentially resolved in the interim. A few residual shotty lymph nodes in the left axilla the largest measuring 6 to 7 mm. Findings compatible with interval response to therapy. Previously described left subpectoral left node is slightly larger today measuring 12 mm compared to 10 mm previous. No right axillary lymphadenopathy. Subsegmental atelectasis in the lung bases. Atelectasis in the minh gula. Mild chronic emphysematous changes. No acute pulmonary infiltrates. A few calcified granulomas. Calcified right hilar and subcarinal lymph nodes. Stable 4 mm noncalcified nodule in the right upper lobe. No new pulmonary opacities. Normal caliber proximal main pulmonary arteries and thoracic aorta. CT ABDOMEN AND PELVIS: Diffuse fatty infiltration of the liver. Hepatic cyst or cavernous hemangioma dome the liver is uncha nged. Hydropic gallbladder unchanged the prior examinations. Fatty atrophy of the pancreas. Splenic g ranulomas. Normal GE junction. Adrenal glands are normal. Mild renal cortical atrophy bilaterally. No hydronephrosis. No obstructing renal or ureteral calculi. Nonobstructing left renal pelvic calculus measuring 9 mm. Cortical scarring both kidneys. Left renal cyst measuring 2.6 cm. No upper abdominal or periaortic lymphadenopathy. No pelvic or inguinal lymphadenopathy. Moderate spondylitic changes thoracic and lumbar spine. Advanced degenerative arthritis left hip with subchondral cystic change and [id number] articulation. Prior postoperative changes right hemicolectomy with ileal colic anastomosis. No evidence of small or large bowel obstruction. Normal sigmoid colon. No evidence of high-grade small or large bowel obstruction. Fat-containing deja umbilical hernias right greater than left. No herniated bowel. No free fluid in the pelvis. No abdomi nal or pelvic lymphadenopathy. CT/CT chest abd pel w con* IMPRESSION: 1. Previously described left axillary mass has essentially resolved. A few nor mal sized shotty left axillary lymph nodes. 2. Persistent left subpectoral lymph node today measures 12 mm compared to 10 mm previous. Metastatic disease not excluded. 3. No mediastinal or hilar lymphadenopathy. 4. No acute pulmonary infiltrates. 5. Stable 4 mm noncalcified nodule right upper lobe. 6. No adenopathy in the abdomen or pelvis. 7. No evidence of metastatic disease in the abdomen or pelvis. 8. Remaining incidental findings described above.
[2020-03-31] MEDS: iohexol 300 mg/mL 50 mL Btl PO (11:06)
[2020-03-31] MEDS: iohexol 300 mg/mL 100 mL Btl IV (11:59)
[2020-04-08 10:02] LABS: Basophils % 0.6 %; Eosinophils # 0.2 10^3/uL (0.0-0.8); Eosinophils % 2.4 %; Hematocrit 38.7 % (37.0-47.0); Hemoglobin 12.3 g/dL (11.5-15.3); Lymphocytes # 2.1 10^3/uL (0.8-4.8); Mean Corpuscular HGB Conc 31.8 g/dL (30.0-36.0); Mean Corpuscular Hemoglobin 31.9 pg (28.0-34.0); Mean Corpuscular Volume 100.3 fL (81-99); Mean Platelet Volume 9.4 fL (7.4-10.4); Monocytes # 0.6 10^3/uL (0.2-0.9); Monocytes % 9.1 %; Neutrophils # 3.31 10^3/uL (1.8-7.7); Neutrophils % 53.6 %; Nucleated Red Blood Cells % 0 %; Platelet Count 204 10^3/cmm (130-400); Red Blood Count 3.86 10^6/uL (4.1-5.3); Red Cell Distribution Width 13.1 % (12.1-15.1); White Blood Count 6.2 10^3/uL (4.0-10.0)
[2020-04-08 10:06] LABS: Alanine Aminotransferase 15 U/L (0-33); Albumin Level 3.7 g/dL (3.5-5.2); Alkaline Phosphatase 103 IU/L (35-105); Anion Gap 12.9 (5-19); Aspartate Amino Transferase 31 U/L (0-32); Blood Urea Nitrogen 9 mg/dL (8-23); Calcium 9.4 mg/dL (8.5-10.5); Carbon Dioxide 29 mmol/L (22-29); Chloride 102 mmol/L (98-107); Globulin 2.9 g/dL (1.3-4.6); Glucose 99 mg/dL (65-115); Lactate Dehydrogenase 208 U/L (135-214); Osmolality Calculated 289 mOsm/kg (285-295); Potassium 3.9 mmol/L (3.5-5.1); Sodium 140 mmol/L (136-145); Total Bilirubin 1.2 mg/dL (0.15-1.2); Total Protein 6.6 g/dL (6.6-8.7)
--- NOTE | 2020-04-13 20:40 | ONC FU_ITS ---
[facility] Patient Note Patient: Laurence Malave Unit #: [id number]: 1945 Dictated By: Martha AraujoDate of Visit: Apr 08, 2020 Onc MED Follow-Up/Prog Note Chief Complaint: Melanoma. History of Present Illness: Ms Malave is a 74 year-old woman with malignant melanoma involving the left upper back/left shoulder. By clinical evaluation her disease appeared to be stage IV (pT4b, cN3, cM1a) at initial diagnosis in June 2018. She has a prior history of stage III colon cancer, having undergone right hemicolectomy and adjuvant chemotherapy approximately 1994. There has been no evidence of recurrence. She had been seen by Dr. Rubi in June for a skin lesion in the left upper back/left shoulder area. It had been enlarging over a period of about a year. Exam at that time noted a pedunculated, flesh-colored, lobulated lesion with some necrosis measuring 6 to 7 cm in greatest diameter. She underwent excisional biopsy on 06/15/2018. Pathology showed infiltrating malignant melanoma measuring 6.5 x 6.0 x 4.0 cm. Tumor was noted to penetrate the dermal connective tissue into underlying subcutaneous adipose tissue. The Breslow depth was greater than 4.00 mm. The tumor was noted to have surface ulceration. An incidental subcutaneous lymph node in the specimen was free of metastatic tumor. Grossly the tumor appeared to be completely excised with the distance from the tumor to lateral and deep margins noted to be greater than 1 cm. I had seen her on 07/26/2018 regard to further management of the melanoma. At that time she was noted on exam to have a palpable left supraclavicular lymph node. Her staging PET/CT on 07/29/2018 showed an FDG positive left supraclavicular lymph node measuring 2.0 cm, SUV 14.5. Also noted was an FDG avid left axillary lymph node measuring 5.5 x 3.6 cm, SUV 26.6. Other scattered axillary lymph nodes measuring up to 1.6 cm were mildly FDG positive. There were additional suspicious mediastinal lymph nodes in the AP window and prevascular regions. There were no other areas of metastatic involvement noted. In the meantime, her tumor was sent for BRAF mutation analysis, and a BRAF [address] Kyle had conferred with one of the melanoma specialists at [facility], and she was given the option to be seen there for second opinion evaluation. As an alternative, it was recommended that she proceed with a trial of immunotherapy as opposed to attempting further surgical resection with axillary/supraclavicular lymph node dissections. She opted to proceed with medical therapy, and arrangements were made with Dr. Rubi for placement of Port-A-Cath venous access device. In the meantime, on 08/07/2018 she was admitted to the hospital with strep pneumoniae sepsis and pneumonia. She had an uneventful recovery with antibiotic therapy. Her medical history is otherwise significant for severe degenerative arthritis of the left hip, which severely restricts her activity. Her other medical illnesses include hypertension, hypothyroidism, obesity, obstructive sleep apnea, and GERD. She has a history of nephrolithiasis, and she has anxiety/depression. She has a history of smoking for 30 years, up to 1 pack of cigarettes daily. She quit smoking in 2018. INTERIM HISTORY: On 09/12/2018 she began treatment with nivolumab 240 mg by IV infusion every 2 weeks. She tolerated the initial infusion well, and she was unable to continue treatment at 2-week intervals. During that time she remained mildly anemic with hemoglobin in the range of 10 g. Her serum studies and November showed low transferrin saturation at 10.4% with ferritin low at 15.0 ng/mL, consistent with iron deficiency. She began oral iron supplementation. As of March 2019 her hemoglobin had decreased to 8.1 g. She began oral iron supplementation and she began on treatment with Protonix. Her stool FIT was positive. As of 04/17/2019 she completed cycle 15 of nivolumab. At that point her hemoglobin was still low at 10.2 g. She was not tolerating the oral iron. As such, she was given parenteral iron replacement with 2 infusions of Injectafer. She continued with cycle 16 of nivolumab on 05/01/2019. A restaging chest CT on 05/10/2019 showed interval increase in the size of a left axillary mass, measuring 5.5 x 2.9 x 4.4 cm, suspicious for disease progression. There were additional smaller axillary lymph nodes measuring up to 13 mm and there is a prominent left supraclavicular lymph node. Calcified right hilar and subcarinal lymph nodes appeared stable and a 4 mm noncalcified pulmonary nodule in the right upper lobe appeared stable. There was no change in a 12 mm low-attenuation lesion in the dome of the liver, felt to be most likely a small hepatic cyst or hemangioma. Her further treatment was put on hold, initially because of hematuria and subsequently because of a viral gastroenteritis syndrome. She was then able to restart treatment with cycle 17 of nivolumab on 06/01/2019. She tolerated it well and she then continued treatment at 2-week intervals. As of 09/04/2019 she had completed cycle 23 of nivolumab. Her further treatment was put on hold following an ER visit on 09/19/2019. She was treated for acute bronchitis. At her follow-up visit on 10/24/2019 she was noted to have persistent left axillary adenopathy. Her restaging PET/CT on 10/27/2019 did show some improvement in the left axillary adenopathy, though with residual FDG avid mass measuring 3.7 x 3.2 cm, SUV 16.6. Other small left axillary lymph nodes were unchanged and were just mildly FDG positive. The previously noted left supraclavicular lymph node was no longer evident and the suspicious mediastinal nodes appeared radiographically benign and FDG negative. There was no evidence for any other metastatic disease. With her residual disease limited to the left axillary mass, she was referred to Dr. Rubi for surgical resection. On 01/03/2020 she underwent left axillary lymph node excision. Pathology was consistent with metastatic melanoma. She had no complications with the procedure. However, on 01/29/2020 she presented to the emergency room with suspected COVID-19 virus infection. She had complained of fever, headache, and generalized arthralgia, and she her oxygen saturation at home had dropped down into the low 80s. She was confirmed to be positive for SARS-CoV-2 Ag. She opted to return home, and she had gradual recovery. Follow-up CT of the chest abdomen pelvis with contrast from 03/31/2020 reports previously described left axillary mass has essentially resolved. A few normal-sized shotty left axillary nodes were present. Persistent left subpictorial lymph node measures 12 mm compared to 10 mm on the previous exam from May 10, 2019. No mediastinal or hilar lymphadenopathy. No acute pulmonary infiltrates. Stable 4 mm noncalcified nodule in the right upper lobe. No adenopathy in the abdomen or pelvis. No evidence of metastatic disease in the abdomen or pelvis. Ms. Malave is here today for follow-up. She continues to be on observation. She has recovered from her Covid symptoms from January and seems to be doing well in that regard. Her mobility continues to be limited as she has significant/severe degenerative arthritis in her hips. She states it seems to be getting a little bit worse. She denies any fever or chills. She denies mouth sores, sore throat or difficulty swallowing. She states her appetite is fair. Her energy is good but her mobility is limited due to the hip. She denies any new pain. She denies any mouth sores, sore throat or difficulty swallowing. She denies any orthopnea or hemoptysis. She has had no new shortness of breath or cough. She denies any nausea or vomiting. She denies diarrhea or constipation. She states that her bowels are the same as always. Her ECOG is 3. Past Medical History: Anxiety Degenerative arthritis Depression Gastroesophageal reflux disease Heart disease History of colon cancer History of pancreatitis Hypothyroidism Nephrolithiasis Obesity Obstructive sleep apnea Psoriasis COVID-19 + in 2019 Past Surgical History: Anal fissure repair Portacath placement and removal Tonsillectomy Flu vaccine in 2019 - Given in left deltoid/lc Flu vaccine in 2018 Colonoscopy in 2012 Right hemicolectomy and appendectomy in 1994 Allergies: No Known Allergies. Medications: amLODIPine Besylate 1 Tablet (of 5 mg) Oral daily Cholestyramine Light Pack Oral daily PRN Furosemide 1 - 2 Tablet (of 20 mg) Oral daily PRN HYDROcodone-Acetaminophen 1 - 2 Tablet (of 5-325 mg) Oral q 4 hours PRN Levothyroxine Sodium 1 Tablet (of 125 mcg) Oral daily Losartan Potassium 1 Tablet (of 50 mg) Oral daily Metoprolol Tartrate 1 Tablet (of 50 mg) Oral b.i.d. Potassium Chloride ER 2 Tablet (of 20 meq) Tablet, controlled release Oral daily PRN traMADol HCl 1 - 2 Tablet (of 50 mg) Oral four times a day PRN Family History: Ms. Malave's mother is : renal cancer. Father apparently is still living, but she has no knowledge about his health. Mother with renal cancer at age 84. One brother has been treated for Hodgkin's lymphoma and another brother has been treated for prostate cancer. Social History: Ms. Malave is and she is retired. Ms. Malave quit smoking 2 years ago but had smoked 0.5 packs/day for 30 years. She has no history of drinking. Ms. Malave reports the following support systems: lives alone. Her diet consists of regular meals. She indicates her activity level as: sedentary and daily activities. Review Of Symptoms: Constitutional Denies fevers, chills, night sweats, excessive fatigue or weight loss. Limited activity at home but moreso due to hip pain than anything else. Allergic/Immunologic No reactions. Eyes Denies significant visual changes. No diplopia. No amaurosis. ENMT Denies changes in hearing, sore throat, mouth sores, difficulty or changes in swallowing ability, and/or sinus drainage. Endocrine Denies hot flashes or night sweats. Hematologic/Lymphatic Denies easy bruising or bleeding. Left cervical lymph node is smaller. Respiratory Denies dyspnea on exertion, chest pain, cough or hemoptysis. Denies orthopnea. Cardiovascular Denies anginal chest pain, palpitations or orthopnea. Gastrointestinal Denies nausea, vomiting, diarrhea, GI bleeding, or constipation. Denies change in bowel habits and/or stool color, no heartburn or early satiety. Chronic intermittent diarrhea but no change in her normal patterns. Genitourinary (F) No hematuria, hesitancy, incontinence, vaginal bleeding, discharge or other problems with urination. Musculoskeletal Denies joint pain, swelling or redness. No decreased range of motion. Chronic left hip pain and limited mobility. Integumentary Denies chronic rashes, inflammation, ulcerations or skin changes. Neurologic Denies headache, blurred vision, and no areas of focal weakness or numbness. She utilizes a wheelchair for mobility. Psychiatric Denies insomnia, depression, victorina or mood swings. Has trouble sleeping all night because I doze off through the day alot . Vital Signs: Performed on Apr 08, 2020 11:28 Height - 64.00 in Weight - 270 lbs (HIGH) BSA - 2.22 sq.m BMI - 46.35 (HIGH) Temperature - 98.0 F (LOW) Pulse - 51 /min (LOW) Respiration - 16 /min BP - 135/68 mm(hg) O2 Sat - 90 % (LOW) Pain - 0,3 - Capable of only limited self-care, confined to bed or chair more than 50% of waking hours. (ECOG) Physical Examination: Constitutional Alert, oriented, no acute distress. Skin pink, warm and dry. Head Normocephalic; atraumatic. Eyes Conjunctivae and sclerae are clear and without icterus. Pupils are reactive and equal. Neck Supple without masses or thyromegaly. No jugular venous distension. Hematologic/Lymphatic No petechiae or purpura. No tender or palpable lymph nodes in the right cervical or supraclavicular areas. Respiratory Lungs are clear to auscultation without rhonchi or wheezing. Cardiovascular Regular rate and rhythm of heart without murmurs,clicks, gallops or rubs. Abdomen Non-tender, non-distended, no masses, ascites. Back/Spine Non-tender to palpation. Extremities No visible deformities, no cyanosis, clubbing. +2 bilateral lower extremity edema. Musculoskeletal No tenderness or swelling. Presents in a wheelchair today. Integumentary No rashes or lesions. Neurologic No sensory or motor deficits, normal cerebellar function. Gait not assessed-patient in wheelchair. Psychiatric Alert and oriented times three. Coherent speech. Verbalizes understanding of our discussions today. Laboratory:Test performed on Apr 08, 2020 09:29 LDH (Total) 208 U/L Sodium 140 mmol/L Potassium 3.9 mmol/L Chloride 102 mmol/L CO2 29 mmol/L Anion Gap 12.9 BUN 9 mg/dL Creatinine 0.7 mg/dL Cr Clearance (Est) 138.39 mL/min Glucose 99 mg/dL Osmolality - Calculated 289 mOsm/kg Calcium 9.4 mg/dL Protein, Total 6.6 g/dL Albumin 3.7 g/dL Globulin 2.9 g/dL Bilirubin, Total 1.2 mg/dL ALT (SGPT) 15 U/L AST (SGOT) 31 U/L Alkaline Phosphatase 103 IU/L WBC 6.2 10 3/uL RBC 3.86 10 6/uL HGB 12.3 g/dL HCT 38.7 % MCV 100.3 fL MCH 31.9 pg MCHC 31.8 g/dL RDW 13.1 % Platelet Count 204 10 3/cmm MPV 9.4 fL Neutrophils 3.31 10 3/uL Lymphocytes 2.1 10 3/uL Monocytes 0.6 10 3/uL Eosinophils 0.2 10 3/uL Basophils 0.0 10 3/uL Neutrophil % 53.6 % Lymphocyte % 34.0 % Monocyte % 9.1 % Eosinophil % 2.4 % Basophils % 0.6 % NRBC % 0 % Test performed on Mar 20, 2020 12:00 T4, Free 14.5 ng/dL TSH 0.19 uU/mL Vitamin B12 348 pg/mL Cholesterol, Total 151 mg/dL Vitamin D (1, 25-Dihydroxy) 50 pg/mL HDL Cholesterol 51 mg/dL LDL Cholesterol 77 mg/dL VLDL Cholesterol 100 mg/dL Triglycerides 129 mg/dL Hemoglobin A1C 6.0 % Impression: 1. Patient with malignant melanoma involving the left upper back/posterior left shoulder. By clinical evaluation her disease appears to be at least stage III (pT4b, N1, M0) with a palpable left supraclavicular lymph node. 2. She underwent excisional biopsy on 06/15/2018 with lateral and deep surgical margins reported at greater than 1 cm. 3. She has limited mobility due to severe degenerative arthritis of the left hip. Her other medical illnesses include: 4. Hypertension. 5. Hypothyroidism. 6. Obesity. 7. GERD. 8. Obstructive sleep apnea. 9. Nephrolithiasis. 10. She underwent right hemicolectomy and adjuvant chemotherapy for colon cancer in 1994. 11. Anxiety/depression. On 09/12/2018 she began treatment with nivolumab 240 mg by IV infusion every 2 weeks. She tolerated the initial infusion well, and she then continued treatment at 2-week intervals. As of March 2019 she had become more significantly anemic. Her serum iron studies and ferritin were consistent with iron deficiency, and she began on oral iron supplementation. She also started treatment with Protonix empirically. Her stool FIT was positive. As of 04/17/2019 she continued with cycle 15 of nivolumab. At that point she was still mildly anemic. As she was not tolerating the oral iron, she was given parenteral iron replacement with Injectafer. She had continued with cycle 16 of nivolumab on 05/01/2019. Her treatment was then put on hold due to hematuria and to a viral gastroenteritis syndrome. In the meantime, her restaging chest CT on 05/10/2019 showed apparent increased left axillary lymphadenopathy, consistent with disease progression. There was apparent residual left supraclavicular adenopathy. There was no other evidence of disease progression. She restarted treatment with cycle 17 of nivolumab on 06/01/2019. She tolerated it well and she then continued treatment at 2-week intervals. As of 09/04/2019 she had received her 23rd cycle of nivolumab. Her clinical status at that point appeared stable. Her further treatment was delayed due to an episode of acute bronchitis in September. Her restaging PET/CT on 10/27/2019 showed residual FDG avid mass in the left axilla. There were no other obvious areas of involvement. With that finding, she was referred to Dr. Rubi for surgical resection, and she underwent left axillary lymph node excision on 01/03/2020. Pathology showed metastatic melanoma. Her further clinical course was then complicated by COVID-19 virus infection, documented on 01/29/2020. She was managed as an outpatient, and she has had gradual recovery. She has had no further treatment for the melanoma. Follow-up CT of the chest abdomen pelvis with contrast from 03/31/2020 reports previously described left axillary mass has essentially resolved. A few normal-sized shotty left axillary nodes were present. Persistent left subpictorial lymph node measures 12 mm compared to 10 mm on the previous exam from May 10, 2019. No mediastinal or hilar lymphadenopathy. No acute pulmonary infiltrates. Stable 4 mm noncalcified nodule in the right upper lobe. No adenopathy in the abdomen or pelvis. No evidence of metastatic disease in the abdomen or pelvis. Plan: 1. Continue on observation/expectant management. Her last treatment with nivolumab was on September 04, 2019. 2. The results of the CT from 03/31/2020 were reviewed in detail and discussed with Ms. Uriarte and a copy was given to her. 3. Labs from 04/08/2020 were reviewed in detail and discussed with Ms. Malave and a copy was given to her. WBC 6.2, hemoglobin 12.3, platelets 204,000 ANC is 3310. Potassium 3.9 random glucose 99 creatinine 0.7 LFTs are normal. Her last hemoglobin A1c was 6.0 on 03/20/2020. 4. Her current dose of levothyroxine is 125 mcg daily. She did have a low TSH and elevated free T4 on 03/20/2020. This was requested by her PCP. Her vitamin D level at that time was 50 and her triglycerides were noted to be 348. Her hemoglobin A1c was 6.0. Those results were sent to her PCP. 5. We will plan to see her back in 2 months with CBC CMP TSH and hemoglobin A1c. 6. We will get her a temporary handicap tag application as she does qualify as she cannot walk more than 50 feet due to severe degenerative arthritis in her hips. 7. Mrs. Malave was instructed to contact us in the interim should questions or problems arise. 8. She was given a refill of her hydrocodone per Dr. Kyle's written prescription. Signed By: Martha Araujo-, AOCNP Benjamín Kyle MD <<Signature on File>>
== END 2020-04-10 23:59 | disposition home or self-care (01) ==
LOC: ONCMED 05:22
PROVIDERS: PCP Nurse Practitioner Family; Visit Provider Nurse Practitioner
DX: C43.62 Malignant melanoma of left upper limb, including shoulder (principal); M16.0 Bilateral primary osteoarthritis of hip; R94.6 Abnormal results of thyroid function studies; Z85.038 Personal history of other malignant neoplasm of large intestine; Z90.49 Acquired absence of other specified parts of digestive tract; Z87.891 Personal history of nicotine dependence; Z86.19 Personal history of other infectious and parasitic diseases
CPT/HCPCS: 36591; 71260; 74177; 80053; 83615; 85025; 99214; Q9967

== ENCOUNTER 2020-07-03 12:26 | Outpatient (CLI) | payer MEDICARE, OTHER, SELFPAY ==
[2020-07-03 13:00] LABS: Basophils % 0.7 %; Eosinophils # 0.1 10^3/uL (0.0-0.8); Eosinophils % 1.5 %; Hemoglobin 12.2 g/dL (11.5-15.3); Lymphocytes # 2.2 10^3/uL (0.8-4.8); Lymphocytes % 36.7 %; Mean Corpuscular HGB Conc 32.1 g/dL (30.0-36.0); Mean Corpuscular Hemoglobin 31.4 pg (28.0-34.0); Mean Corpuscular Volume 97.9 fL (81-99); Mean Platelet Volume 8.7 fL (7.4-10.4); Monocytes # 0.5 10^3/uL (0.2-0.9); Neutrophils # 3.11 10^3/uL (1.8-7.7); Neutrophils % 52.8 %; Nucleated Red Blood Cells % 0 %; Platelet Count 178 10^3/cmm (130-400); Red Blood Count 3.88 10^6/uL (4.1-5.3); Red Cell Distribution Width 11.9 % (12.1-15.1); White Blood Count 5.9 10^3/uL (4.0-10.0)
[2020-07-03 13:26] LABS: Alanine Aminotransferase 17 U/L (0-33); Albumin Level 3.7 g/dL (3.5-5.2); Alkaline Phosphatase 95 IU/L (35-105); Anion Gap 11.8 (5-19); Aspartate Amino Transferase 27 U/L (0-32); Blood Urea Nitrogen 13 mg/dL (8-23); Calcium 8.7 mg/dL (8.5-10.5); Carbon Dioxide 28 mmol/L (22-29); Chloride 103 mmol/L (98-107); Globulin 2.8 g/dL (1.3-4.6); Glucose 93 mg/dL (65-115); Osmolality Calculated 288 mOsm/kg (285-295); Potassium 3.8 mmol/L (3.5-5.1); Sodium 139 mmol/L (136-145); Thyroid Stimulating Hormone 6.07 uIU/mL (0.27-4.20); Total Protein 6.5 g/dL (6.6-8.7)
[2020-07-03 13:45] LABS: Estmated Average Glucose 123; Hemoglobin A1C 5.9 % (4.0-6.0)
--- NOTE | 2020-07-06 15:15 | ONC FU_ITS ---
Dr. Kyle Patient Follow-Up Note Patient: Laurence Malave Unit #: [id number]: 1945 Dicatated By: Benjamín Kyle M.D.Date of Visit:Jul 03, 2020 Onc Med Follow-up/Prog Note Chief Complaint: Melanoma. History of Present Illness: This is a 74 year-old woman with malignant melanoma involving the left upper back/left shoulder. By clinical evaluation her disease appeared to be stage IV (pT4b, cN3, cM1a) at initial diagnosis in June 2018. She has a prior history of stage III colon cancer, having undergone right hemicolectomy and adjuvant chemotherapy approximately 1994. There has been no evidence of recurrence. She had been seen by Dr. Rubi in June for a skin lesion in the left upper back/left shoulder area. It had been enlarging over a period of about a year. Exam at that time noted a pedunculated, flesh-colored, lobulated lesion with some necrosis measuring 6 to 7 cm in greatest diameter. She underwent excisional biopsy on 06/15/2018. Pathology showed infiltrating malignant melanoma measuring 6.5 x 6.0 x 4.0 cm. Tumor was noted to penetrate the dermal connective tissue into underlying subcutaneous adipose tissue. The Breslow depth was greater than 4.00 mm. The tumor was noted to have surface ulceration. An incidental subcutaneous lymph node in the specimen was free of metastatic tumor. Grossly the tumor appeared to be completely excised with the distance from the tumor to lateral and deep margins noted to be greater than 1 cm. I had seen her on 07/26/2018 regard to further management of the melanoma. At that time she was noted on exam to have a palpable left supraclavicular lymph node. Her staging PET/CT on 07/29/2018 showed an FDG positive left supraclavicular lymph node measuring 2.0 cm, SUV 14.5. Also noted was an FDG avid left axillary lymph node measuring 5.5 x 3.6 cm, SUV 26.6. Other scattered axillary lymph nodes measuring up to 1.6 cm were mildly FDG positive. There were additional suspicious mediastinal lymph nodes in the AP window and prevascular regions. There were no other areas of metastatic involvement noted. In the meantime, her tumor was sent for BRAF mutation analysis, and a BRAF 600 mutation was not detected. I had conferred with one of the melanoma specialists at [facility], and she was given the option to be seen there for second opinion evaluation. As an alternative, it was recommended that she proceed with a trial of immunotherapy as opposed to attempting further surgical resection with axillary/supraclavicular lymph node dissections. She opted to proceed with medical therapy, and arrangements were made with Dr. Rubi for placement of Port-A-Cath venous access device. In the meantime, on 08/07/2018 she was admitted to the hospital with strep pneumoniae sepsis and pneumonia. She had an uneventful recovery with antibiotic therapy. Her medical history is otherwise significant for severe degenerative arthritis of the left hip, which severely restricts her activity. Her other medical illnesses include hypertension, hypothyroidism, obesity, obstructive sleep apnea, and GERD. She has a history of nephrolithiasis, and she has anxiety/depression. She has a history of smoking for 30 years, up to 1 pack of cigarettes daily. She quit smoking in 2018. INTERIM HISTORY: On 09/12/2018 she began treatment with nivolumab 240 mg by IV infusion every 2 weeks. She tolerated the initial infusion well, and she was unable to continue treatment at 2-week intervals. During that time she remained mildly anemic with hemoglobin in the range of 10 g. Her serum studies and November showed low transferrin saturation at 10.4% with ferritin low at 15.0 ng/mL, consistent with iron deficiency. She began oral iron supplementation. As of March 2019 her hemoglobin had decreased to 8.1 g. She began oral iron supplementation and she began on treatment with Protonix. Her stool FIT was positive. As of 04/17/2019 she completed cycle 15 of nivolumab. At that point her hemoglobin was still low at 10.2 g. She was not tolerating the oral iron. As such, she was given parenteral iron replacement with 2 infusions of Injectafer. She continued with cycle 16 of nivolumab on 05/01/2019. A restaging chest CT on 05/10/2019 showed interval increase in the size of a left axillary mass, measuring 5.5 x 2.9 x 4.4 cm, suspicious for disease progression. There were additional smaller axillary lymph nodes measuring up to 13 mm and there is a prominent left supraclavicular lymph node. Calcified right hilar and subcarinal lymph nodes appeared stable and a 4 mm noncalcified pulmonary nodule in the right upper lobe appeared stable. There was no change in a 12 mm low-attenuation lesion in the dome of the liver, felt to be most likely a small hepatic cyst or hemangioma. Her further treatment was put on hold, initially because of hematuria and subsequently because of a viral gastroenteritis syndrome. She was then able to restart treatment with cycle 17 of nivolumab on 06/01/2019. She tolerated it well and she then continued treatment at 2-week intervals. As of 09/04/2019 she had completed cycle 23 of nivolumab. Her further treatment was put on hold following an ER visit on 09/19/2019. She was treated for acute bronchitis. At her follow-up visit on 10/24/2019 she was noted to have persistent left axillary adenopathy. Her restaging PET/CT on 10/27/2019 did show some improvement in the left axillary adenopathy, though with residual FDG avid mass measuring 3.7 x 3.2 cm, SUV 16.6. Other small left axillary lymph nodes were unchanged and were just mildly FDG positive. The previously noted left supraclavicular lymph node was no longer evident and the suspicious mediastinal nodes appeared radiographically benign and FDG negative. There was no evidence for any other metastatic disease. With her residual disease limited to the left axillary mass, she was referred to Dr. Rubi for surgical resection. On 01/03/2020 she underwent left axillary lymph node excision. Pathology was consistent with metastatic melanoma. She had no complications with the procedure. However, on 01/29/2020 she presented to the emergency room with suspected COVID-19 virus infection. She had complained of fever, headache, and generalized arthralgia, and she her oxygen saturation at home had dropped down into the low 80s. She was confirmed to be positive for SARS-CoV-2 Ag. She opted to return home, and she had gradual recovery. Her surveillance CT scans of the chest, abdomen, and pelvis on 03/31/2020 showed resolution of previously described left axillary mass with evidence for a few normal-sized shotty left axillary lymph nodes. A persistent left subpectoral lymph node measured 12 mm compared to 10 mm on the previous study. There is no mediastinal or hilar lymphadenopathy and there was no adenopathy or other metastatic disease noted in the abdomen or pelvis. She is seen for a followup visit. She continues to have very limited activity with virtually no ambulation. She basically just gets up out of bed and turns around and she is otherwise confined to bed or chair. Her appetite is okay. She does not have fever or night sweats. She recently was having some pain in her left flank area and some difficulty voiding and she thinks she may have had a kidney stone, though she was not aware of having passed a stone. She says her breathing has been okay. She is on oxygen at night. She has just occasional cough, attributable to allergies. She does not complain of chest pain. She currently has no GI or complaints. She has chronic pain in her hips and knees. She has a little numbness in her fingertips. She has no other focal neurologic symptoms. Medications: amLODIPine Besylate 1 Tablet (of 5 mg) Oral daily, Cholestyramine Light Pack Oral daily PRN, Furosemide 1 - 2 Tablet (of 20 mg) Oral daily PRN, HYDROcodone-Acetaminophen 1 - 2 Tablet (of 5-325 mg) Oral q 4 hours PRN, Levothyroxine Sodium 1 Tablet (of 125 mcg) Oral daily, Losartan Potassium 1 Tablet (of 50 mg) Oral daily, Metoprolol Tartrate 1 Tablet (of 50 mg) Oral b.i.d., Potassium Chloride ER 2 Tablet (of 20 meq) Tablet, controlled release Oral daily PRN, traMADol HCl 1 - 2 Tablet (of 50 mg) Oral four times a day PRN Allergies: No Known Allergies. Vital Signs: Performed on Jul 03, 2020 13:11 Height - 64.00 in Weight - 270 lbs BSA - 2.22 sq.m BMI - 46.35 (HIGH) Temperature - 97.0 F (LOW) Pulse - 54 /min (LOW) Respiration - 18 /min BP - 132/81 mm(hg) O2 Sat - 92 % (LOW) Pain - 0 Physical Examination: Constitutional - She has limited mobility, Eyes - Sclerae nonicteric. Conjunctivae clear, ENMT - No lesions noted in the oral cavity, Hematologic/Lymphatic - There is some mild induration in the left axillary area. I do not feel any cervical, clavicular, or axillary lymphadenopathy, Respiratory - Lungs sound clear, Cardiovascular - Heart rhythm is regular. There is a II/ systolic murmur. There is no gallop or rub noted, Abdomen - Distended but soft. Liver and spleen are not enlarged. There is no abdominal mass or ascites noted and there is no inguinal adenopathy, Extremities - Mild edema, Neurologic - No focal neurologic deficits noted. Lab/Imaging: Test performed on Jul 03, 2020 12:42 Sodium 139 mmol/L TSH 6.07 uIU/mL Potassium 3.8 mmol/L Chloride 103 mmol/L Est Avg Glucose (eAG) 123 mg/dL CO2 28 mmol/L Anion Gap 11.8 BUN 13 mg/dL Creatinine 0.6 mg/dL Cr Clearance (Est) 161.4500 mL/min Glucose 93 mg/dL Osmolality - Calculated 288 mOsm/kg Calcium 8.7 mg/dL Protein, Total 6.5 g/dL Albumin 3.7 g/dL Globulin 2.8 g/dL Bilirubin, Total 1.0 mg/dL ALT (SGPT) 17 U/L AST (SGOT) 27 U/L Alkaline Phosphatase 95 IU/L Hemoglobin A1C % 5.9 % WBC 5.9 10 3/uL RBC 3.88 10 6/uL HGB 12.2 g/dL HCT 38.0 % MCV 97.9 fL MCH 31.4 pg MCHC 32.1 g/dL RDW 11.9 % Platelet Count 178 10 3/cmm MPV 8.7 fL Neutrophils 3.11 10 3/uL Lymphocytes 2.2 10 3/uL Monocytes 0.5 10 3/uL Eosinophils 0.1 10 3/uL Basophils 0.0 10 3/uL Neutrophil % 52.8 % Lymphocyte % 36.7 % Monocyte % 8.0 % Eosinophil % 1.5 % Basophils % 0.7 % NRBC % 0 % Problem List: 1. Malignant melanoma involving the left upper back/posterior left shoulder. By clinical evaluation her disease appeared to be at least stage III (pT4b, N1, M0) with a palpable left supraclavicular lymph node and with subsequent confirmation of left axillary node involvement. She underwent excisional biopsy on 06/15/2018 with lateral and deep surgical margins reported at greater than 1 cm. 2. During followup she was found to have iron deficiency anemia. She was given parenteral iron replacement with Injectafer due to poor tolerance for oral iron. 3. She has severe degenerative arthritis of the left hip with extremely limited mobility. 4. Hypertension. 5. Hypothyroidism. 6. Obesity. 7. GERD. 8. Obstructive sleep apnea. 9. Nephrolithiasis. 10. She underwent right hemicolectomy and adjuvant chemotherapy for colon cancer in 1994. 11. Anxiety/depression. Problems Addressed with this Encounter and Plan: Patient with malignant melanoma involving the left upper back/posterior left shoulder. By clinical evaluation her disease appeared to be at least stage III (pT4b, N1, M0) with a palpable left supraclavicular lymph node. She underwent excisional biopsy on 06/15/2018 with lateral and deep surgical margins reported at greater than 1 cm. On 09/12/2018 she began treatment with nivolumab 240 mg by IV infusion every 2 weeks. She tolerated the initial infusion well, and she then continued treatment at 2-week intervals. She had continued with cycle 16 of nivolumab on 05/01/2019. Her treatment was then put on hold due to hematuria and to a viral gastroenteritis syndrome. In the meantime, her restaging chest CT on 05/10/2019 showed apparent increased left axillary lymphadenopathy, consistent with disease progression. There was apparent residual left supraclavicular adenopathy. There was no other evidence of disease progression. She restarted treatment with cycle 17 of nivolumab on 06/01/2019. She tolerated it well and she then continued treatment at 2-week intervals. As of 09/04/2019 she had received her 23rd cycle of nivolumab. Her clinical status at that point appeared stable. Her further treatment was delayed due to an episode of acute bronchitis in September 2019. Her restaging PET/CT on 10/27/2019 showed residual FDG avid mass in the left axilla. There were no other obvious areas of involvement. With that finding, she was referred to Dr. Rubi for surgical resection, and she underwent left axillary lymph node excision on 01/03/2020. Pathology showed metastatic melanoma. Her further clinical course was then complicated by COVID-19 virus infection, documented on 01/29/2020. She was managed as an outpatient, and she has had gradual recovery. Due to the treatment delays and having been off her immunotherapy for an extended time period, she had no further treatment for the melanoma. Her overall clinical status has remained stable following recovery from the COVID-19 virus infection. As she has only minimal residual adenopathy on her surveillance CT scans, she will remain on observation/expectant management. I will see her again in 3 months. Signed By: Benjamín Kyle M.D. <<Signature on File>>
== END 2020-07-03 12:27 | disposition home or self-care (01) ==
PROVIDERS: PCP Nurse Practitioner Family; Visit Provider Internal Medicine Medical Oncology
DX: C43.62 Malignant melanoma of left upper limb, including shoulder (principal); C77.3 Secondary and unspecified malignant neoplasm of axilla and upper limb lymph nodes; D50.9 Iron deficiency anemia, unspecified; R73.9 Hyperglycemia, unspecified; M16.12 Unilateral primary osteoarthritis, left hip; I10 Essential (primary) hypertension; E03.9 Hypothyroidism, unspecified; E66.9 Obesity, unspecified; K21.9 Gastro-esophageal reflux disease without esophagitis; Z68.41 Body mass index [BMI] 40.0-44.9, adult; Z86.16 Personal history of COVID-19; Z85.038 Personal history of other malignant neoplasm of large intestine; Z90.49 Acquired absence of other specified parts of digestive tract; Z92.22 Personal history of monoclonal drug therapy
CPT/HCPCS: 36591; 80053; 83036; 84443; 85025; 99214

== ENCOUNTER 2020-09-16 07:27 | Emergency (ER) | payer MEDICARE, OTHER, SELFPAY ==
[2020-09-16 07:38] VITALS: BP 141/79; PULSE 72; RESP 22; TEMP 36.9; O2SAT 70; BMI 51.5
--- NOTE | 2020-09-16 07:40 | CT_ITS ---
WS: [id number] CT ABDOMEN AND PELVIS WITH CONTRAST HISTORY: Left-sided abdominal pain for one week. TECHNIQUE: Imaging performed of the abdomen and pelvis with IV contrast. Single phase imaging of the abdomen. Coronal and sagittal reformats are submitted. All CT scans at [facility] use at least one of these dose optimization techniques: automated exposure control; mA and/or kV adjustment per patient size (includes targeted exams where dose is matched to clinical indication); or iterativ e reconstruction. IV CONTRAST: Omnipaque 300; 95 mL IV. Oral contrast: No DLP: 2139.02 mGy.cm COMPARISON: 03/31/2020 Lower thorax: Dependent changes and areas of linear atelectasis at the lung bases and granulomata. Mi ld enlarged heart. No pericardial effusion. Small hiatal hernia. Liver/biliary system: Hepatic steatosis. No bile duct dilatation. Low-attenuation nodule towards the diaphragmatic surface of the RIGHT lobe is stable and probably representing a small cyst. Gallbladder: Normally distended gallbladder. There is a single stone present in the lumen. No adjacen t inflammation. Pancreas: Normal size pancreas and pancreatic duct. No adjacent inflammation. Spleen: Granuloma. Normal size. Adrenal glands: Normal. Right kidney: Normal size kidney. Nonobstructing calcifications. No hydronephrosis. Left kidney: Normal size kidney. Ovoid 12 mm calcification in the central renal pelvis is unchanged s chastity 03/31/2020. There are additional nonobstructing calcifications in the renal pelvis. Aorta: Normal. Lymphadenopathy: Long-term stability 8mm lymph node in the anterior pericardial fat. No increase in l ymph node burden. Free fluid: None. GI tract: Moderate amount of air throughout the GI tract. No mucosal thickening identified. No obstru ctive pattern or inflammation. Status post RIGHT hemicolectomy. The ileocolic anastomosis appears sta ble. The overall pattern or appearance of the GI tract is similar to the prior study. Abdominal wall: Thinning of the abdominal wall musculature with herniations. Similar to the prior bronson dy. There is no incarcerated bowel. Pelvis: Normally distended urinary bladder. Uterus is identified and normal position. No pelvic marcia s. Ovaries are small caliber as expected. Bones: Increase in the lumbar lordosis. Severe degenerative changes at the LEFT hip joint. Remodeling of the femoral head and acetabulum. CT/CT abdomen pelvis w con* [id number] IMPRESSION: 1. Similar appearance of the abdomen and pelvis as compared to 03/31/2020. 2. Status post RIGHT hemicolectomy. No obstruction is evident. 3. Bilateral renal calcifications. Ovoid calcification in the central LEFT maru al pelvis may be causing intermittent obstruction. At this time there is no obs truction. 4. Severe LEFT hip osteoarthritis.
--- NOTE | 2020-09-16 07:41 | ED_ITS ---
HPI - Abdominal Pain General: Chief Complaint: Abdominal Pain Stated Complaint: pain in left side abd Time Seen by Provider: 09/16/20 07:28 History of Present Illness: HPI narrative: 74-year-old female who presents to the emergency room with complaint of left lower quadrant abdominal pain. She has had 1 episode of vomiting overnight she does not have any dysuria frequency urgency. She has chronic diarrhea due to previous bowel resection denies any hematochezia melena hematemesis or coffee-ground emesis. She is nonambulatory due to her morbid obesity. She can manage to transfer with assistance. She has severe congestive heart failure suspect some underlying pulmonary hypertension. She is on oxygen at night. She did have Covid in January 2020 and has not been vaccinated. She denies any chest pain. MD elicited complaint: abdominal pain Onset (ago): day(s) Pain Consistency: constant Location: LLQ Severity: moderate Quality: cramping Radiation: none Exacerbating factors: movement Relieving factors: nothing Associated Symptoms: Reports anorexia, bloating and diarrhea; Denies belching, change in bowel habits, change in stool character, chills, coffee ground emesis, constipation, GI cramping, dyspepsia, dysuria, excessive flatus, fever(s), heartburn, hematochezia, hematuria, hematemesis, fecal incontinence, loose stools, melena, nausea, poor appetite, syncope and vomiting Review of Systems Const: Denies: fever(s) or chills ENMT: Denies: throat pain, ear or mastoid pain, nasal discharge or nasal congestion Card: Denies: syncope Resp: Denies: dyspnea, productive cough or non-productive cough GI: Reports: diarrhea and bloating; Denies: nausea, vomiting, hematemesis, coffee ground emesis, heartburn, constipation, GI cramping, belching, excessive flatus, fecal incontinence, change in bowel habits, change in stool character, hematochezia or melena : Denies: dysuria or hematuria Skin/Breast: Denies: rash or pruritus PFSH ED PFSH: Medical History (Updated 09/16/20 @ 10:00 by Torin Mchugh DO) Anxiety and depression GERD (gastroesophageal reflux disease) History of colon cancer Hypertension Hypothyroidism Malignant melanoma Involving the left upper back/left shoulder, stage IV (pT4b, cN3, cM1a) at initial diagnosis in June 2018. Morbid obesity Obstructive sleep apnea On 2 L of oxygen by nasal cannula at night Surgical History History of appendectomy History of hemicolectomy 1994, colon cancer History of surgical removal of skin lesion History of tonsillectomy Family History Mother Cancer Renal cancer, at the age of 84 Father No problems noted. Brother Cancer Brother with prostate cancer Hodgkins lymphoma Social History Smoking and tobacco status: former smoker Alcohol intake: never Household members: children Physical Exam Const: COMMON NORMALS: no acute distress GENERAL APPEARANCE: cooperative and comfortable NUTRITIONAL APPEARANCE: obese morbidly obese ORIENTATION/CONSCIOUSNESS: Yes awake, Yes oriented to person, Yes oriented to place and Yes oriented to time HENMT: COMMON NORMALS: normocephalic, atraumatic, hearing grossly normal bilaterally and external ears normal HEAD & SCALP: normocephalic and atraumatic EXTERNAL EAR: Yes external ears normal Neck/C-Spine: COMMON NORMALS: no JVD Resp: COMMON NORMALS: normal respiratory effort, No retractions, No use of accessory muscles and clear to auscultation bilaterally AUSCULTATION: clear to auscultation bilaterally Cardio: COMMON NORMALS: no JVD, regular rate, regular rhythm and No murmurs present (Cardio) RATE: regular rate RHYTHM: regular rhythm GI: COMMON NORMALS: Soft to palpation and No hepatosplenomegaly present AUSCULTATION: Yes normoactive bowel sounds PALPATION: Yes Soft to palpation, No Tenderness to palpation present (GI), No Guarding due to palpation present (GI) and Yes No hepatosplenomegaly present Extremity: COMMON NORMALS: normal to inspection, capillary refill normal, no clubbing, cyanosis or edema, no calf tenderness and no pedal edema Neuro: SENSORIUM/ORIENTATION: Yes oriented to person, Yes oriented to place and Yes oriented to time Skin: COMMON NORMALS: no rashes or lesions noted GENERAL SKIN EXAM: no rashes or lesions noted Course Vital Signs: Vital signs: Vital Signs Temperature 98.5 F 09/16/20 07:38 Pulse Rate 93 09/16/20 10:13 Respiratory Rate 20 H 09/16/20 10:13 Blood Pressure 128/58 09/16/20 10:13 Pulse Oximetry 94 09/16/20 10:13 MDM - Abdominal Pain MDM Narrative: Medical decision making narrative: CT unremarkable white count normal. Appears most of her pain is actually emanating from the hip itself. Patient is morbidly obese and has difficult time even transfers. Continue the current hydrocodone reviewed the findings with her we will discharge her home and have her follow-up with her primary care physician return if has problems Lab Data: Labs: Lab Results 09/16/20 09/16/20 09/16/20 Range/Units 07:45 07:45 08:05 WBC 7.1 (4.0-10.0) 10^3/ uL RBC 4.04 L (4.1-5.3) 10^6/u L Hgb 12.9 (11.5-15.3) g/dL Hct 39.2 (37.0-47.0) % MCV 97.0 (81-99) fL MCH 31.9 (28.0-34.0) pg MCHC 32.9 (30.0-36.0) g/dL RDW 12.1 (12.1-15.1) % Plt Count 193 (130-400) 10^3/c mm MPV 9.2 (7.4-10.4) fL Neut % (Auto) 72.9 % Lymph % (Auto) 20.9 % [place] % (Auto) 5.1 % Eos % (Auto) 0.1 % Baso % (Auto) 0.7 % Neut # (Auto) 5.14 (1.8-7.7) 10^3/u L Lymph # (Auto) 1.5 (0.8-4.8) 10^3/u L [place] # (Auto) 0.4 (0.2-0.9) 10^3/u L Eos # (Auto) 0.0 (0.0-0.8) 10^3/u L Baso # (Auto) 0.1 (0.0-0.1) 10^3/u L Nucleated RBC % (a uto) 0 % Nucleated RBCs # 0.0 /100WBC Sodium 137 (136-145) mmol/L Potassium 4.7 (3.5-5.1) mmol/L Chloride 98 (98-107) mmol/L Carbon Dioxide 26 (22-29) mmol/L Anion Gap 17.7 (5-19) BUN 12 (8-23) mg/dL Creatinine 0.5 (0.5-0.9) mg/dL GFR Calculation Not Reportable Glucose 162 H (65-115) mg/dL Calculated Osmolal ity 287 (285-295) mOsm/k g Calcium 9.4 (8.5-10.5) mg/dL Total Bilirubin 1.0 (0.15-1.2) mg/dL AST 28 (0-32) U/L ALT 14 (0-33) U/L Alkaline Phosphata se 106 H (35-105) IU/L Total Protein 6.7 (6.6-8.7) g/dL Albumin 4.1 (3.5-5.2) g/dL Globulin 2.6 (1.3-4.6) g/dL Lipase 20 (13-60) U/L Urine Color Yellow (Yellow) Urine Appearance Cloudy (CLEAR) Urine pH 5 (5-7) Ur Specific Gravit y 1.020 (1.005-1.030) Urine Protein 1+ H (Negative) Urine Glucose (UA) Norm (Normal) Urine Ketones Negative (Negative) Urine Blood 3+ H (Negative) Urine Nitrate Negative (Negative) Urine Bilirubin 1+ H (Negative) Urine Urobilinogen 1 H (Negative) mg/dL Ur Leukocyte Jessica ase Trace H (Negative) Urine RBC >100 H (0-2) /hpf Urine WBC 0-4 H (0-5) /hpf Ur Squamous Epith Cells 0-4 H (0-5) /hpf Amorphous Sediment Not Reportable Urine Bacteria 1+ H (NONE) /hpf Discharge Plan Discharge Patient Disposition: Home Clinical Impression: Osteoarthritis of left hip, Morbid obesity, Obstructive sleep apnea Condition: Stable Prescriptions: No Action losartan 50 mg tablet 50 mg PO DAILY RF: 0 hydrocodone-acetaminophen 5-325 mg tablet 1 tab PO Q4H PRN (Reason: Pain) RF: 0 Hold Instructions: Resume on 01/08/20. May resume after pain medicine prescribed today is gone. potassium chloride 10 mEq tablet extended release 10 - 20 meq PO DAILY PRN (Reason: w/lasix) RF: 0 amlodipine 5 mg tablet 5 mg PO DAILY RF: 0 tramadol 50 mg tablet 50 mg PO TID PRN (Reason: Pain) RF: 0 pantoprazole 40 mg tablet,delayed release (DR/EC) 40 mg PO DAILY RF: 0 levothyroxine [Euthyrox] 125 mcg tablet 125 mcg PO DAILY RF: 0 metoprolol tartrate 50 mg tablet 50 mg PO BID RF: 0 furosemide 20 mg tablet 20 - 40 mg PO DAILY PRN (Reason: Edema) RF: 0 cholestyramine (with sugar) 4 gram powder 4 g PO EVERY OTHER DAY RF: 0 hydrocodone-acetaminophen 5-325 mg tablet 1 - 2 tab PO Q5H PRN (Reason: pain) Qty: 30 RF: 0 dexamethasone 6 mg tablet 6 mg PO DAILY Qty: 7 RF: 0 Discharge Orders: Discharge ED (Routine); Ordered 09/16/20 Ordered By: Torin Mchugh Referrals: [facility] [Primary Care Provider] - Discharge Diet: Usual diet Discharge Activity: Increase activity as tolerated Patient Instructions: Opioid Safety Activity Restrictions/Additional Instructions: Follow-up for Dr. Kyle with adjustments to pain control medications. Recommend to use oxygen 24 hours a day Coding Level of Care Code ED [employer] for [facility] Fwd Exam Comprehensive
[2020-09-16 07:53] LABS: Basophils # 0.1 10^3/uL (0.0-0.1); Basophils % 0.7 %; Eosinophils % 0.1 %; Hematocrit 39.2 % (37.0-47.0); Hemoglobin 12.9 g/dL (11.5-15.3); Lymphocytes # 1.5 10^3/uL (0.8-4.8); Lymphocytes % 20.9 %; Mean Corpuscular HGB Conc 32.9 g/dL (30.0-36.0); Mean Corpuscular Hemoglobin 31.9 pg (28.0-34.0); Mean Platelet Volume 9.2 fL (7.4-10.4); Monocytes # 0.4 10^3/uL (0.2-0.9); Monocytes % 5.1 %; Neutrophils # 5.14 10^3/uL (1.8-7.7); Neutrophils % 72.9 %; Nucleated Red Blood Cells % 0 %; Platelet Count 193 10^3/cmm (130-400); Red Blood Count 4.04 10^6/uL (4.1-5.3); Red Cell Distribution Width 12.1 % (12.1-15.1); White Blood Count 7.1 10^3/uL (4.0-10.0)
[2020-09-16 08:14] LABS: Alanine Aminotransferase 14 U/L (0-33); Albumin Level 4.1 g/dL (3.5-5.2); Alkaline Phosphatase 106 IU/L (35-105); Anion Gap 17.7 (5-19); Aspartate Amino Transferase 28 U/L (0-32); Blood Urea Nitrogen 12 mg/dL (8-23); Calcium 9.4 mg/dL (8.5-10.5); Carbon Dioxide 26 mmol/L (22-29); Chloride 98 mmol/L (98-107); Globulin 2.6 g/dL (1.3-4.6); Glucose 162 mg/dL (65-115); Lipase 20 U/L (13-60); Osmolality Calculated 287 mOsm/kg (285-295); Potassium 4.7 mmol/L (3.5-5.1); Sodium 137 mmol/L (136-145); Total Protein 6.7 g/dL (6.6-8.7)
[2020-09-16 08:24] LABS: Add Urine Microscopic? YES; Bilirubin Urine 1+ (Negative); Blood Urine 3+ (Negative); Glucose Urine UA Norm (Normal); Ketones Urine Negative (Negative); Leukocyte Esterase Urine Trace (Negative); Nitrate Urine Negative (Negative); Protein Urine 1+ (Negative); Urine Appearance Cloudy (CLEAR); Urine Color Yellow (Yellow); Urobilinogen Urine 1 mg/dL (Negative); pH Urine 5 (5-7)
[2020-09-16 08:25] LABS: Add Urine Culture? Yes; Bacteria Urine 1+ /hpf; RBC Urine >100 /hpf (0-2); Squamous Epithelial Cell Urine 0-4 /hpf (0-5); WBC Urine 0-4 /hpf (0-5)
[2020-09-16] MEDS: iohexol 300 mg/mL 100 mL Btl IV (08:44)
[2020-09-16 10:13] VITALS: BP 128/58; PULSE 93; RESP 20; O2SAT 94
== END 2020-09-16 10:11 | disposition home or self-care (01) ==
PROVIDERS: Emergency Provider Family Medicine; PCP Nurse Practitioner Family
DX: M16.12 Unilateral primary osteoarthritis, left hip (principal); G47.33 Obstructive sleep apnea (adult) (pediatric); E66.01 Morbid (severe) obesity due to excess calories; Z85.038 Personal history of other malignant neoplasm of large intestine; I10 Essential (primary) hypertension; Z87.891 Personal history of nicotine dependence
CPT/HCPCS: 74177; 80053; 81001; 83690; 85025; 87086; 99283; Q9967

== ENCOUNTER 2020-10-02 10:16 | Outpatient (CLI) | payer MEDICARE, OTHER, SELFPAY ==
--- NOTE | 2020-10-02 | CT_ITS ---
WS: [id number] CT CHEST, ABDOMEN, AND PELVIS TECHNIQUE: Contrast-enhanced CT of the chest, abdomen, and pelvis with coronal and sagittal reformatt ed images. CLINICAL INFORMATION: MELANOMA COMPARISON: CT abdomen pelvis September 16, [address] chest abdomen pelvis March 31, 2020 PET/CT October 27, 2019 DLP: 2938.[address] scans at [facility] use at least one of these dose optimization techniques: automat ed exposure control; mA and/or kV adjustment per patient size (includes targeted exams where dose is matched to clinical indication); or iterative reconstruction. CT CHEST: Mild chronic emphysematous changes. No acute pulmonary infiltrates. Subsegmental atelectasis in the l sonja bases. A few calcified granulomas. No focal pneumonia or pleural fluid. Calcified right hilar lym ph nodes. Calcified subcarinal lymph nodes. Normal caliber thoracic aorta. Mild aortic calcification. Mild coronary calcification. Stable noncalcified nodule right upper lobe measuring 4 mm. No axillary lymphadenopathy.Previously described left subpectoral lymph node measuring 8 mm is unchan ged. CT ABDOMEN AND PELVIS: Diffuse fatty infiltration of the liver. Cirrhotic configuration to the liver. Stable hepatic cyst or hemangioma in the dome of the liver measuring 1.5 cm. Normal GE junction. creatic fatty atrophy. Splenic granulomas. Normal portal vein and splenic vein. Adrenal glands are no rmal. Normal renal parenchymal enhancement. No hydronephrosis. Left lower pole renal lesion measures 3.0 cm increased compared to 2.7 cm previous. This demonstrates increased attenuation and recommend f urther evaluation with ultrasound. This was demonstrated to be a renal cyst on the 2019 renal ultraso und but increased in size since that study where it measured 1.9 cm. Recommend further evaluation wit h renal ultrasound. Stable 11 mm left renal pelvic calculus. Additional tiny nonobstructing calyceal tip calculi. No hydr onephrosis in either kidney. Normal caliber abdominal aorta. Hypertrophic changes thoracic and lumbar spine. Advanced degenerative arthritis left hip with bone-on -bone articulation and subchondral sclerosis/avascular necrosis.. Prior postoperative changes right hemicolectomy with ileocolic anastomosis. No evidence of small or l arge bowel obstruction. Fat-containing periumbilical hernias similar in appearance. No herniated brigida l. No abdominal or pelvic lymphadenopathy.. CT/CT chest abd pel w con* IMPRESSION: 1. No evidence of recurrent or progressive disease within the chest abdomen or pelvis. 2. Stable prominent left subpectoral lymph node measuring 12 x 8 mm unchanged. 3. No mediastinal or hilar lymphadenopathy. 4. No acute pulmonary infiltrates. 5. Stable 4 mm noncalcified nodule right upper lobe. 6. No adenopathy in the abdomen or pelvis. 7. Left lower pole renal lesion with increased attenuation. This was previousl y demonstrated to represent a cyst on the ultrasound July 12, 2018. However th is has increased in size from that study. Recommend further evaluation with maru vivas ultrasound.
[2020-10-02] MEDS: iohexol 300 mg/mL 100 mL Btl IV (12:11)
[2020-10-02] MEDS: iohexol 300 mg/mL 50 mL Btl IV (12:12)
== END 2020-10-02 10:17 | disposition home or self-care (01) ==
LOC: RADWPI 10:19
PROVIDERS: PCP Nurse Practitioner Family; Visit Provider Internal Medicine Medical Oncology
DX: C43.62 Malignant melanoma of left upper limb, including shoulder (principal); N28.9 Disorder of kidney and ureter, unspecified; R91.1 Solitary pulmonary nodule
CPT/HCPCS: 71260; 74177; Q9967

== ENCOUNTER 2020-10-07 11:06 | Outpatient (CLI) | payer MEDICARE, OTHER, SELFPAY ==
[2020-10-07 11:35] LABS: Basophils % 0.6 %; Eosinophils # 0.1 10^3/uL (0.0-0.8); Eosinophils % 2.1 %; Hematocrit 38.3 % (37.0-47.0); Hemoglobin 11.9 g/dL (11.5-15.3); Lymphocytes # 1.9 10^3/uL (0.8-4.8); Lymphocytes % 39.3 %; Mean Corpuscular HGB Conc 31.1 g/dL (30.0-36.0); Mean Corpuscular Volume 99.7 fL (81-99); Mean Platelet Volume 8.7 fL (7.4-10.4); Monocytes # 0.4 10^3/uL (0.2-0.9); Monocytes % 8.5 %; Neutrophils # 2.36 10^3/uL (1.8-7.7); Neutrophils % 49.1 %; Nucleated Red Blood Cells % 0 %; Platelet Count 172 10^3/cmm (130-400); Red Blood Count 3.84 10^6/uL (4.1-5.3); Red Cell Distribution Width 12.3 % (12.1-15.1); White Blood Count 4.8 10^3/uL (4.0-10.0)
[2020-10-07 12:19] LABS: Alanine Aminotransferase 13 U/L (0-33); Albumin Level 3.6 g/dL (3.5-5.2); Alkaline Phosphatase 82 IU/L (35-105); Aspartate Amino Transferase 26 U/L (0-32); Blood Urea Nitrogen 14 mg/dL (8-23); Carbon Dioxide 29 mmol/L (22-29); Chloride 103 mmol/L (98-107); Globulin 2.4 g/dL (1.3-4.6); Glucose 101 mg/dL (65-115); Osmolality Calculated 291 mOsm/kg (285-295); Sodium 140 mmol/L (136-145)
[2020-10-07 12:32] LABS: Lactate Dehydrogenase 199 U/L (135-214)
--- NOTE | 2020-10-10 13:48 | ONC FU_ITS ---
Dr. Kyle Patient Follow-Up Note Patient: Laurence Malave Unit #: [id number]: 1945 Dicatated By: Benjamín Kyle M.D.Date of Visit:Oct 07, 2020 Onc Med Follow-up/Prog Note Chief Complaint: Melanoma. History of Present Illness: This is a 74 year-old woman with malignant melanoma involving the left upper back/left shoulder. By clinical evaluation her disease appeared to be stage IV (pT4b, cN3, cM1a) at initial diagnosis in June 2018. She has a prior history of stage III colon cancer, having undergone right hemicolectomy and adjuvant chemotherapy approximately 1994. There has been no evidence of recurrence. She had been seen by Dr. Rubi in June for a skin lesion in the left upper back/left shoulder area. It had been enlarging over a period of about a year. Exam at that time noted a pedunculated, flesh-colored, lobulated lesion with some necrosis measuring 6 to 7 cm in greatest diameter. She underwent excisional biopsy on 06/15/2018. Pathology showed infiltrating malignant melanoma measuring 6.5 x 6.0 x 4.0 cm. Tumor was noted to penetrate the dermal connective tissue into underlying subcutaneous adipose tissue. The Breslow depth was greater than 4.00 mm. The tumor was noted to have surface ulceration. An incidental subcutaneous lymph node in the specimen was free of metastatic tumor. Grossly the tumor appeared to be completely excised with the distance from the tumor to lateral and deep margins noted to be greater than 1 cm. I had seen her on 07/26/2018 regard to further management of the melanoma. At that time she was noted on exam to have a palpable left supraclavicular lymph node. Her staging PET/CT on 07/29/2018 showed an FDG positive left supraclavicular lymph node measuring 2.0 cm, SUV 14.5. Also noted was an FDG avid left axillary lymph node measuring 5.5 x 3.6 cm, SUV 26.6. Other scattered axillary lymph nodes measuring up to 1.6 cm were mildly FDG positive. There were additional suspicious mediastinal lymph nodes in the AP window and prevascular regions. There were no other areas of metastatic involvement noted. In the meantime, her tumor was sent for BRAF mutation analysis, and a BRAF 600 mutation was not detected. I had conferred with one of the melanoma specialists at [facility], and she was given the option to be seen there for second opinion evaluation. As an alternative, it was recommended that she proceed with a trial of immunotherapy as opposed to attempting further surgical resection with axillary/supraclavicular lymph node dissections. She opted to proceed with medical therapy, and arrangements were made with Dr. Rubi for placement of Port-A-Cath venous access device. In the meantime, on 08/07/2018 she was admitted to the hospital with strep pneumoniae sepsis and pneumonia. She had an uneventful recovery with antibiotic therapy. On 09/12/2018 she began treatment with nivolumab 240 mg by IV infusion every 2 weeks. She tolerated the initial infusion well, and she was unable to continue treatment at 2-week intervals. During that time she remained mildly anemic with hemoglobin in the range of 10 g. Her serum studies and November showed low transferrin saturation at 10.4% with ferritin low at 15.0 ng/mL, consistent with iron deficiency. She began oral iron supplementation. As of March 2019 her hemoglobin had decreased to 8.1 g. She began oral iron supplementation and she began on treatment with Protonix. Her stool FIT was positive. As of 04/17/2019 she completed cycle 15 of nivolumab. At that point her hemoglobin was still low at 10.2 g. She was not tolerating the oral iron. As such, she was given parenteral iron replacement with 2 infusions of Injectafer. She continued with cycle 16 of nivolumab on 05/01/2019. A restaging chest CT on 05/10/2019 showed interval increase in the size of a left axillary mass, measuring 5.5 x 2.9 x 4.4 cm, suspicious for disease progression. There were additional smaller axillary lymph nodes measuring up to 13 mm and there is a prominent left supraclavicular lymph node. Calcified right hilar and subcarinal lymph nodes appeared stable and a 4 mm noncalcified pulmonary nodule in the right upper lobe appeared stable. There was no change in a 12 mm low-attenuation lesion in the dome of the liver, felt to be most likely a small hepatic cyst or hemangioma. Her further treatment was put on hold, initially because of hematuria and subsequently because of a viral gastroenteritis syndrome. She was then able to restart treatment with cycle 17 of nivolumab on 06/01/2019. She tolerated it well and she then continued treatment at 2-week intervals. As of 09/04/2019 she had completed cycle 23 of nivolumab. Her further treatment was put on hold following an ER visit on 09/19/2019. She was treated for acute bronchitis. At her follow-up visit on 10/24/2019 she was noted to have persistent left axillary adenopathy. Her restaging PET/CT on 10/27/2019 did show some improvement in the left axillary adenopathy, though with residual FDG avid mass measuring 3.7 x 3.2 cm, SUV 16.6. Other small left axillary lymph nodes were unchanged and were just mildly FDG positive. The previously noted left supraclavicular lymph node was no longer evident and the suspicious mediastinal nodes appeared radiographically benign and FDG negative. There was no evidence for any other metastatic disease. With her residual disease limited to the left axillary mass, she was referred to Dr. Rubi for surgical resection. On 01/03/2020 she underwent left axillary lymph node excision. Pathology was consistent with metastatic melanoma. She had no complications with the procedure. However, on 01/29/2020 she presented to the emergency room with suspected COVID-19 virus infection. She had complained of fever, headache, and generalized arthralgia, and she her oxygen saturation at home had dropped down into the low 80s. She was confirmed to be positive for SARS-CoV-2 Ag. She opted to return home, and she had gradual recovery. Her surveillance CT scans of the chest, abdomen, and pelvis on 03/31/2020 showed resolution of previously described left axillary mass with evidence for a few normal-sized shotty left axillary lymph nodes. A persistent left subpectoral lymph node measured 12 mm compared to 10 mm on the previous study. There is no mediastinal or hilar lymphadenopathy and there was no adenopathy or other metastatic disease noted in the abdomen or pelvis. I had seen her for a follow-up visit on 07/03/2020. Given the extended period of time she had been off treatment, I opted not to restart her immunotherapy. Her medical history is otherwise significant for severe degenerative arthritis of the left hip, which severely restricts her activity. Her other medical illnesses include hypertension, hypothyroidism, obesity, obstructive sleep apnea, and GERD. She has a history of nephrolithiasis, and she has anxiety/depression. She has a history of smoking for 30 years, up to 1 pack of cigarettes daily. She quit smoking in 2019. INTERIM HISTORY: Surveillance CT scans on 10/02/2020 showed no evidence of recurrent or progressive disease within the chest, abdomen, or pelvis. A prominent left subpectoral lymph node measuring 12 x 8 mm appeared unchanged, and there was no mediastinal or hilar adenopathy noted, nnd there was no adenopathy noted in the abdomen/pelvis. She was noted, though, to have a left lower pole renal lesion which had increased slightly in size, measuring 3.0 cm compared to 2.7 cm on the previous study. Further evaluation with renal ultrasound was recommended. She is seen for a followup visit. She had been feeling pretty good generally. She had developed some pain on her left side, but it is better now. She continues to have very limited activity due to her hip pain. She is able to get up to the commode, but that is about it. Her ECOG score is 3. Her appetite has not been as good, but her weight is stable. She does not have fever or night sweats. She has not had sore mouth or throat. She does not complain of shortness of breath, cough, or chest pain. She was having some indigestion, but that is also better now. She has no other GI or complaints. She has pain in her left hip and both knees, which is chronic. She does not complain of headache or dizziness. She does have some numbness in her fingers. Medications: amLODIPine Besylate 1 Tablet (of 5 mg) Oral daily, Cholestyramine Light Pack Oral daily PRN, Furosemide 1 - 2 Tablet (of 20 mg) Oral daily PRN, HYDROcodone-Acetaminophen 1 - 2 Tablet (of 5-325 mg) Oral q 4 hours PRN, Levothyroxine Sodium 1 Tablet (of 125 mcg) Oral daily, Losartan Potassium 1 Tablet (of 50 mg) Oral daily, Metoprolol Tartrate 1 Tablet (of 50 mg) Oral b.i.d., Potassium Chloride ER 2 Tablet (of 20 meq) Tablet, controlled release Oral daily PRN, traMADol HCl 1 - 2 Tablet (of 50 mg) Oral four times a day PRN Allergies: No Known Allergies. Vital Signs: Performed on Oct 07, 2020 13:14 Height - 64.00 in Temperature - 98.2 F (LOW) Pulse - 58 /min (LOW) Respiration - 18 /min BP - 108/63 mm(hg) O2 Sat - 92 % (LOW) Pain - 0 Fatigue - 0 Physical Examination: Constitutional - She has limited mobility, Eyes - Sclerae nonicteric. Conjunctivae clear, ENMT - No lesions noted in the oral cavity, Hematologic/Lymphatic - No cervical, clavicular, or axillary adenopathy noted, Respiratory - Lungs sound clear, Cardiovascular - Heart rhythm is regular. There is a II/ systolic murmur. There is no gallop or rub noted, Abdomen - Distended but soft. Liver and spleen are not enlarged. There is no abdominal mass or ascites noted and there is no inguinal adenopathy, Extremities - Mild edema, Neurologic - No focal neurologic deficits noted. Lab/Imaging: Test performed on Oct 07, 2020 11:25 LDH (Total) 199 U/L Sodium 140 mmol/L Potassium 4.0 mmol/L Chloride 103 mmol/L CO2 29 mmol/L Anion Gap 12.0 BUN 14 mg/dL Creatinine 0.6 mg/dL Cr Clearance (Est) 161.4500 mL/min Glucose 101 mg/dL Osmolality - Calculated 291 mOsm/kg Calcium 9.0 mg/dL Protein, Total 6.0 g/dL Albumin 3.6 g/dL Globulin 2.4 g/dL Bilirubin, Total 1.0 mg/dL ALT (SGPT) 13 U/L AST (SGOT) 26 U/L Alkaline Phosphatase 82 IU/L WBC 4.8 10 3/uL RBC 3.84 10 6/uL HGB 11.9 g/dL HCT 38.3 % MCV 99.7 fL MCH 31.0 pg MCHC 31.1 g/dL RDW 12.3 % Platelet Count 172 10 3/cmm MPV 8.7 fL Neutrophils 2.36 10 3/uL Lymphocytes 1.9 10 3/uL Monocytes 0.4 10 3/uL Eosinophils 0.1 10 3/uL Basophils 0.0 10 3/uL Neutrophil % 49.1 % Lymphocyte % 39.3 % Monocyte % 8.5 % Eosinophil % 2.1 % Basophils % 0.6 % NRBC % 0 % Problem List: 1. Malignant melanoma involving the left upper back/posterior left shoulder. By clinical evaluation her disease appeared to be at least stage III (pT4b, N1, M0) with a palpable left supraclavicular lymph node and with subsequent confirmation of left axillary node involvement. She underwent excisional biopsy on 06/15/2018 with lateral and deep surgical margins reported at greater than 1 cm. 2. During followup she was found to have iron deficiency anemia. She was given parenteral iron replacement with Injectafer due to poor tolerance for oral iron. 3. She has severe degenerative arthritis of the left hip with extremely limited mobility. 4. Hypertension. 5. Hypothyroidism. 6. Obesity. 7. GERD. 8. Obstructive sleep apnea. 9. Nephrolithiasis. 10. She underwent right hemicolectomy and adjuvant chemotherapy for colon cancer in 1994. 11. Anxiety/depression. Problems Addressed with this Encounter and Plan: 1. Patient with malignant melanoma involving the left upper back/posterior left shoulder. By clinical evaluation her disease appeared to be at least stage III (pT4b, N1, M0) with a palpable left supraclavicular lymph node. She underwent excisional biopsy on 06/15/2018 with lateral and deep surgical margins reported at greater than 1 cm. On 09/12/2018 she began treatment with nivolumab 240 mg by IV infusion every 2 weeks. She tolerated the initial infusion well, and she then continued treatment at 2-week intervals. She had continued with cycle 16 of nivolumab on 05/01/2019. Her treatment was then put on hold due to hematuria and to a viral gastroenteritis syndrome. In the meantime, her restaging chest CT on 05/10/2019 showed apparent increased left axillary lymphadenopathy, consistent with disease progression. There was apparent residual left supraclavicular adenopathy. There was no other evidence of disease progression. She restarted treatment with cycle 17 of nivolumab on 06/01/2019. She tolerated it well and she then continued treatment at 2-week intervals. As of 09/04/2019 she had received her 23rd cycle of nivolumab. Her clinical status at that point appeared stable. Her further treatment was delayed due to an episode of acute bronchitis in September 2019. Her restaging PET/CT on 10/27/2019 showed residual FDG avid mass in the left axilla. There were no other obvious areas of involvement. With that finding, she was referred to Dr. Rubi for surgical resection, and she underwent left axillary lymph node excision on 01/03/2020. Pathology showed metastatic melanoma. Her further clinical course was then complicated by COVID-19 virus infection, documented on 01/29/2020. She was managed as an outpatient, and she has had gradual recovery. Due to the treatment delays and having been off her immunotherapy for an extended time period, she had no further treatment for the melanoma. Her overall clinical status has remained stable following recovery from the COVID-19 virus infection. Thus far there has been no evidence clinically or by imaging for any further recurrence/progression of her melanoma. She remains on expectant management. I will see her again in 3 months. 2. She had incidental finding on CT scan of a left lower pole renal lesion with increased attenuation. She will be scheduled for left renal ultrasound, as recommended. She will have further evaluation as indicated. Signed By: Benjamín Kyle M.D. <<Signature on File>>
== END 2020-10-07 11:07 | disposition home or self-care (01) ==
LOC: ONCMED 11:09
PROVIDERS: PCP Nurse Practitioner Family; Visit Provider Internal Medicine Medical Oncology
DX: Z08 Encounter for follow-up examination after completed treatment for malignant neoplasm (principal); Z85.820 Personal history of malignant melanoma of skin; Z85.038 Personal history of other malignant neoplasm of large intestine; D50.9 Iron deficiency anemia, unspecified; M16.12 Unilateral primary osteoarthritis, left hip; I10 Essential (primary) hypertension; E03.9 Hypothyroidism, unspecified; E66.9 Obesity, unspecified; K21.9 Gastro-esophageal reflux disease without esophagitis; G47.33 Obstructive sleep apnea (adult) (pediatric); N20.0 Calculus of kidney; Z92.21 Personal history of antineoplastic chemotherapy; Z90.49 Acquired absence of other specified parts of digestive tract; F41.9 Anxiety disorder, unspecified; F32.9 Major depressive disorder, single episode, unspecified; Z86.16 Personal history of COVID-19; Z79.899 Other long term (current) drug therapy
CPT/HCPCS: 36415; 36591; 80053; 83615; 85025; 99214

== ENCOUNTER 2021-01-05 13:04 | Outpatient (CLI) | payer MEDICARE, OTHER, SELFPAY ==
[2021-01-05 14:19] LABS: Basophils % 0.3 %; Eosinophils # 0.1 10^3/uL (0.0-0.8); Eosinophils % 1.7 %; Hematocrit 36.9 % (37.0-47.0); Hemoglobin 11.6 g/dL (11.5-15.3); Lymphocytes # 2.2 10^3/uL (0.8-4.8); Lymphocytes % 37.7 %; Mean Corpuscular HGB Conc 31.4 g/dL (30.0-36.0); Mean Corpuscular Hemoglobin 30.9 pg (28.0-34.0); Mean Corpuscular Volume 98.4 fl (81-99); Mean Platelet Volume 9.4 fL (7.4-10.4); Monocytes # 0.4 10^3/uL (0.2-0.9); Monocytes % 7.1 %; Neutrophils # 3.06 10^3/uL (1.8-7.7); Nucleated Red Blood Cells % 0 %; Platelet Count 190 10^3/cmm (130-400); Red Blood Count 3.75 10^6/uL (4.1-5.3); Red Cell Distribution Width 12.4 % (12.1-15.1); White Blood Count 5.8 10^3/uL (4.0-10.0)
[2021-01-05 14:41] LABS: Alanine Aminotransferase 12 U/L (0-33); Albumin Level 3.5 g/dL (3.5-5.2); Alkaline Phosphatase 104 IU/L (35-105); Anion Gap 10.8 (5-19); Aspartate Amino Transferase 24 U/L (0-32); Blood Urea Nitrogen 13 mg/dL (8-23); Calcium 8.9 mg/dL (8.5-10.5); Carbon Dioxide 30 mmol/L (22-29); Chloride 101 mmol/L (98-107); Glucose 84 mg/dL (65-115); Lactate Dehydrogenase 180 U/L (135-214); Osmolality Calculated 285 mOsm/kg (285-295); Potassium 3.8 mmol/L (3.5-5.1); Sodium 138 mmol/L (136-145); Total Protein 6.5 g/dL (6.6-8.7)
--- NOTE | 2021-01-05 17:42 | ONC FU_ITS ---
Dr. Kyle Patient Follow-Up Note Patient: Laurence Malave Unit #: [id number]: 1945 Dicatated By: Benjamín Kyle M.D.Date of Visit:Jan 05, 2021 Onc Med Follow-up/Prog Note Chief Complaint: Melanoma. History of Present Illness: This is a 75 year-old woman with malignant melanoma involving the left upper back/left shoulder. By clinical evaluation her disease appeared to be stage IV (pT4b, cN3, cM1a) at initial diagnosis in June 2018. She has a prior history of stage III colon cancer, having undergone right hemicolectomy and adjuvant chemotherapy approximately 1994. There has been no evidence of recurrence. She had been seen by Dr. Rubi in June for a skin lesion in the left upper back/left shoulder area. It had been enlarging over a period of about a year. Exam at that time noted a pedunculated, flesh-colored, lobulated lesion with some necrosis measuring 6 to 7 cm in greatest diameter. She underwent excisional biopsy on 06/15/2018. Pathology showed infiltrating malignant melanoma measuring 6.5 x 6.0 x 4.0 cm. Tumor was noted to penetrate the dermal connective tissue into underlying subcutaneous adipose tissue. The Breslow depth was greater than 4.00 mm. The tumor was noted to have surface ulceration. An incidental subcutaneous lymph node in the specimen was free of metastatic tumor. Grossly the tumor appeared to be completely excised with the distance from the tumor to lateral and deep margins noted to be greater than 1 cm. I had seen her on 07/26/2018 regard to further management of the melanoma. At that time she was noted on exam to have a palpable left supraclavicular lymph node. Her staging PET/CT on 07/29/2018 showed an FDG positive left supraclavicular lymph node measuring 2.0 cm, SUV 14.5. Also noted was an FDG avid left axillary lymph node measuring 5.5 x 3.6 cm, SUV 26.6. Other scattered axillary lymph nodes measuring up to 1.6 cm were mildly FDG positive. There were additional suspicious mediastinal lymph nodes in the AP window and prevascular regions. There were no other areas of metastatic involvement noted. In the meantime, her tumor was sent for BRAF mutation analysis, and a BRAF 600 mutation was not detected. I had conferred with one of the melanoma specialists at [facility], and she was given the option to be seen there for second opinion evaluation. As an alternative, it was recommended that she proceed with a trial of immunotherapy as opposed to attempting further surgical resection with axillary/supraclavicular lymph node dissections. She opted to proceed with medical therapy, and arrangements were made with Dr. Rubi for placement of Port-A-Cath venous access device. In the meantime, on 08/07/2018 she was admitted to the hospital with strep pneumoniae sepsis and pneumonia. She had an uneventful recovery with antibiotic therapy. On 09/12/2018 she began treatment with nivolumab 240 mg by IV infusion every 2 weeks. She tolerated the initial infusion well, and she was unable to continue treatment at 2-week intervals. During that time she remained mildly anemic with hemoglobin in the range of 10 g. Her serum studies and November showed low transferrin saturation at 10.4% with ferritin low at 15.0 ng/mL, consistent with iron deficiency. She began oral iron supplementation. As of March 2019 her hemoglobin had decreased to 8.1 g. She began oral iron supplementation and she began on treatment with Protonix. Her stool FIT was positive. As of 04/17/2019 she completed cycle 15 of nivolumab. At that point her hemoglobin was still low at 10.2 g. She was not tolerating the oral iron. As such, she was given parenteral iron replacement with 2 infusions of Injectafer. She continued with cycle 16 of nivolumab on 05/01/2019. A restaging chest CT on 05/10/2019 showed interval increase in the size of a left axillary mass, measuring 5.5 x 2.9 x 4.4 cm, suspicious for disease progression. There were additional smaller axillary lymph nodes measuring up to 13 mm and there is a prominent left supraclavicular lymph node. Calcified right hilar and subcarinal lymph nodes appeared stable and a 4 mm noncalcified pulmonary nodule in the right upper lobe appeared stable. There was no change in a 12 mm low-attenuation lesion in the dome of the liver, felt to be most likely a small hepatic cyst or hemangioma. Her further treatment was put on hold, initially because of hematuria and subsequently because of a viral gastroenteritis syndrome. She was then able to restart treatment with cycle 17 of nivolumab on 06/01/2019. She tolerated it well and she then continued treatment at 2-week intervals. As of 09/04/2019 she had completed cycle 23 of nivolumab. Her further treatment was put on hold following an ER visit on 09/19/2019. She was treated for acute bronchitis. At her follow-up visit on 10/24/2019 she was noted to have persistent left axillary adenopathy. Her restaging PET/CT on 10/27/2019 did show some improvement in the left axillary adenopathy, though with residual FDG avid mass measuring 3.7 x 3.2 cm, SUV 16.6. Other small left axillary lymph nodes were unchanged and were just mildly FDG positive. The previously noted left supraclavicular lymph node was no longer evident and the suspicious mediastinal nodes appeared radiographically benign and FDG negative. There was no evidence for any other metastatic disease. With her residual disease limited to the left axillary mass, she was referred to Dr. Rubi for surgical resection. On 01/03/2020 she underwent left axillary lymph node excision. Pathology was consistent with metastatic melanoma. She had no complications with the procedure. However, on 01/29/2020 she presented to the emergency room with suspected COVID-19 virus infection. She had complained of fever, headache, and generalized arthralgia, and she her oxygen saturation at home had dropped down into the low 80s. She was confirmed to be positive for SARS-CoV-2 Ag. She opted to return home, and she had gradual recovery. Her surveillance CT scans of the chest, abdomen, and pelvis on 03/31/2020 showed resolution of previously described left axillary mass with evidence for a few normal-sized shotty left axillary lymph nodes. A persistent left subpectoral lymph node measured 12 mm compared to 10 mm on the previous study. There is no mediastinal or hilar lymphadenopathy and there was no adenopathy or other metastatic disease noted in the abdomen or pelvis. I had seen her for a follow-up visit on 07/03/2020. Given the extended period of time she had been off treatment, I opted not to restart her immunotherapy. Her medical history is otherwise significant for severe degenerative arthritis of the left hip, which severely restricts her activity. Her other medical illnesses include hypertension, hypothyroidism, obesity, obstructive sleep apnea, and GERD. She has a history of nephrolithiasis, and she has anxiety/depression. She has a history of smoking for 30 years, up to 1 pack of cigarettes daily. She quit smoking in 2019. INTERIM HISTORY: Surveillance CT scans on 10/02/2020 showed no evidence of recurrent or progressive disease within the chest, abdomen, or pelvis. A prominent left subpectoral lymph node measuring 12 x 8 mm appeared unchanged, and there was no mediastinal or hilar adenopathy noted, nnd there was no adenopathy noted in the abdomen/pelvis. She was noted, though, to have a left lower pole renal lesion which had increased slightly in size, measuring 3.0 cm compared to 2.7 cm on the previous study. Further evaluation with renal ultrasound was recommended and scheduled. Unfortunately she was not able to line her back long enough to have that study completed. She is seen for a followup visit. She has been feeling okay. She continues to have very limited activity due to her left hip pain. She is able to ambulate with a walker, but only a few steps. ECOG score is 3. She says she does not eat a lot. She has not had fever or night sweats. She says she feels cold a lot. She has not had sore mouth or throat. She has a little bit of cough, attributable to allergies. She does not complain of shortness of breath or chest pain. She occasionally has nausea. Her acid reflux is adequately managed with medication. Bowel and bladder function have been okay. She has severe pain in her left hip and she also has pain in both knees and in her right shoulder. She occasionally has headache. She has some numbness in her fingers. Medications: amLODIPine Besylate 1 Tablet (of 5 mg) Oral daily, Cholestyramine Light Pack Oral daily PRN, Furosemide 1 - 2 Tablet (of 20 mg) Oral daily PRN, HYDROcodone-Acetaminophen 1 - 2 Tablet (of 5-325 mg) Oral q 4 hours PRN, Levothyroxine Sodium 1 Tablet (of 125 mcg) Oral daily, Losartan Potassium 1 Tablet (of 50 mg) Oral daily, Metoprolol Tartrate 1 Tablet (of 50 mg) Oral b.i.d., Potassium Chloride ER 2 Tablet (of 20 meq) Tablet, controlled release Oral daily PRN, traMADol HCl 1 - 2 Tablet (of 50 mg) Oral four times a day PRN Allergies: No Known Allergies. Vital Signs: Performed on Jan 05, 2021 15:16 Height - 64.00 in Temperature - 97.2 F (LOW) Pulse - 53 /min (LOW) Respiration - 18 /min BP - 103/61 mm(hg) O2 Sat - 92 % (LOW) Pain - 0 Fatigue - 5 Physical Examination: Constitutional - She has limited mobility, but she otherwise looks pretty good, Eyes - Sclerae nonicteric. Conjunctivae clear, ENMT - No lesions noted in the oral cavity, Hematologic/Lymphatic - No cervical, clavicular, or axillary adenopathy noted, Respiratory - Lungs sound clear, Cardiovascular - Heart rhythm is regular. There is a II/ systolic murmur. There is no gallop or rub noted, Abdomen - Distended but soft. Liver and spleen are not enlarged. There is no abdominal mass or ascites noted and there is no inguinal adenopathy, Extremities - Mild edema, Neurologic - No focal neurologic deficits noted. Lab/Imaging: Test performed on Jan 05, 2021 13:26 LDH (Total) 180 U/L Sodium 138 mmol/L Potassium 3.8 mmol/L Chloride 101 mmol/L CO2 30 mmol/L Anion Gap 10.8 BUN 13 mg/dL Creatinine 0.5 mg/dL Cr Clearance (Est) 190.8500 mL/min Glucose 84 mg/dL Osmolality - Calculated 285 mOsm/kg Calcium 8.9 mg/dL Protein, Total 6.5 g/dL Albumin 3.5 g/dL Globulin 3.0 g/dL Bilirubin, Total 1.0 mg/dL ALT (SGPT) 12 U/L AST (SGOT) 24 U/L Alkaline Phosphatase 104 IU/L WBC 5.8 10 3/uL RBC 3.75 10 6/uL HGB 11.6 g/dL HCT 36.9 % MCV 98.4 fl MCH 30.9 pg MCHC 31.4 g/dL RDW 12.4 % Platelet Count 190 10 3/cmm MPV 9.4 fL Neutrophils 3.06 10 3/uL Lymphocytes 2.2 10 3/uL Monocytes 0.4 10 3/uL Eosinophils 0.1 10 3/uL Basophils 0.0 10 3/uL Neutrophil % 53.0 % Lymphocyte % 37.7 % Monocyte % 7.1 % Eosinophil % 1.7 % Basophils % 0.3 % NRBC % 0 % Problem List: 1. Malignant melanoma involving the left upper back/posterior left shoulder. By clinical evaluation her disease appeared to be at least stage III (pT4b, N1, M0) with a palpable left supraclavicular lymph node and with subsequent confirmation of left axillary node involvement. She underwent excisional biopsy on 06/15/2018 with lateral and deep surgical margins reported at greater than 1 cm. 2. During followup she was found to have iron deficiency anemia. She was given parenteral iron replacement with Injectafer due to poor tolerance for oral iron. 3. She has severe degenerative arthritis of the left hip with extremely limited mobility. 4. Hypertension. 5. Hypothyroidism. 6. Obesity. 7. GERD. 8. Obstructive sleep apnea. 9. Nephrolithiasis. 10. She underwent right hemicolectomy and adjuvant chemotherapy for colon cancer in 1994. 11. Anxiety/depression. Problems Addressed with this Encounter and Plan: 1. Patient with malignant melanoma involving the left upper back/posterior left shoulder. By clinical evaluation her disease appeared to be at least stage III (pT4b, N1, M0) with a palpable left supraclavicular lymph node. She underwent excisional biopsy on 06/15/2018 with lateral and deep surgical margins reported at greater than 1 cm. On 09/12/2018 she began treatment with nivolumab 240 mg by IV infusion every 2 weeks. She tolerated the initial infusion well, and she then continued treatment at 2-week intervals. She had continued with cycle 16 of nivolumab on 05/01/2019. Her treatment was then put on hold due to hematuria and to a viral gastroenteritis syndrome. In the meantime, her restaging chest CT on 05/10/2019 showed apparent increased left axillary lymphadenopathy, consistent with disease progression. There was apparent residual left supraclavicular adenopathy. There was no other evidence of disease progression. She restarted treatment with cycle 17 of nivolumab on 06/01/2019. She tolerated it well and she then continued treatment at 2-week intervals. As of 09/04/2019 she had received her 23rd cycle of nivolumab. Her clinical status at that point appeared stable. Her further treatment was delayed due to an episode of acute bronchitis in September 2019. Her restaging PET/CT on 10/27/2019 showed residual FDG avid mass in the left axilla. There were no other obvious areas of involvement. With that finding, she was referred to Dr. Rubi for surgical resection, and she underwent left axillary lymph node excision on 01/03/2020. Pathology showed metastatic melanoma. Her further clinical course was then complicated by COVID-19 virus infection, documented on 01/29/2020. She was managed as an outpatient, and she has had gradual recovery. Due to the treatment delays and having been off her immunotherapy for an extended time period, she had no further treatment for the melanoma. During follow-up her clinical status has remained stable. Thus far there has been no evidence for any further recurrence of the melanoma. She will continue expectant management. She will be scheduled for a follow-up visit in 3 months. She will have repeat surveillance CT scans prior to that visit. 2. She had incidental finding on CT scan of a left lower pole renal lesion with increased attenuation. She was scheduled for left renal ultrasound, but she was not able to lie on her back long enough to have that study completed. As such, and will be monitored with her surveillance CT scans. Signed By: Benjamín Kyle M.D. <<Signature on File>>
== END 2021-01-05 13:05 | disposition home or self-care (01) ==
LOC: ONCMED 13:08
PROVIDERS: PCP Nurse Practitioner Family; Visit Provider Internal Medicine Medical Oncology
DX: Z08 Encounter for follow-up examination after completed treatment for malignant neoplasm (principal); Z85.820 Personal history of malignant melanoma of skin; Z85.89 Personal history of malignant neoplasm of other organs and systems; N28.9 Disorder of kidney and ureter, unspecified; D50.9 Iron deficiency anemia, unspecified; I10 Essential (primary) hypertension; E03.9 Hypothyroidism, unspecified; K21.9 Gastro-esophageal reflux disease without esophagitis; F41.8 Other specified anxiety disorders; M16.12 Unilateral primary osteoarthritis, left hip; Z79.899 Other long term (current) drug therapy; Z79.890 Hormone replacement therapy
CPT/HCPCS: 36591; 80053; 83615; 85025; 99214

== ENCOUNTER 2021-05-20 14:23 | Outpatient (CLI) | payer MEDICARE, OTHER, SELFPAY ==
--- NOTE | 2021-05-20 14:42 | CT_ITS ---
WS: [id number] CT CHEST, ABDOMEN, AND PELVIS TECHNIQUE: Contrast-enhanced CT of the chest, abdomen, and pelvis with coronal and sagittal reformatt ed images. CLINICAL INFORMATION: MELANOMA COMPARISON: September 12, 2020 September 16, 2020. DLP: 1757.[address] scans at [facility] use at least one of these dose optimization techniques: automated e xposure control; mA and/or kV adjustment per patient size (includes targeted exams where dose is matc hed to clinical indication); or iterative reconstruction. CT CHEST: Mild chronic emphysematous changes. Both lungs are well aerated. No acute pulmonary infiltrates. A fe w calcified granulomas. Calcified hilar and subcarinal normal caliber thoracic aorta. Mild aortic dinh cification. Coronary calcification. Stable noncalcified nodule RIGHT upper lobe measuring 4 mm. Previously described LEFT subpectoral lymph node measuring 8 mm is unchanged. No axillary lymphadenop athy. CT ABDOMEN AND PELVIS: Diffuse fatty infiltration of the liver. Cirrhotic configuration to the liver is similar in appearanc e. Stable 1.5 cm hemangioma or cyst in the dome the liver. Fatty atrophy of the pancreas. Normal port al vein and splenic vein. Adrenal glands are normal. Normal renal parenchymal enhancement. No hydronephrosis in either kidney. Stable LEFT lower pole renal lesion measuring 3.0 cm. Stable kayce l parenchymal and LEFT pelvic calculi. Normal caliber abdominal aorta. Hypertrophic changes thoracic and lumbar spine. Advanced arthritis LEFT hip is unchanged. Prior postoperative changes RIGHT hemicol ectomy with ileocolic anastomosis. Fat-containing periumbilical hernias are similar in appearance. No herniated bowel. No abdominal or p elvic lymphadenopathy.Endometrial thickening measuring 10 mm abnormal in a postmenopausal patient. Re commend further evaluation with ultrasound. CT/CT chest abd pel w con* IMPRESSION: 1. No evidence of recurrent or progressive disease within the chest abdomen or pelvis. 2. Stable prominent left subpectoral lymph node measuring 12 x 8 mm unchanged. 3. No mediastinal or hilar lymphadenopathy. 5. Stable 4 mm noncalcified nodule right upper lobe. 6. No adenopathy in the abdomen or pelvis. 7. Indeterminate increased attenuation LEFT lower pole renal lesion appears sta ble compared to October 02, 2020 but increased in size since March 31, 2020. Re commend further evaluation with ultrasound. 8. Endometrial thickening measuring 10 mm abnormal in a postmenopausal patient. Recommend further evaluation with ultrasound.
[2021-05-20 15:52] LABS: Blood Urea Nitrogen 9 mg/dL (8-23)
[2021-05-20] MEDS: iohexol 350 mg/mL 100 mL Btl IV (16:26)
[2021-05-20] MEDS: iohexol 300 mg/mL 50 mL Btl PO (16:27)
== END 2021-05-20 14:24 | disposition home or self-care (01) ==
PROVIDERS: PCP Nurse Practitioner Family; Visit Provider Internal Medicine Medical Oncology
DX: C43.62 Malignant melanoma of left upper limb, including shoulder (principal); R93.89 Abnormal findings on diagnostic imaging of other specified body structures; R91.1 Solitary pulmonary nodule
CPT/HCPCS: 71260; 74177; 82565; 84520; Q9967

== ENCOUNTER 2021-06-16 13:08 | Outpatient (CLI) | payer MEDICARE, OTHER, SELFPAY ==
[2021-06-16 14:04] LABS: Basophils % 0.4 %; Eosinophils # 0.1 10^3/uL (0.0-0.8); Eosinophils % 1.7 %; Hematocrit 34.8 % (37.0-47.0); Hemoglobin 10.5 g/dL (11.5-15.3); Lymphocytes # 1.8 10^3/uL (0.8-4.8); Lymphocytes % 37.8 %; Mean Corpuscular HGB Conc 30.2 g/dL (30.0-36.0); Mean Corpuscular Volume 96.1 fl (81-99); Mean Platelet Volume 8.6 fL (7.4-10.4); Monocytes # 0.4 10^3/uL (0.2-0.9); Monocytes % 8.7 %; Neutrophils # 2.41 10^3/uL (1.8-7.7); Neutrophils % 51.2 %; Nucleated Red Blood Cells % 0 %; Platelet Count 156 10^3/cmm (130-400); Red Blood Count 3.62 10^6/uL (4.1-5.3); Red Cell Distribution Width 12.9 % (12.1-15.1); White Blood Count 4.7 10^3/uL (4.0-10.0)
[2021-06-16 14:38] LABS: Alanine Aminotransferase 18 U/L (0-33); Albumin Level 3.7 g/dL (3.5-5.2); Alkaline Phosphatase 106 IU/L (35-105); Anion Gap 12.5 (5-19); Aspartate Amino Transferase 31 U/L (0-32); Blood Urea Nitrogen 14 mg/dL (8-23); Calcium 9.6 mg/dL (8.5-10.5); Carbon Dioxide 29 mmol/L (22-29); Chloride 105 mmol/L (98-107); Globulin 2.8 g/dL (1.3-4.6); Glucose 114 mg/dL (65-115); Osmolality Calculated 295 mOsm/kg (285-295); Potassium 4.5 mmol/L (3.5-5.1); Sodium 142 mmol/L (136-145); Total Bilirubin 0.4 mg/dL (0.15-1.2); Total Protein 6.5 g/dL (6.6-8.7)
[2021-06-16 14:52] LABS: Iron 26 ug/dL (37-145); Percent Saturation 6.3 % (20-50); Total Iron Binding Capacity 408 mcg/dl; Unsaturated Iron Binding 382 ug/dL (112-347)
[2021-06-16 15:09] LABS: Vitamin B12 302 pg/mL (232-1245)
--- NOTE | 2021-06-16 17:55 | ONC FU_ITS ---
Dr. Kyle Patient Follow-Up Note Patient: Laurence Malave Unit #: [id number]: 1945 Dicatated By: Benjamín Kyle M.D.Date of Visit:Jun 16, 2021 Onc Med Follow-up/Prog Note Chief Complaint: Melanoma. History of Present Illness: This is a 75 year-old woman with malignant melanoma involving the left upper back/left shoulder. By clinical evaluation her disease appeared to be stage IV (pT4b, cN3, cM1a) at initial diagnosis in June 2018. She has a prior history of stage III colon cancer, having undergone right hemicolectomy and adjuvant chemotherapy approximately 1994. There has been no evidence of recurrence. She had been seen by Dr. Rubi in June for a skin lesion in the left upper back/left shoulder area. It had been enlarging over a period of about a year. Exam at that time noted a pedunculated, flesh-colored, lobulated lesion with some necrosis measuring 6 to 7 cm in greatest diameter. She underwent excisional biopsy on 06/15/2018. Pathology showed infiltrating malignant melanoma measuring 6.5 x 6.0 x 4.0 cm. Tumor was noted to penetrate the dermal connective tissue into underlying subcutaneous adipose tissue. The Breslow depth was greater than 4.00 mm. The tumor was noted to have surface ulceration. An incidental subcutaneous lymph node in the specimen was free of metastatic tumor. Grossly the tumor appeared to be completely excised with the distance from the tumor to lateral and deep margins noted to be greater than 1 cm. I had seen her on 07/26/2018 regard to further management of the melanoma. At that time she was noted on exam to have a palpable left supraclavicular lymph node. Her staging PET/CT on 07/29/2018 showed an FDG positive left supraclavicular lymph node measuring 2.0 cm, SUV 14.5. Also noted was an FDG avid left axillary lymph node measuring 5.5 x 3.6 cm, SUV 26.6. Other scattered axillary lymph nodes measuring up to 1.6 cm were mildly FDG positive. There were additional suspicious mediastinal lymph nodes in the AP window and prevascular regions. There were no other areas of metastatic involvement noted. In the meantime, her tumor was sent for BRAF mutation analysis, and a BRAF 600 mutation was not detected. I had conferred with one of the melanoma specialists at [facility], and she was given the option to be seen there for second opinion evaluation. As an alternative, it was recommended that she proceed with a trial of immunotherapy as opposed to attempting further surgical resection with axillary/supraclavicular lymph node dissections. She opted to proceed with medical therapy, and arrangements were made with Dr. Rubi for placement of Port-A-Cath venous access device. In the meantime, on 08/07/2018 she was admitted to the hospital with strep pneumoniae sepsis and pneumonia. She had an uneventful recovery with antibiotic therapy. On 09/12/2018 she began treatment with nivolumab 240 mg by IV infusion every 2 weeks. She tolerated the initial infusion well, and she was unable to continue treatment at 2-week intervals. During that time she remained mildly anemic with hemoglobin in the range of 10 g. Her serum studies and November showed low transferrin saturation at 10.4% with ferritin low at 15.0 ng/mL, consistent with iron deficiency. She began oral iron supplementation. As of March 2019 her hemoglobin had decreased to 8.1 g. She began oral iron supplementation and she began on treatment with Protonix. Her stool FIT was positive. As of 04/17/2019 she completed cycle 15 of nivolumab. At that point her hemoglobin was still low at 10.2 g. She was not tolerating the oral iron. As such, she was given parenteral iron replacement with 2 infusions of Injectafer. She continued with cycle 16 of nivolumab on 05/01/2019. A restaging chest CT on 05/10/2019 showed interval increase in the size of a left axillary mass, measuring 5.5 x 2.9 x 4.4 cm, suspicious for disease progression. There were additional smaller axillary lymph nodes measuring up to 13 mm and there is a prominent left supraclavicular lymph node. Calcified right hilar and subcarinal lymph nodes appeared stable and a 4 mm noncalcified pulmonary nodule in the right upper lobe appeared stable. There was no change in a 12 mm low-attenuation lesion in the dome of the liver, felt to be most likely a small hepatic cyst or hemangioma. Her further treatment was put on hold, initially because of hematuria and subsequently because of a viral gastroenteritis syndrome. She was then able to restart treatment with cycle 17 of nivolumab on 06/01/2019. She tolerated it well and she then continued treatment at 2-week intervals. As of 09/04/2019 she had completed cycle 23 of nivolumab. Her further treatment was put on hold following an ER visit on 09/19/2019. She was treated for acute bronchitis. At her follow-up visit on 10/24/2019 she was noted to have persistent left axillary adenopathy. Her restaging PET/CT on 10/27/2019 did show some improvement in the left axillary adenopathy, though with residual FDG avid mass measuring 3.7 x 3.2 cm, SUV 16.6. Other small left axillary lymph nodes were unchanged and were just mildly FDG positive. The previously noted left supraclavicular lymph node was no longer evident and the suspicious mediastinal nodes appeared radiographically benign and FDG negative. There was no evidence for any other metastatic disease. With her residual disease limited to the left axillary mass, she was referred to Dr. Rubi for surgical resection. On 01/03/2020 she underwent left axillary lymph node excision. Pathology was consistent with metastatic melanoma. She had no complications with the procedure. However, on 01/29/2020 she presented to the emergency room with suspected COVID-19 virus infection. She had complained of fever, headache, and generalized arthralgia, and she her oxygen saturation at home had dropped down into the low 80s. She was confirmed to be positive for SARS-CoV-2 Ag. She opted to return home, and she had gradual recovery. Her surveillance CT scans of the chest, abdomen, and pelvis on 03/31/2020 showed resolution of previously described left axillary mass with evidence for a few normal-sized shotty left axillary lymph nodes. A persistent left subpectoral lymph node measured 12 mm compared to 10 mm on the previous study. There is no mediastinal or hilar lymphadenopathy and there was no adenopathy or other metastatic disease noted in the abdomen or pelvis. I had seen her for a follow-up visit on 07/03/2020. Given the extended period of time she had been off treatment, I opted not to restart her immunotherapy. Her medical history is otherwise significant for severe degenerative arthritis of the left hip, which severely restricts her activity. Her other medical illnesses include hypertension, hypothyroidism, obesity, obstructive sleep apnea, and GERD. She has a history of nephrolithiasis, and she has anxiety/depression. She has a history of smoking for 30 years, up to 1 pack of cigarettes daily. She quit smoking in 2019. INTERIM HISTORY: Surveillance CT scans on 10/02/2020 showed no evidence of recurrent or progressive disease within the chest, abdomen, or pelvis. A prominent left subpectoral lymph node measuring 12 x 8 mm appeared unchanged, and there was no mediastinal or hilar adenopathy noted, nnd there was no adenopathy noted in the abdomen/pelvis. She was noted, though, to have a left lower pole renal lesion which had increased slightly in size, measuring 3.0 cm compared to 2.7 cm on the previous study. Further evaluation with renal ultrasound was recommended and scheduled. Unfortunately she was not able to lie on ne her back long enough to have that study completed. At that point she was recommended to continue on observation/expectant management. Repeat CT scans on 05/20/2021 showed no evidence of recurrent or progressive disease within the chest, abdomen, or pelvis. The left lower pole renal lesion appeared stable compared to the September 2020 study. There was evidence for endometrial thickening measuring 10 mm, and further evaluation with ultrasound was recommended. She is seen for a follow-up visit. She says she has been feeling pretty good other than recently having some little flulike illnesses. She thought she may have had food poisoning this past Tuesday, and the week prior to that she had diarrhea. She says she is fine now, though she has been feeling a little more tired. She continues to have very limited activity due to her hip issues. Her ECOG score is 3. She says she does not eat a lot, but her weight remains stable. She does not have fever or night sweats. She has not had sore mouth or throat. She says she had a cold a couple of weeks ago, but that has resolved. She does not complain of shortness of breath or chest pain. She occasionally has heartburn. She has had loose stools chronically. She takes cholestyramine about every third day. Bladder function remains adequate with diuretic. She does have significant hip pain whenever she is up on her feet. She occasionally has headache. She does not complain of dizziness. She has some numbness/tingling in her fingers. Medications: amLODIPine Besylate 1 Tablet (of 5 mg) Oral daily, Benicar 1 Tablet Oral daily, Cholestyramine Light Pack Oral daily PRN, Furosemide 1 - 2 Tablet (of 20 mg) Oral daily PRN, HYDROcodone-Acetaminophen 1 - 2 Tablet (of 5-325 mg) Oral q 4 hours PRN, Levothyroxine Sodium 1 Tablet (of 125 mcg) Oral daily, Metoprolol Tartrate 1 Tablet (of 50 mg) Oral b.i.d., Potassium Chloride ER 2 Tablet (of 20 meq) Tablet, controlled release Oral daily PRN, traMADol HCl 1 - 2 Tablet (of 50 mg) Oral four times a day PRN Allergies: No Known Allergies. Vital Signs: Performed on Jun 16, 2021 15:37 Height - 64.00 in Temperature - 97.2 F (LOW) Pulse - 54 /min (LOW) Respiration - 18 /min BP - 152/75 mm(hg) (HIGH) O2 Sat - 93 % (LOW) Pain - 0 Fatigue - 4 Physical Examination: Constitutional - She has limited mobility. She does not appear acutely ill, Eyes - Sclerae nonicteric. Conjunctivae clear, ENMT - No lesions noted in the oral cavity, Hematologic/Lymphatic - No cervical, clavicular, or axillary adenopathy noted, Respiratory - Lungs sound clear, Cardiovascular - Heart rhythm is regular. There is a II/ systolic murmur. There is no gallop or rub noted, Abdomen - Distended but soft. Liver and spleen are not enlarged. There is no abdominal mass or ascites noted and there is no inguinal adenopathy, Extremities - She has 1 to 2+ lower extremity edema and there is associated mild erythema, Neurologic - No focal neurologic deficits noted. Lab/Imaging: Test performed on Jun 16, 2021 13:50 Iron 26 mcg/dL Sodium 142 mmol/L Vitamin B12 302 pg/mL Iron Binding Capacity (TIBC) 408 mcg/dl Potassium 4.5 mmol/L % Iron Saturation 6.3 % Chloride 105 mmol/L CO2 29 mmol/L UIBC 382 mcg/dL Anion Gap 12.5 BUN 14 mg/dL Creatinine 0.6 mg/dL Cr Clearance (Est) 159.0400 mL/min Glucose 114 mg/dL Osmolality - Calculated 295 mOsm/kg Calcium 9.6 mg/dL Protein, Total 6.5 g/dL Albumin 3.7 g/dL Globulin 2.8 g/dL Bilirubin, Total 0.4 mg/dL ALT (SGPT) 18 U/L AST (SGOT) 31 U/L Alkaline Phosphatase 106 IU/L WBC 4.7 10 3/uL RBC 3.62 10 6/uL HGB 10.5 g/dL HCT 34.8 % MCV 96.1 fl MCH 29.0 pg MCHC 30.2 g/dL RDW 12.9 % Platelet Count 156 10 3/cmm MPV 8.6 fL Neutrophils 2.41 10 3/uL Lymphocytes 1.8 10 3/uL Monocytes 0.4 10 3/uL Eosinophils 0.1 10 3/uL Basophils 0.0 10 3/uL Neutrophil % 51.2 % Lymphocyte % 37.8 % Monocyte % 8.7 % Eosinophil % 1.7 % Basophils % 0.4 % NRBC % 0 % Problem List: 1. Malignant melanoma involving the left upper back/posterior left shoulder. By clinical evaluation her disease appeared to be at least stage III (pT4b, N1, M0) with a palpable left supraclavicular lymph node and with subsequent confirmation of left axillary node involvement. She underwent excisional biopsy on 06/15/2018 with lateral and deep surgical margins reported at greater than 1 cm. 2. During followup she was found to have iron deficiency anemia. She was given parenteral iron replacement with Injectafer due to poor tolerance for oral iron. 3. She has severe degenerative arthritis of the left hip with extremely limited mobility. 4. Hypertension. 5. Hypothyroidism. 6. Obesity. 7. GERD. 8. Obstructive sleep apnea. 9. Nephrolithiasis. 10. She underwent right hemicolectomy and adjuvant chemotherapy for colon cancer in 1994. 11. Anxiety/depression. Problems Addressed with this Encounter and Plan: 1. Patient with malignant melanoma involving the left upper back/posterior left shoulder. By clinical evaluation her disease appeared to be at least stage III (pT4b, N1, M0) with a palpable left supraclavicular lymph node. She underwent excisional biopsy on 06/15/2018 with lateral and deep surgical margins reported at greater than 1 cm. On 09/12/2018 she began treatment with nivolumab 240 mg by IV infusion every 2 weeks. She tolerated the initial infusion well, and she then continued treatment at 2-week intervals. She had continued with cycle 16 of nivolumab on 05/01/2019. Her treatment was then put on hold due to hematuria and to a viral gastroenteritis syndrome. In the meantime, her restaging chest CT on 05/10/2019 showed apparent increased left axillary lymphadenopathy, consistent with disease progression. There was apparent residual left supraclavicular adenopathy. There was no other evidence of disease progression. She restarted treatment with cycle 17 of nivolumab on 06/01/2019. She tolerated it well and she then continued treatment at 2-week intervals. As of 09/04/2019 she had received her 23rd cycle of nivolumab. Her clinical status at that point appeared stable. Her further treatment was delayed due to an episode of acute bronchitis in September 2019. Her restaging PET/CT on 10/27/2019 showed residual FDG avid mass in the left axilla. There were no other obvious areas of involvement. With that finding, she was referred to Dr. Rubi for surgical resection, and she underwent left axillary lymph node excision on 01/03/2020. Pathology showed metastatic melanoma. Her further clinical course was then complicated by COVID-19 virus infection, documented on 01/29/2020. She was managed as an outpatient, and she has had gradual recovery. Due to the treatment delays and having been off her immunotherapy for an extended time period, she had no further treatment for the melanoma. During follow-up her clinical status has remained stable. Thus far there has been no evidence for any further recurrence of the melanoma. She will continue expectant management. She will be scheduled for a follow-up visit in 6 months. She will have repeat surveillance CT scans prior to that visit. 2. She had incidental finding on CT scan of a left lower pole renal lesion with increased attenuation. She was scheduled for left renal ultrasound, but she was not able to lie on her back long enough to have that study completed. As such, it is being monitored by serial CT scan. On the current study, it appears stable. There is now evidence of endometrial thickening, and that also will be monitored by serial CT scanning. 3. She again has evidence of iron deficiency anemia. She has required parenteral iron replacement in the past due to poor tolerance for oral iron. She will be given the option to have additional parenteral iron replacement with Injectafer. Signed By: Benjamín Kyle M.D. <<Signature on File>>
== END 2021-06-16 13:09 | disposition home or self-care (01) ==
LOC: ONCMED 13:13
PROVIDERS: PCP Nurse Practitioner Family; Visit Provider Internal Medicine Medical Oncology
DX: Z08 Encounter for follow-up examination after completed treatment for malignant neoplasm (principal); Z85.820 Personal history of malignant melanoma of skin; D50.9 Iron deficiency anemia, unspecified; M16.12 Unilateral primary osteoarthritis, left hip; I10 Essential (primary) hypertension; E03.9 Hypothyroidism, unspecified; E66.9 Obesity, unspecified; K21.9 Gastro-esophageal reflux disease without esophagitis; G47.33 Obstructive sleep apnea (adult) (pediatric); N20.0 Calculus of kidney; F41.9 Anxiety disorder, unspecified; F32.A Depression, unspecified; Z85.038 Personal history of other malignant neoplasm of large intestine; Z92.25 Personal history of immunosuppression therapy; Z79.899 Other long term (current) drug therapy
CPT/HCPCS: 36591; 80053; 82607; 83540; 83550; 85025; 99215

== ENCOUNTER 2021-07-03 10:32 | Outpatient (CLI) | payer MEDICARE, OTHER, SELFPAY ==
[2021-07-03] MEDS: ferric carboxy (IVPB) 750 MG in sodium chloride 0.9% (100 ml) 100 ML 460 MG IV (11:04)
== END 2021-07-03 10:33 | disposition home or self-care (01) ==
PROVIDERS: PCP Nurse Practitioner Family; Visit Provider Internal Medicine Medical Oncology
DX: D50.9 Iron deficiency anemia, unspecified (principal)
CPT/HCPCS: 96365; J1439

== ENCOUNTER 2021-07-10 08:38 | Outpatient (CLI) | payer MEDICARE, OTHER, SELFPAY ==
[2021-07-10] MEDS: ferric carboxy (IVPB) 750 MG in sodium chloride 0.9% (100 ml) 100 ML 400 MG IV (09:01)
== END 2021-07-10 08:39 | disposition home or self-care (01) ==
PROVIDERS: PCP Nurse Practitioner Family; Visit Provider Nurse Practitioner Family
DX: D50.9 Iron deficiency anemia, unspecified (principal)
CPT/HCPCS: 96365; J1439

== ENCOUNTER 2021-10-26 09:39 | Oncology outpatient (recurring) (ONCR) | payer MEDICARE, OTHER, SELFPAY ==
[2021-10-26 10:01] LABS: Basophils % 0.7 %; Eosinophils # 0.1 10^3/uL (0.0-0.8); Eosinophils % 1.8 %; Hematocrit 40.1 % (37.0-47.0); Hemoglobin 12.4 g/dL (11.5-15.3); Lymphocytes # 1.8 10^3/uL (0.8-4.8); Lymphocytes % 32.7 %; Mean Corpuscular HGB Conc 30.9 g/dL (30.0-36.0); Mean Corpuscular Hemoglobin 32.9 pg (28.0-34.0); Mean Corpuscular Volume 106.4 fl (81-99); Mean Platelet Volume 8.9 fL (7.4-10.4); Monocytes # 0.4 10^3/uL (0.2-0.9); Monocytes % 7.9 %; Neutrophils # 3.16 10^3/uL (1.8-7.7); Neutrophils % 56.7 %; Nucleated Red Blood Cells % 0 %; Platelet Count 146 10^3/cmm (130-400); Red Blood Count 3.77 10^6/uL (4.1-5.3); Red Cell Distribution Width 12.7 % (12.1-15.1); White Blood Count 5.6 10^3/uL (4.0-10.0)
[2021-10-26 10:35] LABS: Alanine Aminotransferase 13 U/L (0-33); Albumin Level 3.5 g/dL (3.5-5.2); Alkaline Phosphatase 131 IU/L (35-105); Anion Gap 9.1 (5-19); Aspartate Amino Transferase 26 U/L (0-32); Blood Urea Nitrogen 10 mg/dL (8-23); Calcium 9.3 mg/dL (8.5-10.5); Carbon Dioxide 33 mmol/L (22-29); Chloride 102 mmol/L (98-107); Ferritin 213 ng/mL (15-150); Globulin 2.6 g/dL (1.3-4.6); Glucose 113 mg/dL (65-115); Iron 69 ug/dL (37-145); Lactate Dehydrogenase 160 U/L (135-214); Osmolality Calculated 290 mOsm/kg (285-295); Percent Saturation 26.4 % (20-50); Potassium 4.1 mmol/L (3.5-5.1); Sodium 140 mmol/L (136-145); Total Bilirubin 0.9 mg/dL (0.15-1.2); Total Iron Binding Capacity 261 mcg/dl; Total Protein 6.1 g/dL (6.6-8.7); Unsaturated Iron Binding 192 ug/dL (112-347)
== END 2021-11-08 23:59 | disposition home or self-care (01) ==
PROVIDERS: Internal Medicine Medical Oncology; PCP Nurse Practitioner Family; Referring Provider Surgery; Visit Provider Nurse Practitioner Family
DX: C43.59 Malignant melanoma of other part of trunk (principal); C43.62 Malignant melanoma of left upper limb, including shoulder; N28.9 Disorder of kidney and ureter, unspecified; Z86.2 Personal history of diseases of the blood and blood-forming organs and certain disorders involving the immune mechanism
CPT/HCPCS: 36591; 80053; 82728; 83540; 83550; 83615; 85025; 99214

== ENCOUNTER 2022-01-22 12:01 | Oncology outpatient (recurring) (ONCR) | payer MEDICARE, OTHER, SELFPAY ==
--- NOTE | 2022-01-22 12:07 | CT_ITS ---
WS: [id number] CT CHEST, ABDOMEN AND PELVIS WITH CONTRAST HISTORY: Colon cancer. Partial colon resection. TECHNIQUE: Contiguous 5 mm axial imaging performed through the chest, abdomen and pelvis with IV cont rast, oral contrast has not been provided. Coronal and sagittal reformats chest. Coronal and sagittal reformats through the abdomen and pelvis. All CT scans at [facility] use at least one of the se dose optimization techniques: automated exposure control; mA and/or kV adjustment per patient size (includes targeted exams where dose is matched to clinical indication); or iterative reconstruction. CONTRAST: Omnipaque 350; 95 mL IV. DLP: 1618.65 mGy.cm COMPARISON: 05/20/2021, 10/02/[address]: Stable 5 mm nodule in the RIGHT middle lobe abuts the minor fissure. Benign scattered granu lomatous. No new mass or nodule. No pneumonia. No mediastinal or hilar adenopathy. Mild atheroscleros is aorta. Normal size pulmonary artery. No pericardial effusion. Small lymph node pericardiac fat. 8m m lymph node is unchanged in the LEFT pectoralis muscle. Abdomen CT: Mild cirrhotic configuration of the liver. Long-term stability hypoechoic 10 mm nodule to wards the diaphragmatic surface. Probably a cyst or hemangioma. No increase in size. Normal portal ve in. Gallbladder is negative. Splenic granulomata. Mild pancreatic atrophy. Small lymph node in the po rta hepatis measures 2 cm is unchanged. This lymph node has been present on several prior examination s. No adrenal mass. No RIGHT renal obstruction. Previously described mass lower pole LEFT kidney continues to increase in size now measuring 3.7 x 3.0 cm. Hounsfield units are elevated. This has been previously described a nd thought to be a cyst. Due to its solid appearance it would be worthwhile reevaluating this mass by ultrasound. Mild atherosclerosis aorta. Nondistended stomach. No small bowel obstruction. RIGHT olman colectomy with ileocolic anastomosis. Large fat-containing umbilical hernia. No change. Pelvic CT: No free fluid or adenopathy within the pelvis. Normal appearance of the uterus. No inguina l adenopathy. No osteoblastic or osteolytic bone disease. Severe LEFT hip osteoarthritis with remodeling and latera l subluxation. CT/CT chest abd pel w con* IMPRESSION: 1. Stable appearance of the chest. No adenopathy or metastatic lesions through out the lungs. 2. RIGHT hemicolectomy with stable ileocolic anastomosis. 3. Large umbilical hernia contains fat. 4. No metastatic disease to the adrenal glands or liver. Stable cyst or small hemangioma in the RIGHT lobe of the liver. 5. Solid-appearing mass or complex cyst lower pole LEFT kidney. This mass cont inues to increase in size. Although previously described as a cyst recommend fu rther evaluation. Ultrasound may be helpful. Solid renal mass needs to be exclu ded. 6. No new or increasing lymph nodes within the abdomen or pelvis.
[2022-01-22] MEDS: iohexol 350 mg/mL 100 mL Btl IV (12:10)
[2022-01-22 13:02] LABS: Blood Urea Nitrogen 14 mg/dL (8-23)
== END 2022-02-08 23:59 | disposition home or self-care (01) ==
LOC: RAD 12:01 → ONCMED 01-27 07:20
PROVIDERS: PCP Nurse Practitioner Family; Referring Provider Surgery; Visit Provider Nurse Practitioner Family
DX: C43.9 Malignant melanoma of skin, unspecified (principal); C43.59 Malignant melanoma of other part of trunk; C43.62 Malignant melanoma of left upper limb, including shoulder
CPT/HCPCS: 71260; 74177; 82565; 84520

== ENCOUNTER 2022-02-10 15:43 | Outpatient (CLI) | payer MEDICARE, OTHER, SELFPAY ==
--- NOTE | 2022-02-10 16:30 | US_ITS ---
WS: [id number] RENAL ULTRASOUND HISTORY: abnormal CT COMPARISON: 08/08/2018 TECHNIQUE: 2-D and color Doppler imaging of the kidney submitted. Right kidney: 12.1 cm x 4.5 cm x 3.9 cm. Normal size kidney. No obstruction. There is mild thinning of the cortex throughout the kidney. No so lid mass. Left kidney: 12.1 cm x 4.6 cm x 4.8 cm. Normal size kidney with very mild cortical thinning. Again noted is a simple cyst measuring 4.1 x 3.7 cm from the inferior pole. Aorta: Normal. Urinary Bladder: Normal distention. US/US renal BI* [id number] IMPRESSION: 1. Simple cyst LEFT kidney, stable. No solid mass. 2. Normal size kidneys with very mild bilateral diffuse cortical thinning.
== END 2022-02-10 15:44 | disposition home or self-care (01) ==
PROVIDERS: PCP Nurse Practitioner Family; Visit Provider Internal Medicine Medical Oncology
DX: R93.89 Abnormal findings on diagnostic imaging of other specified body structures (principal); N28.1 Cyst of kidney, acquired
CPT/HCPCS: 76770

== ENCOUNTER 2022-03-05 16:58 | Inpatient (IN) | payer MEDICARE, OTHER, SELFPAY ==
[2022-03-05] VITALS (42 sets, daily range): BP systolic 101–197; BP diastolic 46–168; PULSE 60–109; RESP 14–26; TEMP 37.1–39.1; O2SAT 78–98; BMI 60.0; BMI 50.1
--- NOTE | 2022-03-05 17:06 | XRR_ITS ---
PROCEDURE INFORMATION: Exam: XR Chest Exam date and time: 03/05/2022 6:20 PM Age: 76 years old Clinical indication: Shortness of breath; Additional info: Fever TECHNIQUE: Imaging protocol: Radiologic exam of the chest. Views: 1 view. COMPARISON: CT chest abd pel w con* 01/22/2022 12:41 PM FINDINGS: Tubes, catheters and devices: Infusion port catheter is in place with its tip in the superior vena cava. Lungs: There are calcified right hilar lymph nodes in keeping with old granulomatous disease. There is some partial atelectasis at the left lung base. There is no pulmonary venous congestion. Pleural spaces: Unremarkable. No pleural effusion. No pneumothorax. Heart/Mediastinum: Heart is upper limits normal in size. Bones/joints: Unremarkable. XR/XR chest 1V portable [id number] IMPRESSION: Mild left basilar atelectasis.
[2022-03-05 17:16] LABS: ABG PH Result 7.31 (7.35-7.45); Arterial Blood Gas Hematocrit 39.5 % (37-47); Base Excess ABG 2.9 mmol/L (-2.0-2.0); Blood Gas Allen Test Pos; Blood Gas Sample Type Arterial; HCO3 ABG 30.6 mmol/L (22-26)
[2022-03-05 17:17] LABS: ABG PCO2 60.7 mmHg (35-45); Blood Gas Operator Identificat MONRO; Blood Gas Sample Site Femoral, right; Oxygen Device NRB
--- NOTE | 2022-03-05 17:28 | ECG_ITS ---
[facility] Test Date: 2022-03-05 Pat Name: Laurence Malave Department: Room: Gender: Female Program Planner: : 1945 Requested By: Arabella Ochoa Order Number: [id number] Walter MD: Kei Miranda M.D. Measurements Intervals [place] Rate: 92 P: 58 GA: 139 QRS: -27 QRSD: 77 T: 48 QT: 312 QTc: 386 Interpretive Statements SINUS RHYTHM POSSIBLE ANTERIOR MYOCARDIAL INFARCTION , PROBABLY OLD [30 ms Q WAVE IN V3/V4, OR R < 0.2 mV IN V4] Compared to ECG 01/29/2020 15:03:00 Sinus bradycardia no longer present Myocardial infarct finding still present Electronically Signed On 03-06-2022 11:06:02 PRICING ASSOCIATE by Kei Miranda M.D. [id number]
[2022-03-05 18:08] LABS: Basophils % 0.3 %; Eosinophils % 0.3 %; Hematocrit 38.9 % (37.0-47.0); Hemoglobin 12.4 g/dL (11.5-15.3); Lymphocytes # 0.5 10^3/uL (0.8-4.8); Lymphocytes % 16.1 %; Mean Corpuscular HGB Conc 31.9 g/dL (30.0-36.0); Mean Corpuscular Hemoglobin 33.2 pg (28.0-34.0); Mean Platelet Volume 8.5 fL (7.4-10.4); Monocytes # 0.4 10^3/uL (0.2-0.9); Monocytes % 11.3 %; Neutrophils # 2.39 10^3/uL (1.8-7.7); Neutrophils % 71.4 %; Nucleated Red Blood Cells % 0 %; Platelet Count 98 10^3/cmm (130-400); Red Blood Count 3.74 10^6/uL (4.1-5.3); Red Cell Distribution Width 12.5 % (12.1-15.1); White Blood Count 3.4 10^3/uL (4.0-10.0)
[2022-03-05] MEDS: sodium chloride 0.9% 1,000 ML 999 ML IV (18:13)
[2022-03-05] MEDS: acetaminophen 325 mg Tablet 650 MG PO (18:13)
--- NOTE | 2022-03-05 18:18 | W.ED.SOB ---
HPI - SOB/Dyspnea General: Chief Complaint: Shortness of Breath/Dyspnea Stated Complaint: SOB, febrile, flu-like symptoms Time Seen by Provider: 03/05/22 16:59 Source: patient and EMS Mode of arrival: EMS Limitations: no limitations History of Present Illness: HPI Narrative: 76-year-old female who states she been having cough fever body aches over the last 2 days she had much worse shortness of breath today. Patient was hypoxic tachypneic and distressed did place her on BiPAP when she arrived. States that multiple family members that had influenza. She had no vomiting no diarrhea. Associated symptoms: Reports fever(s); Deny abdominal pain, chest pain, nausea or vomiting Review of Systems Const: Reports: fever(s), chills and body aches Eyes: Denies: blurry vision or eye discomfort ENMT: Denies: throat pain or dental pain Card: Denies: chest pain Resp: Reports: dyspnea and non-productive cough GI: Denies: abdominal pain, nausea, vomiting or diarrhea : Denies: dysuria Musc: Denies: neck pain or back pain Skin/Breast: Denies: rash Neuro: Denies: headache(s) Psych: Denies: depression Mack/Lymph: Denies: easy bruising All/Imm: Denies: urticaria PFSH ED PFSH: Medical History (Updated 03/05/22 @ 19:44 by Arabella Ochoa MD) Anxiety and depression GERD (gastroesophageal reflux disease) History of colon cancer Hypertension Hypothyroidism Malignant melanoma Involving the left upper back/left shoulder, stage IV (pT4b, cN3, cM1a) at initial diagnosis in June 2018. Morbid obesity Obstructive sleep apnea On 2 L of oxygen by nasal cannula at night Surgical History History of appendectomy History of hemicolectomy 1994, colon cancer History of surgical removal of skin lesion History of tonsillectomy Family History Mother Cancer Renal cancer, at the age of 84 Father No problems noted. Brother Cancer Brother with prostate cancer Hodgkins lymphoma Social History Smoking and tobacco status: current every day smoker (0.5 ppd) cigarettes Packs smoked per day: 0.5 Alcohol intake: never Household members: children Physical Exam Const: COMMON NORMALS: patient oriented x3 GENERAL APPEARANCE: ill appearing HENMT: COMMON NORMALS: normocephalic and atraumatic HEAD & SCALP: normocephalic and atraumatic Eye: COMMON NORMALS: Equal, round and reactive pupils present and EOMs intact bilaterally PUPIL: Yes Equal, round and reactive pupils present Neck/C-Spine: COMMON NORMALS: full ROM and supple Chest: COMMONS NORMALS: normal inspection of the chest and normal palpation of entire chest wall Resp: EFFORT & INSPECTION: Yes tachypneic, Yes respiratory distress and Yes labored AUSCULTATION: rales Cardio: COMMON NORMALS: regular rate, regular rhythm and No murmurs present (Cardio) RATE: regular rate RHYTHM: regular rhythm GI: COMMON NORMALS: Normal to inspection, nondistended, normoactive bowel sounds present, Soft to palpation, non-tender and no masses PALPATION: Yes Soft to palpation Extremity: COMMON NORMALS: normal to inspection and full ROM Neuro: COMMON NORMALS: patient oriented x3, moves all extremities and no focal motor deficits Psych: COMMON NORMALS: mental status grossly normal, Normal thought process present and cooperative THOUGHT PROCESS: Normal thought process present Skin: COMMON NORMALS: no rashes or lesions noted and no wounds GENERAL SKIN EXAM: no rashes or lesions noted Course Vital Signs: Vital signs: Vital Signs Temperature 102.4 F H 03/05/22 18:05 Pulse Rate 88 03/05/22 18:05 Respiratory Rate 26 H 03/05/22 18:05 Blood Pressure 107/70 03/05/22 18:05 Pulse Oximetry 95 03/05/22 18:05 Oxygen Delivery Me thod 03/05/22 18:05 Oxygen Flow Rate 15 03/05/22 18:05 Fraction of Inspir ed Oxygen 45 03/05/22 18:47 MDM - SOB/Dyspnea Medical Decision Making Patient presents here with cough fever respiratory distress she did require BiPAP she has influenza likely causing her respiratory symptoms no signs of pneumonia spoke to hospitalist will admit at this time. Lab Data 03/05/22 18:00 03/05/22 18:00 Labs/Radiology: Radiology Impressions Chest X-Ray 03/05/22 17:06 IMPRESSION: Mild left basilar atelectasis. Laboratory Results WBC 3.4 10^3/uL (4.0-10.0) L 03/05/22 18:00 RBC 3.74 10^6/uL (4.1-5.3) L 03/05/22 18:00 Hgb 12.4 g/dL (11.5-15.3) 03/05/22 18:00 Hct 38.9 % (37.0-47.0) 03/05/22 18: MCV 104.0 fl (81-99) H 03/05/22 18:00 MCH 33.2 pg (28.0-34.0) 03/05/22 18:00 MCHC 31.9 g/dL (30.0-36.0) 03/05/22 18:00 RDW 12.5 % (12.1-15.1) 03/05/22 18:00 Plt Count 98 10^3/cmm (130-400) L 03/05/22 18:00 MPV 8.5 fL (7.4-10.4) 03/05/22 18:00 Neut % (Auto) 71.4 % 03/05/22 18:00 Lymph % (Auto) 16.1 % 03/05/22 18:00 [place] % (Auto) 11.3 % 03/05/22 18:00 Eos % (Auto) 0.3 % 03/05/22 18:00 Baso % (Auto) 0.3 % 03/05/22 18:00 Neut # (Auto) 2.39 10^3/uL (1.8-7.7) 03/05/22 18:00 Lymph # (Auto) 0.5 10^3/uL (0.8-4.8) L 03/05/22 18:00 [place] # (Auto) 0.4 10^3/uL (0.2-0.9) 03/05/22 18:00 Eos # (Auto) 0.0 10^3/uL (0.0-0.8) 03/05/22 18:00 Baso # (Auto) 0.0 10^3/uL (0.0-0.1) 03/05/22 18:00 Nucleated RBC % (auto) 0 % 03/05/22 18:00 Nucleated RBCs # 0.0 /100WBC 03/05/22 18:00 Specimen Type Arterial 03/05/22 17:04 Sample Site Femoral, right 03/05/22 17:04 ABG pH 7.31 (7.35-7.45) L 03/05/22 17:04 ABG pCO2 60.7 mmHg (35-45) H* 03/05/22 17:04 ABG pO2 144.0 mmHg (80.0-100.0) H 03/05/22 17:04 ABG HCO3 30.6 mmol/L (22-26) H 03/05/22 17:04 ABG Base Excess 2.9 mmol/L (-2.0-2.0) H 03/05/22 17:04 Jeremiah Test Pos 03/05/22 17:04 Hematocrit 39.5 % (37-47) 03/05/22 17:04 O2 Delivery Device Nrb 03/05/22 17:04 O2 Liters/Min 15.0 % 03/05/22 17:04 FiO2 100.0 % 03/05/22 17:04 Electronic Data Processing Auditor ID Katty 03/05/22 17:04 Sodium 139 mmol/L (136-145) 03/05/22 18:00 Potassium 4.6 mmol/L (3.5-5.1) 03/05/22 18:00 Chloride 101 mmol/L (98-107) 03/05/22 18:00 Carbon Dioxide 30 mmol/L (22-29) H 03/05/22 18:00 Anion Gap 12.6 (5-19) 03/05/22 18:00 BUN 13 mg/dL (8-23) 03/05/22 18:00 Creatinine 0.7 mg/dL (0.5-0.9) 03/05/22 18:00 GFR Calculation Not Reportable 03/05/22 18:00 Glucose 111 mg/dL (65-115) 03/05/22 18:00 Calculated Osmolality 289 mOsm/kg (285-295) 03/05/22 18:00 Lactate 1.2 mmol/L (0.5-2.2) 03/05/22 18:00 Calcium 8.9 mg/dL (8.5-10.5) 03/05/22 18:00 Total Bilirubin 0.9 mg/dL (0.15-1.2) 03/05/22 18:00 AST 55 U/L (0-32) H 03/05/22 18:00 ALT 19 U/L (0-33) 03/05/22 18:00 Alkaline Phosphatase 111 U/L (35-105) H 03/05/22 18:00 Troponin T Baseline 30 ng/L (0-10) H 03/05/22 18:00 NT-Pro-B Natriuret Pep 576 pg/mL (0-450) H 03/05/22 18:00 Total Protein 6.4 g/dL (6.6-8.7) L 03/05/22 18:00 Albumin 3.5 g/dL (3.5-5.2) 03/05/22 18:00 Globulin 2.9 g/dL (1.3-4.6) 03/05/22 18:00 Influenza Type A Ag positive (Negative) 03/05/22 18:00 Influenza Type B Ag negative (Negative) 03/05/22 18:00 EKG Data EKG 1: I personally reviewed and interpreted this EKG as follows: EKG Interpretation Date: 03/05/22 EKG interpretation time: 17:28 Interpretation: nsr hr [address] or t wave abnormailties qrs 77 qtc 361 Critical Care Time Critical Care Time: Critical Care Time: Yes Total Critical Care Time: 40 Attestation: The high probability of a clinically significant, sudden or life threatening deterioration of the patient's resp system(s) required my full and direct attention, intervention and personal management. The critical care time is as shown. This time is in addition to time spent performing any reported procedures but includes the following: [x] Data and vital sign review and interpretation [x] Patient assessment, examination and intervention [x] Documentation [x] Medication orders and management Discharge Plan Discharge Patient Disposition: Admitted As Inpatient Clinical Impression: Influenza, Morbid obesity, Acute respiratory failure with hypoxemia Condition: Stable Prescriptions: No Action olmesartan [Benicar] 5 mg tablet See Rx Instructions PO DAILY Rx Instructions: Strength unknown PO daily; ondansetron HCl 4 mg tablet 4 mg PO Q4H PRN (Reason: nausea and vomiting) Qty: 30 3RF pantoprazole 40 mg tablet,delayed release (DR/EC) 40 mg PO DAILY Qty: 90 3RF sulfamethoxazole-trimethoprim [Bactrim DS] 800-160 mg tablet 1 tab PO BID Qty: 20 1RF hydrocodone-acetaminophen 5-325 mg tablet 1 - 2 tab PO Q4H PRN (Reason: pain) 30 Days Qty: 60 0RF potassium chloride 10 mEq tablet extended release 10 - 20 meq PO DAILY PRN (Reason: w/lasix) amlodipine 5 mg tablet 5 mg PO DAILY tramadol 50 mg tablet 50 mg PO TID PRN (Reason: Pain) levothyroxine [Euthyrox] 125 mcg tablet 125 mcg PO DAILY metoprolol tartrate 50 mg tablet 50 mg PO BID furosemide 20 mg tablet 20 - 40 mg PO DAILY PRN (Reason: Edema) cholestyramine (with sugar) 4 gram powder 4 g PO EVERY OTHER DAY dexamethasone 6 mg tablet 6 mg PO DAILY Qty: 7 0RF Referrals: Boggs,FRANCOIS Gerardo [Primary Care Provider] - Coding Level of Care Code ED Track Laying Supervisor for Chg Fwd Exam Comprehensive
[2022-03-05 18:20] LABS: Influenza A by IFA positive (Negative); Influenza B by IFA negative (Negative)
[2022-03-05 18:32] LABS: Lactate (Lactic Acid level) 1.2 mmol/L (0.5-2.2)
[2022-03-05 18:33] LABS: Troponin(5th) Baseline 30 ng/L (0-10)
[2022-03-05] MEDS: oseltamivir phosphate 75 mg Capsule PO (18:49)
[2022-03-05 19:08] LABS: Alanine Aminotransferase 19 U/L (0-33); Albumin Level 3.5 g/dL (3.5-5.2); Alkaline Phosphatase 111 U/L (35-105); Anion Gap 12.6 (5-19); Aspartate Amino Transferase 55 U/L (0-32); Blood Urea Nitrogen 13 mg/dL (8-23); Calcium 8.9 mg/dL (8.5-10.5); Carbon Dioxide 30 mmol/L (22-29); Chloride 101 mmol/L (98-107); Globulin 2.9 g/dL (1.3-4.6); Glucose 111 mg/dL (65-115); NT Pro B Type Natriuretic Pept 576 pg/mL (0-450); Osmolality Calculated 289 mOsm/kg (285-295); Potassium 4.6 mmol/L (3.5-5.1); Sodium 139 mmol/L (136-145); Total Bilirubin 0.9 mg/dL (0.15-1.2); Total Protein 6.4 g/dL (6.6-8.7)
--- NOTE | 2022-03-05 19:17 | ECG_ITS ---
[facility] Test Date: 2022-03-05 Pat Name: Laurence Malave Department: Room: Gender: Female Developmental Services Worker: : 1945 Requested By: Arabella Ochoa Order Number: [id number] Walter MD: Kei Miranda M.D. Measurements Intervals [place] Rate: 65 P: 46 MO: 180 QRS: -20 QRSD: 89 T: 52 QT: 393 QTc: 411 Interpretive Statements SINUS RHYTHM LOW QRS VOLTAGE IN PRECORDIAL LEADS [QRS DEFLECTION < 1.0 mV IN CHEST LEADS] POSSIBLE ANTERIOR MYOCARDIAL INFARCTION , PROBABLY OLD [30 ms Q WAVE IN V3/V4, OR R < 0.2 mV IN V4] Compared to ECG 03/05/2022 17:28:16 Low QRS voltage now present Myocardial infarct finding still present Electronically Signed On 03-06-2022 11:09:40 TOWER AIR TRAFFIC CONTROL SPECIALIST by Kei Miranda M.D. [id number]
--- NOTE | 2022-03-05 19:45 | PM.HP ---
Providers/Chief Complaint Primary Care Provider: Humaira Boggs APN Chief Complaint: SOB, febrile, flu-like symptoms History of Present Illness Laurence Malave is a 76 year old female with a past medical history of TIA, hypothyroidism, hyperlipidemia, hypertension, morbid obesity, YEHUDA, history of malignant melanoma in remission, history of stage III colon cancer status post hemicolectomy, has Port-A-Cath in place, who presents [facility] due to fevers, cough, shortness of breath. Patient is currently in the emergency room on BiPAP alert oriented x3, following commands sitting up in bed on BiPAP, she tells me that the entire family has been sick the last week, she is at her niece's house and everybody's sick with cough runny nose. She has had fevers, cough, shortness of breath for the last few days. No calf pain, calf swelling, no hemoptysis. She is a smoker, but denies a history of COPD does not use oxygen at home. She also has been complaining of increased bilateral extremity edema Review of Systems Const: Reports: fever(s), chills, fatigue and malaise Card: Denies: chest pain Resp: Reports: dyspnea and non-productive cough GI: Denies: abdominal pain : Denies: flank pain or dysuria Medications/Allergies Home Medications Medication Instructions Recorded Confirmed Last Taken Type amlodipine 5 mg tablet 5 mg PO DAILY 12/31/19 10/26/21 01/02/20 History cholestyramine (with sugar) 4 gram 4 g PO EVERY OTHER DAY 12/31/19 10/26/21 01/02/20 History oral powder furosemide 20 mg tablet 20 - 40 mg PO DAILY PRN Edema 12/31/19 10/26/21 01/02/20 History levothyroxine 125 mcg tablet 125 mcg PO DAILY 12/31/19 10/26/21 01/03/20 07:00 History (Euthyrox) metoprolol tartrate 50 mg tablet 50 mg PO BID 12/31/19 10/26/21 01/03/20 08:00 History potassium chloride 10 mEq 10 - 20 meq PO DAILY PRN w/lasix 12/31/19 10/26/21 01/02/20 History tablet,extended release tramadol 50 mg tablet 50 mg PO TID PRN Pain 09/10/26/21 01/03/20 10:00 History dexamethasone 6 mg tablet 6 mg PO DAILY #7 tabs 01/29/20 10/26/21 Unknown Rx ondansetron HCl 4 mg tablet 4 mg PO Q4H PRN nausea and 08/14/21 10/26/21 Unknown Rx vomiting #30 tabs pantoprazole 40 mg tablet,delayed 40 mg PO DAILY #90 tabs 10/19/21 10/26/21 Unknown Rx release olmesartan 5 mg tablet (Benicar) See Rx Instructions PO DAILY 10/26/21 10/26/21 Unknown History sulfamethoxazole 800 1 tab PO BID #20 tabs 02/10/22 Unknown Rx mg-trimethoprim 160 mg tablet (Bactrim DS) hydrocodone 5 mg-acetaminophen 325 1 - 2 tab PO Q4H PRN pain 30 days 02/22/22 Unknown Rx mg tablet #60 tabs Allergies Allergy/AdvReac Type Severity Reaction Status Date / Time No Known Allergies Allergy Verified 10/26/21 11:34 PFSH Acute PFSH: Medical History (Updated 03/05/22 @ 19:49 by German Zaragoza MD) Anxiety and depression GERD (gastroesophageal reflux disease) History of colon cancer Hypertension Hypothyroidism Malignant melanoma Involving the left upper back/left shoulder, stage IV (pT4b, cN3, cM1a) at initial diagnosis in June 2018. Morbid obesity Obstructive sleep apnea On 2 L of oxygen by nasal cannula at night Surgical History History of appendectomy History of hemicolectomy 1994, colon cancer History of surgical removal of skin lesion History of tonsillectomy Family History Mother Cancer Renal cancer, at the age of 84 Father No problems noted. Brother Cancer Brother with prostate cancer Hodgkins lymphoma Social History Smoking and tobacco status: current every day smoker (0.5 ppd) cigarettes Packs smoked per day: 0.5 Alcohol intake: never Household members: children Vitals/I&O/Wt Last Vital Signs Temp 102.4 F H 03/05/22 18:05 Pulse 88 03/05/22 18:05 Resp 26 H 03/05/22 18:05 BP 107/70 03/05/22 18:05 Pulse Ox 95 03/05/22 18:05 O2 Del Method 03/05/22 18:05 O2 Flow Rate 15 03/05/22 18:05 FiO2 45 03/05/22 18:47 Weight last 48 hrs Weight 158.757 kg Physical Exam Const: COMMON NORMALS: no acute distress and patient oriented x3 OTHER: Morbidly obese female HENMT: COMMON NORMALS: normocephalic HEAD & SCALP: normocephalic Eye: COMMON NORMALS: Equal, round and reactive pupils present and EOMs intact bilaterally Resp: COMMON NORMALS: normal respiratory effort, No retractions and No use of accessory muscles AUSCULTATION: wheezes Cardio: COMMON NORMALS: no JVD, regular rate, regular rhythm, S1 normal heart sound present and S2 normal heart sound present RATE: regular rate RHYTHM: regular rhythm HEART SOUNDS: S1 normal heart sound present and S2 normal heart sound present GI: COMMON NORMALS: Normal to inspection, nondistended, normoactive bowel sounds present, Soft to palpation, non-tender, No hepatosplenomegaly present, no masses and no bruits PALPATION: Yes Soft to palpation and Yes No hepatosplenomegaly present Extremity: COMMON NORMALS: no calf tenderness OTHER: 1+ pitting edema bilateral extremity Neuro: COMMON NORMALS: patient oriented x3, CN's II-XII intact bilaterally, moves all extremities and no focal motor deficits Psych: COMMON NORMALS: mental status grossly normal Data 03/05/22 18:00 03/05/22 18:00 Micro: Microbiology 03/05/22 18:00 Blood Culture - Preliminary Blood SPECIMEN COLLECTED 03/05/22 18:30 Blood Culture - Preliminary Blood SPECIMEN COLLECTED A&P Assessment and plan (1) Acute hypercapnic respiratory failure: (2) Influenza: (3) Anxiety and depression: (4) GERD (gastroesophageal reflux disease): (5) Obstructive sleep apnea: (6) Morbid obesity: (7) Hypertension: (8) Hypothyroidism: (9) Secondary bacterial pneumonia: Plan Acute hypercarbic respiratory failure -Secondary to influenza A -Secondary bacterial pneumonia -Possible COPD exacerbation -Also fluid overload with bilateral pitting edema Plan -Admit to ICU -Continue BiPAP -Patient's tolerate BiPAP well, following all commands no evidence of respiratory distress, adamantly declines elective intubation I confirmed with this multiple times -Continue Rocephin and azithromycin -Continue Tamiflu -Sputum cultures, blood cultures, urine bacterial antigen -DuoNeb, budesonide -Monitor respiratory status closely -1 dose of Lasix -Repeat ABG in the morning -Tylenol for fevers -Check TSH, continue levothyroxine -Avoid narcotics -Serial EKGs, serial troponins -Full code -Lovenox for DVT prophylaxis Attestations Medical Necessity Statement*: Patient requires hospitalization for acute hypercarbic respiratory failure secondary to pneumonia, influenza A, fluid overload, inpatient, greater than 2 minutes, ICU admission Coding Level of Care Code Acute Electric Melt Operator for [facility] Fwd Diagnoses Acute hypercapnic respiratory failure J96.02 Influenza J11.1 Anxiety and depression F41.9; F32.9 GERD (gastroesophageal reflux disease) K21.9 Obstructive sleep apnea G47.33 Morbid obesity E66.01 Hypertension I10 Hypothyroidism E03.9 Secondary bacterial pneumonia J15.9
[2022-03-05 19:57] LABS: Adenovirus Not Detected (NOT DETECT); Chlamydia Pneumoniae Not Detected (NOT DETECT); Coronavirus 229E,HKU1,NL63,OC4 Not Detected (NOT DETECT); Human Metapneumovirus Not Detected (NOT DETECT); Human Rhinovirus/Enterovirus Not Detected (NOT DETECT); Influenza A Detected (NOT DETECT); Influenza A H1 Not Detected (NOT DETECT); Influenza A H1-2009 Detected (NOT DETECT); Influenza A H3 Not Detected (NOT DETECT); Influenza B Not Detected (NOT DETECT); Mycoplasma Pneumoniae Not Detected (NOT DETECT); Parainfluenza Virus Type 1 Not Detected (NOT DETECT); Parainfluenza Virus Type 2 Not Detected (NOT DETECT); Parainfluenza Virus Type 3 Not Detected (NOT DETECT); Parainfluenza Virus Type 4 Not Detected (NOT DETECT); Respiratory Syncytial Virus A Not Detected (NOT DETECT); Respiratory Syncytial Virus B Not Detected (NOT DETECT); SARS-COV-2 Not Detected (NOT DETECT)
[2022-03-05 20:08] LABS: Influenza A Detected (NOT DETECT); Influenza A H1 Not Detected (NOT DETECT); Influenza A H1-2009 Detected (NOT DETECT); Influenza A H3 Not Detected (NOT DETECT); Influenza B Not Detected (NOT DETECT); Results from Genmark
[2022-03-05 20:16] LABS: Troponin 5 2HR 33.81 ng/L (0-10)
[2022-03-05 20:17] LABS: Troponin 5 2HR Delta 3.81 ABS# (0-10)
[2022-03-05 20:18] LABS: C Reactive Protein 24.6 mg/L (0.0-4.9); Lactic Sepsis W/Reflex 1.1 mmol/L (0.5-2.2)
[2022-03-05 20:25] LABS: Procalcitonin 0.26 ng/mL (0-0.5)
[2022-03-05] MEDS: azithromycin 500 MG in sodium chloride 0.9% 250 ML 250 MG IV (22:04)
[2022-03-05] MEDS: FUROsemide 10 mg/mL SDV 4mL 40 MG IVP (22:04)
[2022-03-05] MEDS: enoxaparin 40 mg/0.4 mL Syringe SUBCUT (22:08)
[2022-03-05 22:19] LABS: Chol HDL Ratio 2.82 mg/dL (0.0-4.40); Cholesterol 124 mg/dL (0-200); HDL Cholesterol 44 mg/dL (60-100); LDL Cholesterol Calculated 65 mg/dL (50-129); LDL HDL Ratio 1.48 RATIO (0.00-3.22); Thyroid Stimulating Hormone 0.03 uIU/mL (0.27-4.20); Triglycerides 73 mg/dL (0-150)
[2022-03-05 22:44] LABS: Estmated Average Glucose 100; Hemoglobin A1C 5.1 % (4.0-6.0)
[2022-03-05] MEDS: budesonide 0.5 mg/2 mL Neb INHALATION (22:55)
[2022-03-05] MEDS: ipratropium-albuterol 3 mL Neb INHALATION (22:55)
--- NOTE | 2022-03-05 23:07 | ECG_ITS ---
[facility] Test Date: 2022-03-06 Pat Name: Laurence Malave Department: Room: ICU09 Gender: Female Optical Store Manager: : 1945 Requested By: Arabella Ochoa Order Number: [id number] Walter MD: Kei Miranda M.D. Measurements Intervals [place] Rate: 67 P: 56 MS: 185 QRS: -18 QRSD: 96 T: 62 QT: 410 QTc: 434 Interpretive Statements SINUS RHYTHM WITH OCCASIONAL SUPRAVENTRICULAR PREMATURE COMPLEXES LOW QRS VOLTAGE IN PRECORDIAL LEADS [QRS DEFLECTION < 1.0 mV IN CHEST LEADS] PATTERN CONSISTENT WITH PULMONARY DISEASE NONSPECIFIC T-WAVE ABNORMALITY Compared to ECG 03/05/2022 19:17:57 T-wave abnormality now present Myocardial infarct finding no longer present Electronically Signed On 03-06-2022 11:07:42 TELEGRAPHIC TYPEWRITER MECHANIC by Kei Miranda M.D. [id number]
[2022-03-05] MEDS: cefTRIAXone 2,000 MG in sodium chloride 0.9% (plus) 50 ML 100 MG IV (23:10)
[2022-03-06] VITALS (126 sets, daily range): BP systolic 103–156; BP diastolic 39–73; PULSE 56–102; RESP 10–29; TEMP 37.2; O2SAT 88–97
[2022-03-06 00:28] LABS: Troponin 5 6HR 23.63 ng/L (0-10)
[2022-03-06 00:39] LABS: Troponin 5 6HR Delta -6.37 ng/L (0-12)
[2022-03-06 00:41] LABS: Specific Gravity, Urine 1.015 (1.005-1.030); Urine Appearance SL Hazy (CLEAR); Urine Color Yellow (Yellow); pH Urine 5 (5-7)
[2022-03-06 00:42] LABS: Add Urine Microscopic? YES; Bilirubin Urine Neg (Negative); Blood Urine 3+ (Negative); Glucose Urine UA Norm (Normal); Ketones Urine Negative (Negative); Leukocyte Esterase Urine Negative (Negative); Nitrate Urine Negative (Negative); Protein Urine Neg (Negative); Urobilinogen Urine Neg (Negative)
[2022-03-06 00:43] LABS: Add Urine Culture? Yes; Bacteria Urine 2+ /hpf; RBC Urine >100 /hpf (0-2)
[2022-03-06 05:16] LABS: Basophils % 0.7 %; Eosinophils % 0.7 %; Hematocrit 36.2 % (37.0-47.0); Hemoglobin 11.5 g/dL (11.5-15.3); Lymphocytes # 1.3 10^3/uL (0.8-4.8); Lymphocytes % 43.7 %; Mean Corpuscular HGB Conc 31.8 g/dL (30.0-36.0); Mean Corpuscular Hemoglobin 33.4 pg (28.0-34.0); Mean Corpuscular Volume 105.2 fl (81-99); Mean Platelet Volume 8.9 fL (7.4-10.4); Monocytes # 0.6 10^3/uL (0.2-0.9); Neutrophils # 1.07 10^3/uL (1.8-7.7); Neutrophils % 35.6 %; Nucleated Red Blood Cells % 0 %; Platelet Count 100 10^3/cmm (130-400); Red Blood Count 3.44 10^6/uL (4.1-5.3); Red Cell Distribution Width 12.6 % (12.1-15.1)
[2022-03-06 05:23] LABS: ABG PCO2 58.4 mmHg (35-45); ABG PH Result 7.32 (7.35-7.45); Arterial Blood Gas Hematocrit 49.1 % (37-47); Base Excess ABG 2.5 mmol/L (-2.0-2.0); Blood Gas Allen Test Pos; Blood Gas Operator Identificat JB; Blood Gas Sample Site Radial, right; Blood Gas Sample Type Arterial; HCO3 ABG 30.3 mmol/L (22-26); Oxygen Device BIPAP
[2022-03-06 05:49] LABS: Anion Gap 11.6 (5-19); Blood Urea Nitrogen 13 mg/dL (8-23); Calcium 8.3 mg/dL (8.5-10.5); Carbon Dioxide 30 mmol/L (22-29); Chloride 103 mmol/L (98-107); Glucose 69 mg/dL (65-115); Magnesium 1.5 mg/dL (1.7-2.3); NT Pro B Type Natriuretic Pept 549 pg/mL (0-450); Osmolality Calculated 290 mOsm/kg (285-295); Phosphorus 3.1 mg/dL (2.5-4.5); Potassium 3.6 mmol/L (3.5-5.1); Sodium 141 mmol/L (136-145)
[2022-03-06] MEDS: budesonide 0.5 mg/2 mL Neb INHALATION ×2 (07:52→19:25)
[2022-03-06] MEDS: ipratropium-albuterol 3 mL Neb INHALATION ×4 (07:52→19:25)
[2022-03-06] MEDS: oseltamivir phosphate 75 mg Capsule PO ×2 (08:56→17:28)
[2022-03-06] MEDS: pantoprazole DR 40 mg Tablet PO (08:56)
[2022-03-06] MEDS: levothyroxine 125 mcg Tablet PO (08:56)
--- NOTE | 2022-03-06 10:31 | P.PN_ITS ---
Subjective Subjective: Overnight patient remained on BiPAP. Taken off this morning. On supplemental O2 5 L/min. Slightly tachypneic in conversation. Saturating 88% on 5 L currently when conversant. Desats down to 70% off of oxygen. T-max 102 Fahrenheit overnight. Slightly bradycardic with heart rate in the 50s. Medications: Reviewed: Yes Vitals/I&O/Wt Last Vital Signs Temp 98.7 F 03/05/22 20:00 Pulse 84 03/06/22 09:00 Resp 15 03/06/22 09:00 BP 136/60 03/06/22 09:00 Pulse Ox 93 03/06/22 09:00 O2 Del Method 03/06/22 09:00 O2 Flow Rate 5 03/06/22 09:00 FiO2 40 03/06/22 08:40 03/05/22 03/06/22 03/06/22 22:59 06:59 14:59 Intake Total 1000 / 1000 300 / 1300 240 / 240 Output Total 1400 / 1400 Balance 1000 / 1000 -1100 / -100 240 / 240 Weight last 48 hrs Weight 132.494 kg Weight 158.757 kg Physical Exam Narrative: General: No acute distress, AO x3 HEENT: PERRLA, pupils bilaterally equal and reactive, pallors not present Chest: Crackles to auscultation bilaterally all areas CVS: S1-S2 regular, no murmurs, no tachycardia, no gallops, no rubs Abdomen: Soft, nontender, no organomegaly, bowel sounds present Neuro: No focal deficits, no facial deformity, AO x3, power 5/5 in all limbs Extremities: 2+ pitting edema Urinary Catheter Management: Pierson: Cath Placed During This Visit: yes Urinary Catheter Date of Insertion: 03/05/22 Urinary Catheter Time of Insertion: 22:30 Pierson Latex Free: Cath Placed During This Visit: no Reason for Continuing Indwelling Catheter: Acute Urinary Retention or Obstruction Data 03/06/22 04:15 03/06/22 04:15 Micro: Microbiology 03/05/22 22:45 Bacterial Antigens - Final Urine,Clean Catch 03/05/22 18:00 Blood Culture - Preliminary Blood SPECIMEN COLLECTED 03/05/22 18:30 Blood Culture - Preliminary Blood SPECIMEN COLLECTED Other data: Cardiac Enzymes 03/05/22 Range/Units 18:00 AST 55 H (0-32) U/L Lipids 03/05/22 Range/Units 19:50 Triglycerides 73 (0-150) mg/dL Cholesterol 124 (0-200) mg/dL HDL Cholesterol 44 L (60-100) mg/dL LDL/HDL Ratio 1.48 (0.00-3.22) RATIO Cholesterol/HDL Ratio 2.82 (0.0-4.40) mg/dL CBC 03/05/22 03/06/22 Range/Units 18:00 04:15 WBC 3.4 L 3.0 L (4.0-10.0) 10^3/uL RBC 3.74 L 3.44 L (4.1-5.3) 10^6/uL Hgb 12.4 11.5 (11.5-15.3) g/dL Hct 38.9 36.2 L (37.0-47.0) % Plt Count 98 L 100 L (130-400) 10^3/cmm Neut # (Auto) 2.39 1.07 L (1.8-7.7) 10^3/uL Lymph # (Auto) 0.5 L 1.3 (0.8-4.8) 10^3/uL [place] # (Auto) 0.4 0.6 (0.2-0.9) 10^3/uL Eos # (Auto) 0.0 0.0 (0.0-0.8) 10^3/uL Baso # (Auto) 0.0 0.0 (0.0-0.1) 10^3/uL Comprehensive Metabolic Panel 03/05/22 03/06/22 Range/Units 18:00 04:15 Sodium 139 141 (136-145) mmol/L Potassium 4.6 3.6 (3.5-5.1) mmol/L Chloride 101 103 (98-107) mmol/L Carbon Dioxide 30 H 30 H (22-29) mmol/L BUN 13 13 (8-23) mg/dL Creatinine 0.7 0.7 (0.5-0.9) mg/dL Glucose 111 69 (65-115) mg/dL Calcium 8.9 8.3 L (8.5-10.5) mg/dL AST 55 H (0-32) U/L ALT 19 (0-33) U/L Alkaline Phosphatase 111 H (35-105) U/L Total Protein 6.4 L (6.6-8.7) g/dL Albumin 3.5 (3.5-5.2) g/dL Intake and Output 03/05/22 03/06/22 03/06/22 22:59 06:59 14:59 Intake Total 1000 / 1000 300 / 1300 240 / 240 Output Total 1400 / 1400 Balance 1000 / 1000 -1100 / -100 240 / 240 Intake: IV 1000 / 1000 300 / 1300 azithromycin 500 mg In sodium 250 / 250 chloride 0.9% 250 ml @ 250 mls/ hr IV Q24H [facility] Rx#:[id number] cefTRIAXone 2,000 mg In sodium 50 / 50 chloride 0.9% (plus) 50 ml @ 100 mls/hr IV Q24H [facility] Rx#: [id number] sodium chloride 0.9% 1,000 ml @ 1000 / 1000 999 mls/hr IV .Q1H1M ONE Rx#: [id number] Oral 0 / 0 240 / 240 Output: Urine 1400 / 1400 Other: Weight 132.494 kg A&P Assessment and plan (1) Acute hypercapnic respiratory failure: (2) Influenza: (3) Anxiety and depression: (4) GERD (gastroesophageal reflux disease): (5) Obstructive sleep apnea: (6) Morbid obesity: (7) Hypertension: (8) Hypothyroidism: (9) Secondary bacterial pneumonia: Plan Acute hypoxic hypercarbic respiratory failure -Secondary to influenza A -Secondary bacterial pneumonia -Possible COPD exacerbation -Also fluid overload with bilateral pitting edema, likely CHF excaerbation, likely chronic, preserved EF from 2019. Plan -Admit to ICU -Continue BiPAP -Patient tolerated BiPAP well, desaturates down to 70% on RA, 88% on 5lpm. Tachypneic in conversation. Baseline 02 requirement 2lpm at home for reported sleep apnea. -Continue Tamiflu 75mg po BID Empiric abx coverage with CTX g iv q24h and azithromycin 500mg po daily -Sputum cultures, blood cultures, urine bacterial antigen -DuoNeb, budesonide scheduled nebulization - Start lasix 40mg iv q12h. - Low TSH, check t3 and t4, continue levothyroxine at home dose for now, will adjust based on t3/t4 -resume home dose perocet though reduced frequency q6h prn DNR/DNI -Lovenox for DVT prophylaxis Attestations Medical Necessity Statement*: ongoing admission for respiratory support with 02, Bipap, iv abx for pneumonia Critical Care Time: The high probability of a clinically significant, sudden or life threatening deterioration of the patient's [respiratory] system(s) required my full and direct attention, intervention and personal management. The critical care time is as shown. This time is in addition to time spent performing any reported procedures but includes the following: [x] Data and vital sign review and interpretation [x] Patient assessment, examination and intervention [x] Documentation [x] Medication orders and management Critical Care Time (min): 40 Coding Level of Care Code Acute Surveyor Helper Rod for [facility] Fwd Diagnoses Acute hypercapnic respiratory failure J96.02 Influenza J11.1 Anxiety and depression F41.9; F32.9 GERD (gastroesophageal reflux disease) K21.9 Obstructive sleep apnea G47.33 Morbid obesity E66.01 Hypertension I10 Hypothyroidism E03.9 Secondary bacterial pneumonia J15.9
[2022-03-06] MEDS: HYDROcodone-acetaminophen 5-325 mg Tablet 1 TAB PO ×2 (11:12→20:09)
[2022-03-06] MEDS: FUROsemide 10 mg/mL SDV 4mL 40 MG IVP ×2 (11:12→23:42)
[2022-03-06] MEDS: cefTRIAXone 1,000 MG in sodium chloride 0.9% (plus) 50 ML 100 MG IV (11:13)
[2022-03-06] MEDS: azithromycin 500 MG in sodium chloride 0.9% 250 ML 250 MG PO (12:25)
[2022-03-06] MEDS: clotrimazole-betamethasone cream 15gm 1 APPLIC TOPICAL ×2 (15:25→20:10)
[2022-03-06] MEDS: metoprolol tartrate 50 mg Tablet 25 MG PO (17:27)
[2022-03-06] MEDS: enoxaparin 40 mg/0.4 mL Syringe SUBCUT (20:25)
[2022-03-07] VITALS (97 sets, daily range): BP systolic 91–150; BP diastolic 56–78; PULSE 61–93; RESP 8–24; TEMP 36.6–37.2; O2SAT 77–96
[2022-03-07 05:48] LABS: Basophils % 0.4 %; Eosinophils % 0.7 %; Hematocrit 36.1 % (37.0-47.0); Hemoglobin 11.4 g/dL (11.5-15.3); Lymphocytes # 1.1 10^3/uL (0.8-4.8); Lymphocytes % 40.1 %; Mean Corpuscular HGB Conc 31.6 g/dL (30.0-36.0); Mean Corpuscular Hemoglobin 32.9 pg (28.0-34.0); Mean Corpuscular Volume 104.3 fl (81-99); Mean Platelet Volume 8.8 fL (7.4-10.4); Monocytes # 0.4 10^3/uL (0.2-0.9); Monocytes % 14.4 %; Neutrophils # 1.22 10^3/uL (1.8-7.7); Nucleated Red Blood Cells % 0 %; Platelet Count 113 10^3/cmm (130-400); Red Blood Count 3.46 10^6/uL (4.1-5.3); Red Cell Distribution Width 12.7 % (12.1-15.1); White Blood Count 2.8 10^3/uL (4.0-10.0)
--- NOTE | 2022-03-07 06:00 | USCV_ITS ---
[facility] Age: 76 Gender: F : 1945 Exam Date: 03/07/2022 06:48 Ordering Phys: Daiana Balbuena MD Technologist: Teddy Ta [place] [facility] [place]: pulm emb BP: 129 / 59 HR: 77 Rhythm: Sinus Technical Quality: Adequate MEASUREMENTS (Male / Female) Normal Values 2D ECHO LV Diastolic Diameter PLAX 4.4 cm 4.2 - 5.9 / 3.9 - 5.3 cm LV Systolic Diameter PLAX 2.5 cm IVS Diastolic Thickness 1.1 cm 0.6 - 1.0 / 0.6 - 0.9 cm IVS Systolic Thickness 1.6 cm LVPW Diastolic Thickness 1.3 cm 0.6 - 1.0 / 0.6 - 0.9 cm LVPW Systolic Thickness 1.3 cm LVOT Diameter 2.1 cm LV Ejection Fraction 2D Teich 73.3 % LV Ejection Fraction MOD 2C 66.8 % LV Ejection Fraction 2C AL 66.6 % LA Diameter 4.3 cm Aorta at Sinotubular Diameter 3.0 cm IVC Diameter 1.6 cm M-MODE Aortic Annulus Diameter 3.2 cm LA Ao Ratio MM 1.5 MV E Point Septal Separation 1.1 cm DOPPLER AV Peak Velocity 241.0 cm/s LVOT Peak Velocity 135.0 cm/s AV Area Cont Eq vti 2.2 cm squared AV Area Cont Eq pk 1.9 cm squared MV Area PHT 5.0 cm squared Mitral E to A Ratio 1.1 MV E' Velocity 57.0 cm/s Mitral E to MV E' Ratio 10.8 Mitral E to LV E' Lateral Ratio 8.8 Mitral E to LV E' Septal Ratio 14.3 TR Peak Velocity 262.7 cm/s TR Peak Gradient 27.6 mmHg RV Acceleration Time 0.1 s FINDINGS Left Ventricle Left ventricular ejection fraction is estimated at 73 %. No regional wall motion abnormalities. Right Ventricle Normal right ventricular size and systolic function. Right Atrium Normal right atrial size. Left Atrium Normal left atrial size. Mitral Valve No gross abnormalities noted Aortic Valve Thickened aortic valve. Tricuspid Valve No gross abnormalities noted Pulmonic Valve No gross abnormalities noted Pericardium No pericardial effusion. Aorta Normal aortic annulus size. IVC Normal inferior vena cava. CONCLUSIONS Left ventricular ejection fraction is estimated at 73 %. No regional wall motion abnormalities. Features of aortic valve sclerosis. Trace of tricuspid regurgitation Estimated pulmonary peak systolic pressure 28 mmHg Possible normal RV size and ejection fraction. There is no pericardial effusion. Dr Joanne Polk MD FACC (Electronically Signed) Final Date: 07 March 2022 14:29 S
[2022-03-07 06:11] LABS: Alanine Aminotransferase 15 U/L (0-33); Alkaline Phosphatase 87 U/L (35-105); Anion Gap 10.5 (5-19); Aspartate Amino Transferase 41 U/L (0-32); Blood Urea Nitrogen 11 mg/dL (8-23); Calcium 8.7 mg/dL (8.5-10.5); Carbon Dioxide 33 mmol/L (22-29); Chloride 93 mmol/L (98-107); Glucose 89 mg/dL (65-115); Osmolality Calculated 275 mOsm/kg (285-295); Potassium 3.5 mmol/L (3.5-5.1); Sodium 133 mmol/L (136-145); Total Bilirubin 0.6 mg/dL (0.15-1.2)
[2022-03-07 06:51] LABS: Free T4 Free Thyroxine 1.92 ng/dL (0.82-1.77); T3 Free 1.9 PG/ML (2.0-4.4)
[2022-03-07] MEDS: budesonide 0.5 mg/2 mL Neb INHALATION ×2 (07:43→19:40)
[2022-03-07] MEDS: ipratropium-albuterol 3 mL Neb INHALATION ×4 (07:43→19:40)
[2022-03-07] MEDS: levothyroxine 125 mcg Tablet PO (08:14)
[2022-03-07] MEDS: metoprolol tartrate 50 mg Tablet 25 MG PO (08:14)
[2022-03-07] MEDS: pantoprazole DR 40 mg Tablet PO (08:14)
[2022-03-07] MEDS: oseltamivir phosphate 75 mg Capsule PO ×2 (08:14→19:10)
[2022-03-07] MEDS: HYDROcodone-acetaminophen 5-325 mg Tablet 1 TAB PO (08:15)
[2022-03-07] MEDS: clotrimazole-betamethasone cream 15gm 1 APPLIC TOPICAL (08:15)
[2022-03-07] MEDS: FUROsemide 10 mg/mL SDV 4mL 40 MG IVP (10:17)
[2022-03-07] MEDS: azithromycin 500 MG in sodium chloride 0.9% 250 ML 250 MG PO (10:17)
--- NOTE | 2022-03-07 10:22 | PM.PN ---
Subjective Subjective: T-max 99 Fahrenheit overnight. Hemodynamically stable. On BiPAP this morning, it was placed due to sleep apnea. Patient states breathing is improving. Lower extremity edema is improving. When not on BiPAP patient is requiring 5 L/min supplemental O2. Medications: Reviewed: Yes Vitals/I&O/Wt Last Vital Signs Temp 99 F 03/06/22 20:00 Pulse 65 03/07/22 09:25 Resp 20 H 03/07/22 08:05 BP 122/69 03/07/22 08:05 Pulse Ox 95 03/07/22 09:25 O2 Del Method 03/07/22 07:40 O2 Flow Rate 5 03/07/22 07:40 FiO2 40 03/07/22 09:25 03/06/22 03/07/22 03/07/22 22:59 06:59 14:59 Intake Total 240 / 780 Output Total 900 / 900 1800 / 2700 Balance -660 / -120 -1800 / -1920 Weight last 48 hrs Weight 132.494 kg Weight 158.757 kg Physical Exam Narrative: General: No acute distress, AO x3 HEENT: PERRLA, pupils bilaterally equal and reactive, pallors not present Chest: Crackles to auscultation bilaterally all areas CVS: S1-S2 regular, no murmurs, no tachycardia, no gallops, no rubs Abdomen: Soft, nontender, no organomegaly, bowel sounds present Neuro: No focal deficits, no facial deformity, AO x3, power 5/5 in all limbs Extremities: 1+ pitting edema Urinary Catheter Management: Pierson: Cath Placed During This Visit: yes Reason for Continuing Indwelling Catheter: Accurate Measurement of Urinary Output in Critically Ill Patients Urinary Catheter Date of Insertion: 03/05/22 Urinary Catheter Time of Insertion: 22:30 Pierson Latex Free: Cath Placed During This Visit: no Reason for Continuing Indwelling Catheter: Accurate Measurement of Urinary Output in Critically Ill Patients Data 03/07/22 04:05 03/07/22 04:05 Micro: Microbiology 03/05/22 22:45 Urine Culture - Final Urine,Clean Catch 03/05/22 18:00 Blood Culture - Preliminary Blood NEGATIVE TO DATE 03/05/22 18:30 Blood Culture - Preliminary Blood NEGATIVE TO DATE 03/05/22 22:45 Bacterial Antigens - Final Urine,Clean Catch A&P Assessment and plan (1) Acute hypercapnic respiratory failure: (2) Influenza: (3) Anxiety and depression: (4) GERD (gastroesophageal reflux disease): (5) Obstructive sleep apnea: (6) Morbid obesity: (7) Hypertension: (8) Hypothyroidism: (9) Secondary bacterial pneumonia: Plan Acute hypoxic hypercarbic respiratory failure -Secondary to influenza A -Secondary bacterial pneumonia -Possible COPD exacerbation -Also fluid overload with bilateral pitting edema, likely CHF excaerbation, likely chronic, preserved EF from 2019. Plan -Transfer from ICU to [facility] with tele -Continue BiPAP prn and sleep time, supplemental 02 to keep sat 92-95% -Continue Tamiflu 75mg po BID - Empiric abx coverage with CTX g iv q24h and azithromycin 500mg po daily -Sputum cultures N/A, blood cultures,negative urine bacterial antigen -DuoNeb, budesonide scheduled nebulization - Started lasix 40mg iv q12h on 03/05----> diuresed 2700 cc, changed to lasix 40mg po BID, significantly improved edema today. - Low TSH, high t3 and t4, continue levothyroxine , dose reduced from 150 as outpatient to 125 as inpatient DNR/DNI -Lovenox for DVT prophylaxis Attestations Medical Necessity Statement*: continued admission for dieresis, abx, respiratory support Coding Level of Care Code Acute Steward/Stewardess Second for [facility] Fwd Diagnoses Acute hypercapnic respiratory failure J96.02 Influenza J11.1 Anxiety and depression F41.9; F32.9 GERD (gastroesophageal reflux disease) K21.9 Obstructive sleep apnea G47.33 Morbid obesity E66.01 Hypertension I10 Hypothyroidism E03.9 Secondary bacterial pneumonia J15.9
--- NOTE | 2022-03-07 11:23 | PC.NURSE ---
Patient transferred to [facility]
[2022-03-07] MEDS: cefTRIAXone 1,000 MG in sodium chloride 0.9% (plus) 50 ML 100 MG IV (11:55)
[2022-03-07] MEDS: clotrimazole 1% cream 30 gm 1 APPLIC TOPICAL ×2 (16:13→21:29)
[2022-03-07] MEDS: hydrocortisone 1% cream 28 gm 1 APPLIC TOPICAL ×2 (16:13→21:29)
[2022-03-07] MEDS: FUROsemide 40 mg Tablet PO (16:33)
[2022-03-07] MEDS: enoxaparin 40 mg/0.4 mL Syringe SUBCUT (21:30)
[2022-03-08] VITALS (14 sets, daily range): BP systolic 97–137; BP diastolic 54–76; PULSE 56–76; RESP 16–18; TEMP 36.6–37.1; O2SAT 88–96
[2022-03-08] MEDS: HYDROcodone-acetaminophen 5-325 mg Tablet 1 TAB PO ×2 (01:46→16:56)
[2022-03-08 05:17] LABS: Basophils % 0.4 %; Eosinophils % 0.4 %; Hematocrit 35.3 % (37.0-47.0); Hemoglobin 11.1 g/dL (11.5-15.3); Lymphocytes # 0.8 10^3/uL (0.8-4.8); Lymphocytes % 30.2 %; Mean Corpuscular HGB Conc 31.4 g/dL (30.0-36.0); Mean Corpuscular Hemoglobin 32.8 pg (28.0-34.0); Mean Corpuscular Volume 104.4 fl (81-99); Mean Platelet Volume 8.7 fL (7.4-10.4); Monocytes # 0.4 10^3/uL (0.2-0.9); Monocytes % 12.9 %; Neutrophils # 1.55 10^3/uL (1.8-7.7); Neutrophils % 55.7 %; Nucleated Red Blood Cells % 0 %; Platelet Count 101 10^3/cmm (130-400); Red Blood Count 3.38 10^6/uL (4.1-5.3); Red Cell Distribution Width 12.6 % (12.1-15.1); White Blood Count 2.8 10^3/uL (4.0-10.0)
[2022-03-08 05:47] LABS: Alanine Aminotransferase 13 U/L (0-33); Alkaline Phosphatase 80 U/L (35-105); Anion Gap 11.5 (5-19); Aspartate Amino Transferase 35 U/L (0-32); Blood Urea Nitrogen 11 mg/dL (8-23); Calcium 8.9 mg/dL (8.5-10.5); Carbon Dioxide 36 mmol/L (22-29); Chloride 97 mmol/L (98-107); Globulin 2.9 g/dL (1.3-4.6); Glucose 104 mg/dL (65-115); Osmolality Calculated 292 mOsm/kg (285-295); Potassium 3.5 mmol/L (3.5-5.1); Sodium 141 mmol/L (136-145); Total Bilirubin 0.7 mg/dL (0.15-1.2); Total Protein 5.9 g/dL (6.6-8.7)
[2022-03-08] MEDS: budesonide 0.5 mg/2 mL Neb INHALATION ×2 (07:33→20:21)
[2022-03-08] MEDS: ipratropium-albuterol 3 mL Neb INHALATION ×4 (07:33→20:21)
[2022-03-08] MEDS: azithromycin 500 MG in sodium chloride 0.9% 250 ML 250 MG PO (10:25)
[2022-03-08] MEDS: hydrocortisone 1% cream 28 gm 1 APPLIC TOPICAL ×3 (10:26→21:21)
[2022-03-08] MEDS: clotrimazole 1% cream 30 gm 1 APPLIC TOPICAL ×3 (10:26→21:22)
[2022-03-08] MEDS: oseltamivir phosphate 75 mg Capsule PO ×2 (10:26→17:14)
[2022-03-08] MEDS: levothyroxine 125 mcg Tablet PO (10:27)
[2022-03-08] MEDS: metoprolol tartrate 50 mg Tablet 25 MG PO ×2 (10:27→17:14)
[2022-03-08] MEDS: pantoprazole DR 40 mg Tablet PO (10:28)
[2022-03-08] MEDS: FUROsemide 40 mg Tablet PO ×2 (10:29→15:15)
--- NOTE | 2022-03-08 10:55 | PC.SOCIAL ---
IMM Update pg 2 of IMM updated and reviewed w/ patient. Copy provided and copy dated, initialed and placed in chart.
[2022-03-08] MEDS: cefTRIAXone 1,000 MG in sodium chloride 0.9% (plus) 50 ML 100 MG IV (11:36)
--- NOTE | 2022-03-08 16:31 | P.PN_ITS ---
Subjective Subjective: Patient afebrile now over last 48 hours. Oxygen requirement at 4 L/min today. Saturating 93 to 95%. Symptomatically continuing to do better. Seen transferring from bed to bedside commode with family's assistance. Medications: Reviewed: Yes Vitals/I&O/Wt Last Vital Signs Temp 98.8 F 03/08/22 15:44 Pulse 71 03/08/22 15:54 Resp 18 03/08/22 15:54 BP 133/76 03/08/22 15:44 Pulse Ox 93 03/08/22 15:54 O2 Del Method 03/08/22 15:54 O2 Flow Rate 4 03/08/22 15:54 FiO2 40 03/07/22 09:25 03/08/22 03/08/22 03/08/22 06:59 14:59 22:59 Intake Total 900 / 900 Output Total 625 / 1625 Balance -625 / -845 900 / 900 Physical Exam Narrative: General: No acute distress, AO x3 HEENT: PERRLA, pupils bilaterally equal and reactive, pallors not present Chest: Normal vesicular breath sounds, no added sounds, equal good air entry bilaterally CVS: S1-S2 regular, no murmurs, no tachycardia, no gallops, no rubs Abdomen: Soft, nontender, no organomegaly, bowel sounds present Neuro: No focal deficits, no facial deformity, AO x3, power 5/5 in all limbs Extremities: Improving lower extremity edema Urinary Catheter Management: Pierson: Cath Placed During This Visit: yes Reason for Continuing Indwelling Catheter: Other Urinary Catheter Date of Insertion: 03/05/22 Urinary Catheter Time of Insertion: 22:30 Pierson Latex Free: Cath Placed During This Visit: no Reason for Continuing Indwelling Catheter: Accurate Measurement of Urinary Output in Critically Ill Patients Data 03/08/22 04:45 03/08/22 04:45 A&P Assessment and plan (1) Acute hypercapnic respiratory failure: (2) Influenza: (3) Anxiety and depression: (4) GERD (gastroesophageal reflux disease): (5) Obstructive sleep apnea: (6) Morbid obesity: (7) Hypertension: (8) Hypothyroidism: (9) Secondary bacterial pneumonia: Plan Acute hypoxic hypercarbic respiratory failure -Secondary to influenza A -Secondary bacterial pneumonia -Possible COPD exacerbation -Also fluid overload with bilateral pitting edema, likely CHF excaerbation, echo with normal EF 73%, diastolic function not estimated, likely acute on chronic d CHF. slowly improving clinically Plan -Continue BiPAP prn and sleep time, supplemental 02 to keep sat 92-95% -Continue Tamiflu 75mg po BID - Empiric abx coverage with CTX g iv q24h and azithromycin 500mg po daily -Sputum cultures N/A, blood cultures,negative urine bacterial antigen -DuoNeb, budesonide scheduled nebulization - Started lasix 40mg iv q12h on 03/05----> diuresed 2700 cc, changed to lasix 40mg po BID, - clinically improving - Low TSH, high t3 and t4, continue levothyroxine , dose reduced from 150 as outpatient to 125 as inpatient OT assessment. Dispo: planned for discharge in the upcoming 24-48 hrs if continues to do well DNR/DNI -Lovenox for DVT prophylaxis Attestations Medical Necessity Statement*: slowly improving, watch closely over the next 24 hrs Coding Level of Care Code Acute Registered Vascular Technologist (Rvt) for [facility] Fwd Diagnoses Acute hypercapnic respiratory failure J96.02 Influenza J11.1 Anxiety and depression F41.9; F32.9 GERD (gastroesophageal reflux disease) K21.9 Obstructive sleep apnea G47.33 Morbid obesity E66.01 Hypertension I10 Hypothyroidism E03.9 Secondary bacterial pneumonia J15.9
--- NOTE | 2022-03-08 18:04 | PC.NURSE ---
Patient VSS, AAOx4, OOBTC and bedside commode with daughters assistance, showered this shift, remains on high flow oxygen. Pierson remains in place and patent, minimal c/o pain to back relieved by oral pain med per JUN. No new events during shift, room clean and clutter free with call light in reach. No needs at this time with all questions answered.
[2022-03-08] MEDS: enoxaparin 40 mg/0.4 mL Syringe SUBCUT (21:21)
[2022-03-08] MEDS: TRAMadol 50 mg Tablet PO (22:17)
--- NOTE | 2022-03-08 22:20 | PC.NURSE ---
While this nurse was obtaining report on another patient, I was informed the patient was requesting to go home. This nurse contacted the hospitalist on and consulted them. he stated to enforce the fact if she were to leave it would AMA and her insurance would mostly likely not cover her stay, she would not be able to be sent home with any prescriptions, and wouldn't receive her medications for the evening. I went in and spoke with the patient and her daughter. Informed them of the topics discussed with the physician.While at bedside I looked at the physician note from today and told the patient that the hospitalist plans to discharge tomorrow or the next day. She asked that it be passed along to the physician in the morning she would like to discharge 03/09/22. This was passed along to the hospitalist for the night and the charge nurse. Patient is agreeable to stay the night with hopes of discharge tomorrow morning.
[2022-03-09] VITALS: BP 110/65; PULSE 71; RESP 16; TEMP 36.7; O2SAT 92
[2022-03-09 04:00] VITALS: BP 123/72; PULSE 73; RESP 16; TEMP 36.6; O2SAT 90
[2022-03-09 08:00] VITALS: BP 131/70; PULSE 64; TEMP 36.8; O2SAT 90
[2022-03-09 08:36] VITALS: PULSE 65; RESP 20; O2SAT 92
[2022-03-09] MEDS: ipratropium-albuterol 3 mL Neb INHALATION ×2 (08:36→12:14)
[2022-03-09] MEDS: budesonide 0.5 mg/2 mL Neb INHALATION (08:36)
[2022-03-09] MEDS: pantoprazole DR 40 mg Tablet PO (08:39)
[2022-03-09] MEDS: FUROsemide 40 mg Tablet PO (08:39)
[2022-03-09] MEDS: oseltamivir phosphate 75 mg Capsule PO (08:40)
[2022-03-09] MEDS: metoprolol tartrate 50 mg Tablet 25 MG PO (08:40)
[2022-03-09] MEDS: levothyroxine 125 mcg Tablet PO (08:40)
[2022-03-09] MEDS: clotrimazole 1% cream 30 gm 1 APPLIC TOPICAL (08:49)
[2022-03-09] MEDS: hydrocortisone 1% cream 28 gm 1 APPLIC TOPICAL (08:49)
[2022-03-09 10:16] VITALS: O2SAT 88; O2SAT 93
--- NOTE | 2022-03-09 11:53 | P.DS_ITS ---
Discharge Providers Date of Admission: 03/05/22 19:24 Date of Discharge: March 09, 2022 Attending Provider at Admission: German Zaragoza MD Attending Provider at Discharge: Daiana Balbuena MD Primary Care Provider: Humaira Boggs APN Diagnoses at Discharge Discharge Diagnosis (1) Acute hypercapnic respiratory failure: Status: Acute (2) Influenza: Status: Acute (3) Anxiety and depression: Status: Acute (4) GERD (gastroesophageal reflux disease): Status: Acute (5) Obstructive sleep apnea: Status: Acute Permanent problem details: On 2 L of oxygen by nasal cannula at night (6) Morbid obesity: Status: Acute (7) Hypertension: Status: Acute (8) Hypothyroidism: Status: Acute (9) Secondary bacterial pneumonia: Status: Acute Reason for Visit Reason for Visit: SOB, febrile, flu-like symptoms Brief History: From H&P: Laurence Malave is a 76 year old female with a past medical history of TIA, hypothyroidism, hyperlipidemia, hypertension, morbid obesity, YEHUDA, history of malignant melanoma in remission, history of stage III colon cancer status post hemicolectomy, has Port-A-Cath in place, who presents [facility] due to fevers, cough, shortness of breath.? Patient is currently in the emergency room on BiPAP alert oriented x3, following commands sitting up in bed on BiPAP, she tells me that the entire family has been sick the last week, she is at her niece's house and everybody's sick with cough runny nose.? She has had fevers, cough, shortness of breath for the last few days.? No calf pain, calf swelling, no hemoptysis.? She is a smoker, but denies a history of COPD does not use oxygen at home.? She also has been complaining of increased bilateral extremity edema. Hospital Course Hospital Course Patient was admitted to the ICU for Acute hypoxic hypercarbic respiratory failure secondary to influenza A and possible secondary bacterial pneumonia and COPD exacerbation. She has a h/o dCHF for which she takes lasix daily. She had been cutting back on her dose thinking she was dehydrated. She was found to be fluid overloaded, likely acute on chronic dCHF. She received treatment with Tamiflu, empiric antibiotics and inhaled duonebs and budesonide, iv lasix transitioned to po LAsix. She improved with these interventions. She has a h/o home 02 use at night time at 2lpm for CPAP. Here she remained between 4-5 lpm here. Home oxygen evaluation was performed prior to discharge. Physical Exam Narrative: General: No acute distress, AO x3 HEENT: PERRLA, pupils bilaterally equal and reactive, pallors not present Chest: Scattered crackles bilaterally CVS: S1-S2 regular, no murmurs, no tachycardia, no gallops, no rubs Abdomen: Soft, nontender, no organomegaly, bowel sounds present Neuro: No focal deficits, no facial deformity, AO x3, power 5/5 in all limbs Extremities: improved lower extremity edema Urinary Catheter Management: Pierson: Cath Placed During This Visit: yes Reason for Continuing Indwelling Catheter: Accurate Measurement of Urinary Output in Critically Ill Patients Urinary Catheter Date of Insertion: 03/05/22 Urinary Catheter Time of Insertion: 22:30 Iperson Latex Free: Cath Placed During This Visit: no Reason for Continuing Indwelling Catheter: Accurate Measurement of Urinary Output in Critically Ill Patients Discharge Data Studies Completed and Pending Completed Studies During Hospitalization Category Date Time Status XR chest 1V portable [id number] Stat Exams 03/05/22 17:06 Completed CV. echo complete* [id number] Routine Ultrasound 03/07/22 06:00 Completed Pending at discharge Category Date Time Status Blood Culture Stat Lab 03/05/22 18:00 Results Sputum Culture and Gram Stain Stat Lab 03/07/22 08:30 Ordered Radiology Impressions Chest X-Ray 03/05/22 17:06 IMPRESSION: Mild left basilar atelectasis. Laboratory Results WBC 2.8 10^3/uL (4.0-10.0) L 03/08/22 04:45 RBC 3.38 10^6/uL (4.1-5.3) L 03/08/22 04:45 Hgb 11.1 g/dL (11.5-15.3) L 03/08/22 04:45 Hct 35.3 % (37.0-47.0) L 03/08/22 04:45 MCV 104.4 fl (81-99) H 03/08/22 04:45 MCH 32.8 pg (28.0-34.0) 03/08/22 04:45 MCHC 31.4 g/dL (30.0-36.0) 03/08/22 04:45 RDW 12.6 % (12.1-15.1) 03/08/22 04:45 Plt Count 101 10^3/cmm (130-400) L 03/08/22 04:45 MPV 8.7 fL (7.4-10.4) 03/08/22 04:45 Neut % (Auto) 55.7 % 03/08/22 04:45 Lymph % (Auto) 30.2 % 03/08/22 04:45 Hamlin % (Auto) 12.9 % 03/08/22 04:45 Eos % (Auto) 0.4 % 03/08/22 04:45 Baso % (Auto) 0.4 % 03/08/22 04:45 Neut # (Auto) 1.55 10^3/uL (1.8-7.7) L 03/08/22 04:45 Lymph # (Auto) 0.8 10^3/uL (0.8-4.8) 03/08/22 04:45 Hamlin # (Auto) 0.4 10^3/uL (0.2-0.9) 03/08/22 04:45 Eos # (Auto) 0.0 10^3/uL (0.0-0.8) 03/08/22 04:45 Baso # (Auto) 0.0 10^3/uL (0.0-0.1) 03/08/22 04:45 Nucleated RBC % (auto) 0 % 03/08/22 04:45 Nucleated RBCs # 0.0 /100WBC 03/08/22 04:45 Specimen Type Arterial 03/06/22 05:00 Sample Site Radial, right 03/06/22 05:00 ABG pH 7.32 (7.35-7.45) L 03/06/22 05:00 ABG pCO2 58.4 mmHg (35-45) H 03/06/22 05:00 ABG pO2 141.0 mmHg (80.0-100.0) H 03/06/22 05:00 ABG HCO3 30.3 mmol/L (22-26) H 03/06/22 05:00 ABG Base Excess 2.5 mmol/L (-2.0-2.0) H 03/06/22 05:00 Jeremiah Test Pos 03/06/22 05:00 Hematocrit 49.1 % (37-47) H 03/06/22 05:00 O2 Delivery Device Bipap 03/06/22 05:00 O2 Liters/Min 15.0 % 03/05/22 17:04 FiO2 45.0 % 03/06/22 05:00 Piece Maker ID Chris 03/06/22 05:00 Sodium 141 mmol/L (136-145) 03/08/22 04:45 Potassium 3.5 mmol/L (3.5-5.1) 03/08/22 04:45 Chloride 97 mmol/L (98-107) L 03/08/22 04:45 Carbon Dioxide 36 mmol/L (22-29) H 03/08/22 04:45 Anion Gap 11.5 (5-19) 03/08/22 04:45 BUN 11 mg/dL (8-23) 03/08/22 04:45 Creatinine 0.6 mg/dL (0.5-0.9) 03/08/22 04:45 GFR Calculation Not Reportable 03/08/22 04:45 Glucose 104 mg/dL (65-115) 03/08/22 04:45 Estimat Average Glucose 100 03/05/22 18:00 Hemoglobin A1c 5.1 % (4.0-6.0) 03/05/22 18:00 Calculated Osmolality 292 mOsm/kg (285-295) 03/08/22 04:45 Lactic Acid 1.1 mmol/L (0.5-2.2) 03/05/22 19:50 Lactate 1.2 mmol/L (0.5-2.2) 03/05/22 18:00 Calcium 8.9 mg/dL (8.5-10.5) 03/08/22 04:45 Phosphorus 3.1 mg/dL (2.5-4.5) 03/06/22 04:15 Magnesium 1.5 mg/dL (1.7-2.3) L 03/06/22 04:15 Total Bilirubin 0.7 mg/dL (0.15-1.2) 03/08/22 04:45 AST 35 U/L (0-32) H 03/08/22 04:45 ALT 13 U/L (0-33) 03/08/22 04:45 Alkaline Phosphatase 80 U/L (35-105) 03/08/22 04:45 Troponin T Baseline 30 ng/L (0-10) H 03/05/22 18:00 Troponin T 120 Minute 33.81 ng/L (0-10) H 03/05/22 19:50 Delta Troponin T 3.81 ABS# (0-10) 03/05/22 19:50 Troponin T Hi Sens 6Hr 23.63 ng/L (0-10) H 03/05/22 23:45 Troponin T Hi Sens 6Hr Delta -6.37 ng/L (0-12) L 03/05/22 23:45 C-Reactive Protein 24.6 mg/L (0.0-4.9) H 03/05/22 19:50 NT-Pro-B Natriuret Pep 549 pg/mL (0-450) H 03/06/22 04:15 Total Protein 5.9 g/dL (6.6-8.7) L 03/08/22 04:45 Albumin 3.0 g/dL (3.5-5.2) L 03/08/22 04:45 Globulin 2.9 g/dL (1.3-4.6) 03/08/22 04:45 Triglycerides 73 mg/dL (0-150) 03/05/22 19:50 Cholesterol 124 mg/dL (0-200) 03/05/22 19:50 LDL Cholesterol, Calc 65 mg/dL (50-129) 03/05/22 19:50 HDL Cholesterol 44 mg/dL (60-100) L 03/05/22 19:50 LDL/HDL Ratio 1.48 RATIO (0.00-3.22) 03/05/22 19:50 Cholesterol/HDL Ratio 2.82 mg/dL (0.0-4.40) 03/05/22 19:50 Procalcitonin 0.26 ng/mL (0-0.5) 03/05/22 19:50 TSH 0.03 uIU/mL (0.27-4.20) L 03/05/22 19:50 Free T4 1.92 ng/dL (0.82-1.77) H 03/07/22 04:05 Free T3 1.9 PG/ML (2.0-4.4) L 03/07/22 04:05 Urine Color Yellow (Yellow) 03/05/22 22:45 Urine Appearance Sl hazy (CLEAR) A 03/05/22 22:45 Urine pH 5 (5-7) 03/05/22 22:45 Ur Specific Wells 1.015 (1.005-1.030) 03/05/22 22:45 Urine Protein Neg (Negative) 03/05/22 22:45 Urine Glucose (UA) Norm (Normal) 03/05/22 22:45 Urine Ketones Negative (Negative) 03/05/22 22:45 Urine Blood 3+ (Negative) H 03/05/22 22:45 Urine Nitrate Negative (Negative) 03/05/22 22:45 Urine Bilirubin Neg (Negative) 03/05/22 22:45 Urine Urobilinogen Neg mg/dL (Negative) 03/05/22 22:45 Ur Leukocyte Esterase Negative (Negative) 03/05/22 22:45 Urine RBC >100 /hpf (0-2) H 03/05/22 22:45 Urine WBC 10-15 /hpf (0-5) H 03/05/22 22:45 Ur Squamous Epith Cells None /hpf (0-5) 03/05/22 22:45 Amorphous Sediment Not Reportable 03/05/22 22:45 Urine Bacteria 2+ /hpf (NONE) H 03/05/22 22:45 Nasal Influ A H1 2009 PCR Detected (NOT DETECT) A 03/05/22 20:07 Coronavirus 229E (PCR) Not detected (NOT DETECT) 03/05/22 18:00 Influenza A (H1) PCR Not detected (NOT DETECT) 03/05/22 20:07 Influenza A (H3) PCR Not detected (NOT DETECT) 03/05/22 20:07 Influenza Type A Ag positive (Negative) 03/05/22 18:00 Influenza Type A (PCR) Detected (NOT DETECT) A 03/05/22 20:07 Influenza Type B Ag negative (Negative) 03/05/22 18:00 Influenza Type B (PCR) Not detected (NOT DETECT) 03/05/22 20:07 SARS-CoV-2 (PCR) Not detected (NOT DETECT) 03/05/22 18:00 Additional Data from Hospital Stay Intake and Output 03/08/22 03/09/22 03/09/22 22:59 06:59 14:59 Intake Total 540 / 1440 Output Total 1500 / 1500 Balance 540 / 1440 -1500 / -60 Intake: Oral 540 / 1140 Output: Urine 1500 / 1500 Other: # Voids 1 03/07/22 : Echocardiogram : CONCLUSIONS ?Left ventricular ejection fraction is estimated at 73 %. ?No regional wall motion abnormalities. ?Features of aortic valve sclerosis. ?Trace of tricuspid regurgitation ?Estimated pulmonary peak systolic pressure 28 mmHg ?Possible normal RV size and ejection fraction. ?There is no pericardial effusion. Vitals Last Vital Signs Temp 98.3 F 03/09/22 08:00 Pulse 65 03/09/22 08:36 Resp 20 H 03/09/22 08:36 BP 131/70 03/09/22 08:00 Pulse Ox 88 L 03/09/22 10:16 O2 Del Method 03/09/22 08:36 O2 Flow Rate 5 03/09/22 10:16 FiO2 40 03/07/22 09:25 Discharge Plan Discharge Patient Disposition: Home Health Service Condition: Stable Prescriptions: New clotrimazole 1 % Cream 1 applic topical TID 30 Days Qty: 30 0RF albuterol sulfate [ProAir HFA] 90 mcg/actuation HFA aerosol inhaler 1 inh inhalation Q6H PRN (Reason: shortness of breath or wheezing) Qty: 6.7 0RF levothyroxine 125 mcg Tablet 125 mcg PO DAILY 30 Days Qty: 30 0RF oseltamivir 75 mg Capsule 75 mg PO BID 2 Days Qty: 4 0RF metoprolol tartrate 50 mg Tablet 25 mg PO BID 30 Days Qty: 30 0RF fluticasone propion-salmeterol [Advair Diskus] 500-50 mcg/dose blister with device 1 inh inhalation BID Qty: 60 0RF Continued ondansetron HCl 4 mg tablet 4 mg PO Q4H PRN (Reason: nausea and vomiting) Qty: 30 3RF pantoprazole 40 mg tablet,delayed release (DR/EC) 40 mg PO DAILY Qty: 90 3RF hydrocodone-acetaminophen 5-325 mg tablet 1 - 2 tab PO Q4H PRN (Reason: pain) 30 Days Qty: 60 0RF potassium chloride 10 mEq tablet extended release 10 - 20 meq PO DAILY PRN (Reason: w/lasix) cholestyramine (with sugar) 4 gram powder 4 g PO EVERY OTHER DAY Changed furosemide 20 mg tablet 40 mg PO DAILY 30 Days Qty: 30 0RF Discontinued amlodipine 5 mg tablet 5 mg PO DAILY metoprolol tartrate 50 mg tablet 50 mg PO BID levothyroxine 150 mcg Tablet 150 mcg PO DAILY olmesartan 20 mg Tablet 20 mg PO DAILY Discharge Orders: Discharge Order (Routine); Ordered 03/09/22 Ordered By: Daiana Balbuena Other Ambulatory Orders: DME: Oxygen (Order) Location: None Selected Ordered By: Daiana Balbuena Ref[facility]: [facility]) [Outside] Boggs,FRANCOIS Gerardo [Primary Care Provider] - Discharge Diet: Usual diet Discharge Activity: Resume usual activity Patient Instructions: Opioid Safety Discharge Attestations Time Spent in Discharge Care*: greater than 30 min Quality Metrics Clinical Quality Measures [ No reported AMI, CVA or VTE this stay] Coding Level of Care Code Acute Chg [facility] note Diagnoses Acute hypercapnic respiratory failure J96.02 Influenza J11.1 Anxiety and depression F41.9; F32.9 GERD (gastroesophageal reflux disease) K21.9 Obstructive sleep apnea G47.33 Morbid obesity E66.01 Hypertension I10 Hypothyroidism E03.9 Secondary bacterial pneumonia J15.9
[2022-03-09 12:14] VITALS: PULSE 68; RESP 20; O2SAT 91
--- NOTE | 2022-03-09 14:38 | PC.OT ---
OT EVALUATION ORDERS RECEIVED. PATIENT DISCHARGED BEFORE EVALUATION COULD BE COMPLETED.
== END 2022-03-09 14:00 | disposition home health service (06) | DRG 189 ==
LOC: ER 19:44 → ICU 19:46 → MEDSURG 03-07 10:57
PROVIDERS: Admitting Provider Family Medicine; Emergency Provider Emergency Medicine; PCP Nurse Practitioner Family; Visit Provider Student in an Organized Health Care Education/Training Program
DX: J96.02 Acute respiratory failure with hypercapnia (principal); J10.08 Influenza due to other identified influenza virus with other specified pneumonia; I50.33 Acute on chronic diastolic (congestive) heart failure; J15.9 Unspecified bacterial pneumonia; Z68.43 Body mass index [BMI] 50.0-59.9, adult; J44.1 Chronic obstructive pulmonary disease with (acute) exacerbation; J96.01 Acute respiratory failure with hypoxia; I11.0 Hypertensive heart disease with heart failure; E03.9 Hypothyroidism, unspecified; E66.01 Morbid (severe) obesity due to excess calories; G47.33 Obstructive sleep apnea (adult) (pediatric); K21.9 Gastro-esophageal reflux disease without esophagitis; F32.A Depression, unspecified; F41.9 Anxiety disorder, unspecified; F17.210 Nicotine dependence, cigarettes, uncomplicated; Z99.81 Dependence on supplemental oxygen; Z86.73 Personal history of transient ischemic attack (TIA), and cerebral infarction without residual deficits; Z85.820 Personal history of malignant melanoma of skin; Z85.038 Personal history of other malignant neoplasm of large intestine; Z90.49 Acquired absence of other specified parts of digestive tract; Z20.828 Contact with and (suspected) exposure to other viral communicable diseases; Z66 Do not resuscitate
CPT/HCPCS: 36415; 36600; 51702; 71045; 80048; 80053; 80061; 81001; 81003; 82803; 83036; 83605; 83735; 83880; 84100; 84145; 84439; 84443; 84481; 84484; 85025; 86140; 86403; 87040; 87086; 87631; 87635; 87804; 93005; 93306; 94640; 94660; 94760; 96360; 96372; 99285; J0456; J0696; J1650; J1940; J7030; J7050; J7626

== ENCOUNTER 2022-04-28 11:40 | Oncology outpatient (recurring) (ONCR) | payer MEDICARE, OTHER, SELFPAY | END 2022-05-11 23:59 | disposition home or self-care (01) | PROVIDERS: PCP Nurse Practitioner Family; Referring Provider Surgery; Visit Provider Nurse Practitioner Family | DX: Z08 Encounter for follow-up examination after completed treatment for malignant neoplasm; Z85.820 Personal history of malignant melanoma of skin; M16.12 Unilateral primary osteoarthritis, left hip; R22.2 Localized swelling, mass and lump, trunk; N28.89 Other specified disorders of kidney and ureter; Z92.25 Personal history of immunosuppression therapy | CPT/HCPCS: 80053; 83615; 85025; 99214 ==

== ENCOUNTER 2022-08-31 12:53 | Outpatient (CLI) | payer MEDICARE, OTHER, SELFPAY ==
--- NOTE | 2022-08-31 14:30 | CTR_ITS ---
PROCEDURE INFORMATION: Exam: CT Chest With Contrast; Diagnostic Exam date and time: 08/31/2022 2:36 PM Age: 76 years old Clinical indication: Condition or disease; Other: Malignant melanoma; Follow-up oncological assessment; Prior surgery; Surgery date: 6+ months; Surgery type: Port, colon, appy; Additional info: Malignang melanoma TECHNIQUE: Imaging protocol: Diagnostic computed tomography of the chest with contrast. Radiation optimization: All CT scans at this facility use at least one of these dose optimization techniques: automated exposure control; mA and/or kV adjustment per patient size (includes targeted exams where dose is matched to clinical indication); or iterative reconstruction. Contrast material: OMNI 350; Contrast volume: 95 ml; Contrast route: INTRAVENOUS (IV); REPORTING DATA: Count of CT and Cardiac NM exams in prior 12 months: This patient has received [address] and 0 known cardiac nuclear medicine studies in the 12 months prior to the current study. COMPARISON: CT chest abdpel w/*[id number] 01/22/2022 12:41 PM RADIATION DOSE METRICS: Total DLP (mGy-cm): 1571.4 FINDINGS: Tubes, catheters and devices: Left IJ approach MediPort is in satisfactory position, with distal tip in the SVC, approximately 3 cm above the SVC/RA junction. Lungs: Few tiny scattered calcified granulomas are seen in both lungs. No consolidation. Streaky bibasilar atelectasis noted. Unchanged 0.3 cm triangular shaped pleural-based nodule in the right middle lobe, adjacent to the minor fissure, likely representing perifissural lymph node. Pleural spaces: Unremarkable. No pneumothorax. No pleural effusion. Heart: Unremarkable. No cardiomegaly. No pericardial effusion. Lymph nodes: Small subcarinal and bilateral hilar calcified lymph nodes noted, likely sequela of previous granulomatous disease. Vasculature: Unremarkable. No aortic aneurysm. Bones/joints: Degenerative changes of the spine seen. Soft tissues: Unremarkable. PROCEDURE INFORMATION: Exam: CT Abdomen And Pelvis With Contrast Exam date and time: 08/31/2022 2:36 PM Age: 76 years old Clinical indication: Condition or disease; Other: Malignant melanoma; Follow-up oncological assessment; Prior surgery; Surgery date: 6+ months; Surgery type: Port, colon, appy; Additional info: Malignang melanoma TECHNIQUE: Imaging protocol: Computed tomography of the abdomen and pelvis with contrast. Radiation optimization: All CT scans at this facility use at least one of these dose optimization techniques: automated exposure control; mA and/or kV adjustment per patient size (includes targeted exams where dose is matched to clinical indication); or iterative reconstruction. Contrast material: OMNI 350; Contrast volume: 95 ml; Contrast route: INTRAVENOUS (IV); REPORTING DATA: Count of CT and Cardiac NM exams in prior 12 months: This patient has received [address] and 0 known cardiac nuclear medicine studies in the 12 months prior to the current study. COMPARISON: CT chest abdpel w/*[id number] 01/22/2022 12:41 PM RADIATION DOSE METRICS: Total DLP (mGy-cm): 1571.4 FINDINGS: Liver: The liver demonstrates volume redistribution and nodular contour, consistent with cirrhosis. Unchanged 1.5 cm hypodense lesion along the anterior aspect of segment Radha. Additional very subtle subcentimeter hypodense lesions are suggested throughout the liver, unchanged. There is tiny calcific densities scattered throughout the liver, likely sequela of previous granulomatous disease. Gallbladder and bile ducts: Cholelithiasis is present. No pericholecystic inflammatory changes to suggest cholecystitis. Pancreas: Normal. No ductal dilation. Spleen: There are tiny calcific densities scattered throughout the spleen, likely sequela of previous granulomatous disease. The spleen is otherwise unremarkable. Adrenal glands: Normal. No mass. Kidneys and ureters: There are nonobstructing stones in the left kidney, the largest measuring 1.5 cm in the renal pelvis. Symmetric enhancement of the kidneys. No hydronephrosis. Interval increase in size of incompletely characterized hypodense lesion in the left lower kidney measuring 4.7 cm (previously 4.4 cm). Additional subcentimeter focus of decreased attenuation in the lateral left mid kidney is too small to characterize. Stomach and bowel: Unremarkable. No obstruction. No mucosal thickening. Appendix: No evidence of appendicitis. Intraperitoneal space: Unremarkable. No free air. No significant fluid collection. Vasculature: Unremarkable. No abdominal aortic aneurysm. Lymph nodes: Mildly prominent lymph nodes noted in the melany hepatis, the largest measuring 1.5 cm in transverse dimension. Urinary bladder: Unremarkable as visualized. Reproductive: Unremarkable as visualized. Bones/joints: Severe degenerative changes of the left hip joint noted. Soft tissues: Small umbilical and right paraumbilical fat containing hernias noted. Thickening of the skin with mild stranding of the subcutaneous fat in the low anterior abdominal wall is re-identified. CT/CT chest abdpel w/*[id number] IMPRESSION: No evidence of metastatic disease in the chest. IMPRESSION: 1. Unchanged hepatic hypodense lesions. 2. Incompletely characterized left kidney hypodense lesions. 3. Further evaluation of left renal hepatic lesions with contrast enhanced abdomen MRI should be considered.
[2022-08-31] MEDS: iohexol 350 mg/mL 500 mL Btl (per mL) PO (14:31)
[2022-08-31 14:33] LABS: Blood Urea Nitrogen 10 mg/dL (8-23)
[2022-08-31] MEDS: iohexol 350 mg/mL 500 mL Btl (per mL) IV (14:48)
== END 2022-08-31 12:54 | disposition home or self-care (01) ==
LOC: RAD 12:57
PROVIDERS: PCP Nurse Practitioner Family; Visit Provider Internal Medicine Medical Oncology
DX: C43.9 Malignant melanoma of skin, unspecified (principal); K76.9 Liver disease, unspecified; N28.9 Disorder of kidney and ureter, unspecified
CPT/HCPCS: 71260; 74177; 82565; 84520; Q9967

== ENCOUNTER 2022-09-02 13:18 | Oncology outpatient (recurring) (ONCR) | payer MEDICARE, OTHER, SELFPAY ==
[2022-09-02 13:58] LABS: Basophils % 0.7 %; Eosinophils # 0.1 10^3/uL (0.0-0.8); Eosinophils % 2.1 %; Hematocrit 38.9 % (37.0-47.0); Hemoglobin 12.2 g/dL (11.5-15.3); Lymphocytes # 1.6 10^3/uL (0.8-4.8); Lymphocytes % 36.3 %; Mean Corpuscular HGB Conc 31.4 g/dL (30.0-36.0); Mean Corpuscular Hemoglobin 32.1 pg (28.0-34.0); Mean Corpuscular Volume 102.4 fl (81-99); Mean Platelet Volume 8.9 fL (7.4-10.4); Monocytes # 0.4 10^3/uL (0.2-0.9); Monocytes % 9.9 %; Neutrophils # 2.21 10^3/uL (1.8-7.7); Neutrophils % 50.8 %; Nucleated Red Blood Cells % 0 %; Platelet Count 147 10^3/cmm (130-400); Red Cell Distribution Width 12.8 % (12.1-15.1); White Blood Count 4.4 10^3/uL (4.0-10.0)
[2022-09-02 14:13] LABS: Alanine Aminotransferase 9 U/L (0-33); Albumin Level 3.5 g/dL (3.5-5.2); Alkaline Phosphatase 101 U/L (35-105); Anion Gap 11.3 (5-19); Aspartate Amino Transferase 25 U/L (0-32); Blood Urea Nitrogen 12 mg/dL (8-23); Calcium 9.1 mg/dL (8.5-10.5); Carbon Dioxide 29 mmol/L (22-29); Chloride 104 mmol/L (98-107); Glucose 132 mg/dL (65-115); Lactate Dehydrogenase 198 U/L (135-214); Osmolality Calculated 292 mOsm/kg (285-295); Potassium 4.3 mmol/L (3.5-5.1); Sodium 140 mmol/L (136-145); Total Bilirubin 2.1 mg/dL (0.15-1.2); Total Protein 6.5 g/dL (6.6-8.7)
== END 2022-09-08 23:59 | disposition home or self-care (01) ==
PROVIDERS: Internal Medicine Medical Oncology; PCP Nurse Practitioner Family; Referring Provider Surgery; Visit Provider Nurse Practitioner Family
DX: C43.8 Malignant melanoma of overlapping sites of skin; C77.3 Secondary and unspecified malignant neoplasm of axilla and upper limb lymph nodes; M16.12 Unilateral primary osteoarthritis, left hip; R63.4 Abnormal weight loss; Z68.42 Body mass index [BMI] 45.0-49.9, adult; R22.2 Localized swelling, mass and lump, trunk; Z92.25 Personal history of immunosuppression therapy; F17.210 Nicotine dependence, cigarettes, uncomplicated
CPT/HCPCS: 36415; 80053; 83615; 85025; 99214

== ENCOUNTER 2022-11-23 13:01 | Oncology outpatient (recurring) (ONCR) | payer MEDICARE, OTHER, SELFPAY ==
[2022-11-23 13:11] VITALS: BP 124/60; PULSE 62; RESP 18; TEMP 36.9; O2SAT 92
[2022-11-23 13:21] LABS: Basophils % 0.8 %; Eosinophils # 0.1 10^3/uL (0.0-0.8); Eosinophils % 2.3 %; Hematocrit 35.9 % (37.0-47.0); Hemoglobin 11.3 g/dL (11.5-15.3); Lymphocytes # 1.7 10^3/uL (0.8-4.8); Lymphocytes % 35.8 %; Mean Corpuscular HGB Conc 31.5 g/dL (30.0-36.0); Mean Corpuscular Hemoglobin 31.9 pg (28.0-34.0); Mean Corpuscular Volume 101.4 fl (81-99); Mean Platelet Volume 8.5 fL (7.4-10.4); Monocytes # 0.4 10^3/uL (0.2-0.9); Monocytes % 8.8 %; Neutrophils # 2.48 10^3/uL (1.8-7.7); Neutrophils % 52.1 %; Nucleated Red Blood Cells % 0 %; Platelet Count 149 10^3/cmm (130-400); Red Blood Count 3.54 10^6/uL (4.1-5.3); White Blood Count 4.8 10^3/uL (4.0-10.0)
[2022-11-23 13:58] LABS: Alanine Aminotransferase 12 U/L (0-33); Albumin Level 3.4 g/dL (3.5-5.2); Alkaline Phosphatase 106 U/L (35-105); Anion Gap 10.5 (5-19); Aspartate Amino Transferase 24 U/L (0-32); Blood Urea Nitrogen 12 mg/dL (8-23); Calcium 9.3 mg/dL (8.5-10.5); Carbon Dioxide 32 mmol/L (22-29); Chloride 102 mmol/L (98-107); Globulin 2.6 g/dL (1.3-4.6); Glucose 181 mg/dL (65-115); Lactate Dehydrogenase 197 U/L (135-214); Osmolality Calculated 296 mOsm/kg (285-295); Potassium 3.5 mmol/L (3.5-5.1); Sodium 141 mmol/L (136-145); Total Bilirubin 1.5 mg/dL (0.15-1.2)
== END 2022-12-09 23:59 | disposition home or self-care (01) ==
PROVIDERS: Internal Medicine Medical Oncology; PCP Nurse Practitioner Family; Referring Provider Surgery; Visit Provider Nurse Practitioner Family
DX: C43.8 Malignant melanoma of overlapping sites of skin; C77.8 Secondary and unspecified malignant neoplasm of lymph nodes of multiple regions; N28.89 Other specified disorders of kidney and ureter; Z86.16 Personal history of COVID-19; Z85.038 Personal history of other malignant neoplasm of large intestine; Z92.21 Personal history of antineoplastic chemotherapy; Z92.25 Personal history of immunosuppression therapy; C43.59 Malignant melanoma of other part of trunk
CPT/HCPCS: 36591; 80053; 83615; 85025; 99214; J1642

== ENCOUNTER 2023-01-25 15:33 | Oncology outpatient (recurring) (ONCR) | payer MEDICARE, OTHER, SELFPAY ==
[2023-01-25 15:41] VITALS: BP 150/79; PULSE 61; RESP 16; TEMP 36.9; O2SAT 92
== END 2023-02-08 23:59 | disposition home or self-care (01) ==
PROVIDERS: PCP Nurse Practitioner Family; Referring Provider Surgery; Visit Provider Nurse Practitioner Family
DX: Z45.2 Encounter for adjustment and management of vascular access device (principal); C43.62 Malignant melanoma of left upper limb, including shoulder
CPT/HCPCS: 96523; J1642

== ENCOUNTER 2023-02-22 14:17 | Oncology outpatient (recurring) (ONCR) | payer MEDICARE, OTHER, SELFPAY ==
[2023-02-22 14:24] VITALS: BP 117/58; PULSE 57; RESP 16; TEMP 36.8; O2SAT 93
== END 2023-03-10 23:59 | disposition home or self-care (01) ==
LOC: ONCMED 14:17
PROVIDERS: PCP Nurse Practitioner Family; Referring Provider Surgery; Visit Provider Nurse Practitioner Family
DX: Z45.2 Encounter for adjustment and management of vascular access device (principal)
CPT/HCPCS: 96523; J1642

== ENCOUNTER 2023-03-22 13:58 | Oncology outpatient (recurring) (ONCR) | payer MEDICARE, OTHER, SELFPAY ==
[2023-03-22 14:19] VITALS: BP 148/66; PULSE 72; RESP 16; TEMP 36.9; O2SAT 91
[2023-03-22 14:54] LABS: Basophils % 0.5 %; Eosinophils # 0.1 10^3/uL (0.0-0.8); Hematocrit 35.4 % (36-47); Mean Corpuscular HGB Conc 31.9 g/dL (30-55); Mean Corpuscular Hemoglobin 32.1 pg (27-33); Mean Corpuscular Volume 100.6 fl (85-98); Mean Platelet Volume 8.8 fL (7.4-10.4); Monocytes # 0.4 10^3/uL (0.2-0.9); Monocytes % 7.9 %; Neutrophils # 1.97 10^3/uL (1.8-7.7); Neutrophils % 44.4 %; Nucleated Red Blood Cells % 0 %; Platelet Count 141 10^3/cmm (157-399); Red Blood Count 3.52 10^6/uL (3.85-5.65); Red Cell Distribution Width 12.9 % (12.1-15.1); White Blood Count 4.44 10^3/uL (3.29-11.43)
[2023-03-22 15:15] LABS: Alanine Aminotransferase 12 U/L (0-33); Albumin Level 3.6 g/dL (3.5-5.2); Alkaline Phosphatase 91 U/L (35-105); Anion Gap 10.9 (5-19); Aspartate Amino Transferase 26 U/L (0-32); Blood Urea Nitrogen 10 mg/dL (8-23); Calcium 9.4 mg/dL (8.5-10.5); Carbon Dioxide 28 mmol/L (22-29); Chloride 106 mmol/L (98-107); Globulin 2.7 g/dL (1.3-4.6); Glucose 82 mg/dL (65-115); Lactate Dehydrogenase 207 U/L (135-214); Osmolality Calculated 290 mOsm/kg (285-295); Potassium 3.9 mmol/L (3.5-5.1); Sodium 141 mmol/L (136-145); Total Bilirubin 1.8 mg/dL (0.15-1.2); Total Protein 6.3 g/dL (6.6-8.7)
== END 2023-04-10 23:59 | disposition home or self-care (01) ==
PROVIDERS: Nurse Practitioner Family; PCP Nurse Practitioner Family; Referring Provider Surgery; Visit Provider Nurse Practitioner Family
DX: Z45.2 Encounter for adjustment and management of vascular access device (principal); C43.9 Malignant melanoma of skin, unspecified; C43.59 Malignant melanoma of other part of trunk; C43.62 Malignant melanoma of left upper limb, including shoulder; N28.9 Disorder of kidney and ureter, unspecified; Z86.2 Personal history of diseases of the blood and blood-forming organs and certain disorders involving the immune mechanism
CPT/HCPCS: 36591; 80053; 83615; 85025; 99214; J1642

== ENCOUNTER 2023-03-30 11:45 | Outpatient (CLI) | payer MEDICARE, OTHER, SELFPAY ==
[2023-03-30] MEDS: iohexol 350 mg/mL 500 mL Btl (per mL) PO (12:44)
--- NOTE | 2023-03-30 13:00 | CT_ITS ---
WS: [id number] CT CHEST, ABDOMEN, AND PELVIS TECHNIQUE: Contrast-enhanced CT of the chest, abdomen, and pelvis with coronal and sagittal reformatt ed images. CLINICAL INFORMATION: surveillance COMPARISON: None. DLP: 1568.[address] scans at [facility] use at least one of these dose optimization techniques: automated e xposure control; mA and/or kV adjustment per patient size (includes targeted exams where dose is matc hed to clinical indication); or iterative reconstruction. CT CHEST: Lungs are well aerated. Stable tiny nodule RIGHT middle lobe along the fissure. No acute pulmonary in filtrates. Few calcified granulomas. Subsegmental atelectasis in the lung bases. Normal caliber thora cic aorta. Proximal main pulm arteries are normal. No mediastinal or hilar lymphadenopathy. Calcified RIGHT hilar and subcarinal lymph nodes. Hypertrophic changes thoracic spine with ankylosis. CT ABDOMEN AND PELVIS: Cirrhotic configuration to the liver.. Small cyst in the dome the liver. Tiny esophageal hiatal dale ia. Fatty atrophy of the pancreas. Portal vein and splenic vein are patent. Cholelithiasis. Normal ca liber abdominal aorta. Adrenal glands are normal. Nonobstructing calculi within the LEFT renal pelvis the largest measuring 10 mm. Stable 2.0 cm melany hepatis lymph node. This is stable over multiple pr ior examinations. Exophytic LEFT lower pole renal cyst measuring 4.2 x 4.2 cm. Fat-containing umbilical and RIGHT periumbilical hernia. No herniated bowel. Herniated omental fat. N o high-grade small or large bowel obstruction. Advanced arthritis LEFT hip with [id number] articula tion. Stable RIGHT hemicolectomy with ileocolic anastomosis. IMPRESSION: 1. No evidence of new or progressive metastatic disease in the chest abdomen or pelvis. 2. Stable hepatic cyst. 3. Cirrhotic liver configuration 4. Small esophageal hernia. 5. Fat-containing umbilical and RIGHT periumbilical hernia with herniated omental fat. No herniated bowel. 6. No new suspicious pulmonary parenchymal opacities. Tiny nodule in the RIGHT middle lobe along the fissure unchanged. 7. Subsegmental ectasis in the lung bases. 8. Cardiomegaly. 9. RIGHT hemicolectomy with stable ileocolic anastomosis. 10. Stable cyst LEFT lower pole kidney. 11. Stable lymph node in the melany hepatis unchanged since 01/22/2022 measuring 2.0 cm 12. Cholelithiasis.
[2023-03-30] MEDS: iohexol 350 mg/mL 500 mL Btl (per mL) IV (13:22)
== END 2023-03-30 11:46 | disposition home or self-care (01) ==
LOC: RAD 11:45
PROVIDERS: PCP Nurse Practitioner Family; Visit Provider Nurse Practitioner Family
DX: C43.9 Malignant melanoma of skin, unspecified (principal); N28.89 Other specified disorders of kidney and ureter; K76.89 Other specified diseases of liver; K44.9 Diaphragmatic hernia without obstruction or gangrene; K42.9 Umbilical hernia without obstruction or gangrene; I51.7 Cardiomegaly; K80.20 Calculus of gallbladder without cholecystitis without obstruction; N28.1 Cyst of kidney, acquired
CPT/HCPCS: 71260; 74177; Q9967

== ENCOUNTER 2023-08-30 16:00 | Oncology outpatient (recurring) (ONCR) | payer MEDICARE, OTHER, SELFPAY ==
[2023-08-16 14:45] LABS: Basophils % 0.6 %; Eosinophils # 0.1 10^3/uL (0.0-0.8); Eosinophils % 1.6 %; Hematocrit 32.9 % (36-47); Lymphocytes # 1.9 10^3/uL (0.8-4.8); Mean Corpuscular HGB Conc 31.3 g/dL (30-55); Mean Corpuscular Hemoglobin 30.8 pg (27-33); Mean Corpuscular Volume 98.5 fl (85-98); Mean Platelet Volume 8.5 fL (7.4-10.4); Monocytes # 0.5 10^3/uL (0.2-0.9); Monocytes % 10.1 %; Neutrophils % 48.5 %; Nucleated Red Blood Cells % 0 %; Platelet Count 123 10^3/cmm (157-399); Red Blood Count 3.34 10^6/uL (3.85-5.65); Red Cell Distribution Width 12.1 % (12.1-15.1); White Blood Count 4.95 10^3/uL (3.29-11.43)
[2023-08-16 15:08] LABS: Alanine Aminotransferase 9 U/L (0-33); Albumin Level 3.4 g/dL (3.5-5.2); Alkaline Phosphatase 100 U/L (35-105); Anion Gap 11.1 (5-19); Aspartate Amino Transferase 23 U/L (0-32); Blood Urea Nitrogen 8 mg/dL (8-23); Calcium 8.3 mg/dL (8.5-10.5); Carbon Dioxide 28 mmol/L (22-29); Chloride 107 mmol/L (98-107); Globulin 2.9 g/dL (1.3-4.6); Glucose 117 mg/dL (65-115); Lactate Dehydrogenase 214 U/L (135-214); Osmolality Calculated 293 mOsm/kg (285-295); Potassium 4.1 mmol/L (3.5-5.1); Sodium 142 mmol/L (136-145); Total Bilirubin 1.2 mg/dL (0.15-1.2); Total Protein 6.3 g/dL (6.6-8.7)
--- NOTE | 2023-08-30 16:00 | CT_ITS ---
WS: [id number] CT CHEST, ABDOMEN AND PELVIS WITH CONTRAST HISTORY: History of melanoma. TECHNIQUE: Contiguous 5 mm axial imaging performed through the chest, abdomen and pelvis with IV cont rast, oral contrast has been provided. Coronal and sagittal reformats chest. Coronal and sagittal ref ormats through the abdomen and pelvis. All CT scans at [facility] use at least one of these d ose optimization techniques: automated exposure control; mA and/or kV adjustment per patient size (in cludes targeted exams where dose is matched to clinical indication); or iterative reconstruction. CONTRAST: Omnipaque 350; 100 mL IV. DLP: 1599.53 mGy.cm COMPARISON: 03/30/2023, 08/31/[address]: Mild dependent changes at the lung bases. There is few scattered benign granulomata. No nicolas nge in the 5 mm nodule along the minor fissure. No suspicious masses are identified. No pericardial o r pleural effusions. LEFT subclavian Mediport. Mild atherosclerosis aorta. Normal size pulmonary pavan ry. No RIGHT heart strain. No mediastinal or hilar adenopathy. There is a small amount of contrast re maining in the distal esophagus. No soft tissue nodules. There is a very small but unchanged paracard iac lymph node measuring [address]: Reidentified is a small cyst along the superior diaphragmatic surface of the liver which is slightly decreased in size. Lobular cirrhotic appearance of the liver. No mass identified. Gallbla dder is slightly contracted. At the gallbladder neck there are 2 very small stones identified. Spleen is not enlarged. Spleen does contain granulomata. Fatty atrophy and replacement of the pancreas. No pancreatic duct or common bile duct dilatation. No adrenal mass. No renal obstruction. Reidentified i s a 5.0 cm cyst lower pole LEFT kidney. Nonobstructing calcifications in the central renal pelvis wit h the entire cluster measuring 2.2 x 1.1 cm. No obstruction. Stomach is normally distended. No small bowel obstruction. No mesenteric deposits. RIGHT hemicolectom y with stable ileocolic anastomosis. No obstruction or soft tissue mass at the anastomotic site. Vent ral abdominal wall hernia contains omentum but no GI tract. This is a large hernia but similar to see or studies. There is marked thinning of the abdominal wall musculature. Pelvic CT: No free fluid or adenopathy. Partially distended urinary bladder. Uterus is atrophic and m idline. No adnexal masses. There is advanced muscle atrophy of the pelvis. Severe degenerative changes remodeling involving the LEFT hip. Osteophytic ridging around the femoral head. CT/CT chest abdpel w/*[id number] IMPRESSION: 1. No pulmonary mass or metastatic disease. 2. No pathologic adenopathy within the chest, abdomen or pelvis. 3. Status post RIGHT hemicolectomy with stable ileocolic anastomosis. 4. Stable hepatic and LEFT renal cysts. 5. Cholelithiasis without acute cholecystitis. 6. Large ventral abdominal wall hernia contains omentum only. 7. Severe LEFT hip arthropathy. Remodeling and narrowing of the hip joint.
[2023-08-30] MEDS: iohexol 350 mg/mL 500 mL Btl (per mL) IV (16:04)
[2023-08-30] MEDS: iohexol 350 mg/mL 500 mL Btl (per mL) PO (16:04)
== END 2023-09-09 23:59 | disposition home or self-care (01) ==
LOC: ONCMED 09-07 18:36
PROVIDERS: Nurse Practitioner Family; PCP Nurse Practitioner Family; Referring Provider Surgery; Visit Provider Nurse Practitioner Family
DX: Z53.9 Procedure and treatment not carried out, unspecified reason (principal); C43.9 Malignant melanoma of skin, unspecified; Z90.49 Acquired absence of other specified parts of digestive tract; N28.1 Cyst of kidney, acquired; K80.20 Calculus of gallbladder without cholecystitis without obstruction; K43.9 Ventral hernia without obstruction or gangrene
CPT/HCPCS: 36591; 71260; 74177; 80053; 83615; 85025; 99214; Q9967

== ENCOUNTER 2023-09-30 10:09 | Oncology outpatient (recurring) (ONCR) | payer MEDICARE, OTHER, SELFPAY | END 2023-10-09 23:59 | disposition home or self-care (01) | PROVIDERS: PCP Nurse Practitioner Family; Referring Provider Surgery; Visit Provider Nurse Practitioner Family | DX: Z45.2 Encounter for adjustment and management of vascular access device (principal); Z53.9 Procedure and treatment not carried out, unspecified reason | CPT/HCPCS: 96523 ==

== ENCOUNTER 2023-11-21 11:42 | Oncology outpatient (recurring) (ONCR) | payer MEDICARE, OTHER, SELFPAY ==
[2023-11-21 12:27] LABS: Basophils % 0.6 %; Eosinophils # 0.1 10^3/uL (0.0-0.8); Hematocrit 35.5 % (36-47); Lymphocytes # 1.7 10^3/uL (0.8-4.8); Lymphocytes % 34.7 %; Mean Corpuscular Hemoglobin 28.1 pg (27-33); Mean Corpuscular Volume 96.7 fl (85-98); Mean Platelet Volume 8.7 fL (7.4-10.4); Monocytes # 0.5 10^3/uL (0.2-0.9); Monocytes % 9.5 %; Neutrophils # 2.61 10^3/uL (1.8-7.7); Nucleated Red Blood Cells % 0 %; Platelet Count 135 10^3/cmm (157-399); Red Blood Count 3.67 10^6/uL (3.85-5.65); White Blood Count 4.93 10^3/uL (3.29-11.43)
[2023-11-21 12:49] LABS: Alanine Aminotransferase 9 U/L (0-33); Albumin Level 3.4 g/dL (3.5-5.2); Alkaline Phosphatase 92 U/L (35-105); Aspartate Amino Transferase 21 U/L (0-32); Blood Urea Nitrogen 11 mg/dL (8-23); Carbon Dioxide 32 mmol/L (22-29); Chloride 101 mmol/L (98-107); Globulin 2.8 g/dL (1.3-4.6); Glucose 131 mg/dL (65-115); Lactate Dehydrogenase 190 U/L (135-214); Osmolality Calculated 289 mOsm/kg (285-295); Sodium 139 mmol/L (136-145); Total Bilirubin 1.1 mg/dL (0.15-1.2); Total Protein 6.2 g/dL (6.6-8.7)
[2023-11-21 14:56] LABS: Ferritin 14 ng/mL (15-150); Iron 49 ug/dL (37-145); Percent Saturation 12.2 % (20-50); Total Iron Binding Capacity 400 mcg/dl; Unsaturated Iron Binding 351 ug/dL (112-347); Vitamin B12 353 pg/mL (232-1245)
== END 2023-12-10 23:59 | disposition home or self-care (01) ==
PROVIDERS: Nurse Practitioner Family; PCP Nurse Practitioner Family; Referring Provider Surgery; Visit Provider Nurse Practitioner Family
DX: C43.9 Malignant melanoma of skin, unspecified (principal); N28.89 Other specified disorders of kidney and ureter; D64.9 Anemia, unspecified
CPT/HCPCS: 36591; 80053; 82607; 82728; 83540; 83550; 83615; 85025; 99214

== ENCOUNTER 2023-12-19 13:57 | Oncology outpatient (recurring) (ONCR) | payer MEDICARE, OTHER, SELFPAY ==
[2023-12-19 14:36] LABS: Basophils % 0.6 %; Eosinophils # 0.1 10^3/uL (0.0-0.8); Eosinophils % 1.9 %; Hematocrit 34.4 % (36-47); Lymphocytes # 1.6 10^3/uL (0.8-4.8); Lymphocytes % 33.6 %; Mean Corpuscular HGB Conc 29.7 g/dL (30-55); Mean Corpuscular Hemoglobin 27.9 pg (27-33); Mean Platelet Volume 8.6 fL (7.4-10.4); Monocytes # 0.5 10^3/uL (0.2-0.9); Monocytes % 9.6 %; Neutrophils # 2.52 10^3/uL (1.8-7.7); Neutrophils % 54.1 %; Nucleated Red Blood Cells % 0 %; Platelet Count 132 10^3/cmm (157-399); Red Blood Count 3.66 10^6/uL (3.85-5.65); Red Cell Distribution Width 14.5 % (12.1-15.1); White Blood Count 4.67 10^3/uL (3.29-11.43)
[2023-12-19 14:45] VITALS: BP 133/69; PULSE 64; RESP 18; TEMP 37; O2SAT 95
[2023-12-19] MEDS: ferric carboxy (PYXIS) 750 MG in sodium chloride 0.9% (100 ml) 100 ML 345 MG IV (14:50)
[2023-12-19 14:55] LABS: Alanine Aminotransferase 10 U/L (0-33); Albumin Level 3.4 g/dL (3.5-5.2); Alkaline Phosphatase 93 U/L (35-105); Anion Gap 9.5 (5-19); Aspartate Amino Transferase 26 U/L (0-32); Blood Urea Nitrogen 12 mg/dL (8-23); Carbon Dioxide 32 mmol/L (22-29); Chloride 102 mmol/L (98-107); Ferritin 20 ng/mL (15-150); Globulin 2.7 g/dL (1.3-4.6); Glucose 94 mg/dL (65-115); Iron 63 ug/dL (37-145); Osmolality Calculated 288 mOsm/kg (285-295); Percent Saturation 17.5 % (20-50); Potassium 4.5 mmol/L (3.5-5.1); Sodium 139 mmol/L (136-145); Total Bilirubin 1.3 mg/dL (0.15-1.2); Total Iron Binding Capacity 360 mcg/dl; Total Protein 6.1 g/dL (6.6-8.7); Unsaturated Iron Binding 297 ug/dL (112-347)
[2023-12-19 15:22] VITALS: BP 149/76; PULSE 61; RESP 16; TEMP 37; O2SAT 92
== END 2024-01-09 23:59 | disposition home or self-care (01) ==
PROVIDERS: Internal Medicine Medical Oncology; PCP Nurse Practitioner Family; Referring Provider Surgery; Visit Provider Nurse Practitioner Family
DX: Z79.899 Other long term (current) drug therapy; D50.9 Iron deficiency anemia, unspecified
CPT/HCPCS: 80053; 82728; 83540; 83550; 85025; 96365; J1439

== ENCOUNTER 2024-01-16 13:55 | Oncology outpatient (recurring) (ONCR) | payer MEDICARE, OTHER, SELFPAY ==
[2024-01-16 14:15] LABS: Basophils % 0.7 %; Eosinophils # 0.1 10^3/uL (0.0-0.8); Eosinophils % 2.5 %; Hematocrit 41.1 % (36-47); Lymphocytes # 1.3 10^3/uL (0.8-4.8); Lymphocytes % 32.8 %; Mean Corpuscular HGB Conc 29.9 g/dL (30-55); Mean Corpuscular Hemoglobin 29.6 pg (27-33); Mean Platelet Volume 8.8 fL (7.4-10.4); Monocytes # 0.4 10^3/uL (0.2-0.9); Monocytes % 8.6 %; Neutrophils # 2.23 10^3/uL (1.8-7.7); Neutrophils % 55.2 %; Nucleated Red Blood Cells % 0 %; Platelet Count 111 10^3/cmm (157-399); Red Blood Count 4.15 10^6/uL (3.85-5.65); Red Cell Distribution Width 17.2 % (12.1-15.1); White Blood Count 4.05 10^3/uL (3.29-11.43)
[2024-01-16 14:43] LABS: Ferritin 73 ng/mL (15-150); Iron 144 ug/dL (37-145); Percent Saturation 52.5 % (20-50); Total Iron Binding Capacity 274 mcg/dl; Unsaturated Iron Binding 130 ug/dL (112-347)
== END 2024-02-09 23:59 | disposition home or self-care (01) ==
PROVIDERS: Internal Medicine Medical Oncology; PCP Nurse Practitioner Family; Referring Provider Surgery; Visit Provider Nurse Practitioner Family
DX: D50.9 Iron deficiency anemia, unspecified (principal); Z79.899 Other long term (current) drug therapy; C43.62 Malignant melanoma of left upper limb, including shoulder
CPT/HCPCS: 36591; 82728; 83540; 83550; 85025; 99214

== ENCOUNTER 2024-04-02 13:45 | Oncology outpatient (recurring) (ONCR) | payer MEDICARE, OTHER, SELFPAY ==
--- NOTE | 2024-03-12 13:00 | CTR_ITS ---
PROCEDURE INFORMATION: Exam: CT Chest With Contrast; Diagnostic Exam date and time: 03/12/2024 1:26 PM Age: 78 years old Clinical indication: Condition or disease; Other: Malignant melanoma; Prior surgery; Surgery date: 6+ months; Surgery type: Port , colon, appy TECHNIQUE: Imaging protocol: Diagnostic computed tomography of the chest with contrast. Radiation optimization: All CT scans at this facility use at least one of these dose optimization techniques: automated exposure control; mA and/or kV adjustment per patient size (includes targeted exams where dose is matched to clinical indication); or iterative reconstruction. Contrast material: OMNI 350; Contrast volume: 100 ml; Contrast route: INTRAVENOUS (IV); COMPARISON: CT chest abdpel w/*[id number] 08/30/2023 3:36 PM RADIATION DOSE METRICS: Total DLP (mGy-cm): 1491.84 FINDINGS: Lungs: Few small calcified granulomas in the bilateral lungs. No new or enlarging pulmonary nodules. Mild bibasilar subsegmental atelectasis. Pleural spaces: No pneumothorax. No pleural effusion. Heart: Heart size upper limits of normal. No pericardial fluid. Lymph nodes: Calcified bilateral hilar ([id number]-left) , prevascular, AP window and subcarinal lymph nodes from prior granulomatous infection. Vasculature: No PE. Bones/joints: Unremarkable. No acute fracture. Soft tissues: Unremarkable. PROCEDURE INFORMATION: Exam: CT Abdomen And Pelvis With Contrast Exam date and time: 03/12/2024 1:26 PM Age: 78 years old Clinical indication: Condition or disease; Other: Malignant melanoma; Prior surgery; Surgery date: 6+ months; Surgery type: Port , colon, appy TECHNIQUE: Imaging protocol: Computed tomography of the abdomen and pelvis with contrast. Radiation optimization: All CT scans at this facility use at least one of these dose optimization techniques: automated exposure control; mA and/or kV adjustment per patient size (includes targeted exams where dose is matched to clinical indication); or iterative reconstruction. Contrast material: OMNI 350; Contrast volume: 100 ml; Contrast route: INTRAVENOUS (IV); COMPARISON: CT chest abdpel w/*[id number] 08/30/2023 3:36 PM RADIATION DOSE METRICS: Total DLP (mGy-cm): 1491.84 FINDINGS: Lungs: Lung bases are clear as visualized. Liver: 14 mm benign appearing cyst at the hepatic dome is unchanged. No new or enlarging lesion. Gallbladder and biliary ducts: Unremarkable gallbladder. Pancreas: Normal. No ductal dilation. Spleen: Small calcified granulomas in the spleen. Adrenal glands: Unremarkable adrenal glands. Kidneys and ureters: Left inferior pole renal cyst has mildly increased in size from the comparison, now measuring 5.2 x 4.7 cm axial, previously 5.1 x 4.3 cm. Additionally, in the inferior, dependent aspect, note made of mild layering, with debris attenuating up to 52 Hounsfield units and overlying fluid measuring up to 27 Hounsfield units. New/more prominent from the comparison. May represent hemorrhagic or proteinaceous material. Unchanged cluster of calculi of the left inferior pole/ renal pelvis measuring up to 2.3 x 0.8 cm. Nonobstructive 3 mm calculus in the right inferior pole. Moderate atrophy of the bilateral kidneys again demonstrated, with mild cortical lobulations consistent with prior insult. Stomach and bowel: Postsurgical changes of right hemicolectomy with ileocolic anastomosis. No bowel obstruction or acute inflammation. The gastric mucosa is moderately thickened, a component of which is due to decompression. Administered enteric contrast transits up to distal rectum. Appendix: No evidence of appendicitis. Intraperitoneal space: Unremarkable. No free air. No significant fluid collection. Vasculature: Unremarkable. No abdominal aortic aneurysm. Lymph nodes: Again demonstrated is herniation of small bowel mesentery with associated lymph nodes into the right paraumbilical hernia. Small fat containing umbilical hernia is unchanged. Urinary bladder: Unremarkable as visualized. Reproductive: Unremarkable as visualized. Bones/joints: No worrisome lytic or blastic osseous lesion. Severe left hip osteoarthritis and moderate right hip osteoarthritis again demonstrated. Mild diffuse osseous heterogeneity. Soft tissues: Moderate skin thickening and associated vascularity in the infraumbilical ventral abdominal wall (crossing midline, however [id number]-left) is unchanged from the comparison. Moderate atrophy of the pelvic and gluteal musculature. Moderate thinning of the ventral abdominal wall musculature again demonstrated. CT/CT chest abdpel w/*[id number] IMPRESSION: 1. No evidence of pulmonary metastatic disease. No acute abnormality. 2. Cardiomegaly. IMPRESSION: 1. No evidence of metastatic disease in the abdomen and pelvis. 2. No bowel obstruction or acute inflammation. 3. Left inferior pole renal cyst has mildly increased in size from the comparison, now measuring 5.2 x 4.7 cm axial, previously 5.1 x 4.3 cm. Additionally, in the inferior, dependent aspect, note made of mild layering, with debris attenuating up to 52 Hounsfield units and overlying fluid measuring up to 27 Hounsfield units. New/more prominent from the comparison. May represent hemorrhagic or proteinaceous material. Attention to be paid on future imaging. 4. Nonobstructive left nephrolithiasis. 5. Moderate skin thickening and associated vascularity in the infraumbilical ventral abdominal wall (crossing midline, however [id number]-left) is unchanged from the comparison. Correlate for cellulitis. Skin metastatic disease is not excluded. Recommend correlation.
[2024-03-12 13:25] LABS: Blood Urea Nitrogen 8 mg/dL (8-23)
[2024-03-12] MEDS: iohexol 350 mg/mL 500 mL Btl (per mL) PO (13:34)
[2024-03-12] MEDS: iohexol 350 mg/mL 500 mL Btl (per mL) IV (13:44)
[2024-04-02 14:03] LABS: Basophils % 0.6 %; Eosinophils # 0.1 10^3/uL (0.0-0.8); Eosinophils % 2.2 %; Hematocrit 43.2 % (36-47); Lymphocytes # 1.7 10^3/uL (0.8-4.8); Lymphocytes % 34.6 %; Mean Corpuscular HGB Conc 30.6 g/dL (30-55); Mean Corpuscular Hemoglobin 31.7 pg (27-33); Mean Corpuscular Volume 103.8 fl (85-98); Mean Platelet Volume 8.8 fL (7.4-10.4); Monocytes # 0.5 10^3/uL (0.2-0.9); Monocytes % 9.1 %; Neutrophils # 2.62 10^3/uL (1.8-7.7); Neutrophils % 53.3 %; Nucleated Red Blood Cells % 0 %; Platelet Count 172 10^3/cmm (157-399); Red Blood Count 4.16 10^6/uL (3.85-5.65); Red Cell Distribution Width 13.8 % (12.1-15.1); White Blood Count 4.92 10^3/uL (3.29-11.43)
[2024-04-02 14:09] LABS: Reticulocyte % 2.2 % (0.5-2.0)
[2024-04-02 14:46] LABS: Alanine Aminotransferase 9 U/L (0-33); Albumin Level 3.3 g/dL (3.5-5.2); Alkaline Phosphatase 91 U/L (35-105); Anion Gap 8.2 (5-19); Aspartate Amino Transferase 22 U/L (0-32); Blood Urea Nitrogen 10 mg/dL (8-23); Calcium 9.6 mg/dL (8.5-10.5); Carbon Dioxide 30 mmol/L (22-29); Chloride 110 mmol/L (98-107); Creatinine Clr Calc Pharmacy 78.2488; Ferritin 97 ng/mL (15-150); Globulin 2.8 g/dL (1.3-4.6); Glucose 104 mg/dL (65-115); Iron 124 ug/dL (37-145); Lactate Dehydrogenase 306 U/L (135-214); Osmolality Calculated 297 mOsm/kg (285-295); Percent Saturation 40.3 % (20-50); Potassium 4.2 mmol/L (3.5-5.1); Sodium 144 mmol/L (136-145); Thyroid Stimulating Hormone 0.02 uIU/mL (0.27-4.20); Total Bilirubin 1.6 mg/dL (0.15-1.2); Total Iron Binding Capacity 307 mcg/dl; Total Protein 6.1 g/dL (6.6-8.7); Unsaturated Iron Binding 183 ug/dL (112-347); Vitamin B12 358 pg/mL (232-1245)
[2024-04-06 09:26] LABS: Soluble Transferrin Receptor 1.73 mg/L (0.76-1.76)
== END 2024-04-10 23:59 | disposition home or self-care (01) ==
PROVIDERS: Internal Medicine Hematology & Oncology; PCP Nurse Practitioner Family; Referring Provider Surgery; Visit Provider Internal Medicine Medical Oncology
DX: C43.62 Malignant melanoma of left upper limb, including shoulder (principal); D50.9 Iron deficiency anemia, unspecified; Z87.891 Personal history of nicotine dependence; U07.1 COVID-19; Z53.9 Procedure and treatment not carried out, unspecified reason
CPT/HCPCS: 36591; 71260; 74177; 80053; 82565; 82607; 82728; 82746; 83540; 83550; 83615; 84238; 84443; 84520; 85025; 85045; 99214

== ENCOUNTER 2024-05-28 13:42 | Oncology outpatient (recurring) (ONCR) | payer MEDICARE, OTHER, SELFPAY | END 2024-06-08 23:59 | disposition home or self-care (01) | LOC: ONCMED 13:42 | PROVIDERS: PCP Nurse Practitioner Family; Referring Provider Surgery; Visit Provider Internal Medicine Medical Oncology | DX: Z45.2 Encounter for adjustment and management of vascular access device (principal) | CPT/HCPCS: 96523 ==

== ENCOUNTER 2024-06-25 13:51 | Oncology outpatient (recurring) (ONCR) | payer MEDICARE, OTHER, SELFPAY | END 2024-07-09 23:59 | disposition home or self-care (01) | LOC: ONCMED 13:51 | PROVIDERS: PCP Nurse Practitioner Family; Referring Provider Surgery; Visit Provider Internal Medicine Medical Oncology | DX: Z45.2 Encounter for adjustment and management of vascular access device (principal) | CPT/HCPCS: 96523 ==

== ENCOUNTER 2024-07-30 14:17 | Oncology outpatient (recurring) (ONCR) | payer MEDICARE, OTHER, SELFPAY | END 2024-08-08 23:59 | disposition home or self-care (01) | LOC: ONCMED 14:18 | PROVIDERS: PCP Nurse Practitioner Family; Referring Provider Surgery; Visit Provider Internal Medicine Medical Oncology | DX: Z45.2 Encounter for adjustment and management of vascular access device (principal) | CPT/HCPCS: 96523 ==

== ENCOUNTER 2025-01-07 15:00 | Oncology outpatient (recurring) (ONCR) | payer MEDICARE, OTHER, SELFPAY ==
[2024-12-17 14:29] LABS: Blood Urea Nitrogen 11 mg/dL (8-23)
== END 2025-01-08 23:59 | disposition home or self-care (01) ==
LOC: RAD 01-08 00:01 → ONCMED 01-08 11:03
PROVIDERS: PCP Nurse Practitioner Family; Referring Provider Surgery; Visit Provider Internal Medicine Medical Oncology
DX: Z53.9 Procedure and treatment not carried out, unspecified reason (principal)
CPT/HCPCS: 82565; 84520